=== PATIENT | male | born 1935 | race Caucasian/White ===

== ENCOUNTER → 2024-03-28 12:44 | Outpatient (CLI) | payer MEDICARE, OTHER, SELFPAY ==
--- NOTE | 2024-03-28 12:47 | DI.RAD.S_ITS ---
PROCEDURE: XR KNEE LT 3V INDICATIONS: Left knee injury TECHNIQUE: 3 views of the knee were acquired. COMPARISON: None. FINDINGS: Bones: No fractures or dislocations. No suspicious bony lesions. Lomf-fa-tismrrbi loss of joint space with tricompartmental osteophytosis. Soft tissues: There is a suprapatellar joint effusion. No suspicious soft tissue calcifications. IMPRESSION: Joint effusion in the setting of osteoarthritis without acute osseous abnormality. Dictated by: Tamar Fraser M.D. on 03/28/2024 at 13:13 Approved by: Tamar Fraser M.D. on 03/28/2024 at 13:14
== END ==
LOC: RAD 12:45
PROVIDERS: Family Provider Internal Medicine; PCP Internal Medicine; Referring Provider Registered Nurse; Visit Provider Registered Nurse
DX: M17.12 Unilateral primary osteoarthritis, left knee (principal); M25.562 Pain in left knee; M25.462 Effusion, left knee
CPT/HCPCS: 73562

== ENCOUNTER → 2024-04-11 08:52 | Outpatient (CLI) | payer MEDICARE, OTHER, SELFPAY ==
[2024-04-11 09:39] LABS: Add Manual Diff / Slide Review NO; Basophils Absolute Auto 0 /uL (0-100); Basophils Percent Auto 0.4 % (0-2); Eosinophils Absolute Auto 100 /uL (0-450); Eosinophils Percent Auto 2.1 % (2-4); Hematocrit 36.9 % (41-53); Hemoglobin 12.7 g/dL (13.5-17.5); Lymphocytes Absolute Auto 1400 /uL (1100-4500); Lymphocytes Percent Auto 20.4 % (25-40); Mean Corpuscular HGB Conc 34.4 % (30-36); Mean Corpuscular Hemoglobin 32.9 PG (26-34); Mean Corpuscular Volume 95.6 fL (80-100); Monocytes Absolute Auto 700 /uL (0-900); Monocytes Percent Auto 9.9 % (3-14); Neutrophils Absolute Auto 4500 /uL (1500-7000); Neutrophils Percent Auto 67.2 % (50-75); Platelet Count 228 X10^3/uL (150-400); Red Blood Cell Count 3.86 X10^6/uL (4.5-5.9); Red Cell Distribution Width 13.6 % (11.6-14.8); White Blood Cell Count 6.7 X10^3/uL (4.5-11.0)
[2024-04-11 10:13] LABS: Alanine Aminotransferase 26 IU/L (<50); Albumin 4.2 g/dL (3.5-5.0); Albumin Globulin Ratio 1.9 (1.0-2.8); Alkaline Phosphatase 59 U/L (38-126); Aspartate Aminotransferase 35 IU/L (17-59); BUN Creatinine Ratio 30.9 (6-22); Bilirubin Total 0.7 mg/dL (0.2-1.3); Blood Urea Nitrogen 25 mg/dL (9-20); C-Reactive Protein Quant 2.2 mg/dL (<1.0); Calcium 9.1 mg/dL (8.4-10.2); Carbon Dioxide 25 mmol/L (22-32); Chloride 99 mmol/L (98-107); Estimated Glomerular Filt Rate > 60 mL/min (>60); Globulin 2.2 g/dL (1.7-4.1); Glucose 117 mg/dL (80-110); HEMOLYSIS < 15 (0-50); Potassium 4.5 mmol/L (3.4-5.1); Sodium 133 mmol/L (137-145); Total Protein 6.4 g/dL (6.3-8.2)
[2024-04-11 10:48] LABS: Erythrocyte Sedimentation Rate 8 MM/HR (0-15)
== END ==
PROVIDERS: Family Provider Internal Medicine; PCP Internal Medicine; Referring Provider Internal Medicine; Visit Provider Internal Medicine
DX: M35.3 Polymyalgia rheumatica (principal)
CPT/HCPCS: 36415; 80053; 85025; 85651; 86140

== ENCOUNTER 2024-04-13 09:00 | Outpatient (RCR) | payer MEDICARE, OTHER, SELFPAY ==
--- NOTE | 2024-04-01 15:39 | PT.OIE ---
Current Diagnoses Other chronic pain (04/01/24) Low back pain, unspecified (04/01/24) Visit Care Team Role Provider Type Marky Sarmiento MD Family Provider Non-Staff Primary Care Provider Specialty: Internal Medicine Address: [address] [place] [address], [place], [address] Fax: Email: Radha Daly MD Attending Provider Non-Staff Referring Provider Specialty: Neurosurgery Address: [address] [place] [address],[employer], [place], [address] Email: Physical Therapy Initial Evaluation PT-OP-A Visit Information Start: 03/29/24 08:29 Freq: Status: Active Protocol: Document 04/01/24 07:31 MB (Rec: 04/01/24 07:41 MB [id number]) Out-Patient Physical Therapy Visit Information Visit Information Visit Type Initial Evaluation Visit Note Pt goes by [employer] Progress note by 05/02/24 Visit Start Time 07:31 Visit Stop Time 08:11 Visit Number 1 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 He does not recall the procedure . His biggest complaint is weakness in his legs. He states he does not need a cane to walk. He cannot get up when he goes to get down. He tripped on the curb coming into the PT clinic and he scraped his knee. He has some tiredness in LB with walking and no strength when getting up from the chair . He has to use his arms to pull up. Pt has no numbness or tingling in legs. He can walk but then feels tired in the LB. Treatment Goals Patient/Caregiver Goals To get lower body stronger. PT-OP-C Subjective Start: 03/29/24 08:29 Freq: Status: Active Protocol: Document 04/01/24 07:31 MB (Rec: 04/01/24 14:30 MB [id number]) OP-PT Subjective Patient Comments Patient Comments See history of current condition. Patient Questionnaires Oswestry Low Back Index Oswestry Score 10 Oswestry Impairment 20 to 39% Impaired (Score 20- 39) PT-OP-D Balance Start: 03/29/24 08:29 Freq: Status: Active Protocol: Document 04/01/24 07:31 MB (Rec: 04/01/24 14:30 MB [id number]) Balance Tests Other Other Balance Tests Performed See TUG and 30 sec STS testing today Further balance testing in future and pt presents with evidence of imbalance with all activities PT-OP-G Mobility & Gait Start: 03/29/24 08:29 Freq: Status: Active Protocol: Document 04/01/24 07:31 MB (Rec: 04/01/24 14:30 MB [id number]) OP Mobility Evaluation Bed Mobility Rolling PT attempts to educate pt in log rolling and he performs partial log rolling getting up to the left on plinth and does not roll fully to his side before sitting up OP Gait Assessment Comments Gait Comments Forward, flexed posture and pt tends to spend more time on right foot, presents with decreased step-length and foot clearance, partial step- through gait and pt has ataxic -type balance and standing on right leg during stance time, more antalgic gait after PT assessment today PT-OP-J Posture/Palpation/Skin Start: 03/29/24 08:29 Freq: Status: Active Protocol: Document 04/01/24 07:31 MB (Rec: 04/01/24 14:30 MB [id number]) Posture Evaluation Comments Posture Comments Standing in socks: forward head with tragus 3 in front of AC joint, rounded shoulders , reversal of lower thoracic spine dorsally and then spinal processes move ventrally, scar around L4-5 area, right iliac crest is higher than the left PT-OP-K Range of Motion Start: 03/29/24 08:29 Freq: Status: Active Protocol: Document 04/01/24 07:31 MB (Rec: 04/01/24 15:38 MB [id number]) Lumbar Spine Range of Motion Lumbar Spine Passive Comments Observation and palpation is that pt has severely stiff spine in general from cervical area to lumbar spine, left SI joint is much stiffer than the left and pt cannot relax for PT to check B passive SLR. In supine, left leg does not touch the mat posteriorly behind the thigh or knee and is functionally shorter than the right leg. Knee Goniometric Range of Motion Knee ROM Limitations Comments Arthritic appearing changes left knee when lying on mat: knee does not touch mat PT-OP-M Strength Start: 03/29/24 08:29 Freq: Status: Active Protocol: Document 04/01/24 07:31 MB (Rec: 04/01/24 15:38 MB [id number]) Hip Strength Hip Manual Muscle Testing Left Flexion (L2) 4- Good- Extension (S1) 3+ Fair+ Abduction 3+ Fair+ Right Flexion (L2) 4- Good- Extension (S1) 3+ Fair+ Abduction 3+ Fair+ Knee Strength Knee Manual Muscle Testing Left Flexion (S2) 3+ Fair+ Extension (L3) 4 Good Right Flexion (S2) 5 Normal Extension (L3) 4+ Good+ Ankle/Foot Strength Ankle and Foot Manual Muscle Testing Bilateral Dorsiflexion (L4) 5 Normal Toe Strength Toe Manual Muscle Testing Left Great Toe Extension 4+ Good+ Right Great Toe Extension 4+ Good+ PT-OP-Q Treatments Start: 03/29/24 08:29 Freq: Status: Active Protocol: Document 04/01/24 07:31 MB (Rec: 04/01/24 15:38 MB [id number]) Therapeutic Exercises Supine Exercises Pelvic realignment exercises Side bilateral Equipment Used Blue ball Reps/Minutes 5 rep, 3 sec hold all exercises in order Comments Feet together ball squeeze iso , knee opp ankle iso, thigh press iso Sitting Exercises 30 sec STS Comments 8 reps Neuro Re-Education Treatment Balance Activities TUG Comments 15 sec Self-Care/Home Management Treatment Education Patient Education Body Mechanics,Home Exercise Program,Joint Protection,Pain Management,Posture,Safety Other Education Ed pt in proper sleeping position with pillow support between legs in side lying, benefits of ice, benefits of PT plan to work on alignment first, then flexibility and then strengthening and balance , ed pt on log rolling technique PT-OP-T Assessment and Plan Start: 03/29/24 08:29 Freq: Status: Active Protocol: Document 04/01/24 07:31 MB (Rec: 04/01/24 15:38 MB [id number]) Physical Therapy Assessment Rehab Potential Rehabilitation Potential Fair Evaluation Complexity Number of Personal Factors/Comorbidities 1-2 Number of Body Systems Impaired 3 Clinical Presentation at Evaluation Evolving Impairments Impairments Activity Tolerance,Balance, Coordination,Functional Activities,Functional Mobility ,Gait,Pain,Posture,ROM,Soft Tissue Mobility,Strength Other Concerns Fall Risk Yes Goals 4 Impairment Lack of HEP Residential Goal (LTG) Pt will perform progressive HEP with I including pelvic realignment exercises, gentle flexibility, strengthening and balance exercises to improve pain and funcitonal strength. LTG Duration 8 weeks 3 Impairment Hip and knee weakness with MMT Residential Goal (LTG) Pt will present with B hip flexion, extension and abduction strength to at least 4+/5 to improve functional transfers and gait. LTG Duration 8 weeks 2 Impairment C/o weakness and tiredness with increased gait distance Stapler Hand Goal (LTG) Pt will gait train at least 1100 feet in 6 minutes to improve community ambulation. LTG Duration 8 weeks 1 Impairment Evidence of imbalance, TUG 15 sec Stapler Hand Goal (LTG) Pt will perform TUG in no more than 10 sec to decrease fall risk. LTG Duration 8 weeks Assessment Summary Assessment Pt is an 88 y/o male who returns to OPPT post lumbar surgery 01/17/24. No surgical note sent with referral and scar is around L4-5 area. Pt is unable to state what level or what type of surgery he had . Pt reports improved pain and increased back tiredness and leg weakness post-op. Pt con't with spinal and postural changes and pelvic obliquities on eval today. He presents with B LE weakness, increased left SI tension, functional leg length difference in supine with left leg shorter than the right leg, left knee not touching the mat, poor gait quality with antalgic gait and more stance time on right leg, increased TUG time and increased pain after 30 sec STS in which he performed 8 reps. He presents with B LE weakness with MMT. His pain is worse after PT today. He will benefit from PT to improve pelvic alignment, gentle flexibility, balance and strength. Advanced age is a barrier. Pt had a stumble up a curb lately and he has not been open about AD use in the past and reports he doesn't have to use one post-op and so this may also be a barrier. Pt denies paresthesias in legs today initially but then has left side posterior leg pain and knee stiffness after MMT in supine, SI testing and STS. Physical Therapy Plan Frequency and Duration Frequency of Treatment 1-2x/wk Duration of treatment (weeks) 8 Plan of Care Start Date 04/01/24 Plan of Care End Date 06/01/24 Therapeutic Interventions Therapeutic Interventions Balance Training,Canalithic Repositioning,Gait Training, Home Exercise Program,Joint Mobilizations,Manual Therapy, Neuromuscular Re-education, Patient/Caregiver Education, Self-Care/Home Management,Soft Tissue Mobilization,Taping, Therapeutic Activities, Therapeutic Exercises Modalities Cold Pack/Ice Massage,Electric Stimulation,Hot Packs, Ultrasound Next Visit Focus/Plan Next Note Type Treatment Note Next Visit Plan Review pelvic realignment exercises, consider 6MWT Next progress gentle flexibility and [place] type exercises Manual work
--- NOTE | 2024-04-01 15:39 | PT.OPPOC ---
Physical, Occupational & Speech Therapy At [facility] Current Diagnoses Other chronic pain (04/01/24) Low back pain, unspecified (04/01/24) Visit Care Team Role Provider Type aMrky Sarmiento MD Family Provider Non-Staff Primary Care Provider Specialty: Internal Medicine Address: [address] [place] [address], [address] Fax: Email: Radha Daly MD Attending Provider Non-Staff Referring Provider Specialty: Neurosurgery Address: [address] [place] [address],[employer] [place], [address] Email: Plan Of Care PT-OP-B Current Condition Start: 03/29/24 08:29 Freq: Status: Active Protocol: Document 04/01/24 07:31 MB (Rec: 04/01/24 07:41 MB [id number]) Current Condition History of Current Condition Onset Date Surgery on 01/17/24, many years of back pain Current Complaints Leg weakness History of Current Condition Pt underwent lumbar surgery at [facility] on 01/17/24. He does not recall the procedure . His biggest complaint is weakness in his legs. He states he does not need a cane to walk. He cannot get up when he goes to get down. He tripped on the curb coming into the PT clinic and he scraped his knee. He has some tiredness in LB with walking and no strength when getting up from the chair . He has to use his arms to pull up. Pt has no numbness or tingling in legs. He can walk but then feels tired in the LB. Treatment Goals Patient/Caregiver Goals To get lower body stronger. PT-OP-T Assessment and Plan Start: 03/29/24 08:29 Freq: Status: Active Protocol: Document 04/01/24 07:31 MB (Rec: 04/01/24 15:38 MB [id number]) Physical Therapy Assessment Rehab Potential Rehabilitation Potential Fair Evaluation Complexity Number of Personal Factors/Comorbidities 1-2 Number of Body Systems Impaired 3 Clinical Presentation at Evaluation Evolving Impairments Impairments Activity Tolerance,Balance, Coordination,Functional Activities,Functional Mobility ,Gait,Pain,Posture,ROM,Soft Tissue Mobility,Strength Other Concerns Fall Risk Yes Goals 4 Impairment Lack of HEP Senior Care Goal (LTG) Pt will perform progressive HEP with I including pelvic realignment exercises, gentle flexibility, strengthening and balance exercises to improve pain and funcitonal strength. LTG Duration 8 weeks 3 Impairment Hip and knee weakness with MMT [employer] Goal (LTG) Pt will present with B hip flexion, extension and abduction strength to at least 4+/5 to improve functional transfers and gait. LTG Duration 8 weeks 2 Impairment C/o weakness and tiredness with increased gait distance [employer] Goal (LTG) Pt will gait train at least 1100 feet in 6 minutes to improve community ambulation. LTG Duration 8 weeks 1 Impairment Evidence of imbalance, TUG 15 sec Senior Care Goal (LTG) Pt will perform TUG in no more than 10 sec to decrease fall risk. LTG Duration 8 weeks Assessment Summary Assessment Pt is an 88 y/o male who returns to OPPT post lumbar surgery 01/17/24. No surgical note sent with referral and scar is around L4-5 area. Pt is unable to state what level or what type of surgery he had . Pt reports improved pain and increased back tiredness and leg weakness post-op. Pt con't with spinal and postural changes and pelvic obliquities on eval today. He presents with B LE weakness, increased left SI tension, functional leg length difference in supine with left leg shorter than the right leg, left knee not touching the mat, poor gait quality with antalgic gait and more stance time on right leg, increased TUG time and increased pain after 30 sec STS in which he performed 8 reps. He presents with B LE weakness with MMT. His pain is worse after PT today. He will benefit from PT to improve pelvic alignment, gentle flexibility, balance and strength. Advanced age is a barrier. Pt had a stumble up a curb lately and he has not been open about AD use in the past and reports he doesn't have to use one post-op and so this may also be a barrier. Pt denies paresthesias in legs today initially but then has left side posterior leg pain and knee stiffness after MMT in supine, SI testing and STS. Physical Therapy Plan Frequency and Duration Frequency of Treatment 1-2x/wk Duration of treatment (weeks) 8 Plan of Care Start Date 04/01/24 Plan of Care End Date 06/01/24 Therapeutic Interventions Therapeutic Interventions Balance Training,Canalithic Repositioning,Gait Training, Home Exercise Program,Joint Mobilizations,Manual Therapy, Neuromuscular Re-education, Patient/Caregiver Education, Self-Care/Home Management,Soft Tissue Mobilization,Taping, Therapeutic Activities, Therapeutic Exercises Modalities Cold Pack/Ice Massage,Electric Stimulation,Hot Packs, Ultrasound Next Visit Focus/Plan Next Note Type Treatment Note Next Visit Plan Review pelvic realignment exercises, consider 6MWT Next progress gentle flexibility and [place] type exercises Manual work Plan of Care Dates Plan of Care Start Date 04/01/24 Plan of Care End Date 06/01/24 Electronically Signed by: Paola Portillo, PT 04/01/24 2849 If you are in agreement with this Plan of Care, please return a signed and dated copy. I have reviewed this Plan of Care and certify that the skilled therapy services above are required to meet the patient?s needs. Physician Signature Date Printed Name and Credentials Clinical Instructor Signature Printed Name and Credentials
--- NOTE | 2024-04-06 08:09 | PT.OTN ---
Current Diagnoses Other chronic pain (04/06/24) Low back pain, unspecified (04/06/24) Physical Therapy Treatment Note PT-OP-A Visit Information Start: 03/29/24 08:29 Freq: Status: Active Protocol: Document 04/06/24 07:27 MB (Rec: 04/06/24 08:07 MB [id number]) Out-Patient Physical Therapy Visit Information Visit Information Visit Type Treatment Note Visit Note Pt goes by [employer] Progress note by 05/02/24 Visit Start Time 07:27 Visit Stop Time 08:07 Visit Number 2 Number of ICER HAND Visits 0 Evaluation Information Evaluation Date 04/01/24 Precautions Precautions Recent spinal surgery, looks like L4-5 area and pt cannot report what surgery or what level, no notes from surgeon in chart PT-OP-B Current Condition Start: 03/29/24 08:29 Freq: Status: Active Protocol: Document 04/01/24 07:31 MB (Rec: 04/01/24 07:41 MB [id number]) Current Condition History of Current Condition Onset Date Surgery on 01/17/24, many years of back pain Current Complaints Leg weakness History of Current Condition Pt underwent lumbar surgery at [facility] on 01/17/24. He does not recall the procedure . His biggest complaint is weakness in his legs. He states he does not need a cane to walk. He cannot get up when he goes to get down. He tripped on the curb coming into the PT clinic and he scraped his knee. He has some tiredness in LB with walking and no strength when getting up from the chair . He has to use his arms to pull up. Pt has no numbness or tingling in legs. He can walk but then feels tired in the LB. Treatment Goals Patient/Caregiver Goals To get lower body stronger. PT-OP-C Subjective Start: 03/29/24 08:29 Freq: Status: Active Protocol: Document 04/06/24 07:27 MB (Rec: 04/06/24 08:07 MB [id number]) OP-PT Subjective Patient Comments Patient Comments Pt asks if it is normal to have so many aches and pain 10 weeks after back surgery. He states that his left leg gives out on him some. PT-OP-D Balance Start: 03/29/24 08:29 Freq: Status: Active Protocol: Document 04/01/24 07:31 MB (Rec: 04/01/24 14:30 MB [id number]) Balance Tests Other Other Balance Tests Performed See TUG and 30 sec STS testing today Further balance testing in future and pt presents with evidence of imbalance with all activities PT-OP-G Mobility & Gait Start: 03/29/24 08:29 Freq: Status: Active Protocol: Document 04/01/24 07:31 MB (Rec: 04/01/24 14:30 MB [id number]) OP Mobility Evaluation Bed Mobility Rolling PT attempts to educate pt in log rolling and he performs partial log rolling getting up to the left on plinth and does not roll fully to his side before sitting up OP Gait Assessment Comments Gait Comments Forward, flexed posture and pt tends to spend more time on right foot, presents with decreased step-length and foot clearance, partial step- through gait and pt has ataxic -type balance and standing on right leg during stance time, more antalgic gait after PT assessment today PT-OP-J Posture/Palpation/Skin Start: 03/29/24 08:29 Freq: Status: Active Protocol: Document 04/01/24 07:31 MB (Rec: 04/01/24 14:30 MB [id number]) Posture Evaluation Comments Posture Comments Standing in socks: forward head with tragus 3 in front of AC joint, rounded shoulders , reversal of lower thoracic spine dorsally and then spinal processes move ventrally, scar around L4-5 area, right iliac crest is higher than the left PT-OP-K Range of Motion Start: 03/29/24 08:29 Freq: Status: Active Protocol: Document 04/01/24 07:31 MB (Rec: 04/01/24 15:38 MB [id number]) Lumbar Spine Range of Motion Lumbar Spine Passive Comments Observation and palpation is that pt has severely stiff spine in general from cervical area to lumbar spine, left SI joint is much stiffer than the left and pt cannot relax for PT to check B passive SLR. In supine, left leg does not touch the mat posteriorly behind the thigh or knee and is functionally shorter than the right leg. Knee Goniometric Range of Motion Knee ROM Limitations Comments Arthritic appearing changes left knee when lying on mat: knee does not touch mat PT-OP-M Strength Start: 03/29/24 08:29 Freq: Status: Active Protocol: Document 04/01/24 07:31 MB (Rec: 04/01/24 15:38 MB [id number]) Hip Strength Hip Manual Muscle Testing Left Flexion (L2) 4- Good- Extension (S1) 3+ Fair+ Abduction 3+ Fair+ Right Flexion (L2) 4- Good- Extension (S1) 3+ Fair+ Abduction 3+ Fair+ Knee Strength Knee Manual Muscle Testing Left Flexion (S2) 3+ Fair+ Extension (L3) 4 Good Right Flexion (S2) 5 Normal Extension (L3) 4+ Good+ Ankle/Foot Strength Ankle and Foot Manual Muscle Testing Bilateral Dorsiflexion (L4) 5 Normal Toe Strength Toe Manual Muscle Testing Left Great Toe Extension 4+ Good+ Right Great Toe Extension 4+ Good+ PT-OP-Q Treatments Start: 03/29/24 08:29 Freq: Status: Active Protocol: Document 04/06/24 07:27 MB (Rec: 04/06/24 08:07 MB [id number]) Therapeutic Exercises Supine Exercises SLR Side bilateral Reps/Minutes Opposite leg bent Comments 10 reps Pelvic realignment exercises Side bilateral Equipment Used Blue ball and towel Reps/Minutes 5 rep, 3 sec hold all exercises in order Comments Feet together ball squeeze iso , knee opp ankle iso, thigh press iso Gait Training Gait Activity Gait in clinic Comments Decreased right arm swing and he tends to only bend elbow and his right scapula is still and elevated, he has increased time on right leg with stance time consistently and it appears that he has functional leg length difference 6MWT Comments Pt gait trains 1350 feet in 6 minutes and he walks CCW laps and start to veer to the right towards end of gait Manual Therapy Treatment Consent Patient gave verbal consent for manual Yes treatment Other Other Manual Treatments Pt hook lying with head and legs supported: B hamstrings, vastus lateralis, PFs PT-OP-T Assessment and Plan Start: 03/29/24 08:29 Freq: Status: Active Protocol: Document 04/06/24 07:27 MB (Rec: 04/06/24 08:07 MB [id number]) Physical Therapy Assessment Rehab Potential Rehabilitation Potential Fair Evaluation Complexity Number of Personal Factors/Comorbidities 1-2 Number of Body Systems Impaired 3 Clinical Presentation at Evaluation Evolving Impairments Impairments Activity Tolerance,Balance, Coordination,Functional Activities,Functional Mobility ,Gait,Pain,Posture,ROM,Soft Tissue Mobility,Strength Other Concerns Fall Risk Yes Goals 5 Impairment 1350 feet in 6MWT Master Printer Goal (LTG) Pt will gait train at least 1450 feet in 6 minutes to improve community mobility and balance. LTG Duration 8 weeks 4 Impairment Lack of HEP Master Printer Goal (LTG) Pt will perform progressive HEP with I including pelvic realignment exercises, gentle flexibility, strengthening and balance exercises to improve pain and funcitonal strength. LTG Duration 8 weeks 3 Impairment Hip and knee weakness with MMT Assisted Goal (LTG) Pt will present with B hip flexion, extension and abduction strength to at least 4+/5 to improve functional transfers and gait. LTG Duration 8 weeks 2 Impairment C/o weakness and tiredness with increased gait distance Assisted Goal (LTG) Pt will gait train at least 1100 feet in 6 minutes to improve community ambulation. 04/06/24 Pt gait trains 1350 feet and so will increase goal LTG Duration 8 weeks 1 Impairment Evidence of imbalance, TUG 15 sec Master Printer Goal (LTG) Pt will perform TUG in no more than 10 sec to decrease fall risk. LTG Duration 8 weeks Assessment Summary Assessment Pt con't with gait changes and functional leg length difference and imbalance with gait. He c/o feeling like left leg is going to give out. Reviewed pelvic realignment exercises and added SLR for strengthening. Pt states that he is bending over to pick weeds and feels discouraged he can't do it and PT re-ed pt on back precautions. Pt con't to have decreased insight to his spinal presentation and safety. Physical Therapy Plan Frequency and Duration Frequency of Treatment 1-2x/wk Duration of treatment (weeks) 8 Plan of Care Start Date 04/01/24 Plan of Care End Date 06/01/24 Therapeutic Interventions Therapeutic Interventions Balance Training,Canalithic Repositioning,Gait Training, Home Exercise Program,Joint Mobilizations,Manual Therapy, Neuromuscular Re-education, Patient/Caregiver Education, Self-Care/Home Management,Soft Tissue Mobilization,Taping, Therapeutic Activities, Therapeutic Exercises Modalities Cold Pack/Ice Massage,Electric Stimulation,Hot Packs, Ultrasound Next Visit Focus/Plan Next Note Type Treatment Note Next Visit Plan Next progress gentle flexibility, gentle core progression and [place] type exercises Manual work Check in with 6MWT and TUG every 3-4 visits to monitor for progress
--- NOTE | 2024-04-06 08:09 | PT.OPPOC ---
Physical, Occupational & Speech Therapy At [facility] Current Diagnoses Other chronic pain (04/06/24) Low back pain, unspecified (04/06/24) Visit Care Team Role Provider Type Marky Sarmiento MD Family Provider Non-Staff Primary Care Provider Specialty: Internal Medicine Address: [address] [place] [address], [id number] Fax: Email: Radha Daly MD Attending Provider Non-Staff Referring Provider Specialty: Neurosurgery Address: [address] [place] [address],[address] [place], [address] Email: Plan Of Care PT-OP-B Current Condition Start: 03/29/24 08:29 Freq: Status: Active Protocol: Document 04/01/24 07:31 MB (Rec: 04/01/24 07:41 MB [id number]) Current Condition History of Current Condition Onset Date Surgery on 01/17/24, many years of back pain Current Complaints Leg weakness History of Current Condition Pt underwent lumbar surgery at [facility] on 01/17/24. He does not recall the procedure . His biggest complaint is weakness in his legs. He states he does not need a cane to walk. He cannot get up when he goes to get down. He tripped on the curb coming into the PT clinic and he scraped his knee. He has some tiredness in LB with walking and no strength when getting up from the chair . He has to use his arms to pull up. Pt has no numbness or tingling in legs. He can walk but then feels tired in the LB. Treatment Goals Patient/Caregiver Goals To get lower body stronger. PT-OP-T Assessment and Plan Start: 03/29/24 08:29 Freq: Status: Active Protocol: Document 04/06/24 07:27 MB (Rec: 04/06/24 08:07 MB [id number]) Physical Therapy Assessment Rehab Potential Rehabilitation Potential Fair Evaluation Complexity Number of Personal Factors/Comorbidities 1-2 Number of Body Systems Impaired 3 Clinical Presentation at Evaluation Evolving Impairments Impairments Activity Tolerance,Balance, Coordination,Functional Activities,Functional Mobility ,Gait,Pain,Posture,ROM,Soft Tissue Mobility,Strength Other Concerns Fall Risk Yes Goals 5 Impairment 1350 feet in 6MWT Central Office Supervisor Goal (LTG) Pt will gait train at least 1450 feet in 6 minutes to improve community mobility and balance. LTG Duration 8 weeks 4 Impairment Lack of HEP Snf Goal (LTG) Pt will perform progressive HEP with I including pelvic realignment exercises, gentle flexibility, strengthening and balance exercises to improve pain and funcitonal strength. LTG Duration 8 weeks 3 Impairment Hip and knee weakness with MMT Central Office Supervisor Goal (LTG) Pt will present with B hip flexion, extension and abduction strength to at least 4+/5 to improve functional transfers and gait. LTG Duration 8 weeks 2 Impairment C/o weakness and tiredness with increased gait distance Snf Goal (LTG) Pt will gait train at least 1100 feet in 6 minutes to improve community ambulation. 04/06/24 Pt gait trains 1350 feet and so will increase goal LTG Duration 8 weeks 1 Impairment Evidence of imbalance, TUG 15 sec Central Office Supervisor Goal (LTG) Pt will perform TUG in no more than 10 sec to decrease fall risk. LTG Duration 8 weeks Assessment Summary Assessment Pt con't with gait changes and functional leg length difference and imbalance with gait. He c/o feeling like left leg is going to give out. Reviewed pelvic realignment exercises and added SLR for strengthening. Pt states that he is bending over to pick weeds and feels discouraged he can't do it and PT re-ed pt on back precautions. Pt con't to have decreased insight to his spinal presentation and safety. Physical Therapy Plan Frequency and Duration Frequency of Treatment 1-2x/wk Duration of treatment (weeks) 8 Plan of Care Start Date 04/01/24 Plan of Care End Date 06/01/24 Therapeutic Interventions Therapeutic Interventions Balance Training,Canalithic Repositioning,Gait Training, Home Exercise Program,Joint Mobilizations,Manual Therapy, Neuromuscular Re-education, Patient/Caregiver Education, Self-Care/Home Management,Soft Tissue Mobilization,Taping, Therapeutic Activities, Therapeutic Exercises Modalities Cold Pack/Ice Massage,Electric Stimulation,Hot Packs, Ultrasound Next Visit Focus/Plan Next Note Type Treatment Note Next Visit Plan Next progress gentle flexibility, gentle core progression and Otago type exercises Manual work Check in with 6MWT and TUG every 3-4 visits to monitor for progress Plan of Care Dates Plan of Care Start Date 04/01/24 Plan of Care End Date 06/01/24 Electronically Signed by: Paola Portillo, PT 04/06/24 0809 If you are in agreement with this Plan of Care, please return a signed and dated copy. I have reviewed this Plan of Care and certify that the skilled therapy services above are required to meet the patient?s needs. Physician Signature Date Printed Name and Credentials Clinical Instructor Signature Printed Name and Credentials
--- NOTE | 2024-04-08 08:10 | PT.OTN ---
Current Diagnoses Other chronic pain (04/08/24) Low back pain, unspecified (04/08/24) Physical Therapy Treatment Note PT-OP-A Visit Information Start: 03/29/24 08:29 Freq: Status: Active Protocol: Document 04/08/24 07:31 MB (Rec: 04/08/24 08:08 MB [id number]) Out-Patient Physical Therapy Visit Information Visit Information Visit Type Treatment Note Visit Note Pt goes by Bill [employer] Progress note by 05/02/24 Visit Start Time 07:31 Visit Stop Time 08:11 Visit Number 3 Number of WHOLESALE ACCOUNT EXECUTIVE Visits 0 Evaluation Information Evaluation Date 04/01/24 Precautions Precautions 01/17/24 L2-3, L3-4 laminectomy PT-OP-B Current Condition Start: 03/29/24 08:29 Freq: Status: Active Protocol: Document 04/01/24 07:31 MB (Rec: 04/01/24 07:41 MB [id number]) Current Condition History of Current Condition Onset Date Surgery on 01/17/24, many years of back pain Current Complaints Leg weakness History of Current Condition Pt underwent lumbar surgery at [facility] on 01/17/24. He does not recall the procedure . His biggest complaint is weakness in his legs. He states he does not need a cane to walk. He cannot get up when he goes to get down. He tripped on the curb coming into the PT clinic and he scraped his knee. He has some tiredness in LB with walking and no strength when getting up from the chair . He has to use his arms to pull up. Pt has no numbness or tingling in legs. He can walk but then feels tired in the LB. Treatment Goals Patient/Caregiver Goals To get lower body stronger. PT-OP-C Subjective Start: 03/29/24 08:29 Freq: Status: Active Protocol: Document 04/08/24 07:31 MB (Rec: 04/08/24 08:08 MB [id number]) OP-PT Subjective Patient Comments Patient Comments Pt states that he feels a little sore this morning and he is tired. PT-OP-D Balance Start: 03/29/24 08:29 Freq: Status: Active Protocol: Document 04/01/24 07:31 MB (Rec: 04/01/24 14:30 MB [id number]) Balance Tests Other Other Balance Tests Performed See TUG and 30 sec STS testing today Further balance testing in future and pt presents with evidence of imbalance with all activities PT-OP-G Mobility & Gait Start: 03/29/24 08:29 Freq: Status: Active Protocol: Document 04/01/24 07:31 MB (Rec: 04/01/24 14:30 MB [id number]) OP Mobility Evaluation Bed Mobility Rolling PT attempts to educate pt in log rolling and he performs partial log rolling getting up to the left on plinth and does not roll fully to his side before sitting up OP Gait Assessment Comments Gait Comments Forward, flexed posture and pt tends to spend more time on right foot, presents with decreased step-length and foot clearance, partial step- through gait and pt has ataxic -type balance and standing on right leg during stance time, more antalgic gait after PT assessment today PT-OP-J Posture/Palpation/Skin Start: 03/29/24 08:29 Freq: Status: Active Protocol: Document 04/01/24 07:31 MB (Rec: 04/01/24 14:30 MB [id number]) Posture Evaluation Comments Posture Comments Standing in socks: forward head with tragus 3 in front of AC joint, rounded shoulders , reversal of lower thoracic spine dorsally and then spinal processes move ventrally, scar around L4-5 area, right iliac crest is higher than the left PT-OP-K Range of Motion Start: 03/29/24 08:29 Freq: Status: Active Protocol: Document 04/01/24 07:31 MB (Rec: 04/01/24 15:38 MB [id number]) Lumbar Spine Range of Motion Lumbar Spine Passive Comments Observation and palpation is that pt has severely stiff spine in general from cervical area to lumbar spine, left SI joint is much stiffer than the left and pt cannot relax for PT to check B passive SLR. In supine, left leg does not touch the mat posteriorly behind the thigh or knee and is functionally shorter than the right leg. Knee Goniometric Range of Motion Knee ROM Limitations Comments Arthritic appearing changes left knee when lying on mat: knee does not touch mat PT-OP-M Strength Start: 03/29/24 08:29 Freq: Status: Active Protocol: Document 04/01/24 07:31 MB (Rec: 04/01/24 15:38 MB [id number]) Hip Strength Hip Manual Muscle Testing Left Flexion (L2) 4- Good- Extension (S1) 3+ Fair+ Abduction 3+ Fair+ Right Flexion (L2) 4- Good- Extension (S1) 3+ Fair+ Abduction 3+ Fair+ Knee Strength Knee Manual Muscle Testing Left Flexion (S2) 3+ Fair+ Extension (L3) 4 Good Right Flexion (S2) 5 Normal Extension (L3) 4+ Good+ Ankle/Foot Strength Ankle and Foot Manual Muscle Testing Bilateral Dorsiflexion (L4) 5 Normal Toe Strength Toe Manual Muscle Testing Left Great Toe Extension 4+ Good+ Right Great Toe Extension 4+ Good+ PT-OP-Q Treatments Start: 03/29/24 08:29 Freq: Status: Active Protocol: Document 04/08/24 07:31 MB (Rec: 04/08/24 08:08 MB [id number]) Therapeutic Exercises Supine Exercises SLR Side bilateral Reps/Minutes Opposite leg bent Comments 10 reps Pelvic realignment exercises Supine Exercise Name Increased time and cues to perform this ex Side bilateral Equipment Used Blue ball and towel Reps/Minutes 5 rep, 3 sec hold all exercises in order Comments Feet together ball squeeze iso , knee opp ankle iso, thigh press iso Standing Exercises Gastroc and soleus stretches Side bilateral Reps/Minutes 30 sec hold each ex, each leg Comments 1 rep each leg Manual Therapy Treatment Consent Patient gave verbal consent for manual Yes treatment Other Other Manual Treatments KT left knee with black tape and c strip under knee and medial and lateral I strips; pt supine and STM and positional release thoracic spine, ribs, intrascapular muscles B and increased tension, increased tension B quads/vastus lateralis PT-OP-T Assessment and Plan Start: 03/29/24 08:29 Freq: Status: Active Protocol: Document 04/08/24 07:31 MB (Rec: 04/08/24 08:08 MB [id number]) Physical Therapy Assessment Rehab Potential Rehabilitation Potential Fair Evaluation Complexity Number of Personal Factors/Comorbidities 1-2 Number of Body Systems Impaired 3 Clinical Presentation at Evaluation Evolving Impairments Impairments Activity Tolerance,Balance, Coordination,Functional Activities,Functional Mobility ,Gait,Pain,Posture,ROM,Soft Tissue Mobility,Strength Other Concerns Fall Risk Yes Goals 5 Impairment 1350 feet in 6MWT Quality Control Assistant Goal (LTG) Pt will gait train at least 1450 feet in 6 minutes to improve community mobility and balance. LTG Duration 8 weeks 4 Impairment Lack of HEP Halfway Goal (LTG) Pt will perform progressive HEP with I including pelvic realignment exercises, gentle flexibility, strengthening and balance exercises to improve pain and funcitonal strength. LTG Duration 8 weeks 3 Impairment Hip and knee weakness with MMT Halfway Goal (LTG) Pt will present with B hip flexion, extension and abduction strength to at least 4+/5 to improve functional transfers and gait. LTG Duration 8 weeks 1 Impairment Evidence of imbalance, TUG 15 sec Quality Control Assistant Goal (LTG) Pt will perform TUG in no more than 10 sec to decrease fall risk. LTG Duration 8 weeks Assessment Summary Assessment Pt con't to report some left knee buckling and he has caught himself before he fell. Pt has quite a bit of trouble following commands for third pelvic realignment exercise today. Physical Therapy Plan Frequency and Duration Frequency of Treatment 1-2x/wk Duration of treatment (weeks) 8 Plan of Care Start Date 04/01/24 Plan of Care End Date 06/01/24 Therapeutic Interventions Therapeutic Interventions Balance Training,Canalithic Repositioning,Gait Training, Home Exercise Program,Joint Mobilizations,Manual Therapy, Neuromuscular Re-education, Patient/Caregiver Education, Self-Care/Home Management,Soft Tissue Mobilization,Taping, Therapeutic Activities, Therapeutic Exercises Modalities Cold Pack/Ice Massage,Electric Stimulation,Hot Packs, Ultrasound Next Visit Focus/Plan Next Note Type Treatment Note Next Visit Plan Review exercises, consider Navin stretch Progress gentle flexibility, gentle core progression and [place] type exercises Manual work Check in with 6MWT and TUG every 3-4 visits to monitor for progress
--- NOTE | 2024-04-13 09:41 | PT.OTN ---
Current Diagnoses Other chronic pain (04/13/24) Low back pain, unspecified (04/13/24) Physical Therapy Treatment Note PT-OP-A Visit Information Start: 03/29/24 08:29 Freq: Status: Active Protocol: Document 04/13/24 09:04 MB (Rec: 04/13/24 09:38 MB [id number]) Out-Patient Physical Therapy Visit Information Visit Information Visit Type Treatment Note Visit Note Pt goes by Bill Medicare Progress note by 05/02/24 Visit Start Time 09:04 Visit Stop Time 09:44 Visit Number 4 Number of REHABILITATION SERVICES DIRECTOR Visits 0 Evaluation Information Evaluation Date 04/01/24 Precautions Precautions 01/17/24 L2-3, L3-4 laminectomy PT-OP-B Current Condition Start: 03/29/24 08:29 Freq: Status: Active Protocol: Document 04/01/24 07:31 MB (Rec: 04/01/24 07:41 MB [id number]) Current Condition History of Current Condition Onset Date Surgery on 01/17/24, many years of back pain Current Complaints Leg weakness History of Current Condition Pt underwent lumbar surgery at [facility] on 01/17/24. He does not recall the procedure . His biggest complaint is weakness in his legs. He states he does not need a cane to walk. He cannot get up when he goes to get down. He tripped on the curb coming into the PT clinic and he scraped his knee. He has some tiredness in LB with walking and no strength when getting up from the chair . He has to use his arms to pull up. Pt has no numbness or tingling in legs. He can walk but then feels tired in the LB. Treatment Goals Patient/Caregiver Goals To get lower body stronger. PT-OP-C Subjective Start: 03/29/24 08:29 Freq: Status: Active Protocol: Document 04/13/24 09:04 MB (Rec: 04/13/24 09:38 MB [id number]) OP-PT Subjective Patient Comments Patient Comments Pt states that he had three falls over the weekend. He was standing at the sink and his left leg gave way. Once, he was walking and his left leg gave out on him. Once, he was tying to put on socks and he slipped off the chair and fell down in the closet. He reports high after PT treatment. He reports low back pain and tired left leg. Pt reports right shoulder tightness and discomfort. He wrote the surgeon and was told it should go away with time. He is referred to rheumatology for LBP. He might have to go back on prednisone. PT-OP-D Balance Start: 03/29/24 08:29 Freq: Status: Active Protocol: Document 04/01/24 07:31 MB (Rec: 04/01/24 14:30 MB [id number]) Balance Tests Other Other Balance Tests Performed See TUG and 30 sec STS testing today Further balance testing in future and pt presents with evidence of imbalance with all activities PT-OP-G Mobility & Gait Start: 03/29/24 08:29 Freq: Status: Active Protocol: Document 04/01/24 07:31 MB (Rec: 04/01/24 14:30 MB [id number]) OP Mobility Evaluation Bed Mobility Rolling PT attempts to educate pt in log rolling and he performs partial log rolling getting up to the left on plinth and does not roll fully to his side before sitting up OP Gait Assessment Comments Gait Comments Forward, flexed posture and pt tends to spend more time on right foot, presents with decreased step-length and foot clearance, partial step- through gait and pt has ataxic -type balance and standing on right leg during stance time, more antalgic gait after PT assessment today PT-OP-J Posture/Palpation/Skin Start: 03/29/24 08:29 Freq: Status: Active Protocol: Document 04/01/24 07:31 MB (Rec: 04/01/24 14:30 MB [id number]) Posture Evaluation Comments Posture Comments Standing in socks: forward head with tragus 3 in front of AC joint, rounded shoulders , reversal of lower thoracic spine dorsally and then spinal processes move ventrally, scar around L4-5 area, right iliac crest is higher than the left PT-OP-K Range of Motion Start: 03/29/24 08:29 Freq: Status: Active Protocol: Document 04/01/24 07:31 MB (Rec: 04/01/24 15:38 MB [id number]) Lumbar Spine Range of Motion Lumbar Spine Passive Comments Observation and palpation is that pt has severely stiff spine in general from cervical area to lumbar spine, left SI joint is much stiffer than the left and pt cannot relax for PT to check B passive SLR. In supine, left leg does not touch the mat posteriorly behind the thigh or knee and is functionally shorter than the right leg. Knee Goniometric Range of Motion Knee ROM Limitations Comments Arthritic appearing changes left knee when lying on mat: knee does not touch mat PT-OP-M Strength Start: 03/29/24 08:29 Freq: Status: Active Protocol: Document 04/01/24 07:31 MB (Rec: 04/01/24 15:38 MB [id number]) Hip Strength Hip Manual Muscle Testing Left Flexion (L2) 4- Good- Extension (S1) 3+ Fair+ Abduction 3+ Fair+ Right Flexion (L2) 4- Good- Extension (S1) 3+ Fair+ Abduction 3+ Fair+ Knee Strength Knee Manual Muscle Testing Left Flexion (S2) 3+ Fair+ Extension (L3) 4 Good Right Flexion (S2) 5 Normal Extension (L3) 4+ Good+ Ankle/Foot Strength Ankle and Foot Manual Muscle Testing Bilateral Dorsiflexion (L4) 5 Normal Toe Strength Toe Manual Muscle Testing Left Great Toe Extension 4+ Good+ Right Great Toe Extension 4+ Good+ PT-OP-Q Treatments Start: 03/29/24 08:29 Freq: Status: Active Protocol: Document 04/13/24 09:04 MB (Rec: 04/13/24 09:38 MB [id number]) Therapeutic Exercises Supine Exercises SLR Comments Cannot tolerate Pelvic realignment exercises Supine Exercise Name Increased time and cues to perform this ex Side bilateral Equipment Used Blue ball and towel Reps/Minutes 5 rep, 3 sec hold all exercises in order Comments Feet together ball squeeze iso , knee opp ankle iso, thigh press iso Standing Exercises Gastroc and soleus stretches Side bilateral Reps/Minutes 30 sec hold each ex, each leg Comments 1 rep each leg Gait Training Gait Activity Gait in clinic Comments Gait training several laps in halls and in gym with cane in right hand and cues to advance with left leg and then also with rollator and pt does better with cane in right hand with moving with left foot with practice Self-Care/Home Management Treatment Education Other Education Ed pt that he can stop SLR if he thinks this is bothering him. Ongoing extensive education about needing to stop falling to improve and benefits of AD including cane and rollator. PT speaks ongoing about this with questionable acceptance of pt of this education. PT-OP-T Assessment and Plan Start: 03/29/24 08:29 Freq: Status: Active Protocol: Document 04/13/24 09:04 MB (Rec: 04/13/24 09:38 MB [id number]) Physical Therapy Assessment Rehab Potential Rehabilitation Potential Fair Evaluation Complexity Number of Personal Factors/Comorbidities 1-2 Number of Body Systems Impaired 3 Clinical Presentation at Evaluation Evolving Impairments Impairments Activity Tolerance,Balance, Coordination,Functional Activities,Functional Mobility ,Gait,Pain,Posture,ROM,Soft Tissue Mobility,Strength Other Concerns Fall Risk Yes Goals 5 Impairment 1350 feet in 6MWT Intermediate Goal (LTG) Pt will gait train at least 1450 feet in 6 minutes to improve community mobility and balance. LTG Duration 8 weeks 4 Impairment Lack of HEP Candy Spreader Goal (LTG) Pt will perform progressive HEP with I including pelvic realignment exercises, gentle flexibility, strengthening and balance exercises to improve pain and funcitonal strength. LTG Duration 8 weeks 3 Impairment Hip and knee weakness with MMT Candy Spreader Goal (LTG) Pt will present with B hip flexion, extension and abduction strength to at least 4+/5 to improve functional transfers and gait. LTG Duration 8 weeks 1 Impairment Evidence of imbalance, TUG 15 sec Candy Spreader Goal (LTG) Pt will perform TUG in no more than 10 sec to decrease fall risk. LTG Duration 8 weeks Assessment Summary Assessment Pt reports three falls and trouble getting up. Encouraged pt to make an appointment with surgeon. Ed pt that he can stop SLR if he thinks this is a problem as far as pain. He has ongoing c/o left leg giving way. Ongoing gait training and enouragement with use of cane and rollator today. Pt con't to complain about not wanting to use AD. PT is unsure that PT education about need for AD is accepting to pt. This lack of insight and acceptance is a barrier to safety and compliance. Pt has pain with sliding up left leg today on mat and then he has a dull ache. He cannot tolerate pelvic realignment exercises. Pt cannot tolerate any gentle PT progression it seems. At this point, will d/c PT and refer back to surgeon. Recommend con't to use the SPC . Pt appears to be getting worse as far as pain and function and falls. Physical Therapy Plan Frequency and Duration Frequency of Treatment 1-2x/wk Duration of treatment (weeks) 8 Plan of Care Start Date 04/01/24 Plan of Care End Date 06/01/24 Therapeutic Interventions Therapeutic Interventions Balance Training,Canalithic Repositioning,Gait Training, Home Exercise Program,Joint Mobilizations,Manual Therapy, Neuromuscular Re-education, Patient/Caregiver Education, Self-Care/Home Management,Soft Tissue Mobilization,Taping, Therapeutic Activities, Therapeutic Exercises Modalities Cold Pack/Ice Massage,Electric Stimulation,Hot Packs, Ultrasound Next Visit Focus/Plan Next Note Type Treatment Note Next Visit Plan Review exercises, consider Navin stretch Progress gentle flexibility, gentle core progression and [place] type exercises Manual work Check in with 6MWT and TUG every 3-4 visits to monitor for progress
== END 2024-04-24 09:53 | disposition home or self-care (01) ==
LOC: PHYS 09:00
PROVIDERS: Family Provider Internal Medicine; PCP Internal Medicine; Referring Provider Neurological Surgery; Visit Provider Neurological Surgery
DX: M54.50 Low back pain, unspecified (principal); G89.29 Other chronic pain
CPT/HCPCS: 97110; 97116; 97140; 97161; 97535

== ENCOUNTER 2024-08-21 07:26 | Emergency (ER) | payer MEDICARE, SELFPAY ==
[2024-08-21] VITALS (7 sets, daily range): BP systolic 120–143; BP diastolic 66–79; PULSE 67–81; RESP 14–21; TEMP 36.6; O2SAT 96–99
--- NOTE | 2024-08-21 07:51 | DI.CT.S_ITS ---
PROCEDURE: CT ABDOMEN PELVIS W CON INDICATIONS: lower abd pain TECHNIQUE: After the administration of intravenous contrast, axial sections acquired from the lung bases to the pubic symphysis. Coronal and sagittal reformats were performed. For radiation dose reduction, the following was used: automated exposure control, adjustment of mA and/or kV according to patient size. COMPARISON: None. FINDINGS: Image quality: Diagnostic. Lower Chest: Cardiomegaly. ABDOMEN: Liver: Suspected hemangioma in segment 7 (series 2, image 37). A couple of liver lesions with suspicious features, including intermediate signal and partial rim enhancement. Examples include: -2.2 cm in segment 2 (series 2, image 34). -1.3 cm in segment 5 (series 2, image 57). Gallbladder: No radiopaque gallstones or wall thickening. Biliary ducts: No biliary dilation. Pancreas: Hypoattenuating mass in the tail of the pancreas (series 2, image 54). The mass does not encase the pertinent vessels. Spleen: Size is within normal limits. Adrenal Glands: No adrenal nodules. Kidneys and Ureters: No hydronephrosis. No solid mass. No complex renal cystic lesion which requires follow up. Stomach and Bowel: Normal colonic caliber, without significant wall thickening. Peritoneal carcinomatosis, with soft tissue nodule in the upper abdomen measuring 5 mm. Peritoneum: Small volume ascites. Peritoneal thickening is noted. Ventral Wall: No significant ventral hernia. Abdominal Nodes: No retroperitoneal or mesenteric adenopathy by size criteria. Vessels: Aorta and inferior vena cava are normal in size. PELVIS: Pelvic Organs: Unremarkable. Bladder: No bladder wall thickening, accounting for underdistention. Pelvic Nodes: No enlarged lymph nodes. Miscellaneous: No inguinal hernias are seen. Bones: No aggressive osseous abnormality. Lower spine laminectomy. 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 Metastatic liver lesions and peritoneal carcinomatosis. Findings discussed with Dr. Johnson at 9:12 a.mStacy On 08/21/2024. Dictated by: Moises Hair M.D. on 08/21/2024 at 9:03 Approved by: Moises Hair M.D. on 08/21/2024 at 9:12
--- NOTE | 2024-08-21 07:54 | ED.GENADULT ---
HPI - General Adult General Chief complaint: Abdominal Pain Stated complaint: abd pain Time Seen by Provider: 08/21/24 07:26 Source: patient Mode of arrival: Ambulatory Limitations: no limitations History of Present Illness HPI narrative: Patient was an 88-year-old male who is here for evaluation of proximally 1 week of lower abdominal discomfort. No vomiting. No fevers. Has a multiple colonoscopies in the past. Has been diagnosed with diverticulosis. For the 1st 3 days of the symptoms he states he was constipated but took some laxatives and is now having normal bowel movements. No fevers. No urinary symptoms. Related Data Home Medications Medication Instructions Recorded Confirmed apixaban 5 mg tablet (Eliquis) 5 mg PO BID 03/28/24 07/06/24 hydroxychloroquine 200 mg tablet 200 mg PO BID 03/28/24 07/06/24 metoprolol succinate 25 mg 25 mg PO DAILY 03/28/24 07/06/24 tablet,extended release 24 hr pramipexole 0.25 mg tablet 0.25 mg PO DAILY 03/28/24 07/06/24 rosuvastatin 20 mg tablet 20 mg PO ONCE PM 03/28/24 07/06/24 azelastine 137 mcg (0.1 %) nasal intranasal 06/04/24 07/06/24 spray gabapentin 300 mg capsule 300 mg PO DAILY 06/04/24 07/06/24 ipratropium bromide 42 mcg (0.06 intranasal 06/04/24 07/06/24 %) nasal spray prednisone 5 mg tablet mg PO 06/04/24 07/06/24 tamsulosin 0.4 mg capsule 0.4 mg PO DAILY 06/04/24 07/06/24 baclofen 5 mg tablet 5 mg PO 3XD 07/06/24 07/06/24 tramadol 50 mg tablet mg PO 07/06/24 07/06/24 Allergies Allergy/AdvReac Type Severity Reaction Status Date / Time No Known Drug Allergies Allergy Verified 08/21/24 08:09 Review of Systems Review of Systems ROS Unobtainable: All systems reviewed & are unremarkable except as noted in HPI and below Patient History Social History Smoking Status: Former smoker Smoking Status: Never smoker Exam Initial Vital Signs Initial Vital Signs: Vital Signs Pulse Rate 80 08/21/24 07:45 Respiratory Rate 19 08/21/24 07:45 Blood Pressure 136/75 08/21/24 07:45 Pulse Oximetry 99 08/21/24 07:45 Oxygen Delivery Method Room Air 08/21/24 07:45 Const General: cooperative, comfortable and No ill appearing HENMT Head: normal to inspection and normocephalic Resp Effort & Inspection: normal respiratory effort Cardio Rate: regular rate GI Inspection: distended Palpation: soft, No firm, No guarding and tender Skin General: no rashes or lesions noted Neuro General: patient alert, patient awake and moves all extremities Extrem General: capillary refill normal Course Orders Ordered: ED Orders 08/21/24 07:51 CT abdomen pelvis w con Stat 08/21/24 07:54 Complete Blood Count AUTO DIFF Stat Comprehensive Metabolic Panel Stat Lipase Stat Vital Signs Vital signs: Vital Signs - 8 hr 08/21/24 07:45 08/21/24 07:45 08/21/24 08:00 Temperature 97.9 F Pulse Rate 80 81 Respiratory Rate 19 18 Blood Pressure 136/75 136/75 Pulse Oximetry 99 99 Oxygen Delivery Method Room Air Room Air 08/21/24 08:00 08/21/24 08:00 08/21/24 08:30 Temperature Pulse Rate 75 67 Respiratory Rate 18 15 Blood Pressure 132/79 Pulse Oximetry 97 97 Oxygen Delivery Method Room Air Room Air 08/21/24 08:30 08/21/24 08:45 08/21/24 08:45 Temperature Pulse Rate 76 Respiratory Rate 17 Blood Pressure 121/69 125/72 Pulse Oximetry 96 Oxygen Delivery Method Room Air 08/21/24 09:00 08/21/24 09:00 08/21/24 09:30 Temperature Pulse Rate 71 76 Respiratory Rate 14 16 Blood Pressure 120/66 Pulse Oximetry 97 97 Oxygen Delivery Method 08/21/24 09:30 08/21/24 10:00 Temperature Pulse Rate 77 Respiratory Rate 21 Blood Pressure 143/77 H Pulse Oximetry 97 Oxygen Delivery Method Medical Decision Making Lab Data Lab results reviewed: Yes I reviewed the patient's lab results. 08/21/24 07:54 08/21/24 07:54 Labs: Lab Results 08/21/24 Range/Units 07:54 WBC 7.5 (4.5-11.0) X10^3/uL RBC 4.04 L (4.5-5.9) X10^6/uL Hgb 13.1 L (13.5-17.5) g/dL Hct 39.9 L (41-53) % MCV 98.8 (80-100) fL MCH 32.5 (26-34) PG MCHC 32.9 (30-36) % RDW 13.6 (11.6-14.8) % Plt Count 258 (150-400) X10^3/uL Neut % (Auto) 74.3 (50-75) % Lymph % (Auto) 14.9 L (25-40) % [place] % (Auto) 9.2 (3-14) % Eos % (Auto) 0.9 L (2-4) % Baso % (Auto) 0.7 (0-2) % Neut # (Auto) 5600 (1075-5266) /uL Lymph # (Auto) 1100 (2062-5533) /uL [place] # (Auto) 700 (0-900) /uL Eos # (Auto) 100 (0-450) /uL Baso # (Auto) 100 (0-100) /uL Sodium 134 L (137-145) mmol/L Potassium 4.2 (3.4-5.1) mmol/L Chloride 100 (98-107) mmol/L Carbon Dioxide 26 (22-32) mmol/L BUN 19 (9-20) mg/dL Creatinine 0.77 (0.66-1.25) mg/dL Estimated GFR > 60 (>60) mL/min BUN/Creatinine Ratio 24.7 H (6-22) Glucose 114 H (80-110) mg/dL Calcium 9.0 (8.4-10.2) mg/dL Total Bilirubin 0.6 (0.2-1.3) mg/dL AST 41 (17-59) IU/L ALT 35 (<50) IU/L Alkaline Phosphatase 64 (38-126) U/L Total Protein 6.9 (6.3-8.2) g/dL Albumin 4.2 (3.5-5.0) g/dL Globulin 2.7 (1.7-4.1) g/dL Albumin/Globulin Ratio 1.6 (1.0-2.8) Lipase 100 (23-300) U/L Imaging Data CT scan - abdomen/pelvis: Radiologist's Impression: PROCEDURE: CT ABDOMEN PELVIS W CON INDICATIONS: lower abd pain TECHNIQUE: After the administration of intravenous contrast, axial sections acquired from the lung bases to the pubic symphysis. Coronal and sagittal reformats were performed. For radiation dose reduction, the following was used: automated exposure control, adjustment of mA and/or kV according to patient size. COMPARISON: None. FINDINGS: Image quality: Diagnostic. Lower Chest: Cardiomegaly. ABDOMEN: Liver: Suspected hemangioma in segment 7 (series 2, image 37). A couple of liver lesions with suspicious features, including intermediate signal and partial rim enhancement. Examples include: -2.2 cm in segment 2 (series 2, image 34). -1.3 cm in segment 5 (series 2, image 57). Gallbladder: No radiopaque gallstones or wall thickening. Biliary ducts: No biliary dilation. Pancreas: Hypoattenuating mass in the tail of the pancreas (series 2, image 54). The mass does not encase the pertinent vessels. Spleen: Size is within normal limits. Adrenal Glands: No adrenal nodules. Kidneys and Ureters: No hydronephrosis. No solid mass. No complex renal cystic lesion which requires follow up. Stomach and Bowel: Normal colonic caliber, without significant wall thickening. Peritoneal carcinomatosis, with soft tissue nodule in the upper abdomen measuring 5 mm. Peritoneum: Small volume ascites. Peritoneal thickening is noted. Ventral Wall: No significant ventral hernia. Abdominal Nodes: No retroperitoneal or mesenteric adenopathy by size criteria. Vessels: Aorta and inferior vena cava are normal in size. PELVIS: Pelvic Organs: Unremarkable. Bladder: No bladder wall thickening, accounting for underdistention. Pelvic Nodes: No enlarged lymph nodes. Miscellaneous: No inguinal hernias are seen. Bones: No aggressive osseous abnormality. Lower spine laminectomy. 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 Metastatic liver lesions and peritoneal carcinomatosis. MDM Narrative Medical decision making narrative: CT scan today concerning for pancreatic cancer. His labs are unremarkable. He does have a relatively benign exam. There was no indication for antibiotics. No indication for emergent surgical consultation. I did get in touch with his primary care doctor's office. He initially had an appointment scheduled for tomorrow at 1400 hours at [facility] but the patient did not know about this appointment. He states he can not make the appointment. They contacted him while he was still in the ER. They were able to schedule him an appointment on Saturday at [address] scan images were sent through Radiology to the [employer] system. I also faxed his labs and the CT scan report to the fax number provided by the primary doctor's office. The patient was also given a copy of the CT scan on a CD and was also given a copy of the report and his labs as well. He understands the importance of the follow-up. He understands the concern about the findings of the CT scan however understands that there does not need to be more workup for we can have a definitive diagnosis. He was given return precautions and follow-up instructions. He expressed understanding and agreement with the plan. Discharge Plan Departure Patient Disposition: Home Clinical Impression: Pancreatic mass, Abdominal pain Activity Restrictions/Additional Instructions: Continue to take all of your medications as directed. Keep your appointment that she was scheduled for 1000 hours on Saturday with your primary care doctor's office to discuss further evaluation and treatment. You have no restrictions on your diet. I do recommend Tylenol and or ibuprofen for discomfort. Return to the emergency department for new symptoms. Prescriptions: No Action pramipexole 0.25 mg tablet 0.25 mg PO DAILY rosuvastatin 20 mg tablet 20 mg PO ONCE PM hydroxychloroquine 200 mg tablet 200 mg PO BID metoprolol succinate 25 mg tablet extended release 24 hr 25 mg PO DAILY Eliquis 5 mg tablet 5 mg PO BID ipratropium bromide 42 mcg (0.06 %) spray,non-aerosol intranasal gabapentin 300 mg capsule 300 mg PO DAILY prednisone 5 mg tablet PO tamsulosin 0.4 mg capsule 0.4 mg PO DAILY azelastine 137 mcg (0.1 %) spray,non-aerosol intranasal baclofen 5 mg tablet 5 mg PO 3XD tramadol 50 mg tablet PO Referrals: Marky Sarmiento MD [Primary Care Provider] - Stand Alone Forms: Patient Portal/API/Survey
[2024-08-21 08:06] LABS: Add Manual Diff / Slide Review NO; Basophils Absolute Auto 100 /uL (0-100); Basophils Percent Auto 0.7 % (0-2); Eosinophils Absolute Auto 100 /uL (0-450); Eosinophils Percent Auto 0.9 % (2-4); Hematocrit 39.9 % (41-53); Hemoglobin 13.1 g/dL (13.5-17.5); Lymphocytes Absolute Auto 1100 /uL (1100-4500); Lymphocytes Percent Auto 14.9 % (25-40); Mean Corpuscular HGB Conc 32.9 % (30-36); Mean Corpuscular Hemoglobin 32.5 PG (26-34); Mean Corpuscular Volume 98.8 fL (80-100); Monocytes Absolute Auto 700 /uL (0-900); Monocytes Percent Auto 9.2 % (3-14); Neutrophils Absolute Auto 5600 /uL (1500-7000); Neutrophils Percent Auto 74.3 % (50-75); Platelet Count 258 X10^3/uL (150-400); Red Blood Cell Count 4.04 X10^6/uL (4.5-5.9); Red Cell Distribution Width 13.6 % (11.6-14.8); White Blood Cell Count 7.5 X10^3/uL (4.5-11.0)
[2024-08-21 08:15] LABS: Alanine Aminotransferase 35 IU/L (<50); Albumin 4.2 g/dL (3.5-5.0); Albumin Globulin Ratio 1.6 (1.0-2.8); Alkaline Phosphatase 64 U/L (38-126); Aspartate Aminotransferase 41 IU/L (17-59); BUN Creatinine Ratio 24.7 (6-22); Bilirubin Total 0.6 mg/dL (0.2-1.3); Blood Urea Nitrogen 19 mg/dL (9-20); Carbon Dioxide 26 mmol/L (22-32); Chloride 100 mmol/L (98-107); Estimated Glomerular Filt Rate > 60 mL/min (>60); Globulin 2.7 g/dL (1.7-4.1); Glucose 114 mg/dL (80-110); HEMOLYSIS < 15 (0-50); Lipase 100 U/L (23-300); Potassium 4.2 mmol/L (3.4-5.1); Sodium 134 mmol/L (137-145); Total Protein 6.9 g/dL (6.3-8.2)
== END 2024-08-21 10:19 | disposition home or self-care (01) ==
PROVIDERS: Emergency Provider Emergency Medicine; Family Provider Internal Medicine; PCP Internal Medicine
DX: K86.89 Other specified diseases of pancreas (principal); R10.30 Lower abdominal pain, unspecified
CPT/HCPCS: 36415; 74177; 80053; 83690; 85025; 99284; Q9967

== ENCOUNTER 2024-10-04 00:33 | Inpatient (IN) | payer MEDICARE, SELFPAY ==
[2024-10-04] VITALS (17 sets, daily range): BP systolic 84–130; BP diastolic 58–78; PULSE 68–81; RESP 14–21; TEMP 35.7–37.1; O2SAT 92–100; BMI 27.3
--- NOTE | 2024-10-04 00:44 | EKG_ITS ---
[facility] [address] [place] [address] Test Date: 2024-10-04 Pat Name: Salty Olmos Department: [facility] Room: Gender: Male [employer]: : [id number] Requested By: Order Number: [id number] Reading MD: Cdoy Chinchilla MD Measurements Intervals [place] Rate: 79 P: 62 VA: 284 QRS: 66 QRSD: 150 T: 35 QT: 420 QTc: 481 Interpretive Statements Sinus rhythm with 1st degree AV block Right bundle branch block NO PRIOR TRACING Electronically Signed On 10-04-2024 8:49:15 PST by Cody Chinchilla MD
--- NOTE | 2024-10-04 00:47 | DI.CT.S_ITS ---
PROCEDURE: CT ABDOMEN PELVIS W CON INDICATIONS: vomiting, hx pancreatic ca, started chemo, ascites TECHNIQUE: After the administration of intravenous contrast, axial sections acquired from the lung bases to the pubic symphysis. Coronal and sagittal reformats were performed. For radiation dose reduction, the following was used: automated exposure control, adjustment of mA and/or kV according to patient size. COMPARISON: [facility], CT, CT ABDOMEN PELVIS W CON, 08/21/2024, 8:35. FINDINGS: Image quality: Diagnostic. Lower Chest: New, small bilateral pleural effusions. Mild cardiomegaly with valvular calcification and or less pacemaker. Diffuse thickening of the distal esophageal wall, new. ABDOMEN: Liver: Nodular liver morphology. Indistinct liver lesion in the left hepatic lobe measuring 3.1 cm, increased size. Hypodensity in the medial segment seven, potentially a hemangioma. Increasing hypodensity and anterior segment five at the gallbladder fossa now measuring 1.2 cm. Stable tiny hypodensity at the inferior tip. Gallbladder: Distended. No wall thickening or stone. Biliary ducts: No biliary dilation. Pancreas: Hypodensity in the proximal tail of the pancreas with complete pancreatic atrophy. The measurable portion of the mass has decreased in size, measuring 1.8 cm, previously 2.1 cm. No proximal pancreatic ductal dilatation. Spleen: Size is within normal limits. Adrenal Glands: No adrenal nodules. Kidneys and Ureters: Symmetric enhancement. No nephrolithiasis or hydronephrosis. No hydroureter. Stomach and Bowel: Distended stomach with a thin wall. Several small bowel loops are dilated and contain air-fluid levels. Several distended bowel loops are tethered to a point in the left abdomen anteriorly. No other transition point is seen. Several pelvic small bowel loops demonstrate long segment circumferential wall thickening. Wall thickening involving proximal colon. There are fluid levels in transverse colon. Distal colon is decompressed. Sigmoid diverticulosis. Peritoneum: Interval increase in the quantity of ascites since the prior exam. There is extensive peritoneal neovascularity and nodularity, more so compared to prior. No free air. Ventral Wall: Edema and thickening in left anterior lateral abdominal wall, new compared to prior along with subcutaneous edema and a small low-density intramuscular nodule measuring 1.2 cm. No evidence of hernia. Abdominal Nodes: No retroperitoneal or mesenteric adenopathy by size criteria. Vessels: Portal vein and abdominal aorta are normal caliber. Heavy abdominal aortic atherosclerotic calcification. The IVC is decompressed indicating low volume state. PELVIS: Pelvic Organs: Unremarkable. Bladder: Partially obscured by beam hardening artifact. Nondistended. Pelvic Nodes: No enlarged lymph nodes. Miscellaneous: No inguinal hernias are seen. Bones: No aggressive osseous abnormality. Right hip arthroplasty components. Stable lucent lesion along the right superior acetabulum, possibly particle disease. No new bone lesions. IMPRESSION: Increased quantity of ascites and peritoneal carcinomatosis compared to the prior exam. There are findings most likely suggest enteritis, potentially infectious, inflammatory, treatment related. Early or partial bowel obstruction is not excluded. Progression of metastatic disease in the liver. Development of small bilateral pleural effusions. Possible subcutaneous implant in the mid abdomen to the left of midline versus focus of recent surgery. Correlate clinically. Dictated by: Mira Glover M.D. on 10/04/2024 at 1:53 Approved by: Mira Glover M.D. on 10/04/2024 at 2:10
--- NOTE | 2024-10-04 00:52 | ED.NAVMDI ---
HPI - Nausea/Vomiting/Diarrhea General Chief complaint: Nausea/Vomiting/Diarrhea Stated complaint: Vomiting Time Seen by Provider: 10/04/24 00:34 Source: patient, EMS, RN notes reviewed and old records reviewed Mode of arrival: EMS Limitations: no limitations History of Present Illness HPI Narrative: 88-year-old male recently diagnosed pancreatic cancer in July, reportedly stage IV being seen at [facility]. Patient has started chemotherapy recently in his had paracentesis 4 times most recently 2 days ago. Patient states tonight started having nausea and vomiting which is atypical. He denies any fevers or chills. He denies any chest pain or shortness of breath. He received Zofran ODT from EMS does not feel nauseated currently. Denies any abdominal pain. States that he did not have a large bowel movement at home when this occurred. EMS states that there was no black or blood they were present when this occurred. Denies any dysuria urgency or frequency. No new swelling in his extremities. Notes his abdomen is distended states he was scheduled for paracentesis this upcoming Saturday but was told he could also come here if he needs to. He notes his paracentesis has been only a couple days apart recently he states he has only had 4 total. He is unsure of his home medications does have apixaban listed as well as metoprolol, pramipexole, rosuvastatin, tamsulosin, prednisone, hydroxychloroquine, gabapentin in the EMR. States he had prior port placed, hip replacement, prior resection of pituitary tumor. Denies any drug allergies. Former smoker, no regular alcohol or recreational drugs. Patient states get his home health care through [facility]. Lives locally with his and has family close by. EMS states family was with him this evening when this occurred. Related Data Home Medications Medication Instructions Recorded Confirmed apixaban 5 mg tablet (Eliquis) 5 mg PO BID 03/28/24 10/04/24 hydroxychloroquine 200 mg tablet 200 mg PO DAILY 03/28/24 10/04/24 pramipexole 0.25 mg tablet 0.25 mg PO QPM 03/28/24 10/04/24 rosuvastatin 20 mg tablet 20 mg PO ONCE PM 03/28/24 10/04/24 azelastine 137 mcg (0.1 %) nasal 2 spray intranasal DAILY PRN mucus 06/04/24 10/04/24 spray gabapentin 300 mg capsule 300 mg PO DAILY 06/04/24 10/04/24 prednisone 5 mg tablet 5 mg PO DAILY 06/04/24 10/04/24 baclofen 5 mg tablet 5 mg PO 3XD PRN Pain, Moderate 07/06/24 10/04/24 acetaminophen 325 mg tablet 650 mg PO Q6H PRN Pain, Moderate 10/04/24 10/04/24 prednisone 1 mg DAILY 10/04/24 10/04/24 Allergies Allergy/AdvReac Type Severity Reaction Status Date / Time No Known Drug Allergies Allergy Verified 08/21/24 08:09 Review of Systems Review of Systems ROS Unobtainable: All systems reviewed & are unremarkable except as noted in HPI and below Patient History Social History Smoking Status: Former smoker Smoking Status: Former smoker tobacco type: cigarettes Exam Narrative Exam Narrative: GENERAL: Alert and oriented, male in mild distress, no pallor or cyanosis HEENT: Head normocephalic, atraumatic, EOMI, pupils reactive, face symmetric, moist mucous membranes NECK: Supple, full range of motion CARDIOVASCULAR: Regular rate and rhythm without murmurs, rubs or gallops. Patient has port site right upper chest, appears clean dry and intact is not tender over the region with no signs of infection. RESPIRATORY: Breath sounds equal bilaterally, no wheezes rales or rhonchi. ABDOMEN: Soft, nontender, distended. No fluid wave. Hypoactive bowel sounds all 4 quadrants. No guarding or rebound, rigidity, no mass appreciated. : No CVA tenderness EXTREMITIES: Normal range of motion, no clubbing or edema bilateral lower extremities. Neurovascularly intact NEUROLOGICAL: Cranial nerves II through XII grossly intact. Moving all extremities SKIN: Warm, dry, no petechiae, no rashes or lesions. Initial Vital Signs Initial Vital Signs: Vital Signs Temperature 98.7 F 10/04/24 00:44 Pulse Rate 81 10/04/24 00:44 Respiratory Rate 16 10/04/24 00:44 Blood Pressure 102/70 10/04/24 00:44 Pulse Oximetry 96 10/04/24 00:44 Oxygen Delivery Method Room Air 10/04/24 00:44 Course Orders Ordered: ED Orders 10/04/24 00:37 EKG-12 Lead Stat 10/04/24 00:40 Complete Blood Count AUTO DIFF Stat Comprehensive Metabolic Panel Stat Lactate (Lactic Acid) Stat Lipase Stat 10/04/24 00:47 CT abdomen pelvis w con Stat 10/04/24 03:17 Urine Microscopic Stat Discontinued Medications Al Hydrox/Mg Hydrox/Simethicone 20 ml/ Lidocaine HCl 15 ml 0 ml PO NOW ONE Stop: 10/04/24 04:26 Last Admin: 10/04/24 04:29 Dose: 35 ml Documented By: SUMIT Sodium Chloride (Normal Saline 0.9%) 1,000 mls @ 1,000 mls/hr IV BOLUS ONE Stop: 10/04/24 01:46 Last Infusion: 10/04/24 02:13 Dose: Infused Documented By: Admin: 10/04/24 00:55 Dose: 1,000 mls/hr Documented By: SUMIT Vital Signs Vital signs: Vital Signs - 8 hr 10/04/24 00:44 10/04/24 00:46 10/04/24 00:46 Temperature 98.7 F Pulse Rate 81 80 Respiratory Rate 16 Blood Pressure 102/70 91/65 Pulse Oximetry 96 92 Oxygen Delivery Method Room Air 10/04/24 01:00 10/04/24 01:00 10/04/24 01:01 Temperature Pulse Rate 76 Respiratory Rate Blood Pressure 84/59 L 92/61 Pulse Oximetry 94 Oxygen Delivery Method 10/04/24 01:01 10/04/24 01:27 10/04/24 01:27 Temperature Pulse Rate 75 80 Respiratory Rate 21 Blood Pressure 130/71 Pulse Oximetry 99 95 Oxygen Delivery Method 10/04/24 01:30 10/04/24 01:30 10/04/24 02:00 Temperature Pulse Rate 79 Respiratory Rate 18 Blood Pressure 116/65 97/58 L Pulse Oximetry 99 Oxygen Delivery Method 10/04/24 02:00 10/04/24 02:29 10/04/24 02:30 Temperature Pulse Rate 79 78 Respiratory Rate 16 14 Blood Pressure 89/61 L Pulse Oximetry 99 99 Oxygen Delivery Method 10/04/24 02:30 10/04/24 03:00 10/04/24 03:00 Temperature Pulse Rate 78 79 Respiratory Rate 15 19 Blood Pressure 122/78 Pulse Oximetry 98 96 Oxygen Delivery Method 10/04/24 03:30 10/04/24 03:30 10/04/24 04:00 Temperature Pulse Rate 74 Respiratory Rate 17 Blood Pressure 93/60 92/59 L Pulse Oximetry 97 Oxygen Delivery Method Room Air 10/04/24 04:00 Temperature Pulse Rate 74 Respiratory Rate 15 Blood Pressure Pulse Oximetry 95 Oxygen Delivery Method Room Air MDM - Nausea/Vomiting/Diarrhea Lab Data 10/04/24 00:40 10/04/24 00:40 Labs: Lab Results 10/04/24 10/04/24 Range/Units 00:40 03:17 WBC 7.5 (4.5-11.0) X10^3/uL RBC 4.26 L (4.5-5.9) X10^6/uL Hgb 13.1 L (13.5-17.5) g/dL Hct 39.4 L (41-53) % MCV 92.5 (80-100) fL MCH 30.8 (26-34) PG MCHC 33.3 (30-36) % RDW 14.8 (11.6-14.8) % Plt Count 409 H (150-400) X10^3/uL Neut % (Auto) 62.6 (50-75) % Lymph % (Auto) 27.7 (25-40) % Amelia % (Auto) 8.0 (3-14) % Eos % (Auto) 1.4 L (2-4) % Baso % (Auto) 0.3 (0-2) % Neut # (Auto) 4700 (1418-9337) /uL Lymph # (Auto) 2100 (5197-2009) /uL Amelia # (Auto) 600 (0-900) /uL Eos # (Auto) 100 (0-450) /uL Baso # (Auto) 0 (0-100) /uL Sodium 136 L (137-145) mmol/L Potassium 4.3 (3.4-5.1) mmol/L Chloride 102 (98-107) mmol/L Carbon Dioxide 26 (22-32) mmol/L BUN 22 H (9-20) mg/dL Creatinine 0.87 (0.66-1.25) mg/dL Estimated GFR > 60 (>60) mL/min BUN/Creatinine Ratio 25.3 H (6-22) Glucose 130 H (80-110) mg/dL Lactate 1.6 (0.7-2.1) mmol/L Calcium 8.9 (8.4-10.2) mg/dL Total Bilirubin 0.5 (0.2-1.3) mg/dL AST 48 (17-59) IU/L ALT 60 H (<50) IU/L Alkaline Phosphatase 103 (38-126) U/L Total Protein 6.1 L (6.3-8.2) g/dL Albumin 3.6 (3.5-5.0) g/dL Globulin 2.5 (1.7-4.1) g/dL Albumin/Globulin Ratio 1.4 (1.0-2.8) Lipase 148 (23-300) U/L Urine RBC 0-1/hpf (0-5/HPF) Urine WBC 0-1/hpf (0-5/HPF) Ur Squamous Epith Cells 0-1 /hpf (0-5/HPF) Ur Transition Epith Cell 0-1/hpf (0-5/HPF) Uric Acid Crystals Moderate H (None) Urine Bacteria Occasional (0-1) (None) Hyaline Casts 0-1/lpf (None) Granular Casts 0-1/lpf (None) Urine Mucus 1+ H (Negative) Ur Culture Indicated? Cult not indicated Vol Urine Centrifuged 10ml (spun) Urine Dip Bedside Urine Glucose Negative Bedside Urine Bilirubin - Negative Bedside Urine Ketone - Negative Urine Specific [place] 1.015 Bedside Urine Occult Blood - Negative Bedside Urine pH 6 Bedside Urine Protein +/- 15 Bedside Urine Urobilinogen - Negative Bedside Urine Nitrite - Negative Bedside Urine Leukocytes - Negative Esterase ECG Data Attestation: I personally reviewed and interpreted this ECG as follows: Prior ECG tracings: not available for review Interpretation: EKG shows sinus rhythm with first-degree AV block right bundle-branch block, rate of 79, CT 284 QRS of 150 QTC of 481. No priors for comparison MDM Narrative Medical decision making narrative: 88-year-old male presents with a complaint of vomiting abdominal distention, no pain. Notes he has had a paracentesis x4 in the last couple weeks most recently 2 days ago. Vitals show that he was initially hypotensive patient states he has had low blood pressure all his life but has been told that his medical situation and fluid in his belly are probably exacerbating that, respiratory distress, he was distended but does not appear to require emergent He was improved currently did receive Zofran 4 mg ODT EN route with EMS. Labs show white count of 7.5 hemoglobin of 13 platelets of 409, sodium is 136 BUN 22 creatinine 0.87 glucose is 130, lactate 12.6, ALT 60 with normal LFTs otherwise. EKG shows sinus rhythm with first-degree AV block right bundle-branch block CT abdomen pelvis increased quantity of ascites and peritoneal carcinomatosis compared to prior exam. CT shows nodular liver morphology indistinct liver lesion in the left hepatic lobe increased in size at 3.1 cm hypodensity in medial segment 7 potentially hemangioma increased hypodensity and anterior segment 5 at gallbladder fossa measuring 1.2 cm stable tiny hypodensity inferior tip. Gallbladder is distended no wall thickening or stone. No biliary dilation. Hypodensity proximal tear of the pancreas with complete pancreatic atrophy. Masses decreased in size measuring 1.8 cm was 2.1 cm. Shows distended stomach with a thin wall several small bowel loops are dilated and containing air-fluid levels several distended loop bowels or tethered 12 point in the left abdomen anteriorly. New other transition point is seen. Several pelvic small bowel loops demonstrate long segment circumferential wall thickening. Wall thickening involving proximal colon. There are fluid levels in the transverse colon distal colon is decompressed. Interval increase in quantity ascites since prior exam extensive peritoneal in the vascularity and nodularity more so than prior no free air. Edema and thickening and left anterior lateral abdominal wall new compared to prior along with subcutaneous emphysema and small low-density intramuscular nodule measuring 1.2 cm no evidence of hernia. Findings suggest potential enteritis infectious inflammatory treatment related but early or partial bowel obstruction is not excluded. Left of midline possible subcutaneous implant versus focus of recent surgery may have also been but patient has had recent paracentesis. Urine negative for nitrates or LE, 0-1 RBC, WBCs squamous and transitional. Moderate care to acid crystals. One bacteria. Patient received fluidshere, had Zofran ODT from EMS. Patient BP has been improved with fluids. Spoke with patient and family his abdomen is quite distended I suspect he may have a developing partial bowel obstruction he has not has a lot of pain but he started having vomiting this evening which has been atypical he did have what sounds like diarrhea so would not be a complete bowel obstruction but his abdomen is not soft and there is no fluid wave, he does have ascites but I suspect that his distention is also developing ileus or SBO. After discussion with the patient's family they know a did recently have spontaneous bacterial peritonitis has had recurrent paracentesis they note his abdomen has been distended he has not had regular vomiting since before his hospitalization has had diarrhea no formed stools intermittently. Spoke with Dr. Rodriguez for observation for vomiting, possible developing SBO with known pancreatic cancer, known ascites. He accepts for observation. Discharge Plan Departure Patient Disposition: Admitted as Observation Clinical Impression: Vomiting Admit Date/Time: 10/04/24 04:37 Admit Provider: Lj Leon
[2024-10-04] MEDS: SODIUM CHLORIDE 0.9% 1,000 ML 1000 ML IV (00:55)
[2024-10-04 01:00] LABS: Add Manual Diff / Slide Review NO; Basophils Absolute Auto 0 /uL (0-100); Basophils Percent Auto 0.3 % (0-2); Eosinophils Absolute Auto 100 /uL (0-450); Eosinophils Percent Auto 1.4 % (2-4); Hematocrit 39.4 % (41-53); Hemoglobin 13.1 g/dL (13.5-17.5); Lymphocytes Absolute Auto 2100 /uL (1100-4500); Lymphocytes Percent Auto 27.7 % (25-40); Mean Corpuscular HGB Conc 33.3 % (30-36); Mean Corpuscular Hemoglobin 30.8 PG (26-34); Mean Corpuscular Volume 92.5 fL (80-100); Monocytes Absolute Auto 600 /uL (0-900); Neutrophils Absolute Auto 4700 /uL (1500-7000); Neutrophils Percent Auto 62.6 % (50-75); Platelet Count 409 X10^3/uL (150-400); Red Blood Cell Count 4.26 X10^6/uL (4.5-5.9); Red Cell Distribution Width 14.8 % (11.6-14.8); White Blood Cell Count 7.5 X10^3/uL (4.5-11.0)
[2024-10-04 01:06] LABS: Alanine Aminotransferase 60 IU/L (<50); Albumin 3.6 g/dL (3.5-5.0); Albumin Globulin Ratio 1.4 (1.0-2.8); Alkaline Phosphatase 103 U/L (38-126); Aspartate Aminotransferase 48 IU/L (17-59); BUN Creatinine Ratio 25.3 (6-22); Bilirubin Total 0.5 mg/dL (0.2-1.3); Blood Urea Nitrogen 22 mg/dL (9-20); Calcium 8.9 mg/dL (8.4-10.2); Carbon Dioxide 26 mmol/L (22-32); Chloride 102 mmol/L (98-107); Estimated Glomerular Filt Rate > 60 mL/min (>60); Globulin 2.5 g/dL (1.7-4.1); Glucose 130 mg/dL (80-110); HEMOLYSIS < 15 (0-50); Lipase 148 U/L (23-300); Potassium 4.3 mmol/L (3.4-5.1); Sodium 136 mmol/L (137-145); Total Protein 6.1 g/dL (6.3-8.2)
[2024-10-04 01:07] LABS: Lactate (Lactic Acid) 1.6 mmol/L (0.7-2.1)
--- NOTE | 2024-10-04 01:22 | PC.NURSE ---
Pt to imaging via ED stretcher with radiology special procedure tech
[2024-10-04 03:26] LABS: RBC Urine 0-1/HPF (0-5/HPF); Urine Volume 10mL (spun); WBC Urine 0-1/HPF (0-5/HPF)
[2024-10-04 03:27] LABS: Granular Casts Urine 0-1/LPF; Hyaline Casts Urine 0-1/LPF; Mucus Urine 1+ (Negative); Squamous Epithelial Cell Urine 0-1 /HPF (0-5/HPF); Transitional Epi Cells Urine 0-1/HPF (0-5/HPF); Uric Acid Crystals Urine Moderate
[2024-10-04 03:28] LABS: Bacteria Urine Occasional (0-1); Culture Indicated Urine Cult Not Indicated
[2024-10-04] MEDS: MAG HYDROX/ALUMINUM/SIMETH SUS 20 ML, LIDOCAINE VISCOUS 2% 15 ML PO (04:29)
--- NOTE | 2024-10-04 08:25 | PM.HP.1 ---
History of Present Illness History of Present Illness Date Patient Seen: 10/04/24 Time Patient Seen: 05:45 Chief complaint: Vomiting Narrative: 88 y/o with recently started chemotherapy for pancreatic carcinoma, peritoneal carcinomatosis and malignant ascites with several paracentheses and recent episode of PBP, anticoagulated with Eliquis, presumably for VTE with NSR EKG, who presented after he became nauseated earlier today followed by several episodes of vomiting. His last meal was on 09/02 at 5 PM, in between 5 and 7 pm he vomited 3 times and had loose BM - all of that 12 hours prior to admission. CT showing air-fluid levels, likely ileus vs partial SBO w/o transition point in addition to progressing peritoneal carcinomatosis, tumor burden and relatively small amount of ascites. [facility] Social History household members: spouse Smoking Status: Former smoker Meds Home Medications and Allergies Home Medications Medication Instructions Recorded Confirmed Type apixaban 5 mg tablet (Eliquis) 5 mg PO BID 03/28/24 10/04/24 History hydroxychloroquine 200 mg tablet 200 mg PO DAILY 03/28/24 10/04/24 History pramipexole 0.25 mg tablet 0.25 mg PO QPM 03/28/24 10/04/24 History rosuvastatin 20 mg tablet 20 mg PO ONCE PM 03/28/24 10/04/24 History azelastine 137 mcg (0.1 %) nasal 2 spray intranasal DAILY PRN mucus 06/04/24 10/04/24 History spray gabapentin 300 mg capsule 300 mg PO DAILY 06/04/24 10/04/24 History prednisone 5 mg tablet 5 mg PO DAILY 06/04/24 10/04/24 History baclofen 5 mg tablet 5 mg PO 3XD PRN Pain, Moderate 07/06/24 10/04/24 History acetaminophen 325 mg tablet 650 mg PO Q6H PRN Pain, Moderate 10/04/24 10/04/24 History prednisone 1 mg DAILY 10/04/24 10/04/24 History Allergies Allergy/AdvReac Type Severity Reaction Status Date / Time No Known Drug Allergies Allergy Verified 08/21/24 08:09 Review of Systems Constitutional Comments: w/o chills or fever Generalized weakness Gastrointestinal Comments: chronic abdominal distension, since few months ago with diffuse tenderness, without acute abdominal pain acute nausea and vomiting poor oral intake Exam Vital Signs (past 8 hours): - 10/04/24 00:44 10/04/24 00:46 10/04/24 00:46 Temperature 98.7 F Pulse Rate 81 80 Respiratory Rate 16 Blood Pressure 102/70 91/65 Pulse Oximetry 96 92 Oxygen Delivery Method Room Air Oxygen Flow Rate 10/04/24 01:00 10/04/24 01:00 10/04/24 01:01 Temperature Pulse Rate 76 Respiratory Rate Blood Pressure 84/59 L 92/61 Pulse Oximetry 94 Oxygen Delivery Method Oxygen Flow Rate 10/04/24 01:01 10/04/24 01:27 10/04/24 01:27 Temperature Pulse Rate 75 80 Respiratory Rate 21 Blood Pressure 130/71 Pulse Oximetry 99 95 Oxygen Delivery Method Oxygen Flow Rate 10/04/24 01:30 10/04/24 01:30 10/04/24 02:00 Temperature Pulse Rate 79 Respiratory Rate 18 Blood Pressure 116/65 97/58 L Pulse Oximetry 99 Oxygen Delivery Method Oxygen Flow Rate 10/04/24 02:00 10/04/24 02:29 10/04/24 02:30 Temperature Pulse Rate 79 78 Respiratory Rate 16 14 Blood Pressure 89/61 L Pulse Oximetry 99 99 Oxygen Delivery Method Oxygen Flow Rate 10/04/24 02:30 10/04/24 03:00 10/04/24 03:00 Temperature Pulse Rate 78 79 Respiratory Rate 15 19 Blood Pressure 122/78 Pulse Oximetry 98 96 Oxygen Delivery Method Oxygen Flow Rate 10/04/24 03:30 10/04/24 03:30 10/04/24 04:00 Temperature Pulse Rate 74 Respiratory Rate 17 Blood Pressure 93/60 92/59 L Pulse Oximetry 97 Oxygen Delivery Method Room Air Oxygen Flow Rate 10/04/24 04:00 10/04/24 05:00 Temperature 97.1 F L Pulse Rate 74 69 Respiratory Rate 15 16 Blood Pressure 102/67 Pulse Oximetry 95 95 Oxygen Delivery Method Room Air Oxygen Flow Rate 0 Oxygen Delivery Method Room Air Oxygen Flow Rate 0 Narrative Exam Narrative: General - in no distress Skin - not jaundiced GI - distended abdomen, minimal diffuse tenderness, w/o palpable air-fluid level according to ED attending CVS - RRR RS - normal respiratory effort Objective ECG Impression: NSR, 1st degree AV block, RBBB Labs 10/04/24 00:40 10/04/24 00:40 Labs: Laboratory Results - last 24 hr 10/04/24 10/04/24 00:40 03:17 WBC 7.5 RBC 4.26 L Hgb 13.1 L Hct 39.4 L MCV 92.5 MCH 30.8 MCHC 33.3 RDW 14.8 Plt Count 409 H Neut % (Auto) 62.6 Lymph % (Auto) 27.7 [place] % (Auto) 8.0 Eos % (Auto) 1.4 L Baso % (Auto) 0.3 Neut # (Auto) 4700 Lymph # (Auto) 2100 [place] # (Auto) 600 Eos # (Auto) 100 Baso # (Auto) 0 Sodium 136 L Potassium 4.3 Chloride 102 Carbon Dioxide 26 BUN 22 H Creatinine 0.87 Estimated GFR > 60 BUN/Creatinine Ratio 25.3 H Glucose 130 H Lactate 1.6 Calcium 8.9 Total Bilirubin 0.5 AST 48 ALT 60 H Alkaline Phosphatase 103 Total Protein 6.1 L Albumin 3.6 Globulin 2.5 Albumin/Globulin Ratio 1.4 Lipase 148 Urine RBC 0-1/hpf Urine WBC 0-1/hpf Ur Squamous Epith Cells 0-1 /hpf Ur Transition Epith Cell 0-1/hpf Uric Acid Crystals Moderate H Urine Bacteria Occasional (0-1) Hyaline Casts 0-1/lpf Granular Casts 0-1/lpf Urine Mucus 1+ H Ur Culture Indicated? 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 On 3rd he had 4 L out, on 4th, 2 days ago - 2 L out. Physical without air-fluid and CT w/o large amount, no need for tap - just started chemotherapy 2 weeks ago [address] [facility] and had an episode of primary bacterial peritonitis - he was told to consider future taps locally. He should probably get a catheter - CT showing ileus vs SBO w/o transition point - NPO, IVFs, antiemetics, no need for NGT at the time of admission - patient gets care at [facility] and I have no record available at the time of admission. He is anticoagulated with Eliquis, presumably for VTE. Lovenox 1mg/kg for now - GI prophylaxis - Protonix Time-Based Coding :: [TOTAL MINUTES] spent with patient and on the chart (including review of chart, obtaining history, exam, reviewing outside data, placing orders, documenting exam and treatment plan, and counseling patient) on [DATE].
[2024-10-04] MEDS: SODIUM CHLORIDE 0.9% 1,000 ML 100 ML IV ×2 (08:58→21:40)
--- NOTE | 2024-10-04 09:10 | P.HP_ITS ---
History of Present Illness History of Present Illness Date Patient Seen: 10/04/24 Time Patient Seen: 08:10 Chief complaint: Vomiting Narrative: From night hospitalist: 88 y/o with recently started chemotherapy for pancreatic carcinoma, peritoneal carcinomatosis and malignant ascites with several paracentheses and recent episode of PBP, anticoagulated with Eliquis, presumably for VTE with NSR EKG, who presented after he became nauseated earlier today followed by several episodes of vomiting. His last meal was on 09/02 at 5 PM, in between 5 and 7 pm he vomited 3 times and had loose BM - all of that 12 hours prior to admission. CT showing air-fluid levels, likely ileus vs partial SBO w/o transition point in addition to progressing peritoneal carcinomatosis, tumor burden and relatively small amount of ascites. Interval history: The patient initially presented on 08/21/2024 to this hospital's emergency department week lower abdominal discomfort when he was found to have a pancreatic mass and subsequently diagnosed pancreatic cancer at [facility], starting chemotherapy under the care of Dr. Basilio Jaquez last week. He states that he tolerated chemotherapy poorly and was hospitalized for 1 week at the hospital, and subsequently been undergoing serial paracentesis. He developed significant nausea and vomiting yesterday and presented to the emergency department last night where imaging noted the above-mentioned findings. He was hydrated intravenously and reports feeling better, though persistently weak. He has no focal pain complaints presently. He had a small bowel formed movement few minutes ago and notes having had a formed bowel movement yesterday as well. 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 Social History household members: spouse Smoking Status: Former smoker Meds Home Medications and Allergies Home Medications Medication Instructions Recorded Confirmed Type apixaban 5 mg tablet (Eliquis) 5 mg PO BID 03/28/24 10/04/24 History hydroxychloroquine 200 mg tablet 200 mg PO DAILY 03/28/24 10/04/24 History pramipexole 0.25 mg tablet 0.25 mg PO QPM 03/28/24 10/04/24 History rosuvastatin 20 mg tablet 20 mg PO ONCE PM 03/28/24 10/04/24 History azelastine 137 mcg (0.1 %) nasal 2 spray intranasal DAILY PRN mucus 06/04/24 10/04/24 History spray gabapentin 300 mg capsule 300 mg PO DAILY 06/04/24 10/04/24 History prednisone 5 mg tablet 5 mg PO DAILY 06/04/24 10/04/24 History baclofen 5 mg tablet 5 mg PO 3XD PRN Pain, Moderate 07/06/24 10/04/24 History acetaminophen 325 mg tablet 650 mg PO Q6H PRN Pain, Moderate 10/04/24 10/04/24 History prednisone 1 mg DAILY 10/04/24 10/04/24 History Allergies Allergy/AdvReac Type Severity Reaction Status Date / Time No Known Drug Allergies Allergy Verified 08/21/24 08:09 Review of Systems Review of Systems ROS: Yes All systems reviewed with the patient and are negative except as otherwise documented Exam Vital Signs (past 8 hours): - 10/04/24 01:27 10/04/24 01:27 10/04/24 01:30 Temperature Pulse Rate 80 Respiratory Rate 21 Blood Pressure 130/71 116/65 Pulse Oximetry 95 Oxygen Delivery Method Oxygen Flow Rate 10/04/24 01:30 10/04/24 02:00 10/04/24 02:00 Temperature Pulse Rate 79 79 Respiratory Rate 18 16 Blood Pressure 97/58 L Pulse Oximetry 99 99 Oxygen Delivery Method Oxygen Flow Rate 10/04/24 02:29 10/04/24 02:30 10/04/24 02:30 Temperature Pulse Rate 78 78 Respiratory Rate 14 15 Blood Pressure 89/61 L Pulse Oximetry 99 98 Oxygen Delivery Method Oxygen Flow Rate 10/04/24 03:00 10/04/24 03:00 10/04/24 03:30 Temperature Pulse Rate 79 Respiratory Rate 19 Blood Pressure 122/78 93/60 Pulse Oximetry 96 Oxygen Delivery Method Oxygen Flow Rate 10/04/24 03:30 10/04/24 04:00 10/04/24 04:00 Temperature Pulse Rate 74 74 Respiratory Rate 17 15 Blood Pressure 92/59 L Pulse Oximetry 97 95 Oxygen Delivery Method Room Air Room Air Oxygen Flow Rate 10/04/24 05:00 10/04/24 08:00 Temperature 97.1 F L 97.4 F L Pulse Rate 69 68 Respiratory Rate 16 16 Blood Pressure 102/67 95/66 Pulse Oximetry 95 100 Oxygen Delivery Method Oxygen Flow Rate 0 0 Oxygen Delivery Method Room Air Oxygen Flow Rate 0 Narrative Exam Narrative: GENERAL: This is a frail, weak appearing male patient, in no apparent distress. HEAD: Atraumatic. Normocephalic. No temporal or scalp tenderness. EYES: Pupils equal round and reactive. Extraocular motions intact. No scleral icterus. No injection or drainage. ENT: Mucous membranes pink and moist. NECK: Trachea midline. No JVD, bruits or lymphadenopathy. Supple, nontender, no meningeal signs. CARDIOVASCULAR: Regular rate and rhythm without murmurs, gallops, or rubs. RESPIRATORY: Clear to auscultation. GASTROINTESTINAL: Abdomen soft, active bowel tones, non-tender, moderately distended. EXTREMITIES: Trace edema. BACK: Nontender without deformity or crepitance. No flank tenderness. NEUROLOGIC: Alert, oriented, speech fluent, full upper and lower motor strength, no focal deficits evident. DERMATOLOGIC: No rashes or skin lesions. Objective Imaging CT scan - abdomen: Radiologist's impression: Increased quantity of ascites and peritoneal carcinomatosis compared to the prior exam. There are findings most likely suggest enteritis, potentially infectious, inflammatory, treatment related. Early or partial bowel obstruction is not excluded. Progression of metastatic disease in the liver. Development of small bilateral pleural effusions. Possible subcutaneous implant in the mid abdomen to the left of midline versus focus of recent surgery. Correlate clinically. Labs 10/04/24 00:40 10/04/24 00:40 Labs: Laboratory Results - last 24 hr 10/04/24 10/04/24 00:40 03:17 WBC 7.5 RBC 4.26 L Hgb 13.1 L Hct 39.4 L MCV 92.5 MCH 30.8 MCHC 33.3 RDW 14.8 Plt Count 409 H Neut % (Auto) 62.6 Lymph % (Auto) 27.7 [place] % (Auto) 8.0 Eos % (Auto) 1.4 L Baso % (Auto) 0.3 Neut # (Auto) 4700 Lymph # (Auto) 2100 [place] # (Auto) 600 Eos # (Auto) 100 Baso # (Auto) 0 Sodium 136 L Potassium 4.3 Chloride 102 Carbon Dioxide 26 BUN 22 H Creatinine 0.87 Estimated GFR > 60 BUN/Creatinine Ratio 25.3 H Glucose 130 H Lactate 1.6 Calcium 8.9 Total Bilirubin 0.5 AST 48 ALT 60 H Alkaline Phosphatase 103 Total Protein 6.1 L Albumin 3.6 Globulin 2.5 Albumin/Globulin Ratio 1.4 Lipase 148 Urine RBC 0-1/hpf Urine WBC 0-1/hpf Ur Squamous Epith Cells 0-1 /hpf Ur Transition Epith Cell 0-1/hpf Uric Acid Crystals Moderate H Urine Bacteria Occasional (0-1) Hyaline Casts 0-1/lpf Granular Casts 0-1/lpf Urine Mucus 1+ H Ur Culture Indicated? Cult not indicated Vol Urine Centrifuged 10ml (spun) Assessment & Plan Assessment & Plan narrative: Pancreatic carcinoma stage IV with extensive peritoneal carcinomatosis - malignant ascites, had 4 paracentheses. On 3rd he had 4 L out, on 4th, 2 days ago - 2 L out. Physical without air-fluid and CT w/o large amount, no need for tap at this time. - just started chemotherapy 2 weeks ago at [facility] and had an episode of primary bacterial peritonitis - he was told to consider future taps locally. He should probably get a catheter - CT showing ileus vs SBO w/o transition point - NPO, IVFs, antiemetics, no need for NGT at the time of admission - consider starting clear liquids later today or tomorrow continuing to have bowel movements - discussed if he is tolerating chemotherapy poorly to consider hospice, to discuss further with his oncologist following discharge - patient gets care at [facility] and I have no record available at the time of admission. He is anticoagulated with Eliquis, presumably for VTE. Lovenox 1mg/kg for now - GI prophylaxis - Protonix IH PROFEE Checker Document charge(s): No Charge Codes Initial inpatient/observation care: [id number]
[2024-10-04] MEDS: ENOXAPARIN 100 MG/ML SYRINGE 85 MG SUBCUT ×2 (09:17→20:33)
[2024-10-04] MEDS: PANTOPRAZOLE 40 MG VIAL IV (09:17)
[2024-10-04 09:35] LABS: Add Manual Diff / Slide Review NO; Basophils Absolute Auto 0 /uL (0-100); Basophils Percent Auto 0.7 % (0-2); Eosinophils Absolute Auto 100 /uL (0-450); Eosinophils Percent Auto 1.8 % (2-4); Hematocrit 35.1 % (41-53); Hemoglobin 11.5 g/dL (13.5-17.5); Lymphocytes Absolute Auto 1500 /uL (1100-4500); Lymphocytes Percent Auto 21.8 % (25-40); Mean Corpuscular HGB Conc 32.9 % (30-36); Mean Corpuscular Hemoglobin 30.7 PG (26-34); Mean Corpuscular Volume 93.4 fL (80-100); Monocytes Absolute Auto 600 /uL (0-900); Neutrophils Absolute Auto 4700 /uL (1500-7000); Neutrophils Percent Auto 66.7 % (50-75); Platelet Count 337 X10^3/uL (150-400); Red Blood Cell Count 3.76 X10^6/uL (4.5-5.9); Red Cell Distribution Width 14.8 % (11.6-14.8); White Blood Cell Count 7.1 X10^3/uL (4.5-11.0)
[2024-10-04 09:47] LABS: BUN Creatinine Ratio 26.3 (6-22); Blood Urea Nitrogen 21 mg/dL (9-20); Calcium 8.2 mg/dL (8.4-10.2); Carbon Dioxide 24 mmol/L (22-32); Chloride 104 mmol/L (98-107); Estimated Glomerular Filt Rate > 60 mL/min (>60); Glucose 112 mg/dL (80-110); HEMOLYSIS < 15 (0-50); Sodium 134 mmol/L (137-145)
--- NOTE | 2024-10-04 12:24 | CM.DANOTE ---
Initial DCP Assessment Note Pt is an 88 yo male, recently moved w/spouse to [place] from [facility], w/recent dx of pancreatic cancer , on chemo, followed at by Dr. Basilio Jaquez, Oncologist. Patient arrives with N/V/D. PCP: Marky Sarmiento Payer: [employer] Reviewed chart, pt discussed in multidisciplinary rounds this morning. Patient with malignant ascites, ileus vs SBO. Dr Lay has encouraged patient/sp to consider hospice if patient cannot tolerate chemo- follow up needed w/oncologist. Patient reportedly EGEGIK and sleeping soundly today. No family at bedside. CM team will plan to follow clinical course closely. Plan: Discharge home w/supportive family anticipated, r/o need for HH, family to transport. Patient/family likely will need to follow up w/oncologist before deciding on next treatment steps- chemo vs hospice care. VINITA Ponce Discharge Planning/Care Management CM Discharge Assessment Start: 10/04/24 10:52 Freq: Status: Active Protocol: Document 10/04/24 12:22 RONDA (Rec: 10/04/24 12:24 [id number]) Discharge Planning Assessment Assigned Informatics Spec VINITA Thomson DPOA/Assigned Designee Name Chyna Olmos, spouse Contact Information [phone] Advance Directives? No History Provided By Medical Record Prior Living Arrangements House Household Members spouse Type of transporation used prior to Relies on Others admit Independent with ADL's Current abilities unknown, follow Is patient alert and oriented? Yes Comment Poor activity tolerance recently Patient/Family Preference Home with Home Health Barriers to Discharge No Comment Return home w/HH anticipated. Discharge Plan Home with Home Health Transportation Arrangement Family Referrals Initiated Home Health Additional Comment Discuss with patient and spouse
[2024-10-05] VITALS: BP 130/76; PULSE 76; RESP 17; TEMP 36.6; O2SAT 95
[2024-10-05 04:00] VITALS: BP 130/66; PULSE 86; RESP 18; TEMP 36.6; O2SAT 94
--- NOTE | 2024-10-05 07:29 | P.PN_ITS ---
Subjective Subjective Interval history: Summary: The patient initially presented on 08/21/2024 to this hospital's emergency department week lower abdominal discomfort when he was found to have a pancreatic mass and subsequently diagnosed pancreatic cancer at [facility], starting chemotherapy under the care of Dr. Basilio Jaquez last week. He states that he tolerated chemotherapy poorly and was hospitalized for 1 week at the hospital, and subsequently been undergoing serial paracentesis. He developed significant nausea and vomiting yesterday and presented to the emergency department last night where imaging noted the above-mentioned findings. He was hydrated intravenously and reports feeling better, though persistently weak. He has no focal pain complaints presently. He had a small bowel formed movement few minutes ago and notes having had a formed bowel movement yesterday as well. Overnight events: No issues overnight. S: He he was not been vomiting, was able to keep some clears down in his had some gas from below. His abdomen is distended with ascites, but no pain. He was agreeable to paracentesis for comfort. Exam Vital Signs (past 8 hours): - 10/05/24 00:00 10/05/24 04:00 Temperature 97.8 F 97.8 F Pulse Rate 76 86 Respiratory Rate 17 18 Blood Pressure 130/76 130/66 Pulse Oximetry 95 94 Oxygen Flow Rate 0 0 Oxygen Delivery Method Room Air Oxygen Flow Rate 0 Narrative Exam Narrative: NAD, alert and oriented. Fluent speech. Lungs are clear, normal rate and effort. Heart is regular, no murmur gallop or rub. Abdomen nontender but distended with tense ascites. Extremities are free of edema. Objective Imaging CT scan - abdomen: Radiologist's impression: Increased quantity of ascites and peritoneal carcinomatosis compared to the prior exam. There are findings most likely suggest enteritis, potentially infectious, inflammatory, treatment related. Early or partial bowel obstruction is not excluded. Progression of metastatic disease in the liver. Development of small bilateral pleural effusions. Possible subcutaneous implant in the mid abdomen to the left of midline versus focus of recent surgery. Correlate clinically. Labs 10/04/24 09:28 10/04/24 09:28 Labs: Laboratory Results - last 24 hr 10/04/24 09:28 WBC 7.1 RBC 3.76 L Hgb 11.5 L Hct 35.1 L MCV 93.4 MCH 30.7 MCHC 32.9 RDW 14.8 Plt Count 337 Neut % (Auto) 66.7 Lymph % (Auto) 21.[address] [place] % (Auto) 9.0 Eos % (Auto) 1.8 L Baso % (Auto) 0.7 Neut # (Auto) 4700 Lymph # (Auto) 1500 [place] # (Auto) 600 Eos # (Auto) 100 Baso # (Auto) 0 Sodium 134 L Potassium 4.0 Chloride 104 Carbon Dioxide 24 BUN 21 H Creatinine 0.80 Estimated GFR > 60 BUN/Creatinine Ratio 26.3 H Glucose 112 H Calcium 8.2 L PFS Medical History Venous thromboembolism Pancreatic carcinoma metastatic to intra-abdominal lymph node Social History household members: spouse Smoking Status: Former smoker Assessment & Plan Assessment & Plan narrative: Pancreatic carcinoma stage IV with extensive peritoneal carcinomatosis - malignant ascites, had 4 paracentheses. On 3rd he had 4 L out, on 4th, 2 days ago - 2 L out. - just started chemotherapy 2 weeks ago at [facility] and had an episode of primary bacterial peritonitis - he was told to consider future taps locally. He should probably get a catheter - CT showing ileus vs SBO w/o transition point Plan: -clear liquids today and see how he does. -therapeutic paracentesis is afternoon if time allows. -his diagnosis is all new as August of the year. GLEN: 10/06. Time-Based Coding :: [TOTAL MINUTES] spent with patient and on the chart (including review of chart, obtaining history, exam, reviewing outside data, placing orders, documenting exam and treatment plan, and counseling patient) on [DATE].
[2024-10-05] MEDS: SODIUM CHLORIDE 0.9% 1,000 ML 100 ML IV ×2 (07:59→17:23)
[2024-10-05 08:00] VITALS: BP 109/67; PULSE 71; RESP 16; TEMP 37; O2SAT 98
[2024-10-05] MEDS: PANTOPRAZOLE 40 MG VIAL IV (09:17)
[2024-10-05] MEDS: ENOXAPARIN 100 MG/ML SYRINGE 85 MG SUBCUT ×2 (09:17→20:31)
[2024-10-05 12:00] VITALS: BP 93/64; PULSE 64; RESP 17; TEMP 36.7; O2SAT 99
[2024-10-05] MEDS: levoFLOXacin 250 MG TABLET 500 MG PO (16:20)
--- NOTE | 2024-10-05 16:26 | PM.PROC.1 ---
Procedures Date/Time Date of procedure: 10/05/24 Time of procedure: 15:30 General Procedure description: US guidesd therapuetic paracentesis, 4.5 liters. Paracentesis Time out performed: Yes Indication: Ascites Procedure: therapeutic paracentesis Location: LLQ Local anesthetic used: lidocaine 1% Amount of anesthesia used (ml): 1.0 Bedside ultrasound used: yes, Ascites confirmed and location marked Preparation: 11 blade used to make faustino in skin Amount of fluid obtained (ml): 5,500 Fluid: cloudy Size of needle used: 18 Post procedure exam: awake, alert, normal BP, normal HR and normal SpO2 Patient tolerated procedure: well and no complications Complications: none
--- NOTE | 2024-10-05 16:28 | PC.NURSE ---
Pt resting in bed, paricentesis performed by Dr. Bass. 4.5L of cloudy yellowish fluid removed. Pt tolerated procedure well. Pt has small incision to left side of abdomen. Bandaid placed over incision. Pt denies needs at this time.
[2024-10-05 16:35] VITALS: BP 110/72; PULSE 72; RESP 16; TEMP 36.7; O2SAT 98
[2024-10-05] MEDS: [UNRECOGNIZED DRUG - OTHER] 2 EACH PO (17:10)
[2024-10-05 18:07] LABS: Hematocrit 33.9 % (41-53); Hemoglobin 11.3 g/dL (13.5-17.5)
[2024-10-05 19:00] VITALS: BP 115/75; PULSE 65; RESP 18; TEMP 36.6; O2SAT 97
[2024-10-05] MEDS: ACETAMINOPHEN 325 MG TABLET 650 MG PO (20:31)
[2024-10-05] MEDS: PRAMIPEXOLE 0.25 MG TABLET PO (20:31)
[2024-10-05] MEDS: ATORVASTATIN 20 MG TABLET 40 MG PO (20:31)
[2024-10-06 06:41] LABS: Hemoglobin 11.1 g/dL (13.5-17.5); Mean Corpuscular HGB Conc 33.7 % (30-36); Platelet Count 304 X10^3/uL (150-400); Red Blood Cell Count 3.59 X10^6/uL (4.5-5.9); Red Cell Distribution Width 14.6 % (11.6-14.8); White Blood Cell Count 3.9 X10^3/uL (4.5-11.0)
[2024-10-06 06:52] LABS: BUN Creatinine Ratio 19.4 (6-22); Blood Urea Nitrogen 14 mg/dL (9-20); Calcium 7.8 mg/dL (8.4-10.2); Carbon Dioxide 20 mmol/L (22-32); Chloride 109 mmol/L (98-107); Estimated Glomerular Filt Rate > 60 mL/min (>60); Glucose 98 mg/dL (80-110); HEMOLYSIS < 15 (0-50); Potassium 3.2 mmol/L (3.4-5.1); Sodium 135 mmol/L (137-145)
[2024-10-06 07:00] VITALS: BP 116/88; PULSE 81; RESP 17; TEMP 36.1; O2SAT 99
--- NOTE | 2024-10-06 08:10 | DI.RAD.S_ITS ---
PROCEDURE: XR KUB INDICATIONS: abdomen pain TECHNIQUE: One view of the abdomen acquired. COMPARISON: None. FINDINGS: Surgical changes and devices: None. Bowel: Bowel gas pattern is prominent but nonspecific. Soft tissues: No suspicious abdominal calcifications. Visualized solid organ contours appear normal in size. Bones: No suspicious bony lesions. Decompressive laminectomies in the mid lumbar spine associated with degenerative disc disease and arthropathy. Right hip arthroplasty with paratracheal air cyst. No fractures IMPRESSION: Nonspecific bowel gas pattern. Degenerative osseous changes Approved by: Bo Dean M.D. on 10/06/2024 at 10:42
[2024-10-06] MEDS: levoFLOXacin 250 MG TABLET 500 MG PO (10:17)
[2024-10-06] MEDS: GABAPENTIN 300 MG CAPSULE PO (10:17)
[2024-10-06] MEDS: predniSONE 5 MG TABLET PO (10:17)
[2024-10-06] MEDS: PANTOPRAZOLE 40 MG VIAL IV (10:17)
[2024-10-06] MEDS: [UNRECOGNIZED DRUG - OTHER] 2 EACH PO (10:20)
[2024-10-06] MEDS: ENOXAPARIN 100 MG/ML SYRINGE 85 MG SUBCUT (10:21)
[2024-10-06] MEDS: POTASSIUM CHLORIDE 20 MEQ TAB 40 MEQ PO (10:23)
--- NOTE | 2024-10-06 10:42 | P.DS_ITS ---
History of Present Illness History of Present Illness Chief complaint: Vomiting Narrative: From H&P: 88 y/o with recently started chemotherapy for pancreatic carcinoma, peritoneal carcinomatosis and malignant ascites with several paracentheses and recent episode of PBP, anticoagulated with Eliquis, presumably for VTE with NSR EKG, who presented after he became nauseated earlier today followed by several episodes of vomiting. His last meal was on 09/02 at 5 PM, in between 5 and 7 pm he vomited 3 times and had loose BM - all of that 12 hours prior to admission. CT showing air-fluid levels, likely ileus vs partial SBO w/o transition point in addition to progressing peritoneal carcinomatosis, tumor burden and relatively small amount of ascites. Interval history: The patient initially presented on 08/21/2024 to this hospital's emergency department week lower abdominal discomfort when he was found to have a pancreatic mass and subsequently diagnosed pancreatic cancer at [facility], starting chemotherapy under the care of Dr. Basilio Jaquez last week. He states that he tolerated chemotherapy poorly and was hospitalized for 1 week at the hospital, and subsequently been undergoing serial paracentesis. He developed significant nausea and vomiting yesterday and presented to the emergency department last night where imaging noted the above-mentioned findings. He was hydrated intravenously and reports feeling better, though persistently weak. He has no focal pain complaints presently. He had a small bowel formed movement few minutes ago and notes having had a formed bowel movement yesterday as well. Discharge Providers Provider Date of admission: 10/05/24 11:49 Discharge Date: 10/06/24 Primary care physician: Marky Sarmiento MD Consults: None. Discharge provider: Chip Bass MD Summary Hospital Course Discharge Diagnosis: 1. Pancreatic carcinoma stage IV with extensive peritoneal carcinomatosis, present on admission and active. - malignant ascites, had 4 paracentheses. On 3rd he had 4 L out, on 4th, 2 days ago - 2 L out. - just started chemotherapy 2 weeks ago at [facility] and had an episode of primary bacterial peritonitis 2. Ileus, present on admission and resolved. 3. Malignant ascites, present on admission and active. He did undergo a 4.5 L paracentesis on October 05 for comfort. 4. SBP, present on admission and improved. Hospital Course: He was admitted with nausea vomiting and diarrhea. He was treated as an ileus with bowel rest and then underwent a paracentesis with 5 L of fluid removed. The patient has improved with his bowel rest and slow diet advanced and was at his baseline on October 06. No fevers, or chills. His Levaquin was continued while he was in the hospital, this was started by his oncologist. The patient will continue Levaquin until follow up with Dr. Jaquez, Lillian murguia. They will be contacting his office in the next several days. In addition, the patient was hoping for assistance finding a local PCP. He was intention is to continue treating his cancer as tolerated but he does understand that his prognosis is guarded in time maybe short. He lives in [place] with his . Status at Discharge Cognitive/behavioral status at discharge: oriented Functional status at discharge: uses cane/walker Overall status at discharge: patient is not back to baseline Time Spent with Patient Time spent: Greater than 30 minutes Exam Vital Signs (past 8 hours): - 10/06/24 07:00 Temperature 96.9 F L Pulse Rate 81 Respiratory Rate 17 Blood Pressure 116/88 Pulse Oximetry 99 Oxygen Flow Rate 0 Oxygen Delivery Method Room Air Oxygen Flow Rate 0 Narrative Exam Narrative: NAD, alert and oriented. Fluent speech. Chronically ill in appearance, lethargic. Lungs are clear, normal rate and effort. Heart is regular, no murmur gallop or rub. Abdomen is soft, and slightly distended but non-tender. Extremities are free of edema. Objective Imaging CT scan - abdomen: Radiologist's impression: Increased quantity of ascites and peritoneal carcinomatosis compared to the prior exam. There are findings most likely suggest enteritis, potentially infectious, inflammatory, treatment related. Early or partial bowel obstruction is not excluded. Progression of metastatic disease in the liver. Development of small bilateral pleural effusions. Possible subcutaneous implant in the mid abdomen to the left of midline versus focus of recent surgery. Correlate clinically. Labs 10/06/24 06:23 10/06/24 06:23 Labs: Laboratory Results - last 24 hr 10/05/24 10/06/24 17:55 06:23 WBC 3.9 L RBC 3.59 L Hgb 11.3 L 11.1 L Hct 33.9 L 33.0 L MCV 92.0 MCH 31.0 MCHC 33.7 RDW 14.6 Plt Count 304 Sodium 135 L Potassium 3.2 L Chloride 109 H Carbon Dioxide 20 L BUN 14 Creatinine 0.72 Estimated GFR > 60 BUN/Creatinine Ratio 19.4 Glucose 98 Calcium 7.8 L PFSH Medical History Venous thromboembolism Pancreatic carcinoma metastatic to intra-abdominal lymph node Social History household members: spouse Smoking Status: Former smoker Discharge Assessment & Plan Assessment and Plan Assessment: 1. Pancreatic carcinoma stage IV with extensive peritoneal carcinomatosis, present on admission and active. - malignant ascites, had 4 paracentheses. On he had 4 L out, on 4th, 2 days ago - 2 L out. - just started chemotherapy 2 weeks ago at [facility] and had an episode of primary bacterial peritonitis 2. Ileus, present on admission and resolved. 3. Malignant ascites, present on admission and active. He did undergo a 4.5 L paracentesis on October 05 for comfort. 4. SBP, present on admission and improved. Plan of Treatment: Discharge home, continue Levaquin. He will follow up with Dr. Jaquez of [facility] he was going to try to help coordinate periodic paracentesis at [facility]. He will continue his Levaquin as directed by Dr. Nick in his previous discharge. Discharge Plan Discharge Plan Patient Disposition: Home Health Service Transfer to: [facility] Provider Discharge Comment: Stable for discharge home. Discharge orders & Medications Prescriptions: Continued pramipexole 0.25 mg tablet 0.25 mg PO QPM Rx Instructions: patient takes med after dinner rosuvastatin 20 mg tablet 20 mg PO ONCE PM hydroxychloroquine 200 mg tablet 400 mg PO DAILY Eliquis 5 mg tablet 5 mg PO BID gabapentin 300 mg capsule 300 mg PO DAILY prednisone 5 mg tablet 5 mg PO DAILY Patient Comments: patient takes with 2 mg for total of 7mg azelastine 137 mcg (0.1 %) spray,non-aerosol 2 spray intranasal DAILY PRN (Reason: mucus) baclofen 5 mg tablet 5 mg PO 3XD PRN (Reason: Pain, Moderate) prednisone 1 mg DAILY Rx Instructions: takes 2 tabs (2mg) with 5 mg tab for a total of 7 mg daily acetaminophen 325 mg Tablet 650 mg PO Q6H PRN (Reason: Pain, Moderate) No Action levofloxacin 250 mg tablet 250 mg PO DAILY Follow up/Referrals: Marky Sarmiento MD [Primary Care Provider] - Diet/Activity/Treatments Diet: Diet as Tolerated Visit Report/Discharge Packet Stand Alone Forms: Patient Portal/API Discharge Data Primary Care Provider: Marky Sarmiento
--- NOTE | 2024-10-06 12:01 | CM.DPC ---
Addendum entered by VINITA Moran 10/06/24 12:08: ADD: Gynae kindly offered to meet with family to discuss how to best share medical information between [place] and . Plan: Patient to d/c home today via family POV and new [facility] starting this week set up from and family working on in-home CG assist through pt's LTC insurance. VINITA Moran Original Note: DCP Discharge Home Per MD, pt had ascites drained bedside yesterday with thoracentesis and pt wanting to discharge home today and medically stable to d/c home with family support and outpt f/u. SW met bedside with pt and family and explained role and they confirm that they plan to transport patient home today and already have [facility] set up to start this week on 10/08 from pt's recent [facility] care that was set up. Family plans to stay with pt for a few days to provide assist but are also working with pt's LTC insurance to get Private CG set up likely through [facility] or [facility] and they have appointment with [facility] tomorrow in the home. Family with questions and feedback regarding the dissemination of medical information between [facility] and [facility] as pt still established at for Oncology/chemo as well as PCP. SW requested assist with discussion from health analyst Jewel
--- NOTE | 2024-10-06 14:12 | PC.NURSE ---
Discharge: Pt discharged to home with family in Private Vehicle with all belongings. Pt was A & O x4m, left via W/C to truck.
== END 2024-10-06 01:40 | disposition home health service (06) | DRG 435 ==
LOC: ED 04:15 → AC 04:38
PROVIDERS: Hospitalist; Admitting Provider Internal Medicine; Emergency Provider Emergency Medicine; Family Provider Internal Medicine; PCP Internal Medicine; Visit Provider Internal Medicine
DX: C25.9 Malignant neoplasm of pancreas, unspecified (principal); K65.2 Spontaneous bacterial peritonitis; C77.2 Secondary and unspecified malignant neoplasm of intra-abdominal lymph nodes; K56.7 Ileus, unspecified; R18.0 Malignant ascites; I45.10 Unspecified right bundle-branch block; I44.0 Atrioventricular block, first degree; Z87.891 Personal history of nicotine dependence; Z79.01 Long term (current) use of anticoagulants; Z86.718 Personal history of other venous thrombosis and embolism; Z79.69 Long term (current) use of other immunomodulators and immunosuppressants; Z79.52 Long term (current) use of systemic steroids
CPT/HCPCS: 36415; 74018; 74177; 80048; 80053; 81003; 81015; 83605; 83690; 85014; 85018; 85025; 85027; 93005; 93010; 96360; 99284; G0378; J1650; J2470; Q9967

== ENCOUNTER 2024-10-17 07:34 | Inpatient (IN) | payer MEDICARE, SELFPAY ==
[2024-10-04 06:00] VITALS: BMI 27.3
[2024-10-17] VITALS (173 sets, daily range): BP systolic 63–147; BP diastolic 47–81; PULSE 82–147; RESP 11–27; TEMP 37; O2SAT 90–99; BMI 32.0
--- NOTE | 2024-10-17 08:06 | DI.RAD.S_ITS ---
PROCEDURE: XR CHEST 1V INDICATIONS: suspected sepsis TECHNIQUE: One view of the chest was acquired. COMPARISON: [facility], CR, XR CHEST 1V, 10/11/2024, 12:08. FINDINGS: Surgical changes and devices: Right chest wall port. Cardiac loop recorder . Lungs and pleura: Lungs are clear. No pleural effusions or pneumothorax. Mediastinum: Mediastinal contours appear normal. Heart size is normal. Bones and chest wall: No suspicious bony lesions. Overlying soft tissues appear unremarkable. IMPRESSION: No acute cardiopulmonary abnormality is seen. Dictated by: Moises Hair M.D. on 10/17/2024 at 8:28 Approved by: Moises Hair M.D. on 10/17/2024 at 8:29
--- NOTE | 2024-10-17 08:08 | PC.NURSE ---
This RN presented patient case to Dr. Matthews. This RN also informed of patient low blood pressure. Provider gave verbal order to place sepsis order set. This RN placed orders.
--- NOTE | 2024-10-17 08:10 | EKG_ITS ---
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
[2024-10-17] MEDS: SODIUM CHLORIDE 0.9% 1,000 ML 1000 ML IV ×2 (08:12→12:56)
[2024-10-17 08:14] LABS: Add Manual Diff / Slide Review NO; Basophils Absolute Auto 0 /uL (0-100); Basophils Percent Auto 0.3 % (0-2); Eosinophils Absolute Auto 200 /uL (0-450); Eosinophils Percent Auto 1.5 % (2-4); INR 1.3 (0.9-1.3); Lymphocytes Absolute Auto 1700 /uL (1100-4500); Lymphocytes Percent Auto 13.5 % (25-40); Mean Corpuscular HGB Conc 33.1 % (30-36); Mean Corpuscular Hemoglobin 30.6 PG (26-34); Mean Corpuscular Volume 92.3 fL (80-100); Monocytes Absolute Auto 100 /uL (0-900); Monocytes Percent Auto 0.5 % (3-14); Neutrophils Absolute Auto 10800 /uL (1500-7000); Neutrophils Percent Auto 84.2 % (50-75); Platelet Count 198 X10^3/uL (150-400); Prothrombin Time 14.5 SECONDS (9.4-12.5); Red Blood Cell Count 3.58 X10^6/uL (4.5-5.9); Red Cell Distribution Width 16.1 % (11.6-14.8); White Blood Cell Count 12.8 X10^3/uL (4.5-11.0)
[2024-10-17 08:17] LABS: Lactate (Lactic Acid) 1.5 mmol/L (0.7-2.1); PTT Partial Thromboplastin Tim 36 SECONDS (25.1-36.5)
[2024-10-17 08:18] LABS: Alanine Aminotransferase 29 IU/L (<50); Albumin Globulin Ratio 1.2 (1.0-2.8); Alkaline Phosphatase 144 U/L (38-126); Aspartate Aminotransferase 36 IU/L (17-59); BUN Creatinine Ratio 22.7 (6-22); Bilirubin Total 1.2 mg/dL (0.2-1.3); Blood Urea Nitrogen 17 mg/dL (9-20); Calcium 8.1 mg/dL (8.4-10.2); Carbon Dioxide 26 mmol/L (22-32); Chloride 104 mmol/L (98-107); Estimated Glomerular Filt Rate > 60 mL/min (>60); Globulin 2.5 g/dL (1.7-4.1); Glucose 111 mg/dL (80-110); HEMOLYSIS < 15 (0-50); Lipase 31 U/L (23-300); Potassium 4.4 mmol/L (3.4-5.1); Sodium 136 mmol/L (137-145); Total Protein 5.5 g/dL (6.3-8.2)
--- NOTE | 2024-10-17 08:41 | PC.NURSE ---
This RN informed provider orginal bolus completed. Provider informed of patient remaining low blood pressure. Provider gave verbal order to start Norepinephrine drip titrate per protocol. Verbal order placed by this RN.
[2024-10-17] MEDS: NOREPINEPHRINE BITARTRATE/D5W 4 MG/250 ML PLAST..BAG 36.86 MG IV ×2 (08:48→17:06)
[2024-10-17] MEDS: cefTRIAXone 2,000 MG in SODIUM CHLORIDE 0.9% 100 ML 200 MG IV (08:56)
--- NOTE | 2024-10-17 09:14 | PC.NURSE ---
urine sample was collected prior to the antibiotic being started.
--- NOTE | 2024-10-17 09:19 | PC.NURSE ---
Patient blood pressure rapidly rises when 0.1 rate is started and rapidly falls when patient infusion is stopped. This RN is triturating to 0.08mg/kg/min upon next restart.
--- NOTE | 2024-10-17 09:30 | PC.NURSE ---
This RN titrated patient norepi down to 0.06mg/kg/hr due to rapid acceleration of blood pressure.
--- NOTE | 2024-10-17 09:43 | PC.NURSE ---
Patient blood pressure appears to be stabilizing on current norepi dose. Vitals collection moved to every 5 minutes.
--- NOTE | 2024-10-17 09:53 | ED.NAVMDI ---
HPI - Nausea/Vomiting/Diarrhea <Angelito Matthews MD - Last Filed: 10/17/24 21:09> General Chief complaint: Nausea/Vomiting/Diarrhea Stated complaint: n/v/slipped out of bed Time Seen by Provider: 10/17/24 08:28 Source: EMS Mode of arrival: EMS History of Present Illness HPI Narrative: 88-year-old male with history of pancreatic cancer, ascites, recent paracentesis, next paracentesis scheduled Lillian murguia on Saturday upcoming, fell at home last night, complains of left buttock area pain, worse with movement. He takes Eliquis blood thinner medication. Denies pain to his left thigh, knee, foreleg, ankle and foot. Denies headache pain, nausea, vomiting, loss of consciousness. No focal weakness or numbness to face arm or legs. Related Data Home Medications Medication Instructions Recorded Confirmed apixaban 5 mg tablet (Eliquis) 5 mg PO BID 10/17/24 10/17/24 azelastine 205.5 mcg (0.15 %) 2 spray intranasal BID 10/17/24 10/17/24 nasal spray folic acid 1 mg tablet 1 mg PO DAILY 10/17/24 10/17/24 ipratropium bromide 42 mcg (0.06 2 spray intranasal 3XD 10/17/24 10/17/24 %) nasal spray levofloxacin 250 mg tablet 250 mg PO DAILY 10/17/24 10/17/24 lidocaine-prilocaine 2.5 %-2.5 % 1 applic topical SEEINSTR 10/17/24 10/17/24 topical cream xmamvb-[id number]-leedfsg 2 cap PO SEEINSTR 10/17/24 10/17/24 36,000-114,000-180,000 unit capsule,delay rel (Creon) metoprolol succinate 25 mg 25 mg PO DAILY 10/17/24 10/17/24 tablet,extended release 24 hr ondansetron HCl 8 mg tablet 8 mg PO Q8H PRN nausea/vomiting 10/17/24 10/17/24 oxycodone 5 mg tablet 5 mg PO Q6H 10/17/24 10/17/24 pramipexole 0.25 mg tablet 0.25 mg PO QPM 10/17/24 10/17/24 prednisone 1 mg tablet 2.5 mg PO DAILY 10/17/24 10/17/24 prednisone 5 mg tablet 5 mg PO DAILY 10/17/24 10/17/24 Allergies Allergy/AdvReac Type Severity Reaction Status Date / Time No Known Drug Allergies Allergy Verified 10/11/24 11:50 Patient History <Angelito Matthews MD - Last Filed: 10/17/24 21:09> 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 HEAD: Atraumatic. Normocephalic. EYES: Pupils equal round and reactive. Extraocular motions intact. No scleral icterus. No injection or drainage. ENT: Nose without bleeding, purulent drainage. Throat without erythema, tonsillar hypertrophy or exudate. Airway patent. NECK: Trachea midline. Non tender CARDIOVASCULAR: Regular rate and rhythm without murmurs, gallops, or rubs. RESPIRATORY: Clear to auscultation. Breath sounds equal bilaterally. No wheezes, rales, or rhonchi. Right anterior portacath site without redness or swelling. GASTROINTESTINAL: Abdomen soft, non-tender, nondistended. Central tympany consistent with reported ascites. EXTREMITIES: No edema or joint tenderness. No gross lower limb length discrepancy. No tenderness left anterior or trochanteric hip. Some left buttock area tenderness without bruising on examination. BACK: Nontender without deformity or crepitance. No flank tenderness. NEURO: AOx3. Motor functions grossly nonfocal. SKIN: No rash or erythema of visible areas Initial Vital Signs Initial Vital Signs: Vital Signs Pulse Rate 92 H 10/17/24 07:42 Respiratory Rate 21 10/17/24 07:42 Pulse Oximetry 95 10/17/24 07:42 <Carlos Mensah DO - Last Filed: 10/17/24 19:45> Initial Vital Signs Initial Vital Signs: Vital Signs Pulse Rate 92 H 10/17/24 07:42 Respiratory Rate 21 10/17/24 07:42 Pulse Oximetry 95 10/17/24 07:42 Course <Angelito Matthews MD - Last Filed: 10/17/24 21:09> Orders Ordered: ED Orders 10/17/24 14:45 Troponin I Stat 10/17/24 16:55 Troponin I Stat 10/17/24 18:00 EC echo doppler complete Urgent Acetaminophen (Acetaminophen 325 Mg Tablet) 650 mg PO Q6H PRN PRN Reason: Fever/Mild Pain (1-3) Apixaban (Apixaban 5 Mg Tablet) 5 mg PO BID [facility] Last Admin: 10/17/24 20:31 Dose: 5 mg Documented By: GW Folic Acid (Folic Acid 1 Mg Tablet) 1 mg PO DAILY [facility] NOREPINEPHRINE BITARTRATE/D5W (Levophed) 4 mg in 250 mls @ 36.86 mls/hr IV TITRATE CAM; Protocol Last Titration: 10/17/24 19:34 Dose: 0.06 mcg/kg/min, 22.116 mls/hr Documented By: Titration: 10/17/24 18:26 Dose: 0.08 mcg/kg/min, 29.488 mls/hr Documented By: Admin: 10/17/24 17:06 Dose: 0.1 mcg/kg/min, 36.86 mls/hr Documented By: Titration: 10/17/24 17:06 Dose: Infused Documented By: Titration: 10/17/24 15:32 Dose: 0.1 mcg/kg/min, 36.86 mls/hr Documented By: Titration: 10/17/24 13:07 Dose: 0.08 mcg/kg/min, 29.488 mls/hr Documented By: Titration: 10/17/24 09:27 Dose: 0.06 mcg/kg/min, 22.116 mls/hr Documented By: Titration: 10/17/24 09:22 Dose: 0.08 mcg/kg/min, 29.488 mls/hr Documented By: Titration: 10/17/24 09:19 Dose: 0 mcg/kg/min, 0 mls/hr Documented By: Titration: 10/17/24 09:16 Dose: 0.1 mcg/kg/min, 36.86 mls/hr Documented By: Titration: 10/17/24 08:57 Dose: 0 mcg/kg/min, 0 mls/hr Documented By: Admin: 10/17/24 08:48 Dose: 0.1 mcg/kg/min, 36.86 mls/hr Documented By: WOLF Lactated Ringer's (Lactated Ringers) 1,000 mls @ 150 mls/hr IV CONT [facility] Last Admin: 10/17/24 15:52 Dose: 150 mls/hr Documented By: ALEXANDRU Non-Formulary Medication (Zcttvq-Oqblxmtf-Zazpvnx [Creon]) 2 cap PO SEEINSTR [facility] Ondansetron HCl (Ondansetron 4 Mg/2 Ml Inj) 4 mg IV NOW PRN PRN Reason: Nausea And Vomiting Ondansetron HCl (Ondansetron 4 Mg Odt) 4 mg SL NOW PRN PRN Reason: Nausea And Vomiting Oxycodone HCl (Oxycodone Ir 5 Mg Tablet) 5 mg PO Q6H PRN PRN Reason: Pain, Moderate (4-6) Pantoprazole Sodium (Pantoprazole 40 Mg Vial) 40 mg IV DAILY [facility] Pramipexole Dihydrochloride (Pramipexole 0.25 Mg Tablet) 0.25 mg PO QPM [facility] Last Admin: 10/17/24 20:31 Dose: 0.25 mg Documented By: ALEXANDRU Prednisone (Prednisone 5 Mg Tablet) 5 mg PO DAILY [facility] Discontinued Medications Acetaminophen (Acetaminophen 325 Mg Tablet) 650 mg PO NOW ONE Stop: 10/17/24 19:30 Last Admin: 10/17/24 19:39 Dose: 650 mg Documented By: ALEXANDRU Digoxin (Digoxin 500 Mcg/2 Ml Ampul) 500 mcg IV NOW ONE Stop: 10/17/24 15:13 Last Admin: 10/17/24 15:35 Dose: Not Given Documented By: WOLF Digoxin (Digoxin 500 Mcg/2 Ml Ampul) 250 mcg IV NOW ONE Stop: 10/17/24 17:47 Last Admin: 10/17/24 18:01 Dose: 250 mcg Documented By: ALEXANDRU Hydromorphone HCl (Hydromorphone 0.5 Mg Inj) 0.5 mg IV NOW ONE Stop: 10/17/24 10:24 Last Admin: 10/17/24 10:54 Dose: 0.5 mg Documented By: WOLF Sodium Chloride (Normal Saline 0.9%) 1,000 mls @ 1,000 mls/hr IV BOLUS ONE Stop: 10/17/24 09:05 Last Infusion: 10/17/24 08:41 Dose: Infused Documented By: Infusion: 10/17/24 08:12 Dose: 1,000 mls/hr Documented By: Admin: 10/17/24 08:12 Dose: 1,000 mls/hr Documented By: WOLF Ceftriaxone Sodium 2,000 mg/ (Sodium Chloride) 100 mls @ 200 mls/hr IV NOW ONE Stop: 10/17/24 09:29 Last Infusion: 10/17/24 09:38 Dose: Infused Documented By: Admin: 10/17/24 08:56 Dose: 200 mls/hr Documented By: WOLF Sodium Chloride (Normal Saline 0.9%) 1,000 mls @ 1,000 mls/hr IV BOLUS ONE Stop: 10/17/24 13:23 Last Infusion: 10/17/24 14:06 Dose: Infused Documented By: Admin: 10/17/24 12:56 Dose: 1,000 mls/hr Documented By: ALEXANDRU Lactated Ringer's (Lactated Ringers) 1,000 mls @ 1,000 mls/hr IV BOLUS ONE Stop: 10/17/24 16:32 Last Admin: 10/17/24 15:41 Dose: Not Given Documented By: WOLF Metoprolol Succinate (Metoprolol Er 25 Mg Tablet) 25 mg PO NOW ONE Stop: 10/17/24 15:18 Last Admin: 10/17/24 15:44 Dose: 25 mg Documented By: ALEXANDRU Metoprolol Tartrate (Metoprolol Tartrate 5 Mg/5 Ml Inj) 5 mg IV NOW ONE Stop: 10/17/24 12:25 Last Admin: 10/17/24 12:56 Dose: 5 mg Documented By: ALEXANDRU Pramipexole Dihydrochloride (Pramipexole 0.25 Mg Tablet) 0.25 mg PO QPM [facility] Vital Signs Vital signs: Vital Signs - 8 hr 10/17/24 13:10 10/17/24 13:11 10/17/24 13:11 Pulse Rate 108 H 112 H Respiratory Rate 23 19 Blood Pressure 98/62 Pulse Oximetry 95 94 Oxygen Delivery Method 10/17/24 13:15 10/17/24 13:15 10/17/24 13:20 Pulse Rate 109 H 103 H Respiratory Rate 20 16 Blood Pressure 88/56 L Pulse Oximetry 93 93 Oxygen Delivery Method 10/17/24 13:20 10/17/24 13:25 10/17/24 13:25 Pulse Rate 117 H Respiratory Rate 17 Blood Pressure 94/50 L 104/58 L Pulse Oximetry 94 Oxygen Delivery Method 10/17/24 13:30 10/17/24 13:30 10/17/24 13:35 Pulse Rate 103 H 112 H Respiratory Rate 16 15 Blood Pressure 99/61 Pulse Oximetry 94 96 Oxygen Delivery Method 10/17/24 13:35 10/17/24 13:40 10/17/24 13:40 Pulse Rate 102 H Respiratory Rate 17 Blood Pressure 99/55 L 109/63 Pulse Oximetry 96 Oxygen Delivery Method 10/17/24 13:45 10/17/24 13:45 10/17/24 13:50 Pulse Rate 121 H 123 H Respiratory Rate 17 16 Blood Pressure 107/61 Pulse Oximetry 97 97 Oxygen Delivery Method 10/17/24 13:50 10/17/24 13:54 10/17/24 13:55 Pulse Rate 118 H Respiratory Rate 17 Blood Pressure 102/64 93/70 Pulse Oximetry 97 Oxygen Delivery Method Room Air 10/17/24 13:55 10/17/24 14:00 10/17/24 14:00 Pulse Rate 118 H 119 H Respiratory Rate 17 19 Blood Pressure 96/73 Pulse Oximetry 95 98 Oxygen Delivery Method 10/17/24 14:05 10/17/24 14:05 10/17/24 14:10 Pulse Rate 126 H 116 H Respiratory Rate 18 16 Blood Pressure 100/65 Pulse Oximetry 97 96 Oxygen Delivery Method 10/17/24 14:10 10/17/24 14:15 10/17/24 14:15 Pulse Rate 120 H Respiratory Rate 25 H Blood Pressure 102/65 99/61 Pulse Oximetry 97 Oxygen Delivery Method 10/17/24 14:20 10/17/24 14:20 10/17/24 14:25 Pulse Rate 126 H Respiratory Rate 17 Blood Pressure 101/72 91/71 Pulse Oximetry 98 Oxygen Delivery Method 10/17/24 14:25 10/17/24 14:30 10/17/24 14:30 Pulse Rate 125 H 119 H Respiratory Rate 17 20 Blood Pressure 99/72 Pulse Oximetry 98 98 Oxygen Delivery Method 10/17/24 14:35 10/17/24 14:35 10/17/24 14:40 Pulse Rate 116 H Respiratory Rate 21 Blood Pressure 91/59 L 94/65 Pulse Oximetry 97 Oxygen Delivery Method 10/17/24 14:40 10/17/24 14:45 10/17/24 14:45 Pulse Rate 126 H 139 H Respiratory Rate 18 17 Blood Pressure 106/58 L Pulse Oximetry 98 98 Oxygen Delivery Method 10/17/24 14:50 10/17/24 14:50 10/17/24 14:55 Pulse Rate 125 H Respiratory Rate 17 Blood Pressure 95/56 L 92/65 Pulse Oximetry 95 Oxygen Delivery Method 10/17/24 14:55 10/17/24 15:00 10/17/24 15:00 Pulse Rate 134 H 124 H Respiratory Rate 19 17 Blood Pressure 95/64 Pulse Oximetry 95 94 Oxygen Delivery Method 10/17/24 15:05 10/17/24 15:05 10/17/24 15:10 Pulse Rate 131 H Respiratory Rate 20 Blood Pressure 94/77 93/64 Pulse Oximetry 94 Oxygen Delivery Method 10/17/24 15:10 10/17/24 15:15 10/17/24 15:15 Pulse Rate 138 H 124 H Respiratory Rate 17 18 Blood Pressure 101/69 Pulse Oximetry 98 96 Oxygen Delivery Method 10/17/24 15:20 10/17/24 15:20 10/17/24 15:25 Pulse Rate 120 H 130 H Respiratory Rate 18 17 Blood Pressure 99/71 Pulse Oximetry 95 96 Oxygen Delivery Method 10/17/24 15:26 10/17/24 15:26 10/17/24 15:30 Pulse Rate 132 H Respiratory Rate 15 Blood Pressure 78/57 L 98/60 Pulse Oximetry 96 Oxygen Delivery Method 10/17/24 15:30 10/17/24 15:35 10/17/24 15:35 Pulse Rate 119 H 123 H Respiratory Rate 16 18 Blood Pressure 108/75 Pulse Oximetry 96 95 Oxygen Delivery Method 10/17/24 15:39 10/17/24 15:40 10/17/24 15:40 Pulse Rate 133 H 135 H Respiratory Rate 27 H 21 Blood Pressure 113/71 Pulse Oximetry 94 95 Oxygen Delivery Method 10/17/24 15:44 10/17/24 15:45 10/17/24 15:45 Pulse Rate 140 H 129 H Respiratory Rate 16 Blood Pressure 113/71 117/65 Pulse Oximetry 95 Oxygen Delivery Method 10/17/24 15:50 10/17/24 15:50 10/17/24 15:55 Pulse Rate 135 H 130 H Respiratory Rate 19 21 Blood Pressure 112/58 L Pulse Oximetry 94 94 Oxygen Delivery Method 10/17/24 16:00 10/17/24 16:00 10/17/24 16:05 Pulse Rate 127 H 119 H Respiratory Rate 17 21 Blood Pressure 108/62 Pulse Oximetry 92 96 Oxygen Delivery Method 10/17/24 16:10 10/17/24 16:10 10/17/24 16:15 Pulse Rate 133 H 127 H Respiratory Rate 25 H 18 Blood Pressure 101/70 Pulse Oximetry 97 94 Oxygen Delivery Method 10/17/24 16:20 10/17/24 16:20 10/17/24 16:25 Pulse Rate 133 H 126 H Respiratory Rate 23 Blood Pressure 111/81 Pulse Oximetry 93 94 Oxygen Delivery Method 10/17/24 16:30 10/17/24 16:30 10/17/24 16:35 Pulse Rate 135 H 128 H Respiratory Rate 19 19 Blood Pressure 100/75 Pulse Oximetry 94 93 Oxygen Delivery Method Room Air 10/17/24 16:40 10/17/24 16:40 10/17/24 16:45 Pulse Rate 113 H 129 H Respiratory Rate 18 18 Blood Pressure 111/65 Pulse Oximetry 92 94 Oxygen Delivery Method 10/17/24 16:50 10/17/24 16:50 10/17/24 16:52 Pulse Rate 139 H 126 H Respiratory Rate 22 Blood Pressure 90/65 90/63 Pulse Oximetry 95 Oxygen Delivery Method 10/17/24 16:55 10/17/24 17:00 10/17/24 17:00 Pulse Rate 119 H 125 H Respiratory Rate 18 21 Blood Pressure 103/71 Pulse Oximetry 94 93 Oxygen Delivery Method 10/17/24 17:05 10/17/24 17:10 10/17/24 17:10 Pulse Rate 131 H 113 H Respiratory Rate 22 18 Blood Pressure 99/67 Pulse Oximetry 94 95 Oxygen Delivery Method 10/17/24 17:15 10/17/24 17:20 10/17/24 17:20 Pulse Rate 116 H 124 H Respiratory Rate 19 21 Blood Pressure 90/62 Pulse Oximetry 95 95 Oxygen Delivery Method Room Air 10/17/24 17:25 10/17/24 17:30 10/17/24 17:30 Pulse Rate 122 H 113 H Respiratory Rate 20 21 Blood Pressure 97/67 Pulse Oximetry 93 94 Oxygen Delivery Method 10/17/24 17:35 10/17/24 17:40 10/17/24 17:40 Pulse Rate 125 H 112 H Respiratory Rate 19 23 Blood Pressure 109/60 Pulse Oximetry 95 95 Oxygen Delivery Method 10/17/24 17:45 10/17/24 17:50 10/17/24 17:50 Pulse Rate 125 H 128 H Respiratory Rate 19 23 Blood Pressure 98/58 L Pulse Oximetry 94 96 Oxygen Delivery Method 10/17/24 17:55 10/17/24 18:00 10/17/24 18:00 Pulse Rate 121 H 119 H Respiratory Rate 24 16 Blood Pressure 106/61 Pulse Oximetry 95 95 Oxygen Delivery Method 10/17/24 18:01 10/17/24 18:05 10/17/24 18:10 Pulse Rate 130 H 121 H Respiratory Rate Blood Pressure 106/61 120/67 Pulse Oximetry Oxygen Delivery Method 10/17/24 18:10 10/17/24 18:15 10/17/24 18:16 Pulse Rate 133 H 114 H 120 H Respiratory Rate 18 17 18 Blood Pressure Pulse Oximetry 94 93 94 Oxygen Delivery Method Room Air 10/17/24 18:17 10/17/24 18:30 10/17/24 19:00 Pulse Rate 112 H 106 H Respiratory Rate 18 Blood Pressure 105/62 93/64 98/74 Pulse Oximetry 99 93 Oxygen Delivery Method 10/17/24 19:30 Pulse Rate 106 H Respiratory Rate 19 Blood Pressure 110/59 L Pulse Oximetry 95 Oxygen Delivery Method <Carlos Mensah, - Last Filed: 10/17/24 19:45> Orders Ordered: ED Orders 10/17/24 14:45 Troponin I Stat 10/17/24 16:55 Troponin I Stat 10/17/24 18:00 EC echo doppler complete Urgent Acetaminophen (Acetaminophen 325 Mg Tablet) 650 mg PO Q6H PRN PRN Reason: Fever/Mild Pain (1-3) Apixaban (Apixaban 5 Mg Tablet) 5 mg PO BID [facility] Last Admin: 10/17/24 20:31 Dose: 5 mg Documented By: ALEXANDRU Folic Acid (Folic Acid 1 Mg Tablet) 1 mg PO DAILY [facility] NOREPINEPHRINE BITARTRATE/D5W (Levophed) 4 mg in 250 mls @ 36.86 mls/hr IV TITRATE CAM; Protocol Last Titration: 10/17/24 19:34 Dose: 0.06 mcg/kg/min, 22.116 mls/hr Documented By: Titration: 10/17/24 18:26 Dose: 0.08 mcg/kg/min, 29.488 mls/hr Documented By: Admin: 10/17/24 17:06 Dose: 0.1 mcg/kg/min, 36.86 mls/hr Documented By: Titration: 10/17/24 17:06 Dose: Infused Documented By: Titration: 10/17/24 15:32 Dose: 0.1 mcg/kg/min, 36.86 mls/hr Documented By: Titration: 10/17/24 13:07 Dose: 0.08 mcg/kg/min, 29.488 mls/hr Documented By: Titration: 10/17/24 09:27 Dose: 0.06 mcg/kg/min, 22.116 mls/hr Documented By: Titration: 10/17/24 09:22 Dose: 0.08 mcg/kg/min, 29.488 mls/hr Documented By: Titration: 10/17/24 09:19 Dose: 0 mcg/kg/min, 0 mls/hr Documented By: Titration: 10/17/24 09:16 Dose: 0.1 mcg/kg/min, 36.86 mls/hr Documented By: Titration: 10/17/24 08:57 Dose: 0 mcg/kg/min, 0 mls/hr Documented By: Admin: 10/17/24 08:48 Dose: 0.1 mcg/kg/min, 36.86 mls/hr Documented By: RB Lactated Ringer's (Lactated Ringers) 1,000 mls @ 150 mls/hr IV CONT [facility] Last Admin: 10/17/24 15:52 Dose: 150 mls/hr Documented By: ALEXANDRU Non-Formulary Medication (Cilgor-Itprbunr-Bthebxl [Creon]) 2 cap PO SEEINSTR [facility] Ondansetron HCl (Ondansetron 4 Mg/2 Ml Inj) 4 mg IV NOW PRN PRN Reason: Nausea And Vomiting Ondansetron HCl (Ondansetron 4 Mg Odt) 4 mg SL NOW PRN PRN Reason: Nausea And Vomiting Oxycodone HCl (Oxycodone Ir 5 Mg Tablet) 5 mg PO Q6H PRN PRN Reason: Pain, Moderate (4-6) Pantoprazole Sodium (Pantoprazole 40 Mg Vial) 40 mg IV DAILY [facility] Pramipexole Dihydrochloride (Pramipexole 0.25 Mg Tablet) 0.25 mg PO QPM [facility] Last Admin: 10/17/24 20:31 Dose: 0.25 mg Documented By: ALEXANDRU Prednisone (Prednisone 5 Mg Tablet) 5 mg PO DAILY [facility] Discontinued Medications Acetaminophen (Acetaminophen 325 Mg Tablet) 650 mg PO NOW ONE Stop: 10/17/24 19:30 Last Admin: 10/17/24 19:39 Dose: 650 mg Documented By: ALEXANDRU Digoxin (Digoxin 500 Mcg/2 Ml Ampul) 500 mcg IV NOW ONE Stop: 10/17/24 15:13 Last Admin: 10/17/24 15:35 Dose: Not Given Documented By: WOLF Digoxin (Digoxin 500 Mcg/2 Ml Ampul) 250 mcg IV NOW ONE Stop: 10/17/24 17:47 Last Admin: 10/17/24 18:01 Dose: 250 mcg Documented By: ALEXANDRU Hydromorphone HCl (Hydromorphone 0.5 Mg Inj) 0.5 mg IV NOW ONE Stop: 10/17/24 10:24 Last Admin: 10/17/24 10:54 Dose: 0.5 mg Documented By: WOLF Sodium Chloride (Normal Saline 0.9%) 1,000 mls @ 1,000 mls/hr IV BOLUS ONE Stop: 10/17/24 09:05 Last Infusion: 10/17/24 08:41 Dose: Infused Documented By: Infusion: 10/17/24 08:12 Dose: 1,000 mls/hr Documented By: Admin: 10/17/24 08:12 Dose: 1,000 mls/hr Documented By: RB Ceftriaxone Sodium 2,000 mg/ (Sodium Chloride) 100 mls @ 200 mls/hr IV NOW ONE Stop: 10/17/24 09:29 Last Infusion: 10/17/24 09:38 Dose: Infused Documented By: Admin: 10/17/24 08:56 Dose: 200 mls/hr Documented By: RB Sodium Chloride (Normal Saline 0.9%) 1,000 mls @ 1,000 mls/hr IV BOLUS ONE Stop: 10/17/24 13:23 Last Infusion: 10/17/24 14:06 Dose: Infused Documented By: Admin: 10/17/24 12:56 Dose: 1,000 mls/hr Documented By: ALEXANDRU Lactated Ringer's (Lactated Ringers) 1,000 mls @ 1,000 mls/hr IV BOLUS ONE Stop: 10/17/24 16:32 Last Admin: 10/17/24 15:41 Dose: Not Given Documented By: WOLF Metoprolol Succinate (Metoprolol Er 25 Mg Tablet) 25 mg PO NOW ONE Stop: 10/17/24 15:18 Last Admin: 10/17/24 15:44 Dose: 25 mg Documented By: ALEXANDRU Metoprolol Tartrate (Metoprolol Tartrate 5 Mg/5 Ml Inj) 5 mg IV NOW ONE Stop: 10/17/24 12:25 Last Admin: 10/17/24 12:56 Dose: 5 mg Documented By: ALEXANDRU Pramipexole Dihydrochloride (Pramipexole 0.25 Mg Tablet) 0.25 mg PO QPM [facility] Vital Signs Vital signs: Vital Signs - 8 hr 10/17/24 13:10 10/17/24 13:11 10/17/24 13:11 Pulse Rate 108 H 112 H Respiratory Rate 23 19 Blood Pressure 98/62 Pulse Oximetry 95 94 Oxygen Delivery Method 10/17/24 13:15 10/17/24 13:15 10/17/24 13:20 Pulse Rate 109 H 103 H Respiratory Rate 20 16 Blood Pressure 88/56 L Pulse Oximetry 93 93 Oxygen Delivery Method 10/17/24 13:20 10/17/24 13:25 10/17/24 13:25 Pulse Rate 117 H Respiratory Rate 17 Blood Pressure 94/50 L 104/58 L Pulse Oximetry 94 Oxygen Delivery Method 10/17/24 13:30 10/17/24 13:30 10/17/24 13:35 Pulse Rate 103 H 112 H Respiratory Rate 16 15 Blood Pressure 99/61 Pulse Oximetry 94 96 Oxygen Delivery Method 10/17/24 13:35 10/17/24 13:40 10/17/24 13:40 Pulse Rate 102 H Respiratory Rate 17 Blood Pressure 99/55 L 109/63 Pulse Oximetry 96 Oxygen Delivery Method 10/17/24 13:45 10/17/24 13:45 10/17/24 13:50 Pulse Rate 121 H 123 H Respiratory Rate 17 16 Blood Pressure 107/61 Pulse Oximetry 97 97 Oxygen Delivery Method 10/17/24 13:50 10/17/24 13:54 10/17/24 13:55 Pulse Rate 118 H Respiratory Rate 17 Blood Pressure 102/64 93/70 Pulse Oximetry 97 Oxygen Delivery Method Room Air 10/17/24 13:55 10/17/24 14:00 10/17/24 14:00 Pulse Rate 118 H 119 H Respiratory Rate 17 19 Blood Pressure 96/73 Pulse Oximetry 95 98 Oxygen Delivery Method 10/17/24 14:05 10/17/24 14:05 10/17/24 14:10 Pulse Rate 126 H 116 H Respiratory Rate 18 16 Blood Pressure 100/65 Pulse Oximetry 97 96 Oxygen Delivery Method 10/17/24 14:10 10/17/24 14:15 10/17/24 14:15 Pulse Rate 120 H Respiratory Rate 25 H Blood Pressure 102/65 99/61 Pulse Oximetry 97 Oxygen Delivery Method 10/17/24 14:20 10/17/24 14:20 10/17/24 14:25 Pulse Rate 126 H Respiratory Rate 17 Blood Pressure 101/72 91/71 Pulse Oximetry 98 Oxygen Delivery Method 10/17/24 14:25 10/17/24 14:30 10/17/24 14:30 Pulse Rate 125 H 119 H Respiratory Rate 17 20 Blood Pressure 99/72 Pulse Oximetry 98 98 Oxygen Delivery Method 10/17/24 14:35 10/17/24 14:35 10/17/24 14:40 Pulse Rate 116 H Respiratory Rate 21 Blood Pressure 91/59 L 94/65 Pulse Oximetry 97 Oxygen Delivery Method 10/17/24 14:40 10/17/24 14:45 10/17/24 14:45 Pulse Rate 126 H 139 H Respiratory Rate 18 17 Blood Pressure 106/58 L Pulse Oximetry 98 98 Oxygen Delivery Method 10/17/24 14:50 10/17/24 14:50 10/17/24 14:55 Pulse Rate 125 H Respiratory Rate 17 Blood Pressure 95/56 L 92/65 Pulse Oximetry 95 Oxygen Delivery Method 10/17/24 14:55 10/17/24 15:00 10/17/24 15:00 Pulse Rate 134 H 124 H Respiratory Rate 19 17 Blood Pressure 95/64 Pulse Oximetry 95 94 Oxygen Delivery Method 10/17/24 15:05 10/17/24 15:05 10/17/24 15:10 Pulse Rate 131 H Respiratory Rate 20 Blood Pressure 94/77 93/64 Pulse Oximetry 94 Oxygen Delivery Method 10/17/24 15:10 10/17/24 15:15 10/17/24 15:15 Pulse Rate 138 H 124 H Respiratory Rate 17 18 Blood Pressure 101/69 Pulse Oximetry 98 96 Oxygen Delivery Method 10/17/24 15:20 10/17/24 15:20 10/17/24 15:25 Pulse Rate 120 H 130 H Respiratory Rate 18 17 Blood Pressure 99/71 Pulse Oximetry 95 96 Oxygen Delivery Method 10/17/24 15:26 10/17/24 15:26 10/17/24 15:30 Pulse Rate 132 H Respiratory Rate 15 Blood Pressure 78/57 L 98/60 Pulse Oximetry 96 Oxygen Delivery Method 10/17/24 15:30 10/17/24 15:35 10/17/24 15:35 Pulse Rate 119 H 123 H Respiratory Rate 16 18 Blood Pressure 108/75 Pulse Oximetry 96 95 Oxygen Delivery Method 10/17/24 15:39 10/17/24 15:40 10/17/24 15:40 Pulse Rate 133 H 135 H Respiratory Rate 27 H 21 Blood Pressure 113/71 Pulse Oximetry 94 95 Oxygen Delivery Method 10/17/24 15:44 10/17/24 15:45 10/17/24 15:45 Pulse Rate 140 H 129 H Respiratory Rate 16 Blood Pressure 113/71 117/65 Pulse Oximetry 95 Oxygen Delivery Method 10/17/24 15:50 10/17/24 15:50 10/17/24 15:55 Pulse Rate 135 H 130 H Respiratory Rate 19 21 Blood Pressure 112/58 L Pulse Oximetry 94 94 Oxygen Delivery Method 10/17/24 16:00 10/17/24 16:00 10/17/24 16:05 Pulse Rate 127 H 119 H Respiratory Rate 17 21 Blood Pressure 108/62 Pulse Oximetry 92 96 Oxygen Delivery Method 10/17/24 16:10 10/17/24 16:10 10/17/24 16:15 Pulse Rate 133 H 127 H Respiratory Rate 25 H 18 Blood Pressure 101/70 Pulse Oximetry 97 94 Oxygen Delivery Method 10/17/24 16:20 10/17/24 16:20 10/17/24 16:25 Pulse Rate 133 H 126 H Respiratory Rate 23 Blood Pressure 111/81 Pulse Oximetry 93 94 Oxygen Delivery Method 10/17/24 16:30 10/17/24 16:30 10/17/24 16:35 Pulse Rate 135 H 128 H Respiratory Rate 19 19 Blood Pressure 100/75 Pulse Oximetry 94 93 Oxygen Delivery Method Room Air 10/17/24 16:40 10/17/24 16:40 10/17/24 16:45 Pulse Rate 113 H 129 H Respiratory Rate 18 18 Blood Pressure 111/65 Pulse Oximetry 92 94 Oxygen Delivery Method 10/17/24 16:50 10/17/24 16:50 10/17/24 16:52 Pulse Rate 139 H 126 H Respiratory Rate 22 Blood Pressure 90/65 90/63 Pulse Oximetry 95 Oxygen Delivery Method 10/17/24 16:55 10/17/24 17:00 10/17/24 17:00 Pulse Rate 119 H 125 H Respiratory Rate 18 21 Blood Pressure 103/71 Pulse Oximetry 94 93 Oxygen Delivery Method 10/17/24 17:05 10/17/24 17:10 10/17/24 17:10 Pulse Rate 131 H 113 H Respiratory Rate 22 18 Blood Pressure 99/67 Pulse Oximetry 94 95 Oxygen Delivery Method 10/17/24 17:15 10/17/24 17:20 10/17/24 17:20 Pulse Rate 116 H 124 H Respiratory Rate 19 21 Blood Pressure 90/62 Pulse Oximetry 95 95 Oxygen Delivery Method Room Air 10/17/24 17:25 10/17/24 17:30 10/17/24 17:30 Pulse Rate 122 H 113 H Respiratory Rate 20 21 Blood Pressure 97/67 Pulse Oximetry 93 94 Oxygen Delivery Method 10/17/24 17:35 10/17/24 17:40 10/17/24 17:40 Pulse Rate 125 H 112 H Respiratory Rate 19 23 Blood Pressure 109/60 Pulse Oximetry 95 95 Oxygen Delivery Method 10/17/24 17:45 10/17/24 17:50 10/17/24 17:50 Pulse Rate 125 H 128 H Respiratory Rate 19 23 Blood Pressure 98/58 L Pulse Oximetry 94 96 Oxygen Delivery Method 10/17/24 17:55 10/17/24 18:00 10/17/24 18:00 Pulse Rate 121 H 119 H Respiratory Rate 24 16 Blood Pressure 106/61 Pulse Oximetry 95 95 Oxygen Delivery Method 10/17/24 18:01 10/17/24 18:05 10/17/24 18:10 Pulse Rate 130 H 121 H Respiratory Rate Blood Pressure 106/61 120/67 Pulse Oximetry Oxygen Delivery Method 10/17/24 18:10 10/17/24 18:15 10/17/24 18:16 Pulse Rate 133 H 114 H 120 H Respiratory Rate 18 17 18 Blood Pressure Pulse Oximetry 94 93 94 Oxygen Delivery Method Room Air 10/17/24 18:17 10/17/24 18:30 10/17/24 19:00 Pulse Rate 112 H 106 H Respiratory Rate 18 Blood Pressure 105/62 93/64 98/74 Pulse Oximetry 99 93 Oxygen Delivery Method 10/17/24 19:30 Pulse Rate 106 H Respiratory Rate 19 Blood Pressure 110/59 L Pulse Oximetry 95 Oxygen Delivery Method MDM - Nausea/Vomiting/Diarrhea <Angelito Matthews MD - Last Filed: 10/17/24 21:09> Lab Data Attestation: I reviewed the patient's lab results. Lab results narrative: White blood cell count 10137, hemoglobin 11, platelets adequate. Glucose 111. BUN 17 with creatinine 0.75 adequate. Electrolytes show sodium 136, potassium 4.4, serum CO2 noted 26. Alkaline phosphatase 144, other LFTs normal. Lipase 31 normal. Lactate 1.5 normal. 10/17/24 07:40 10/17/24 07:40 Labs: Lab Results 10/17/24 10/17/24 10/17/24 Range/Units 07:40 14:45 16:55 WBC 12.8 H (4.5-11.0) X10^3/uL RBC 3.58 L (4.5-5.9) X10^6/uL Hgb 11.0 L (13.5-17.5) g/dL Hct 33.0 L (41-53) % MCV 92.3 (80-100) fL MCH 30.6 (26-34) PG MCHC 33.1 (30-36) % RDW 16.1 H (11.6-14.8) % Plt Count 198 (150-400) X10^3/uL Neut % (Auto) 84.2 H (50-75) % Lymph % (Auto) 13.5 L (25-40) % Greene % (Auto) 0.5 L (3-14) % Eos % (Auto) 1.5 L (2-4) % Baso % (Auto) 0.3 (0-2) % Neut # (Auto) 63164 H (1933-3344) /uL Lymph # (Auto) 1700 (7438-3462) /uL Greene # (Auto) 100 (0-900) /uL Eos # (Auto) 200 (0-450) /uL Baso # (Auto) 0 (0-100) /uL PT 14.5 H (9.4-12.5) SECONDS INR 1.3 (0.9-1.3) APTT 36 (25.1-36.5) SECONDS Sodium 136 L (137-145) mmol/L Potassium 4.4 (3.4-5.1) mmol/L Chloride 104 (98-107) mmol/L Carbon Dioxide 26 (22-32) mmol/L BUN 17 (9-20) mg/dL Creatinine 0.75 (0.66-1.25) mg/dL Estimated GFR > 60 (>60) mL/min BUN/Creatinine Ratio 22.7 H (6-22) Glucose 111 H (80-110) mg/dL Lactate 1.5 (0.7-2.1) mmol/L Calcium 8.1 L (8.4-10.2) mg/dL Total Bilirubin 1.2 (0.2-1.3) mg/dL AST 36 (17-59) IU/L ALT 29 (<50) IU/L Alkaline Phosphatase 144 H (38-126) U/L Troponin I 0.079 H 0.101 H (0.01-0.034) ng/mL Total Protein 5.5 L (6.3-8.2) g/dL Albumin 3.0 L (3.5-5.0) g/dL Globulin 2.5 (1.7-4.1) g/dL Albumin/Globulin Ratio 1.2 (1.0-2.8) Lipase 31 (23-300) U/L Procalcitonin 0.230 (<0.5) ng/mL Point of Care Testing Glucose POC 185 Urine Dip Bedside Urine Glucose Negative Bedside Urine Bilirubin - Negative Bedside Urine Ketone - Negative Urine Specific [place] 1.025 Bedside Urine Occult Blood - Negative Bedside Urine pH 5.5 Bedside Urine Protein - Negative Bedside Urine Urobilinogen - Negative Bedside Urine Nitrite - Negative Bedside Urine Leukocytes - Negative Esterase Imaging Data Chest x-ray: Radiologist's Impression: [address] [address] XRay Report Signed Patient: Salty Olmos MR#: [id number] : 1935 Acct:[id number] Age/Sex: 88 / M Date of Service: 10/17/24 Loc: ED Accession Number: [id number] Procedure: XR chest 1V Ordering Provider: Angelito Matthews MD PROCEDURE: XR CHEST 1V INDICATIONS: suspected sepsis TECHNIQUE: One view of the chest was acquired. COMPARISON: [facility], , XR CHEST 1V, 10/11/2024, 12:08. FINDINGS: Surgical changes and devices: Right chest wall port. Cardiac loop recorder . Lungs and pleura: Lungs are clear. No pleural effusions or pneumothorax. Mediastinum: Mediastinal contours appear normal. Heart size is normal. Bones and chest wall: No suspicious bony lesions. Overlying soft tissues appear unremarkable. IMPRESSION: No acute cardiopulmonary abnormality is seen. Dictated by: Moises Hair M.D. on 10/17/2024 at 8:28 Approved by: Moises Hair M.D. on 10/17/2024 at 8:29 Left hip x-ray series with pelvis: Radiologist's Impression: [address] [address] XRay Report Signed Patient: Salty Olmos MR#: [id number] : 1935 Acct:[id number] Age/Sex: 88 / M Date of Service: 10/17/24 Loc: ED Accession Number: [id number] Procedure: XR hip w pel if done LT 2V Ordering Provider: Angelito Matthews MD PROCEDURE: XR HIP W PEL IF DONE LT 2V INDICATIONS: L hip/buttock pain after GLF TECHNIQUE: 3 views of the hip were acquired. COMPARISON: None. FINDINGS: Bones: No fractures or dislocations. No suspicious bony lesions. The visualized pelvic ring appears intact. Right hip arthroplasty and hip moderate joint space narrowing. No fracture. Soft tissues: No suspicious soft tissue calcifications or masses. IMPRESSION: Arthritic changes and total right hip arthroplasty. No fracture. Approved by: Bo Dean M.D. on 10/17/2024 at 10:14 ECG Data Attestation: I personally reviewed and interpreted this ECG as follows: Interpretation: 0810, Normal sinus rhythm with first-degree AV block, OR 280, QRS 138, QTC 467. No change from comparison study 10/04/2024. 1125, atrial fibrillation with rapid ventricular response, rate 125. Right bundle branch block pattern again seen. QRS 140, QTC 487. MDM Narrative Medical decision making narrative: 88-year-old male with history of pancreatpancreatic cancer, ascites, chronic anticoagulation had fall last night, complains of left buttock area discomfort. Screening labs sent. Initial low blood pressure improved after fluid bolus. EKG shows right bundle branch block, similar to study last month. Labs pending. Chest x-ray unremarkable. EKG initially read as sinus with PACs, right bundle noted. Rhythm change, faster wide complex tachycardia, repeat EKG shows AFib with RVR with right bundle pattern, ventricular rate 120s. Blood pressure 100 systolic noted. IV fluids. He takes oral metoprolol. IV metoprolol 5 mg dose. X-ray left hip negative, see radiology report, hip replacement noted, well seated. CT abdomen and pelvis study ordered. CT abdomen and pelvis shows carcinomatosis, ascites, no acute fracture pelvis or hip. See radiology report. Troponin 0.07 indeterminate range, repeat troponin to be drawn. Consider digoxin for rate control, soft blood pressure noted. We will consult hospitalist 1515, case discussed with hospitalist Dr. Haynes, who requests Cardiology consultation, will await 2nd troponin, will give oral metoprolol for now, hold digoxin. Consult cardiology Dr. Ying on-call when 2nd troponin available. Repeat troponin 0.1 further increased, no chest pain or shortness of breath. Patient with some mild hypotension after IV metoprolol and oral metoprolol, on low-dose norepinephrine at present. We will consult with Cardiology. 1744, case discussed with Dr. Ying cardiology, based on the patient's metastatic cancer disease he would not likely be aggressive in cardiac care at this time, consider IV digoxin 250 mcg now and can repeat in 4 hours for atrial fibrillation rate control, consider admission here with echocardiogram. He will be on-call over the weekend to further consult. 1749, case discussed with hospitalist Dr. Haynes, accepts patient for admission, but then called back as there are no beds available for person on pressors. IV norepinephrine infusing through right anterior Port-A-Cath. 1800, signed out to Dr Mensah 194: The patient's management plan was discussed Dr. Rodriguez, who agrees to admit the patient to their service and assumes care of this patient at this time. Full admission orders will be placed by the primary team. <Carlos Mensah, DO - Last Filed: 10/17/24 19:45> Lab Data Labs: Lab Results 10/17/24 10/17/24 10/17/24 Range/Units 07:40 14:45 16:55 WBC 12.8 H (4.5-11.0) X10^3/uL RBC 3.58 L (4.5-5.9) X10^6/uL Hgb 11.0 L (13.5-17.5) g/dL Hct 33.0 L (41-53) % MCV 92.3 (80-100) fL MCH 30.6 (26-34) PG MCHC 33.1 (30-36) % RDW 16.1 H (11.6-14.8) % Plt Count 198 (150-400) X10^3/uL Neut % (Auto) 84.2 H (50-75) % Lymph % (Auto) 13.5 L (25-40) % Greene % (Auto) 0.5 L (3-14) % Eos % (Auto) 1.5 L (2-4) % Baso % (Auto) 0.3 (0-2) % Neut # (Auto) 91063 H (5551-7476) /uL Lymph # (Auto) 1700 (7983-1668) /uL Greene # (Auto) 100 (0-900) /uL Eos # (Auto) 200 (0-450) /uL Baso # (Auto) 0 (0-100) /uL PT 14.5 H (9.4-12.5) SECONDS INR 1.3 (0.9-1.3) APTT 36 (25.1-36.5) SECONDS Sodium 136 L (137-145) mmol/L Potassium 4.4 (3.4-5.1) mmol/L Chloride 104 (98-107) mmol/L Carbon Dioxide 26 (22-32) mmol/L BUN 17 (9-20) mg/dL Creatinine 0.75 (0.66-1.25) mg/dL Estimated GFR > 60 (>60) mL/min BUN/Creatinine Ratio 22.7 H (6-22) Glucose 111 H (80-110) mg/dL Lactate 1.5 (0.7-2.1) mmol/L Calcium 8.1 L (8.4-10.2) mg/dL Total Bilirubin 1.2 (0.2-1.3) mg/dL AST 36 (17-59) IU/L ALT 29 (<50) IU/L Alkaline Phosphatase 144 H (38-126) U/L Troponin I 0.079 H 0.101 H (0.01-0.034) ng/mL Total Protein 5.5 L (6.3-8.2) g/dL Albumin 3.0 L (3.5-5.0) g/dL Globulin 2.5 (1.7-4.1) g/dL Albumin/Globulin Ratio 1.2 (1.0-2.8) Lipase 31 (23-300) U/L Procalcitonin 0.230 (<0.5) ng/mL Point of Care Testing Glucose POC 185 Urine Dip Bedside Urine Glucose Negative Bedside Urine Bilirubin - Negative Bedside Urine Ketone - Negative Urine Specific [place] 1.025 Bedside Urine Occult Blood - Negative Bedside Urine pH 5.5 Bedside Urine Protein - Negative Bedside Urine Urobilinogen - Negative Bedside Urine Nitrite - Negative Bedside Urine Leukocytes - Negative Esterase MDM Narrative Medical decision making narrative: 88-year-old male with history of chronic anticoagulation had fall last night, complains of left buttock area discomfort. Screening labs sent. Initial low blood pressure improved after fluid bolus. EKG shows right bundle branch block, similar to study last month. Labs pending. Chest x-ray unremarkable. EKG initially read as sinus with PACs, right bundle noted. Rhythm change, faster wide complex tachycardia, repeat EKG shows AFib with RVR with right bundle pattern, ventricular rate 120s. Blood pressure 100 systolic noted. IV fluids. He takes oral metoprolol. IV metoprolol 5 mg dose. X-ray left hip negative, see radiology report, hip replacement noted, well seated. CT abdomen and pelvis study ordered. CT abdomen and pelvis shows carcinomatosis, ascites, no acute fracture pelvis or hip. See radiology report. Troponin 0.07 indeterminate range, repeat troponin to be drawn. Consider digoxin for rate control, soft blood pressure noted. We will consult hospitalist 151, case discussed with hospitalist Dr. Haynes, who requests Cardiology consultation, will await 2nd troponin, will give oral metoprolol for now, hold digoxin. Consult cardiology Dr. Ying on-call when 2nd troponin available. Repeat troponin 0.1 further increased, no chest pain or shortness of breath. Patient with some mild hypotension after IV metoprolol and oral metoprolol, on low-dose norepinephrine at present. We will consult with Cardiology. 1744, case discussed with Dr. Ying cardiology, based on the patient's metastatic cancer disease he would not likely be aggressive in cardiac care at this time, consider digoxin 250 mcg now and can repeat in 4 hours for atrial fibrillation rate control, consider admission here with echocardiogram. He will be on-call over the weekend in can further consult. 1749, case discussed with hospitalist Dr. Haynes, accepts patient for admission, but then called back as there are no beds available for person on pressors. IV norepinephrine infusing through right anterior Port-A-Cath. 1800, signed out to Dr Mensah 194: The patient's management plan was discussed Dr. Rodriguez, who agrees to admit the patient to their service and assumes care of this patient at this time. Full admission orders will be placed by the primary team. Critical Care Time <Angelito Matthews MD - Last Filed: 10/17/24 21:09> Critical Care Time Critical Care Time: Yes Total Critical Care Time: 35 Attestation: The high probability of a clinically significant, sudden or life threatening deterioration of the [cardiovascular, abdominopelvic, genitourinary] system(s) required my full and direct attention, intervention and personal management. The aggregate critical care time was [35] minutes. This time is in addition to time spent performing reported procedures but includes the following: [x] Data Review and interpretation [x] Patient assessment and monitoring of vital signs [x] Documentation [x] Medication orders and management Discharge Plan Departure Patient Disposition: Admitted As Inpatient Clinical Impression: Atrial fibrillation with rapid ventricular response, Hypotension, History of pancreatic cancer, Urinary tract infection, Contusion of left buttock, Fall from ground level, History of ascites Admit Date/Time: 10/17/24 19:44 Admit Provider: Lj Leon
--- NOTE | 2024-10-17 10:24 | DI.RAD.S_ITS ---
PROCEDURE: XR HIP W PEL IF DONE LT 2V INDICATIONS: L hip/buttock pain after GLF TECHNIQUE: 3 views of the hip were acquired. COMPARISON: None. FINDINGS: Bones: No fractures or dislocations. No suspicious bony lesions. The visualized pelvic ring appears intact. Right hip arthroplasty and hip moderate joint space narrowing. No fracture. Soft tissues: No suspicious soft tissue calcifications or masses. IMPRESSION: Arthritic changes and total right hip arthroplasty. No fracture. Approved by: Bo Dean M.D. on 10/17/2024 at 10:14
[2024-10-17] MEDS: HYDROMORPHONE 0.5 MG INJ IV (10:54)
--- NOTE | 2024-10-17 11:23 | DI.CT.S_ITS ---
PROCEDURE: CT ABDOMEN PELVIS W CON INDICATIONS: buttock pain after fall, low BP, check pelvis for fx/bleed TECHNIQUE: After the administration of intravenous contrast, axial sections acquired from the lung bases to the pubic symphysis. Coronal and sagittal reformats were performed. For radiation dose reduction, the following was used: automated exposure control, adjustment of mA and/or kV according to patient size. COMPARISON: [facility], CT, CT ABDOMEN PELVIS W CON, 10/04/2024, 1:14. FINDINGS: Lower Chest: Bibasilar pleural effusions ABDOMEN: Liver: Cirrhotic. Stable hypodense hepatic mass lesions noted Gallbladder: Distended Biliary ducts: No biliary dilation. Pancreas: No ductal dilation. Spleen: Size is within normal limits. Adrenal Glands: No adrenal nodules. Kidneys and Ureters: No hydronephrosis. No solid mass. No complex renal cystic lesion which requires follow up. Stomach and Bowel: Normal colonic caliber, without significant wall thickening. Peritoneum: Large volume ascites has increased from the prior exam. Extensive peritoneal nodularity consistent with carcinomatosis Ventral Wall: No significant ventral hernia. Abdominal Nodes: No retroperitoneal or mesenteric adenopathy by size criteria. Vessels: Aortic atherosclerotic vascular calcification noted without evidence of aneurysm. PELVIS: Pelvic Organs: Unremarkable. Bladder: No bladder wall thickening, accounting for underdistention. Pelvic Nodes: No enlarged lymph nodes. Miscellaneous: No inguinal hernias are seen. Bones: Degenerative disc disease and arthropathy noted in lower lumbar spine. Right hip arthroplasty with periarticular degenerative cyst associated with the acetabular component. No fracture. IMPRESSION: No evidence of pelvic or hip fracture. Right hip arthroplasty in good position. Peritoneal carcinomatosis, hepatic metastasis, and worsening abdominal ascites. Advanced degenerative disc disease and arthropathy in the lumbar spine with surgical decompression. No instrumentation. Approved by: Bo Dean M.D. on 10/17/2024 at 11:26
--- NOTE | 2024-10-17 11:25 | EKG_ITS ---
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
[2024-10-17] MEDS: METOPROLOL TARTRATE 5 MG/5 ML INJ IV (12:56)
[2024-10-17 15:12] LABS: Troponin I 0.079 ng/mL (0.01-0.034)
--- NOTE | 2024-10-17 15:32 | PC.NURSE ---
Patient blood pressure dropped to 78/57. This RN increased norepi to 0.1mg/kg. This RN informed provider.
--- NOTE | 2024-10-17 15:33 | PM.CALLCOV.1 ---
Call Coverage Note Note Narrative of Care Provided: Medicine called for assistance with afib with RVR. ER provider reports fairly asymptomatic from RVR at this time. His BP is soft but suspect that is normal for him given his ascites. Recommend resumption of home metoprolol 25 mg, repeat troponin. In review of his chart he has mod-severe likely not amenable to surgical management given pancreatic cancer. His afib may be valvular in nature, difficult to control if able to control fully at all. Recommend discussion with cardiology.
--- NOTE | 2024-10-17 15:42 | PC.NURSE ---
This RN covered primary care nurse lunch break. This RN informed primary nurse of increase in norepi and new medication orders from provider.
[2024-10-17] MEDS: METOPROLOL ER 25 MG TABLET PO (15:44)
[2024-10-17] MEDS: LACTATED RINGERS 1,000 ML 150 ML IV (15:52)
--- NOTE | 2024-10-17 16:33 | PC.NURSE ---
Accessed cady cath per Dr Matthews order, line is patent and has good blood return, levophed has been moved to this site, see MAR. Patient endorses no pain, no SOB, no nausea at this time
[2024-10-17 17:24] LABS: Troponin I 0.101 ng/mL (0.01-0.034)
--- NOTE | 2024-10-17 18:00 | DI.ECHO.S_ITS ---
[facility]+ [facility] : : [address] : : [place] : : [id number] : : Phone: [phone] Echocardiogram Report + + :Name: BOBBY MOTA Study Date: 10/18/2024 Height: 69 in : :Hospital ReadingLocation: Weight: 203 lb: : Gender: Male BSA: 2.1 m2 : :: 1935 Age: 88 yrs BP: 88/57 mmHg: :Reason For Study: ATRIAL FIBRILLATION : :Ordering Physician: HENRY, : :LORNA ANDRES Performed By: Ruth Ann Polanco : :Referring: LORNA FIGUEROA : + + Interpretation Summary The left ventricle is normal in size. Left ventricular systolic function appears normal without focal wall motion abnormalities. The ejection fraction is estimated to be 60-65%. The right ventricle is mildly dilated. The right ventricular systolic function is normal. Right ventricular systolic pressure is estimated to be 32 mmHg plus the clinically estimated CVP which cannot be estimated on this exam. The left atrium is mildly dilated. There is mild mitral regurgitation. There is moderate aortic stenosis. The aortic valve is moderately calcified. The peak aortic velocity is 3.0 m/sec. The calculated aortic valve area is 1.4 cm2. The aortic root is mildly dilated. The ascending aorta is mildly enlarged. There is a moderately large left-sided pleural effusion. There is a trivial pericardial effusion noted. Procedure: A two-dimensional transthoracic echocardiogram with color flow and Doppler was performed. The study quality was technically adequate. There is no prior echocardiogram noted for this patient. The heart rate ranged between 88-90 bpm during the study. Left Ventricle: The left ventricle is normal in size. There is mild concentric left ventricular hypertrophy. Left ventricular systolic function appears normal without focal wall motion abnormalities. The ejection fraction is estimated to be 60-65%. Right Ventricle: The right ventricle is mildly dilated. The right ventricular systolic function is normal. Atria: The left atrium is mildly dilated. The right atrium is normal in size. There is no Doppler evidence for an interatrial shunt. Mitral Valve: The mitral valve leaflets appear moderately thickened, but open well. The mitral valve leaflets are slightly calcified. There is mild mitral regurgitation. Aortic Valve: The aortic valve is moderately calcified. There is moderate to severely reduced leaflet mobility. There is moderate aortic stenosis. The peak aortic velocity is 3.0 m/sec. The aortic valve mean gradient is 18 mmHg. The calculated aortic valve area is 1.4 cm2. There is trace aortic regurgitation. Tricuspid Valve: The tricuspid valve leaflets are thin and pliable. There is mild tricuspid regurgitation. Right ventricular systolic pressure is estimated to be 32 mmHg plus the clinically estimated CVP which cannot be estimated on this exam. Pulmonic Valve: The pulmonic valve leaflets are thin and pliable; valve motion is normal. There is mild pulmonic regurgitation. Great Vessels: The aortic root is mildly dilated. The ascending aorta is mildly enlarged. The inferior vena cava was not visualized. Pericardium/ Pleura There is a trivial pericardial effusion noted. There is a moderately large left-sided pleural effusion. MMode/2D Measurements & Calculations LVIDd: 4.4 cm LVOT diam: 2.1 cm LVIDs: 3.1 cm Ao root diam: 4.2 cm FS: 28.9 % asc Aorta Diam: 3.7 cm IVSd: 1.1 cm Ao Arch Diam (Prox Trans): 3.6 cm LVPWd: 1.1 cm LV rodriguez. diameter/BSA (cm/m^2): 2.1 LV sys. diameter/BSA (cm/m^2): 1.5 LA A2 area: 23.4 cm2 RA long axis: 5.3 cm LA A4 area: 19.3 cm2 RA area: 17.6 cm2 LA length (vol): 5.4 cm RA vol: 49.8 ml LA vol: 71.3 ml RA : 24.0 ml/m2 LA vol index: 34.3 ml/m2 RVD1 (basal): 4.4 cm RVD2 (mid): 4.1 cm TAPSE: 1.9 cm Doppler Measurements & Calculations Ao V2 max: 299.2 cm/sec LVOT Max Fly: 120.2 cm/sec Ao V2 mean: 200.4 cm/sec LV V1 max P.8 mmHg Ao max P.9 mmHg LV V1 VTI: 20.0 cm Ao mean P.3 mmHg KEYANNA(I,D): 1.4 cm2 Ao V2 VTI: 48.6 cm KEYANNA(V,D): 1.4 cm2 sev ratio: 0.41 KEYANNA indexed to BSA (cm^2/m^2): 0.70 MV E max fly: 111.7 cm/sec TR max fly: 281.9 cm/sec MV A max fly: 0.90 cm/sec TR max P.8 mmHg MV E/A: 124.0 PA V2 max: 113.2 cm/sec Med Peak E' Fly: 13.7 cm/sec PA V2 mean: 73.3 cm/sec E/E' med: 8.1 PA mean P.5 mmHg MV dec time: 0.14 sec PA pr(Accel): 39.2 mmHg SV(LVOT): 70.3 ml Reading Physician:12:36 PM
[2024-10-17] MEDS: DIGOXIN 500 MCG/2 ML AMPUL 250 MCG IV (18:01)
--- NOTE | 2024-10-17 18:02 | PM.CALLCOV.1 ---
Call Coverage Note Note Narrative of Care Provided: Patient more hypotensive per ER provider after metorpolol this also did not seemingly change his rate significantly. Started on Levophed. ICU does not have staff to accommodate an ICU level patient currently. [facility] not [facility] given staffing issues and his current medical complexiety with afib RVR, rising tropoin, ascites, hypotension requiring pressors. This patient I recommend should be have the benefit of an in person cardiology consultation. Consider also discussion with tele-vp of customer experience strategy overnight. I understand the recommendations from the paint crew supervisor over the phone, but feel that management for the patient here would be better served with in person cardiology consutlation at this time given his complexity. I also have a low suspicion that any medications will really be sufficient in controlling his rate given his already known valvular disease. If patient is stable for the acute care floor, please discuss with hospitalist at that time for consideration of admission again or consider discharge home if troponin is downtrending and rate is controlled. I have ordered the patient's home medications that were reconciled in the computer. Continue to follow troponin q6 hr until downtrending. I would recommend titrating to a lower MAP of 60 given his ascites and portal hypertension. Echocardiogram was ordered by me. If patient is still boarding will try to consult and manage as medicine service is able to over the weekend.
--- NOTE | 2024-10-17 18:15 | PC.NURSE ---
Pt no longer admitted to Dr Haynes for the ICU. There are no longer any ICU beds available and DR Haynes is declining taking the patient at this time.
--- NOTE | 2024-10-17 18:26 | PC.NURSE ---
This RN and REFUGIO Walls placed the patient in brief, provided warm blankets, call light is in reach. Patients breathing is even and unlabored. Son in law Pedro is at the bedside
[2024-10-17] MEDS: ACETAMINOPHEN 325 MG TABLET 650 MG PO (19:39)
[2024-10-17] MEDS: PRAMIPEXOLE 0.25 MG TABLET PO (20:31)
[2024-10-17] MEDS: APIXABAN 5 MG TABLET PO (20:31)
--- NOTE | 2024-10-17 21:14 | PM.HP.1 ---
History of Present Illness History of Present Illness Date Patient Seen: 10/17/24 Chief complaint: n/v/slipped out of bed Narrative: 88 y/o with PMH of metastatic pancreatic carcinoma, liver metastases, peritoneal carcinomatosis, DVT, A-fib on BB and Eliquis, presented complaining on hip pain after a GLF at home. Workup did not show significant injuries. On presentation with sinus rhythm and then in rapid A-fib, hypotensive, getting fluids, digoxin and BB IV and PO. Raising troponin, non-ischemic rate-related vs ischemic. He has no angina on presentation. Discussed with cafeteria worker consulting sales manager who did not find him a candidate for a transfer or cytology laboratory manager. 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 Social History household members: spouse Smoking Status: Former smoker Meds Home Medications and Allergies Home Medications Medication Instructions Recorded Confirmed Type apixaban 5 mg tablet (Eliquis) 5 mg PO BID 10/17/24 10/17/24 History azelastine 205.5 mcg (0.15 %) 2 spray intranasal BID 10/17/24 10/17/24 History nasal spray ipratropium bromide 42 mcg (0.06 2 spray intranasal 3XD 10/17/24 10/17/24 History %) nasal spray lidocaine-prilocaine 2.5 %-2.5 % 1 applic topical SEEINSTR 10/17/24 10/17/24 History topical cream [id number]-[id number]-[id number] 2 cap PO TIDWMEAL Cancer/lipase 10/17/24 10/17/24 History 36,000-114,000-180,000 unit capsule,delay rel (Creon) metoprolol succinate 25 mg 25 mg PO DAILY 10/17/24 10/17/24 History tablet,extended release 24 hr ondansetron HCl 8 mg tablet 8 mg PO Q8H PRN nausea/vomiting 10/17/24 10/17/24 History oxycodone 5 mg tablet 5 mg PO Q6H 10/17/24 10/17/24 History pramipexole 0.25 mg tablet 0.25 mg PO QPM 10/17/24 10/17/24 History prednisone 1 mg tablet 2.5 mg PO DAILY 10/17/24 10/17/24 History prednisone 5 mg tablet 5 mg PO DAILY 10/17/24 10/17/24 History rosuvastatin 20 mg tablet 20 mg PO DAILY 10/17/24 10/17/24 History Allergies Allergy/AdvReac Type Severity Reaction Status Date / Time No Known Drug Allergies Allergy Verified 10/11/24 11:50 Review of Systems Constitutional Comments: generalized weakness Cardiovascular Comments: w/o chest pain or palpitations Respiratory Comments: short of breath with activity Gastrointestinal Comments: distended and diffusely tender abdomen Musculoskeletal Comments: hip pain from fall Exam Vital Signs (past 8 hours): - 10/17/24 13:15 10/17/24 13:15 10/17/24 13:20 Pulse Rate 109 H 103 H Respiratory Rate 20 16 Blood Pressure 88/56 L Pulse Oximetry 93 93 Oxygen Delivery Method 10/17/24 13:20 10/17/24 13:25 10/17/24 13:25 Pulse Rate 117 H Respiratory Rate 17 Blood Pressure 94/50 L 104/58 L Pulse Oximetry 94 Oxygen Delivery Method 10/17/24 13:30 10/17/24 13:30 10/17/24 13:35 Pulse Rate 103 H 112 H Respiratory Rate 16 15 Blood Pressure 99/61 Pulse Oximetry 94 96 Oxygen Delivery Method 10/17/24 13:35 10/17/24 13:40 10/17/24 13:40 Pulse Rate 102 H Respiratory Rate 17 Blood Pressure 99/55 L 109/63 Pulse Oximetry 96 Oxygen Delivery Method 10/17/24 13:45 10/17/24 13:45 10/17/24 13:50 Pulse Rate 121 H 123 H Respiratory Rate 17 16 Blood Pressure 107/61 Pulse Oximetry 97 97 Oxygen Delivery Method 10/17/24 13:50 10/17/24 13:54 10/17/24 13:55 Pulse Rate 118 H Respiratory Rate 17 Blood Pressure 102/64 93/70 Pulse Oximetry 97 Oxygen Delivery Method Room Air 10/17/24 13:55 10/17/24 14:00 10/17/24 14:00 Pulse Rate 118 H 119 H Respiratory Rate 17 19 Blood Pressure 96/73 Pulse Oximetry 95 98 Oxygen Delivery Method 10/17/24 14:05 10/17/24 14:05 10/17/24 14:10 Pulse Rate 126 H 116 H Respiratory Rate 18 16 Blood Pressure 100/65 Pulse Oximetry 97 96 Oxygen Delivery Method 10/17/24 14:10 10/17/24 14:15 10/17/24 14:15 Pulse Rate 120 H Respiratory Rate 25 H Blood Pressure 102/65 99/61 Pulse Oximetry 97 Oxygen Delivery Method 10/17/24 14:20 10/17/24 14:20 10/17/24 14:25 Pulse Rate 126 H Respiratory Rate 17 Blood Pressure 101/72 91/71 Pulse Oximetry 98 Oxygen Delivery Method 10/17/24 14:25 10/17/24 14:30 10/17/24 14:30 Pulse Rate 125 H 119 H Respiratory Rate 17 20 Blood Pressure 99/72 Pulse Oximetry 98 98 Oxygen Delivery Method 10/17/24 14:35 10/17/24 14:35 10/17/24 14:40 Pulse Rate 116 H Respiratory Rate 21 Blood Pressure 91/59 L 94/65 Pulse Oximetry 97 Oxygen Delivery Method 10/17/24 14:40 10/17/24 14:45 10/17/24 14:45 Pulse Rate 126 H 139 H Respiratory Rate 18 17 Blood Pressure 106/58 L Pulse Oximetry 98 98 Oxygen Delivery Method 10/17/24 14:50 10/17/24 14:50 10/17/24 14:55 Pulse Rate 125 H Respiratory Rate 17 Blood Pressure 95/56 L 92/65 Pulse Oximetry 95 Oxygen Delivery Method 10/17/24 14:55 10/17/24 15:00 10/17/24 15:00 Pulse Rate 134 H 124 H Respiratory Rate 19 17 Blood Pressure 95/64 Pulse Oximetry 95 94 Oxygen Delivery Method 10/17/24 15:05 10/17/24 15:05 10/17/24 15:10 Pulse Rate 131 H Respiratory Rate 20 Blood Pressure 94/77 93/64 Pulse Oximetry 94 Oxygen Delivery Method 10/17/24 15:10 10/17/24 15:15 10/17/24 15:15 Pulse Rate 138 H 124 H Respiratory Rate 17 18 Blood Pressure 101/69 Pulse Oximetry 98 96 Oxygen Delivery Method 10/17/24 15:20 10/17/24 15:20 10/17/24 15:25 Pulse Rate 120 H 130 H Respiratory Rate 18 17 Blood Pressure 99/71 Pulse Oximetry 95 96 Oxygen Delivery Method 10/17/24 15:26 10/17/24 15:26 10/17/24 15:30 Pulse Rate 132 H Respiratory Rate 15 Blood Pressure 78/57 L 98/60 Pulse Oximetry 96 Oxygen Delivery Method 10/17/24 15:30 10/17/24 15:35 10/17/24 15:35 Pulse Rate 119 H 123 H Respiratory Rate 16 18 Blood Pressure 108/75 Pulse Oximetry 96 95 Oxygen Delivery Method 10/17/24 15:39 10/17/24 15:40 10/17/24 15:40 Pulse Rate 133 H 135 H Respiratory Rate 27 H 21 Blood Pressure 113/71 Pulse Oximetry 94 95 Oxygen Delivery Method 10/17/24 15:44 10/17/24 15:45 10/17/24 15:45 Pulse Rate 140 H 129 H Respiratory Rate 16 Blood Pressure 113/71 117/65 Pulse Oximetry 95 Oxygen Delivery Method 10/17/24 15:50 10/17/24 15:50 10/17/24 15:55 Pulse Rate 135 H 130 H Respiratory Rate 19 21 Blood Pressure 112/58 L Pulse Oximetry 94 94 Oxygen Delivery Method 10/17/24 16:00 10/17/24 16:00 10/17/24 16:05 Pulse Rate 127 H 119 H Respiratory Rate 17 21 Blood Pressure 108/62 Pulse Oximetry 92 96 Oxygen Delivery Method 10/17/24 16:10 10/17/24 16:10 10/17/24 16:15 Pulse Rate 133 H 127 H Respiratory Rate 25 H 18 Blood Pressure 101/70 Pulse Oximetry 97 94 Oxygen Delivery Method 10/17/24 16:20 10/17/24 16:20 10/17/24 16:25 Pulse Rate 133 H 126 H Respiratory Rate 23 Blood Pressure 111/81 Pulse Oximetry 93 94 Oxygen Delivery Method 10/17/24 16:30 10/17/24 16:30 10/17/24 16:35 Pulse Rate 135 H 128 H Respiratory Rate 19 19 Blood Pressure 100/75 Pulse Oximetry 94 93 Oxygen Delivery Method Room Air 10/17/24 16:40 10/17/24 16:40 10/17/24 16:45 Pulse Rate 113 H 129 H Respiratory Rate 18 18 Blood Pressure 111/65 Pulse Oximetry 92 94 Oxygen Delivery Method 10/17/24 16:50 10/17/24 16:50 10/17/24 16:52 Pulse Rate 139 H 126 H Respiratory Rate 22 Blood Pressure 90/65 90/63 Pulse Oximetry 95 Oxygen Delivery Method 10/17/24 16:55 10/17/24 17:00 10/17/24 17:00 Pulse Rate 119 H 125 H Respiratory Rate 18 21 Blood Pressure 103/71 Pulse Oximetry 94 93 Oxygen Delivery Method 10/17/24 17:05 10/17/24 17:10 10/17/24 17:10 Pulse Rate 131 H 113 H Respiratory Rate 22 18 Blood Pressure 99/67 Pulse Oximetry 94 95 Oxygen Delivery Method 10/17/24 17:15 10/17/24 17:20 10/17/24 17:20 Pulse Rate 116 H 124 H Respiratory Rate 19 21 Blood Pressure 90/62 Pulse Oximetry 95 95 Oxygen Delivery Method Room Air 10/17/24 17:25 10/17/24 17:30 10/17/24 17:30 Pulse Rate 122 H 113 H Respiratory Rate 20 21 Blood Pressure 97/67 Pulse Oximetry 93 94 Oxygen Delivery Method 10/17/24 17:35 10/17/24 17:40 10/17/24 17:40 Pulse Rate 125 H 112 H Respiratory Rate 19 23 Blood Pressure 109/60 Pulse Oximetry 95 95 Oxygen Delivery Method 10/17/24 17:45 10/17/24 17:50 10/17/24 17:50 Pulse Rate 125 H 128 H Respiratory Rate 19 23 Blood Pressure 98/58 L Pulse Oximetry 94 96 Oxygen Delivery Method 10/17/24 17:55 10/17/24 18:00 10/17/24 18:00 Pulse Rate 121 H 119 H Respiratory Rate 24 16 Blood Pressure 106/61 Pulse Oximetry 95 95 Oxygen Delivery Method 10/17/24 18:01 10/17/24 18:05 10/17/24 18:10 Pulse Rate 130 H 121 H Respiratory Rate Blood Pressure 106/61 120/67 Pulse Oximetry Oxygen Delivery Method 10/17/24 18:10 10/17/24 18:15 10/17/24 18:16 Pulse Rate 133 H 114 H 120 H Respiratory Rate 18 17 18 Blood Pressure Pulse Oximetry 94 93 94 Oxygen Delivery Method Room Air 10/17/24 18:17 10/17/24 18:30 10/17/24 19:00 Pulse Rate 112 H 106 H Respiratory Rate 18 Blood Pressure 105/62 93/64 98/74 Pulse Oximetry 99 93 Oxygen Delivery Method 10/17/24 19:30 10/17/24 20:00 10/17/24 20:30 Pulse Rate 106 H 105 H 109 H Respiratory Rate 19 21 21 Blood Pressure 110/59 L 109/63 104/61 Pulse Oximetry 95 94 94 Oxygen Delivery Method 10/17/24 20:48 Pulse Rate 119 H Respiratory Rate Blood Pressure 98/58 L Pulse Oximetry Oxygen Delivery Method Oxygen Delivery Method Room Air Narrative Exam Narrative: Ill-appearing but in no distress HENMT Other: normocephalic Resp Other: w/o rales Cardio Other: irregular, tachyaarhythmic, MEÑO GI Other: Ascites, w/o peritoneal signs Skin Other: not jaundiced Neuro Other: w/o deficits Extrem Other: swollen legs Psych Other: Lucid Objective ECG Impression: Atrial fibrillation 125, RBBB, inverted T in inferior wall Imaging Chest x-ray: My impression: w/o infiltrates Radiologist's impression: Right chest wall port. Cardiac loop recorder .No acute cardiopulmonary findings. CT scan - abdomen: Radiologist's impression: No evidence of pelvic or hip fracture. Right hip arthroplasty in good position. Peritoneal carcinomatosis, hepatic metastasis, and worsening abdominal ascites. Advanced degenerative disc disease and arthropathy in the lumbar spine with surgical decompression. No instrumentation. Labs 10/17/24 07:40 10/17/24 07:40 Labs: Laboratory Results - last 24 hr 10/17/24 10/17/24 10/17/24 07:40 14:45 16:55 WBC 12.8 H RBC 3.58 L Hgb 11.0 L Hct 33.0 L MCV 92.3 MCH 30.6 MCHC 33.1 RDW 16.1 H Plt Count 198 Neut % (Auto) 84.2 H Lymph % (Auto) 13.5 L [place] % (Auto) 0.5 L Eos % (Auto) 1.5 L Baso % (Auto) 0.3 Neut # (Auto) 81418 H Lymph # (Auto) 1700 [place] # (Auto) 100 Eos # (Auto) 200 Baso # (Auto) 0 PT 14.5 H INR 1.3 APTT 36 Sodium 136 L Potassium 4.4 Chloride 104 Carbon Dioxide 26 BUN 17 Creatinine 0.75 Estimated GFR > 60 BUN/Creatinine Ratio 22.7 H Glucose 111 H Lactate 1.5 Calcium 8.1 L Total Bilirubin 1.2 AST 36 ALT 29 Alkaline Phosphatase 144 H Troponin I 0.079 H 0.101 H Total Protein 5.5 L Albumin 3.0 L Globulin 2.5 Albumin/Globulin Ratio 1.2 Lipase 31 Procalcitonin 0.230 Assessment & Plan Assessment and plan (1) Atrial fibrillation with rapid ventricular response: Status: Acute (2) Elevated troponin I level: Status: Acute (3) Pancreatic carcinoma metastatic to intra-abdominal lymph node: Status: Acute (4) Fall from ground level: Status: Acute (5) Contusion of left buttock: Status: Acute Assessment & Plan narrative: Rapid A-fib / Hypotension - Eliquis - BB, digoxin for now - hypotensive, could be rate-related - admitted on Levophed, held with ongoing tachyarrhythmia and possible NSTEMI and restarted at 2 am - IVFs cautiously, on admission w/o pulmonary edema or rales but with ascites and swollen legs - on chronic steroid for PMR/Arthritis, possible adrenal insufficiency - hydrocortizone 100 mg x 1 and serial prn - does not appear septic, w/o worsening abdominal distension or pain but always at risk for primary bacterial peritonitis with repeated taps for malignant ascites. Recent hospitalization in [facility] with peritonitis. Consider diagnostic paracenthesis. Given dose of Rocephin in ED Elevated troponin - upward trend at the time of admission - w/o angina - troponins , EKGs - repeated with T inversion in II, III, aVF - echocardiogarm pending, ideally to be done with controlled rate - if ischemic, inferior ? it will be medically managed, w/o further invasive testing. He wouldn't be a candidate for catheterization lab with metastatic pancreatic carcinoma. Pancreatic Carcinoma - extensive peritoneal metastases, including liver - enzymes for exocrine insufficiency - pain management, antiemetic Hip pain - musculoskeletal, from fall, w/o significant injury - pain management - PT if indicated Time-Based Coding :: [TOTAL MINUTES] spent with patient and on the chart (including review of chart, obtaining history, exam, reviewing outside data, placing orders, documenting exam and treatment plan, and counseling patient) on [DATE].
[2024-10-17 22:51] LABS: Troponin I 0.172 ng/mL (0.01-0.034)
--- NOTE | 2024-10-17 23:55 | EKG_ITS ---
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
[2024-10-18] VITALS (197 sets, daily range): BP systolic 60–146; BP diastolic 45–71; PULSE 66–99; RESP 13–35; TEMP 36.2–36.6; O2SAT 73–100
[2024-10-18] MEDS: HYDROCORTISONE 100 MG/2 ML VIAL IV ×2 (00:46→02:39)
[2024-10-18] MEDS: PANTOPRAZOLE 40 MG VIAL IV ×2 (00:47→09:34)
[2024-10-18] MEDS: NOREPINEPHRINE BITARTRATE/D5W 4 MG/250 ML PLAST..BAG 29.488 MG IV (01:07)
--- NOTE | 2024-10-18 02:35 | PC.NURSE ---
Per MD note, titrating norepi to a MAP of 60 or greater.
[2024-10-18] MEDS: SODIUM CHLORIDE 0.9% 1,000 ML 1000 ML IV (02:39)
[2024-10-18 03:27] LABS: Add Manual Diff / Slide Review NO; Basophils Absolute Auto 0 /uL (0-100); Basophils Percent Auto 0.3 % (0-2); Eosinophils Absolute Auto 200 /uL (0-450); Eosinophils Percent Auto 1.6 % (2-4); Hematocrit 28.2 % (41-53); Hemoglobin 9.3 g/dL (13.5-17.5); Lymphocytes Absolute Auto 800 /uL (1100-4500); Lymphocytes Percent Auto 7.4 % (25-40); Mean Corpuscular HGB Conc 32.9 % (30-36); Mean Corpuscular Hemoglobin 30.2 PG (26-34); Mean Corpuscular Volume 91.8 fL (80-100); Monocytes Absolute Auto 100 /uL (0-900); Monocytes Percent Auto 0.7 % (3-14); Neutrophils Absolute Auto 10000 /uL (1500-7000); Platelet Count 168 X10^3/uL (150-400); Red Blood Cell Count 3.07 X10^6/uL (4.5-5.9); Red Cell Distribution Width 16.2 % (11.6-14.8); White Blood Cell Count 11.1 X10^3/uL (4.5-11.0)
[2024-10-18 03:37] LABS: Alanine Aminotransferase 23 IU/L (<50); Albumin 2.3 g/dL (3.5-5.0); Alkaline Phosphatase 149 U/L (38-126); Aspartate Aminotransferase 32 IU/L (17-59); BUN Creatinine Ratio 17.8 (6-22); Bilirubin Total 0.9 mg/dL (0.2-1.3); Blood Urea Nitrogen 13 mg/dL (9-20); Calcium 7.4 mg/dL (8.4-10.2); Carbon Dioxide 25 mmol/L (22-32); Chloride 105 mmol/L (98-107); Estimated Glomerular Filt Rate > 60 mL/min (>60); Globulin 2.3 g/dL (1.7-4.1); Glucose 109 mg/dL (80-110); HEMOLYSIS < 15 (0-50); Potassium 3.8 mmol/L (3.4-5.1); Sodium 135 mmol/L (137-145); Total Protein 4.6 g/dL (6.3-8.2)
[2024-10-18 03:51] LABS: Troponin I 0.138 ng/mL (0.01-0.034)
[2024-10-18 08:51] LABS: Troponin I 0.097 ng/mL (0.01-0.034)
[2024-10-18] MEDS: predniSONE 5 MG TABLET PO (09:33)
[2024-10-18] MEDS: FOLIC ACID 1 MG TABLET PO (09:33)
[2024-10-18] MEDS: APIXABAN 5 MG TABLET PO ×2 (09:33→20:26)
[2024-10-18] MEDS: ALBUMIN HUMAN 25 GM/100 ML VIAL IV (09:40)
--- NOTE | 2024-10-18 11:53 | PM.PN.1 ---
Subjective Subjective Interval history: 88 M admitted with afib with RVR and persistent hypotension requiring pressors. Cause is undifferentiated at this time. Now in sinus rhythm after digoxin. He has no complaints today though abdomen is a bit more swollen with fluids. Stopped fluids, ordered albumin with improvement in BP but still on small amount of levophed. Exam Vital Signs (past 8 hours): - 10/18/24 04:00 10/18/24 04:00 10/18/24 04:10 Temperature Pulse Rate 91 H 94 H Respiratory Rate 16 21 Blood Pressure 112/64 Pulse Oximetry 95 94 Oxygen Delivery Method 10/18/24 04:15 10/18/24 04:15 10/18/24 04:20 Temperature Pulse Rate 91 H 91 H Respiratory Rate 16 16 Blood Pressure 97/59 L Pulse Oximetry 96 95 Oxygen Delivery Method 10/18/24 04:30 10/18/24 04:30 10/18/24 04:40 Temperature Pulse Rate 92 H 89 Respiratory Rate 18 16 Blood Pressure 97/56 L Pulse Oximetry 90 L 94 Oxygen Delivery Method 10/18/24 04:45 10/18/24 04:45 10/18/24 04:50 Temperature Pulse Rate 89 88 Respiratory Rate 17 17 Blood Pressure 100/59 L Pulse Oximetry 93 94 Oxygen Delivery Method 10/18/24 05:00 10/18/24 05:00 10/18/24 05:10 Temperature Pulse Rate 88 89 Respiratory Rate 17 16 Blood Pressure 104/65 Pulse Oximetry 93 93 Oxygen Delivery Method 10/18/24 05:15 10/18/24 05:15 10/18/24 05:20 Temperature Pulse Rate 88 89 Respiratory Rate 16 16 Blood Pressure 101/62 Pulse Oximetry 91 92 Oxygen Delivery Method 10/18/24 05:30 10/18/24 05:30 10/18/24 05:40 Temperature Pulse Rate 89 89 Respiratory Rate 17 17 Blood Pressure 104/65 Pulse Oximetry 93 Oxygen Delivery Method 10/18/24 05:45 10/18/24 05:45 10/18/24 05:50 Temperature Pulse Rate 87 87 Respiratory Rate 16 16 Blood Pressure 114/70 Pulse Oximetry 94 94 Oxygen Delivery Method 10/18/24 06:00 10/18/24 06:00 10/18/24 06:10 Temperature Pulse Rate 87 86 Respiratory Rate 16 15 Blood Pressure 106/64 Pulse Oximetry 93 93 Oxygen Delivery Method 10/18/24 06:15 10/18/24 06:15 10/18/24 06:20 Temperature Pulse Rate 85 86 Respiratory Rate 15 17 Blood Pressure 105/66 Pulse Oximetry 91 94 Oxygen Delivery Method 10/18/24 06:30 10/18/24 06:40 10/18/24 06:45 Temperature Pulse Rate 85 87 Respiratory Rate 16 19 Blood Pressure 96/61 Pulse Oximetry 93 95 Oxygen Delivery Method 10/18/24 06:45 10/18/24 06:50 10/18/24 07:00 Temperature Pulse Rate 87 86 Respiratory Rate 22 18 Blood Pressure Pulse Oximetry 95 95 Oxygen Delivery Method Room Air 10/18/24 07:00 10/18/24 07:00 10/18/24 07:10 Temperature Pulse Rate 87 86 Respiratory Rate 21 17 Blood Pressure 106/62 Pulse Oximetry 96 94 Oxygen Delivery Method 10/18/24 07:15 10/18/24 07:15 10/18/24 07:20 Temperature Pulse Rate 86 86 Respiratory Rate 17 13 Blood Pressure 108/66 Pulse Oximetry 94 95 Oxygen Delivery Method 10/18/24 07:27 10/18/24 07:27 10/18/24 07:30 Temperature Pulse Rate 86 86 Respiratory Rate 20 20 Blood Pressure 109/62 Pulse Oximetry 94 97 Oxygen Delivery Method 10/18/24 07:30 10/18/24 07:40 10/18/24 07:45 Temperature Pulse Rate 87 Respiratory Rate 27 H Blood Pressure 105/62 106/65 Pulse Oximetry 95 Oxygen Delivery Method 10/18/24 07:45 10/18/24 07:50 10/18/24 08:00 Temperature 97.6 F Pulse Rate 87 87 Respiratory Rate 17 16 Blood Pressure Pulse Oximetry 96 95 Oxygen Delivery Method 10/18/24 08:00 10/18/24 08:00 10/18/24 08:10 Temperature Pulse Rate 87 Respiratory Rate 23 Blood Pressure 112/69 83/52 L Pulse Oximetry 96 Oxygen Delivery Method 10/18/24 08:10 10/18/24 08:15 10/18/24 08:15 Temperature Pulse Rate 88 86 Respiratory Rate 22 18 Blood Pressure 76/53 L Pulse Oximetry 94 97 Oxygen Delivery Method 10/18/24 08:20 10/18/24 08:21 10/18/24 08:21 Temperature Pulse Rate 84 84 Respiratory Rate 17 15 Blood Pressure 82/54 L Pulse Oximetry 97 95 Oxygen Delivery Method 10/18/24 08:30 10/18/24 08:30 10/18/24 08:40 Temperature Pulse Rate 86 83 Respiratory Rate 18 24 Blood Pressure 110/70 Pulse Oximetry 96 95 Oxygen Delivery Method 10/18/24 08:45 10/18/24 08:45 10/18/24 08:50 Temperature Pulse Rate 90 90 Respiratory Rate 26 H 21 Blood Pressure 89/57 L Pulse Oximetry 94 94 Oxygen Delivery Method 10/18/24 09:00 10/18/24 09:00 10/18/24 09:10 Temperature Pulse Rate 90 90 Respiratory Rate 21 24 Blood Pressure 86/57 L Pulse Oximetry 94 95 Oxygen Delivery Method 10/18/24 09:15 10/18/24 09:15 10/18/24 09:20 Temperature Pulse Rate 90 85 Respiratory Rate 21 17 Blood Pressure 91/57 L Pulse Oximetry 96 96 Oxygen Delivery Method 10/18/24 09:30 10/18/24 09:30 10/18/24 09:40 Temperature Pulse Rate 89 87 Respiratory Rate 21 19 Blood Pressure 94/62 Pulse Oximetry 96 97 Oxygen Delivery Method 10/18/24 09:45 10/18/24 09:45 10/18/24 09:50 Temperature Pulse Rate 88 89 Respiratory Rate 24 23 Blood Pressure 98/65 Pulse Oximetry 95 96 Oxygen Delivery Method 10/18/24 10:00 10/18/24 10:00 10/18/24 10:10 Temperature Pulse Rate 88 88 Respiratory Rate 26 H 19 Blood Pressure 88/57 L Pulse Oximetry 95 96 Oxygen Delivery Method 10/18/24 10:15 10/18/24 10:15 10/18/24 10:20 Temperature Pulse Rate 88 88 Respiratory Rate 18 22 Blood Pressure 97/61 Pulse Oximetry 95 95 Oxygen Delivery Method 10/18/24 10:30 10/18/24 10:30 10/18/24 10:40 Temperature Pulse Rate 88 87 Respiratory Rate 18 20 Blood Pressure 91/54 L Pulse Oximetry 95 88 L Oxygen Delivery Method 10/18/24 10:45 10/18/24 10:45 10/18/24 10:50 Temperature Pulse Rate 88 89 Respiratory Rate 16 25 H Blood Pressure 93/54 L Pulse Oximetry 94 87 L Oxygen Delivery Method 10/18/24 11:00 10/18/24 11:00 10/18/24 11:10 Temperature Pulse Rate 90 90 Respiratory Rate 22 21 Blood Pressure 105/64 Pulse Oximetry 86 L 95 Oxygen Delivery Method Oxygen Delivery Method Room Air Narrative Exam Narrative: Ill-appearing but in no distress HENMT Other: normocephalic Resp Other: w/o rales Cardio Other: RRR, 2-3 /6 systolic murmur GI Other: distended with ascites, not taut, non-tender Skin Other: not jaundiced Neuro Other: w/o deficits Extrem Other: 1+ edema b/l LE Objective Labs 10/18/24 03:20 10/18/24 03:20 Labs: Laboratory Results - last 24 hr 10/17/24 10/17/24 10/17/24 14:45 16:55 22:10 WBC RBC Hgb Hct MCV MCH MCHC RDW Plt Count Neut % (Auto) Lymph % (Auto) [place] % (Auto) Eos % (Auto) Baso % (Auto) Neut # (Auto) Lymph # (Auto) [place] # (Auto) Eos # (Auto) Baso # (Auto) Sodium Potassium Chloride Carbon Dioxide BUN Creatinine Estimated GFR BUN/Creatinine Ratio Glucose Calcium Total Bilirubin AST ALT Alkaline Phosphatase Troponin I 0.079 H 0.101 H 0.172 H* Total Protein Albumin Globulin Albumin/Globulin Ratio 10/18/24 10/18/24 03:20 08:00 WBC 11.1 H RBC 3.07 L Hgb 9.3 L Hct 28.2 L MCV 91.8 MCH 30.2 MCHC 32.9 RDW 16.2 H Plt Count 168 Neut % (Auto) 90.0 H Lymph % (Auto) 7.4 L [place] % (Auto) 0.7 L Eos % (Auto) 1.6 L Baso % (Auto) 0.3 Neut # (Auto) 15896 H Lymph # (Auto) 800 L [place] # (Auto) 100 Eos # (Auto) 200 Baso # (Auto) 0 Sodium 135 L Potassium 3.8 Chloride 105 Carbon Dioxide 25 BUN 13 Creatinine 0.73 Estimated GFR > 60 BUN/Creatinine Ratio 17.8 Glucose 109 Calcium 7.4 L Total Bilirubin 0.9 AST 32 ALT 23 Alkaline Phosphatase 149 H Troponin I 0.138 H* 0.097 H Total Protein 4.6 L Albumin 2.3 L Globulin 2.3 Albumin/Globulin Ratio 1.0 [facility] Medical History Venous thromboembolism Pancreatic carcinoma metastatic to intra-abdominal lymph node Social History household members: spouse Smoking Status: Former smoker Assessment & Plan Assessment & Plan narrative: Rapid A-fib / Hypotension and undifferentiated shock, POA, improving - Continue Eliquis - s/p IV digoxin x2. Continue digoxin PO. Now in normal sinus but still mildly hypotensive on pressor. - hypotensive, could be rate-related - admitted on Levophed, held with ongoing tachyarrhythmia but restarted at 2am. Remains on small amount. Goal MAP >60. - IVFs cautiously, on admission w/o pulmonary edema or rales but with ascites and swollen legs. Will stop IV fluids. Gave 25g albumin bolus today. - on chronic steroid for PMR/Arthritis, possible adrenal insufficiency but with improvement will stop stress dose steroids and resume home prednisone. - does not appear septic, w/o worsening abdominal distension or pain but always at risk for primary bacterial peritonitis with repeated taps for malignant ascites. Recent hospitalization in [facility] with peritonitis. Consider diagnostic paracenthesis but no abdominal pain at this time. Given dose of Rocephin in ED. Will hold. restart recommended 250 mg levofloxacin daily. - at recent discharge from he was on midodrine 10 TID, consider restarting. Myocardial injury, POA, improved - upward trend at the time of admission, now improved - w/o angina - troponins , EKGs - repeated with T inversion in II, III, aVF - echocardiogram pending. - if ischemic, inferior ? it will be medically managed, w/o further invasive testing. He wouldn't be a candidate for catheterization lab with metastatic pancreatic carcinoma. Continue eliquis. Pancreatic Carcinoma - extensive peritoneal metastases, including liver - enzymes for exocrine insufficiency - pain management, antiemetic Hip pain - musculoskeletal, from fall, w/o significant injury - pain management - PT if indicated after management of above. Code: Full SCDs: on eliquis I spent 40 minutes providing critical care management this patient. This excludes time spent in performing separately billed procedures. Time-Based Coding :: [TOTAL MINUTES] spent with patient and on the chart (including review of chart, obtaining history, exam, reviewing outside data, placing orders, documenting exam and treatment plan, and counseling patient) on [DATE].
[2024-10-18] MEDS: Lipase-Protease-Amylase [Creon] 36,000-114,000- 180,000 unit cap 2 EACH PO (12:03)
[2024-10-18 12:33] LABS: Troponin I 0.077 ng/mL (0.01-0.034)
[2024-10-18] MEDS: levoFLOXacin 250 MG TABLET PO (13:18)
[2024-10-18] MEDS: LIDOCAINE 1% 20 ML 3 ML SUBCUT (14:35)
--- NOTE | 2024-10-18 14:35 | PM.PROC.1 ---
Procedures Date/Time Date of procedure: 10/18/24 Time of procedure: 14:15 Paracentesis Time out performed: Yes Indication: possible spontaneous bacterial peritonitis Procedure: diagnostic paracentesis Location: RLQ Local anesthetic used: lidocaine 1% Amount of anesthesia used (ml): 2 Bedside ultrasound used: yes, Ascites confirmed and location marked Preparation: sterile prep and drape Amount of fluid obtained (ml): 25 Fluid: cloudy (yellow) and sent to lab for analysis Size of needle used: 22 Post procedure exam: awake, alert, normal BP, normal HR and normal SpO2 Patient tolerated procedure: well and no complications Complications: none Additional comments: Prior to the procedure formal consent was obtained from the patient after discussion of risks and benefits of the procedure, and allowing the patient to ask any questions. Ultrasound was used to find a suitable pocket, and the site was marked. A time-out was performed. The site was then prepped and draped in usual sterile fashion, 2 mL of 1% lidocaine was injected into the subcutaneous tissue for local anesthesia. Due to a small pocket size (2-3 cm depth) on ultrasound, ultrasound guidance was used throughout the procedure. A 22 gauge needle was inserted with ultrasound visualization in the middle of the pocket with return of cloudy yellow fluid. A total of approximately 25 mL was obtained for diagnostic purposes. There was no bleeding and the patient tolerated the procedure well. There were no further complications.
--- NOTE | 2024-10-18 14:54 | CM.DANOTE ---
B DCP Assessment Note pt is an 88yo M PMH of metastatic pancreatic carcinoma, liver metastases, peritoneal carcinomatosis, DVT, A-fib on BB and Eliquis presenting to the ED after a GLF, admitted due to afib. PCP Marky Sarmiento Payer medicare and [employer]. FRANKFURTER INSPECTOR reviewed EMR. pt is a readmit, admitted on 10/05, dc 10/06 with partial SBO. Per previous CM notes, pt discharged home with spouse and [facility]. were working on hiring new PP/LTC ins CGs in home. pt lives in [place] with [place]. recently moved here from [place]. Cancer treatments with oncologist in [place] area. per [place] LOPEZ, diagnostic paracentesis today for fluid in abdomen. FRANKFURTER INSPECTOR met with spouse briefly outside of room as she was walking off floor. nursing staff in room with pt cleaning him up. spouse confirms preference is to dc home with [facility] resumption and PP CGs with [facility]. [facility]=RN/NEWS WRITER/PT, unsure about OT. denies other CM needs at this time,. Official referral/f2f/HH order needed for [facility]. per RN, pt has ONC appt t[place] in [place] and is eager to dc to make it to that appt. P: anticipate return home with spouse and [facility]. CM team will continue to follow closely VINITA Wooten Discharge Planning/Care Management CM Discharge Assessment Start: 10/18/24 14:51 Freq: Status: Active Protocol: Document 10/18/24 14:51 (Rec: 10/18/24 14:54 [id number]) Discharge Planning Assessment Assigned Physician Representative VINITA Kwon DPOA/Assigned Designee Name Chyna spouse Contact Information [phone] Advance Directives? No History Provided By Patient,Medical Record Has Patient been admitted in last 30 Yes days? Comment 10/05/24-10/06/24 Prior Living Arrangements House Household Members spouse Needs Assistance With Bathing,Home Chores / Shopping Patient/Family Preference Home with Home Health Comment Return home w/HH anticipated. Discharge Plan Home with Home Health Transportation Arrangement Family Referrals Initiated Home Health Additional Comment resume [facility]HH Preference [facility] Review Status In Process Please Provide Date Initial DC 10/18/24 Assessment Was Performed Next Review Type Continued Stay Review
[2024-10-18 15:16] LABS: Body Fluid Tot Nucleated Cells 532 /uL
[2024-10-18 15:20] LABS: Body Fluid Red Blood Cells 539 /uL
[2024-10-18 16:21] LABS: Body Fluid Appearance CLOUDY; Body Fluid Clotted? NO CLOTS PRESENT; Body Fluid Color YELLOW
[2024-10-18 16:22] LABS: Lymphocytes Body Fluid 9 %; MESO/MACRO/MONO Body Fluid 4 %; Neutrophils Body Fluid 88 %
[2024-10-18] MEDS: DIGOXIN 0.125 MG TABLET 0.25 MG PO (16:50)
[2024-10-18] MEDS: PRAMIPEXOLE 0.25 MG TABLET PO (16:51)
[2024-10-18] MEDS: Lipase-Protease-Amylase [Creon] 36,000-114,000- 180,000 unit cap 1 EACH PO ×2 (17:13)
[2024-10-18] MEDS: ACETAMINOPHEN 325 MG TABLET 650 MG PO (17:15)
--- NOTE | 2024-10-18 17:41 | PM.CALLCOV.1 ---
Call Coverage Note Note Narrative of Care Provided: Cell count positive for SBP with 532 WBC, 88% neutrophils for a total of 468. Have restarted ceftriaxone.
[2024-10-18] MEDS: cefTRIAXone 2,000 MG in SODIUM CHLORIDE 0.9% 100 ML 200 MG IV (17:58)
[2024-10-18] MEDS: ONDANSETRON 4 MG ODT SL (18:53)
[2024-10-19] VITALS (88 sets, daily range): BP systolic 80–116; BP diastolic 51–72; PULSE 64–86; RESP 12–33; TEMP 36.2–37.1; O2SAT 91–100
[2024-10-19 04:25] LABS: Add Manual Diff / Slide Review NO; Basophils Absolute Auto 0 /uL (0-100); Basophils Percent Auto 0.1 % (0-2); Eosinophils Absolute Auto 100 /uL (0-450); Eosinophils Percent Auto 0.7 % (2-4); Hemoglobin 9.1 g/dL (13.5-17.5); Lymphocytes Absolute Auto 1100 /uL (1100-4500); Lymphocytes Percent Auto 12.4 % (25-40); Mean Corpuscular HGB Conc 33.7 % (30-36); Mean Corpuscular Hemoglobin 30.9 PG (26-34); Mean Corpuscular Volume 91.8 fL (80-100); Monocytes Absolute Auto 200 /uL (0-900); Monocytes Percent Auto 1.7 % (3-14); Neutrophils Absolute Auto 7500 /uL (1500-7000); Neutrophils Percent Auto 85.1 % (50-75); Platelet Count 163 X10^3/uL (150-400); Red Blood Cell Count 2.94 X10^6/uL (4.5-5.9); Red Cell Distribution Width 16.2 % (11.6-14.8); White Blood Cell Count 8.9 X10^3/uL (4.5-11.0)
[2024-10-19 04:35] LABS: Alanine Aminotransferase 24 IU/L (<50); Albumin 2.6 g/dL (3.5-5.0); Albumin Globulin Ratio 1.1 (1.0-2.8); Alkaline Phosphatase 131 U/L (38-126); Aspartate Aminotransferase 33 IU/L (17-59); Bilirubin Total 0.3 mg/dL (0.2-1.3); Blood Urea Nitrogen 18 mg/dL (9-20); Calcium 7.8 mg/dL (8.4-10.2); Carbon Dioxide 28 mmol/L (22-32); Chloride 105 mmol/L (98-107); Estimated Glomerular Filt Rate > 60 mL/min (>60); Globulin 2.4 g/dL (1.7-4.1); Glucose 128 mg/dL (80-110); HEMOLYSIS < 15 (0-50); Sodium 135 mmol/L (137-145)
[2024-10-19] MEDS: Lipase-Protease-Amylase [Creon] 36,000-114,000- 180,000 unit cap 1 EACH PO ×3 (08:34→17:09)
[2024-10-19] MEDS: APIXABAN 5 MG TABLET PO ×2 (08:35→21:28)
[2024-10-19] MEDS: predniSONE 5 MG TABLET 7.5 MG PO (08:35)
[2024-10-19] MEDS: levoFLOXacin 250 MG TABLET PO (08:35)
[2024-10-19] MEDS: PANTOPRAZOLE 40 MG VIAL IV (08:37)
[2024-10-19] MEDS: ACETAMINOPHEN 325 MG TABLET 650 MG PO ×2 (09:45→19:00)
--- NOTE | 2024-10-19 12:10 | CM.DPC ---
Addendum entered by VINITA Moran 10/19/24 13:12: ADD: Return call from [facility] and they confirm they will just need Resumption Orders and d/c summary at discharge and will let their team know of likely d/c home Wed if stable. No F2F needed. Per , ordered PT and then OT for SLUMS and updated OT and she will attempt to get to SLUMS today. BF Original Note: DCP Cont: Per MD, pt now with bacterial peritonitis and will need 5 total days of IV-Abx here and currently on day 3 and can d/c likely Wed 3/5 after final dose if pt remains stable. Also with some bp issues and starting new medication for that today. Per RN, pt A&O and could benefit from PT eval prior to d/c as pt below baseline and ongoing hospital admissions but unsure if PT appropriate for today vs tomorrow. SW met bedside with pt and spouse and explained role and they confirm their preference is to d/c home with Res[facility] of [facility]. They clarified that they are working closely with [facility] agency towards getting in-home CG assist through their LTC insurance that they have had for over 20 years and just got [facility] approved through their LTC insurance plan and now waiting to get CG set up for in the home. They also have local supportive Dtr and NAYELI who are very involved and helping them to coordinate their medical care team since their recent move from [facility] to establish with PCP and Oncology as pt has 3 hospitalizations in the past two months after starting his initial chemo tx. SW secure emailed [facility] pt's clinicals to determine Resumption Orders vs new F2F and orders at d/c. Plan: SW to follow for PT eval to confirm safe plan of home with spouse and [facility] and soon to have [facility] CG in place for additional support at home. SW to confirm Resumption vs new orders for [facility] at d/c. VINITA Moran
[2024-10-19] MEDS: MIDODRINE HCL 5 MG TABLET PO ×2 (12:13→17:48)
--- NOTE | 2024-10-19 12:39 | PM.PN.1 ---
Subjective Subjective Interval history: 88 M admitted with afib with RVR and persistent hypotension requiring pressors. Cause is undifferentiated at this time. Now in sinus rhythm after digoxin. He has no complaints today though abdomen is a bit more swollen with fluids. Stopped fluids, ordered albumin with improvement in BP but still on small amount of levophed. Exam Vital Signs (past 8 hours): - 10/19/24 04:40 10/19/24 04:50 10/19/24 05:00 Pulse Rate 73 73 73 Respiratory Rate 18 13 15 Blood Pressure Pulse Oximetry 92 94 94 Oxygen Delivery Method 10/19/24 05:00 10/19/24 05:10 10/19/24 05:20 Pulse Rate 74 73 Respiratory Rate 24 14 Blood Pressure 92/56 L Pulse Oximetry 96 93 Oxygen Delivery Method 10/19/24 05:30 10/19/24 05:30 10/19/24 05:40 Pulse Rate 71 73 Respiratory Rate 15 20 Blood Pressure 90/58 L Pulse Oximetry 95 96 Oxygen Delivery Method 10/19/24 05:50 10/19/24 06:00 10/19/24 06:00 Pulse Rate 72 71 Respiratory Rate 14 16 Blood Pressure 105/58 L Pulse Oximetry 95 96 Oxygen Delivery Method 10/19/24 06:10 10/19/24 06:20 10/19/24 06:30 Pulse Rate 74 73 Respiratory Rate 18 21 Blood Pressure 103/59 L Pulse Oximetry 97 97 Oxygen Delivery Method 10/19/24 06:30 10/19/24 06:40 10/19/24 06:50 Pulse Rate 74 73 71 Respiratory Rate 22 16 17 Blood Pressure Pulse Oximetry 96 97 97 Oxygen Delivery Method 10/19/24 07:00 10/19/24 07:00 10/19/24 07:30 Pulse Rate 71 Respiratory Rate 14 Blood Pressure 108/62 116/64 Pulse Oximetry 95 Oxygen Delivery Method 10/19/24 07:30 10/19/24 07:42 10/19/24 07:42 Pulse Rate 70 70 Respiratory Rate 13 15 Blood Pressure 110/61 Pulse Oximetry 98 98 Oxygen Delivery Method 10/19/24 08:00 10/19/24 08:00 10/19/24 08:00 Pulse Rate 70 Respiratory Rate 14 Blood Pressure 107/62 Pulse Oximetry 98 Oxygen Delivery Method Room Air 10/19/24 09:00 10/19/24 09:00 10/19/24 09:40 Pulse Rate 73 74 Respiratory Rate 15 20 Blood Pressure 107/62 Pulse Oximetry 100 98 Oxygen Delivery Method 10/19/24 10:00 10/19/24 10:00 10/19/24 10:10 Pulse Rate 74 71 Respiratory Rate 14 25 H Blood Pressure 90/53 L Pulse Oximetry 97 99 Oxygen Delivery Method Oxygen Delivery Method Room Air Oxygen Flow Rate 0 Narrative Exam Narrative: Ill-appearing but in no distress HENMT Other: normocephalic Resp Other: w/o rales Cardio Other: RRR, 2-3 /6 systolic murmur GI Other: distended with ascites, not taut, non-tender Skin Other: not jaundiced Neuro Other: w/o deficits Extrem Other: 1+ edema b/l LE Objective Labs 10/19/24 03:55 10/19/24 03:55 Labs: Laboratory Results - last 24 hr 10/18/24 10/18/24 10/19/24 12:05 14:30 03:55 WBC 8.9 RBC 2.94 L Hgb 9.1 L Hct 27.0 L MCV 91.8 MCH 30.9 MCHC 33.7 RDW 16.2 H Plt Count 163 Neut % (Auto) 85.1 H Lymph % (Auto) 12.4 L [place] % (Auto) 1.7 L Eos % (Auto) 0.7 L Baso % (Auto) 0.1 Neut # (Auto) 7500 H Lymph # (Auto) 1100 [place] # (Auto) 200 Eos # (Auto) 100 Baso # (Auto) 0 Sodium 135 L Potassium 4.0 Chloride 105 Carbon Dioxide 28 BUN 18 Creatinine 0.72 Estimated GFR > 60 BUN/Creatinine Ratio 25.0 H Glucose 128 H Calcium 7.8 L Total Bilirubin 0.3 AST 33 ALT 24 Alkaline Phosphatase 131 H Troponin I 0.077 H Total Protein 5.0 L Albumin 2.6 L Globulin 2.4 Albumin/Globulin Ratio 1.1 Fluid Color Yellow Fluid Appearance Cloudy Fluid RBC 539 Fld Tot Nucleated Cell 532 Fluid Neutrophils % 88 Fluid Lymphocytes % 9 Fluid Meso/Macro/Grafton % 4 Body Fluid Clot No clots present PFSH Medical History 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 Continue digoxin PO. Now in normal sinus but still mildly hypotensive on pressor. - holding home metoprolol for soft BPs currently, consider return back to metoprolol over digoxin given likely sepsis contributing. - he also had mod-severe on TTE at . Septic Shock due to secondary (vs spontaneous) bacterial peritonitis - admitted on Levophed, held with ongoing tachyarrhythmia but restarted at later that night. After albumin bolus 10/17 has remained off levophed. - Gave IVFs cautiously on admission w/o pulmonary edema or rales but did developascites and swollen legs. Will stop IV fluids. Gave 25g albumin bolus on 10/18 with improvement in BP - previously on midodrine at [facility] admission, will restart here with 5 mg TID. -on chronic steroid for PMR/Arthritis, treated for possible adrenal insufficiency but with improvement stopped stress dose steroids and resume home prednisone. -diagnostic tap on 10/18 positive for SBP with >250 PMN on cell count. Cultures pending. Today is day 35 of ceftriaxone 2g daily. No need for repeat cell count. Hold on LVP at this time due to peritonitis unless severe. After discharge continue levofloxacin 250 mg daily for prophylaxis Myocardial injury, POA, improved - upward trend at the time of admission, now improved - troponins have downtrended, no further evaluation. - echocardiogram with normal EF and no wall motion abnormalities. - if ischemic, inferior ? it will be medically managed, w/o further invasive testing. He wouldn't be a candidate for catheterization lab with metastatic pancreatic carcinoma. Continue eliquis. Pancreatic Carcinoma with malignant ascites - extensive peritoneal metastases, including liver - continue enzymes for exocrine insufficiency - pain management, antiemetic - developing LE edema, ideally start diuretic therapy to reduce ascites but hypotensive. Hip pain - musculoskeletal, from fall, w/o significant injury - pain management - PT if indicated after management of above. Code: Full SCDs: on eliquis Dispo: Stable for regular floor. Likely discharge home in 2-3 days, will assess with PT/OT. Additional history obtained via discussions with the MASTER CONTROL SUPERVISOR, spring encaser today. These discussions contributed to the creation of the above assessment and plan. I have reviewed patient's presenting documentation, labs, and imaging personally. Time-Based Coding :: [TOTAL MINUTES] spent with patient and on the chart (including review of chart, obtaining history, exam, reviewing outside data, placing orders, documenting exam and treatment plan, and counseling patient) on [DATE].
--- NOTE | 2024-10-19 15:40 | PT-IP ANOTE ---
PT consult received. This PT knows pt from recent outpatient course after back surgery. Pt has had three inpatient visits this year and has recent history of stage IV pancreatic CA, treated by chemo and poor response per pt report when speaking with PT last adm. Pt with myocardial injury among other dxs this adm. Pt has very supportive , daughter and son-in-law. Given pt's advanced age and diagnoses including terminal diagnosis, unsure how much he will progress with skilled PT. Of note, he appears gaunt this date compared to previous months. Pt is sleeping soundly. Will initiate acute PT efforts next date.
[2024-10-19] MEDS: PRAMIPEXOLE 0.25 MG TABLET PO (17:09)
[2024-10-19] MEDS: DIGOXIN 0.125 MG TABLET 0.25 MG PO (17:09)
[2024-10-19] MEDS: cefTRIAXone 2,000 MG in SODIUM CHLORIDE 0.9% 100 ML 200 MG IV (17:51)
[2024-10-19] MEDS: SODIUM CHLORIDE 0.9% FLUSH 10 ML IV (21:28)
[2024-10-20] VITALS (24 sets, daily range): BP systolic 97–142; BP diastolic 53–75; PULSE 62–85; RESP 11–22; TEMP 35.7–36.1; O2SAT 92–98
[2024-10-20 01:36] LABS: Labcorp Glucose, Body Fluid 197 mg/dL (.)
[2024-10-20 05:16] LABS: Add Manual Diff / Slide Review NO; Basophils Absolute Auto 0 /uL (0-100); Basophils Percent Auto 0.4 % (0-2); Eosinophils Absolute Auto 200 /uL (0-450); Eosinophils Percent Auto 3.4 % (2-4); Hematocrit 27.1 % (41-53); Hemoglobin 9.1 g/dL (13.5-17.5); Lymphocytes Absolute Auto 1500 /uL (1100-4500); Lymphocytes Percent Auto 32.7 % (25-40); Mean Corpuscular HGB Conc 33.8 % (30-36); Mean Corpuscular Volume 91.7 fL (80-100); Monocytes Absolute Auto 300 /uL (0-900); Monocytes Percent Auto 7.4 % (3-14); Neutrophils Absolute Auto 2500 /uL (1500-7000); Neutrophils Percent Auto 56.1 % (50-75); Platelet Count 159 X10^3/uL (150-400); Red Blood Cell Count 2.95 X10^6/uL (4.5-5.9); Red Cell Distribution Width 15.9 % (11.6-14.8); White Blood Cell Count 4.5 X10^3/uL (4.5-11.0)
[2024-10-20 05:27] LABS: Alanine Aminotransferase 27 IU/L (<50); Albumin 2.6 g/dL (3.5-5.0); Albumin Globulin Ratio 1.1 (1.0-2.8); Alkaline Phosphatase 127 U/L (38-126); Aspartate Aminotransferase 41 IU/L (17-59); BUN Creatinine Ratio 23.6 (6-22); Bilirubin Total 0.2 mg/dL (0.2-1.3); Blood Urea Nitrogen 17 mg/dL (9-20); Calcium 7.9 mg/dL (8.4-10.2); Carbon Dioxide 27 mmol/L (22-32); Chloride 104 mmol/L (98-107); Estimated Glomerular Filt Rate > 60 mL/min (>60); Globulin 2.4 g/dL (1.7-4.1); Glucose 104 mg/dL (80-110); HEMOLYSIS < 15 (0-50); Magnesium 1.7 mg/dL (1.6-2.3); Potassium 3.8 mmol/L (3.4-5.1); Sodium 135 mmol/L (137-145)
[2024-10-20] MEDS: MIDODRINE HCL 5 MG TABLET PO ×3 (06:04→17:31)
[2024-10-20] MEDS: APIXABAN 5 MG TABLET PO ×2 (08:12→20:06)
[2024-10-20] MEDS: FUROSEMIDE 40 MG/4 ML VIAL IV ×2 (08:12→17:29)
[2024-10-20] MEDS: SODIUM CHLORIDE 0.9% FLUSH 10 ML IV ×3 (08:12→20:07)
[2024-10-20] MEDS: predniSONE 5 MG TABLET 7.5 MG PO (08:12)
[2024-10-20] MEDS: PANTOPRAZOLE 40 MG VIAL IV (08:12)
[2024-10-20] MEDS: Lipase-Protease-Amylase [Creon] 36,000-114,000- 180,000 unit cap 1 EACH PO ×3 (08:32→16:57)
--- NOTE | 2024-10-20 09:20 | OT.IP.EVAL ---
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 (Rec: 10/20/24 09:39 [facility] [id number]) Medical Review Prior Functional Status Communication I Mobility and Gait Use of FWW for the past 2 weeks after being discharged from [facility] per pt. Activities of Daily Living and IADL's Pt states having more difficulty with LB dressing needs. Prior Functional Level (Other details) Pt's uses a walker herself and not be able to assist him much physically. Social History Household Members spouse Living Arrangements House Number of Floors (Floors) One Floor Number of Stairs To Enter/Railing? no steps to get in Home Environment Standard Height Toilet,Walk in Shower Home Equipment Front Wheel Walker,Bedside Commode,Shower Seat with Backrest,Hand Held Shower,Grab Bars In Shower Additional Social History Comment Pt's has ordered LB dressing equipment for pt to use at home. Pt wanting to also get a RTS. M2 OT-IP Current Condition Start: 10/20/24 09:21 Freq: Status: Active Protocol: Document 10/20/24 09:22 [facility] (Rec: 10/20/24 09:39 [facility] [id number]) Occupational Therapy Current Condition Current Condition Evaluation Date 10/20/24 Treatment Diagnosis A-fib, RVR Diagnosis Onset Date 10/17/24 M3 OT- IP Subjective and Pain Start: 10/20/24 09:21 Freq: Status: Active Protocol: Document 10/20/24 09:22 [facility] (Rec: 10/20/24 09:39 [facility] [id number]) OT- Subjective Occupational Therapy Visit Type Type Initial Evaluation Visit Start Time 08:40 Visit Stop Time 09:20 Occupational Therapy Visit Comments Patient Comments Pt in the bathroom when OT came to see pt. Patient/Caregiver Goals To go home. OT Pain Assessment Pain When Pain Assessed At Rest Pain Present Pain Present Denied Pain M4 OT- IP ADL's Start: 10/20/24 09:21 Freq: Status: Active Protocol: Document 10/20/24 09:22 [facility] (Rec: 10/20/24 09:39 [facility] [id number]) OT [id number] Comments OT Self-Feeding Comments Not at meal time. OT ADL-Grooming Comments OT Grooming Comments Pt states did prior. OT ADL-Oral Care Comments Oral Care Comments Pt states did prior. OT ADL-Dressing General Eval Lower Body Dressing Ability Maximum Assistance Areas Needing Assistance Socks Comments OT Dressing Comments Due to swelling in his legs needing asisst for LB dressing needs now. Able to show pt LB dressing equipment, not able to practice due to low BP. OT ADL-Toileting General Evaluation Toileting Ability Standby Assistance Comments OT Toileting Comments CGA while standing so pt able to bull up his brief. Suggested for pt to take a urinal home to use. OT ADL-Bathing Comments OT Bathing Comments NOt performed. M5 OT- IP IADL's Start: 10/20/24 09:21 Freq: Status: Active Protocol: Document 10/20/24 09:22 [facility] (Rec: 10/20/24 09:39 [facility] [id number]) OT-Instrumental Activities of Daily Living Deficits IADL Deficits Identified Deficits Home Safety Awareness Awareness of Need for Assistance at Home Good Awareness Ability to Problem Solve Emergency Able to Problem Solve Situations Medication Management Medication Management Comments Pt states does his own, but aware not thinking well now and that his can assist him. Money Management Money Management Caregiver Provides Assistance Money Management Comments Pt's daughter has been doing the bills. Meal Preparation Meal Preparation Caregiver Provides Assist Salesperson Men'S Furnishings Salesperson Men'S Furnishings Caregiver Provides Assist Driving Driving Comments Pt has not driven in awhile and aware not to drive at this time. M6 OT- IP Functional Cognition Start: 10/20/24 09:21 Freq: Status: Active Protocol: Document 10/20/24 09:22 [facility] (Rec: 10/20/24 09:39 [facility] [id number]) Cognitive Factors Limiting Selfcare Function Cognitive Ability Level of Alertness Alert Patient Orientation Name,Age,Birthday,Month,Date, Year,Day of Week,Place, Situation Attention Span Ability Capable of Focused Attention, Capable of Sustained Attention Ability to Follow Commands Able to Follow One Step Commands Memory Description Short Term Impaired Executive Function Ability Unable to Remember Details Cognitive Tests SLUMS Pt scored 23/30 which implies mild neurocognitive deficits. Pt able to recall 2/5 objects after time passed, and able to answer 2/4 questions right after paragraph read. Pt states prior has difficulty with his short term memory. Cognitive Comments Cognitive Assessment Comments Pt feels that he is not quite at his baseline for cognitive means and still feels off. OT- Vision and Hearing OT- Hearing Assessment OT- Hearing Assessment WFL,Use of Hearing Aids OT- Vision Assessment Visual Acuity Glasses All The Time Visual Attentiveness WFL Occular Pursuits WFL M7 OT- IP Mobility and Balance Start: 10/20/24 09:21 Freq: Status: Active Protocol: Document 10/20/24 09:22 [facility] (Rec: 10/20/24 09:39 [facility] [id number]) OT-Transfer Assessment Sit to and From Stand Sit to and from Stand Contact Guard Assistance Transfers Transfer Ability Contact Guard Assistance Technique Transfer Destination Chair,Toilet Transfer Technique Stand Step Pivot Devices Transfer Assistive Devices Gait Belt,Front Wheeled Walker Comments Mobility Comments CGA to stand and heavy use of the grab bar to assist to stand. CGA with FWW to get back to the recliner. BP sitting 85/59 seated after getting back from the toilet, standing 67/50, sitting with legs down 75/50, and sitting with legs up 99/61- nursing and doc informed of drop in BP . Pt states feels that his legs are weak. OT- Balance Assessment Sitting Balance and Reactions Static Sitting Balance Ability Good Dynamic Sitting Balance Ability Good Standing Balance and Reactions Static Standing Balance Ability Good Dynamic Standing Balance Ability Fair M8 OT- IP Objective Assessments Start: 10/20/24 09:21 Freq: Status: Active Protocol: Document 10/20/24 09:22 [facility] (Rec: 10/20/24 09:39 [facility] [id number]) OT Strength Comments Strength Comments Pt at least 3-/5 , as not formally tested. M9 OT- IP Assessment and Plan Start: 10/20/24 09:21 Freq: Status: Active Protocol: Document 10/20/24 09:22 [facility] (Rec: 10/20/24 09:39 [facility] [id number]) OT Summary Assessment and Plan Potential Rehabilitation Potential Good Analytic Complexity at Evaluation Moderate Summary OT Impairments Balance,Functional Mobility, Grooming,Dressing,Toileting, Bathing,Toilet Transfers, Shower Transfers,Activity Tolerance Progress Towards Goals Progressing Toward Goals,Slow Progress due to Medical Issues Assessment Summary Pt MOD complexity and main barriers are hypotensive and needing assist for LB dressing needs due to swelling in his legs. Pt scored 23/30 on the SLUMS which implies mild neurocognitive deficits. Pt to go home with 24/7 available asisst when medically stable. Pt has a supportive but limited to assist him physically as she uses a walker herself. Pt will benefit from home health. Goals Self-Feeding Goal Independent Grooming Goal Independent Dressing Goal Minimal Assistance,[place], Sock Aid Toileting Goal Independent Bathing Goal Minimal Assistance Toilet Transfer Goal Independent Shower Transfer Goal Standby Assistance Days to Meet Goals 5 Frequency of Treatment Other frequency 5x/week Treatment Plan OT Treatment Plan ADL Training,Functional Cognition Training,Functional Mobility,Patient/Family Education,Discharge Planning Other Treatment Recommendations and Next Standing ADL's at sink. Treatment Focus Discharge Recommendations OT Discharge Recommendations Home with 24/7 Assist Available,Home Health Transportation Needs at Discharge Private Vehicle
--- NOTE | 2024-10-20 10:25 | PM.PN.1 ---
Subjective Subjective Interval history: 88 M admitted with afib with RVR and persistent hypotension requiring pressors, found to have SBP. Now in sinus rhythm after digoxin and off pressors. Orthostatic with PT today. On midodrine. He has no complaints today generally, his legs appear a bit more swollen. Exam Vital Signs (past 8 hours): - 10/20/24 02:30 10/20/24 02:40 10/20/24 02:50 Temperature Pulse Rate 72 72 68 Respiratory Rate 12 11 L 13 Blood Pressure Pulse Oximetry 93 95 94 Oxygen Delivery Method Oxygen Flow Rate 10/20/24 04:00 10/20/24 08:00 Temperature 96.3 F L Pulse Rate 72 Respiratory Rate 18 Blood Pressure 142/70 H Pulse Oximetry 96 Oxygen Delivery Method Room Air Oxygen Flow Rate 0 Oxygen Delivery Method Room Air Oxygen Flow Rate 0 Narrative Exam Narrative: Gen: NAD, WDWN CV: RRR 2-3/6 systolic murmur Pulm: CTA B/l Abd: soft, distended with ascites, non-tender Ext: 2+ pitting edema b/l LE Objective Labs 10/20/24 05:06 10/20/24 05:06 Labs: Laboratory Results - last 24 hr 10/18/24 10/20/24 14:30 05:06 WBC 4.5 RBC 2.95 L Hgb 9.1 L Hct 27.1 L MCV 91.7 MCH 31.0 MCHC 33.8 RDW 15.9 H Plt Count 159 Neut % (Auto) 56.1 D Lymph % (Auto) 32.7 D [place] % (Auto) 7.4 Eos % (Auto) 3.4 Baso % (Auto) 0.4 Neut # (Auto) 2500 Lymph # (Auto) 1500 [place] # (Auto) 300 Eos # (Auto) 200 Baso # (Auto) 0 Sodium 135 L Potassium 3.8 Chloride 104 Carbon Dioxide 27 BUN 17 Creatinine 0.72 Estimated GFR > 60 BUN/Creatinine Ratio 23.6 H Glucose 104 Calcium 7.9 L Magnesium 1.7 Total Bilirubin 0.2 AST 41 ALT 27 Alkaline Phosphatase 127 H Total Protein 5.0 L Albumin 2.6 L Globulin 2.4 Albumin/Globulin Ratio 1.1 Fluid Glucose 197 PFSH Medical History 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 Now in normal sinus but still mildly hypotensive on pressor. If still admitted in a couple of days consider digoxin level. Continues on 250 mcg daily. - holding home metoprolol for soft BPs currently, consider return back to metoprolol over digoxin given likely sepsis contributing. - he also had mod-severe on TTE at . Septic Shock due to secondary (vs spontaneous) bacterial peritonitis, POA, active - admitted on Levophed, held with ongoing tachyarrhythmia initially but needed to be restarted later that night. After albumin bolus 3/ has remained off levophed. - Gave IVFs cautiously on admission w/o pulmonary edema or rales but did developascites and swollen legs. Stopped IV fluids and gave 25g albumin bolus on 10/18 with improvement in BP as noted above. - previously on midodrine at [facility] admission, restarted here with 5 mg TID. Consider increase tomorrow. -on chronic steroid for PMR/Arthritis, treated for possible adrenal insufficiency but with improvement stopped stress dose steroids and resume home prednisone. -diagnostic tap on 10/18 positive for SBP with >250 PMN on cell count. Cultures are without growth. Today is day 4/5 of ceftriaxone 2g daily. No need for repeat cell count. Hold on LVP at this time due to peritonitis unless severe shortness of breath or pain. After completion of ceftriaxone continue levofloxacin 250 mg daily for prophylaxis - unclear if infection related to recurrent LVP as outpatient or if spontaneous. Myocardial injury, POA, improved - upward trend at the time of admission, now improved - troponins have downtrended, no further evaluation. - echocardiogram with normal EF and no wall motion abnormalities. - if ischemic, inferior ? it will be medically managed, w/o further invasive testing. He wouldn't be a candidate for catheterization lab with metastatic pancreatic carcinoma. Continue eliquis. 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 He only had a few cm of fluid on US during diagnostic tap, he is focused on having LVP. Will need to wait on this until at least he is finished with antibiotics for SBP. Hip pain - musculoskeletal, from fall, w/o significant injury - pain management - PT if indicated after management of above. Code: Full SCDs: on eliquis Dispo: Inpatient. Likely discharge home in 1-2 days, continue PT/OT. Additional history obtained via discussions with the RN, case making machine operator today. These discussions contributed to the creation of the above assessment and plan. I have reviewed patient's presenting documentation, labs, and imaging personally. Time-Based Coding :: [TOTAL MINUTES] spent with patient and on the chart (including review of chart, obtaining history, exam, reviewing outside data, placing orders, documenting exam and treatment plan, and counseling patient) on [DATE].
--- NOTE | 2024-10-20 11:10 | PT.IIE ---
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 Prior Functional Level (Other details) Pt's uses a walker herself and not be able to assist him much physically. Social History Household Members spouse Living Arrangements House Number of Floors (Floors) One Floor Number of Stairs To Enter/Railing? 1 step to enter Home Environment Standard Height Toilet,Walk in Shower Home Equipment Front Wheel Walker,Bedside Commode,Shower Seat with Backrest,Grab Bars Near Toilet ,Grab Bars In Shower Additional Social History Comment pt's daughter and NAYELI has been staying with pt during the night to assist him pt has an adjustable bed M2 PT-IP Current Condition Start: 10/20/24 13:59 Freq: NEEDED Status: Active Protocol: Document 10/20/24 11:10 AB (Rec: 10/20/24 14:17 AB [id number]) Physical Therapy Current Condition Current Condition Evaluation Date 10/20/24 Treatment Diagnosis UTI; sepsis; h/o pacreatic CA with liver mets; difficulty in walking Onset Date 10/17/24 M3 PT-IP Subjective Start: 10/20/24 13:59 Freq: NEEDED Status: Active Protocol: Document 10/20/24 11:10 AB (Rec: 10/20/24 14:17 AB [id number]) Subjective Physical Therapy Visit Type Type Initial Evaluation Visit Start Time 11:10 Visit Stop Time 11:50 Number of MACHINE SNELLER Visits 0 Physical Therapy Visit Comments Patient Comments agreeable to do PT M4 PT-IP Mobility and Gait Start: 10/20/24 13:59 Freq: NEEDED Status: Active Protocol: Document 10/20/24 11:10 AB (Rec: 10/20/24 14:17 [id number]) PT-Bed Mobility Assessment Supine to Sit Supine to Sit Maximum Assistance,1 Person Assistance Sit to Supine Sit to Supine Minimal Assistance PT-Transfer Assessment Sit to and From Stand Sit to and from Stand Contact Guard Assistance,1 Person Assistance,Use of Upper Extremities Equipment Transfer Assistive Device Gait Belt,Front Wheeled Walker Orthotic/Prosthetic Devices or Brace: No Transfers Transfer Destination Bed,Chair Transfer Technique ambulated Transfer Ability Level of Assist Contact Guard Assistance,1 Person Assistance,Use of Upper Extremities Comments Mobility Comments pt sitting on the chair. spouse and daughter in room. obtained PLOF and home set up. pt stated that LLE is numb and tends to give out on him and it started after he had his cancer tx at [facility]. pt with h/o back surgery. pt also informed PT that he went to a automotive painter of his LLE and was prescribed with L knee brace but he does not wear it. informed pt to f/u with his PCP. pt also has incidence of orthostatic hypotension with OT. nurse stated that pt can do PT. BP monitored. BP sittin/60. family wondering how safety belt works. educated pt's daughter on how to put safety belt on pt and counter demonstrated. pt completed sit to stand CGA and ambulated to EOB ~ 12 ft using FWW CGA. cued for L quads activation. BP checked: sitting on EOB: 90/61. no c/o dizziness/lightheadness. pt completed sit to supine max A to elevated LE up in bed. supine to sit SBA. pt completed sit to stand from EOB cGA and ambulated back to chair using FWW CGA. BP chekced: 93/57. positioned pt on the chair. call light and table placed within reach. Gait Assessment Gait Gait Assistance Required: Contact Guard Assist Distance (Feet) 12 Able to Maintain Weight Bearing Status Yes During Gait Assistive Devices Assistive Device Gait Belt,Front Wheeled Walker Orthotic/Prosthetic Devices or Brace: No Gait Deviations General Gait Pattern Decreased Stride Length, Decreased Feet Clearance Factors Limiting Gait Function Factors Limiting Gait Function Decreased Activity Tolerance, Decreased Sensation,Decreased Strength,Limited Range of Motion,Poor Balance,Poor Safety Awareness PT-Balance Assessment Sitting Balance and Reactions Static Sitting Balance Ability Normal Dynamic Sitting Balance Ability Good Standing Balance and Reactions Static Standing Balance Ability Fair Dynamic Standing Balance Ability Fair Device Used FWW M5 PT-IP Objective Assessments Start: 10/20/24 13:59 Freq: NEEDED Status: Active Protocol: Document 10/20/24 11:10 AB (Rec: 10/20/24 14:17 AB [id number]) Orientation Orientation/Cognition Level of Alertness Alert Orientation Name,Place,Situation Language Function Ability Hard of Hearing Safety Awareness Decreased Safety Awareness Memory Description No Deficits Noted Gross Range of Motion Lower Extremity ROM Assessment Within Functional Limits Strength Lower Extremity Strength Assessment Left Impaired Hip 3-/5 Knee 3+/5 Sensation Assessment Sensation Gross Sensation Left LE Impaired Sensation Description Numbness Comments Sensation Comments LLE numbness Muscle Tone Muscle Tone WNL Yes M6 PT-IP Treatment Start: 10/20/24 13:59 Freq: NEEDED Status: Active Protocol: Document 10/20/24 11:10 AB (Rec: 10/20/24 14:17 AB [id number]) Physical Therapy Treatment Education Education Provided Safety M7 PT-IP Assessment and Plan Start: 10/20/24 13:59 Freq: NEEDED Status: Active Protocol: Document 10/20/24 11:10 AB (Rec: 10/20/24 14:17 AB [id number]) PT Summary Assessment and Plan Potential Rehabilitation Potential Fair Status of Condition at Evaluation Evolving Summary Impairments Pain,ROM,Strength,Balance, Coordination,Sensation,Tone, Cognition,Bed Mobility, Transfers,Gait,Activity Tolerance Assessment Summary pt is an 88 y/o M who is admitted s/p fall, UIT, sepsis . pt with dx pancreatic CA with liver mets. pt undergoing cancer tx and also goes for paracentesis for his ascites. pt requiring CGA with transfers and ambulation using FWW and max A for bed mobility. pt has his family to assist him at home. pt will require HHPT. will conducted caregiver training and stair climbing training when appropriate. Goals Bed Mobility Goal Minimal Assistance Transfer Goal Standby Assistance,Front Wheeled Walker Gait Goal Standby Assistance,Front Wheel Walker Gait Distance 100 Other Goals up/down 1 steps using fWW SBA Days to Meet Goals 10 Frequency of Treatment Frequency Of Treatment Once a Day Treatment Plan Physical Therapy Treatment Plan Bed Mobility Training,Transfer Training,Gait Training, Therapeutic Exercise,Balance Retraining,Discharge Planning, Hot or Cold Pack,Neuromuscular Re-ed,Coordination Retraining ,Manual Therapy Other Recommendations and Next Treatment cargiver training and stair Focus climbing training when appropriate Precautions Other Precautions BP Recommendations To Nursing Amount of Assist Needed 1 Person Assist Discharge Recommendations PT Discharge Recommendations Home with 11/03 Assist Available,Home Health Transportation Needs at Discharge Private Vehicle,Wheelchair/ Cabulance
[2024-10-20] MEDS: ACETAMINOPHEN 325 MG TABLET 650 MG PO (14:32)
[2024-10-20] MEDS: DIGOXIN 0.125 MG TABLET 0.25 MG PO (16:56)
[2024-10-20] MEDS: PRAMIPEXOLE 0.25 MG TABLET PO (16:56)
[2024-10-20] MEDS: cefTRIAXone 2,000 MG in SODIUM CHLORIDE 0.9% 100 ML 200 MG IV (17:29)
[2024-10-21] VITALS: BP 99/62; RESP 17; TEMP 36.9; O2SAT 96
[2024-10-21 04:00] VITALS: BP 122/74; PULSE 82; RESP 19; TEMP 36.2; O2SAT 95
[2024-10-21] MEDS: MIDODRINE HCL 5 MG TABLET PO ×2 (04:46→12:02)
[2024-10-21] MEDS: ACETAMINOPHEN 325 MG TABLET 650 MG PO ×3 (04:46→20:11)
[2024-10-21 04:56] LABS: Alanine Aminotransferase 27 IU/L (<50); Albumin 2.7 g/dL (3.5-5.0); Albumin Globulin Ratio 1.2 (1.0-2.8); Alkaline Phosphatase 129 U/L (38-126); Aspartate Aminotransferase 36 IU/L (17-59); BUN Creatinine Ratio 22.5 (6-22); Bilirubin Total 0.2 mg/dL (0.2-1.3); Blood Urea Nitrogen 18 mg/dL (9-20); Carbon Dioxide 30 mmol/L (22-32); Chloride 102 mmol/L (98-107); Estimated Glomerular Filt Rate > 60 mL/min (>60); Globulin 2.3 g/dL (1.7-4.1); Glucose 100 mg/dL (80-110); HEMOLYSIS < 15 (0-50); Magnesium 1.7 mg/dL (1.6-2.3); Potassium 3.5 mmol/L (3.4-5.1); Sodium 135 mmol/L (137-145)
[2024-10-21 08:00] VITALS: BP 102/63; PULSE 72; RESP 17; TEMP 36.1; O2SAT 96
--- NOTE | 2024-10-21 08:02 | P.PN_ITS ---
Subjective Subjective Interval history: Summary: 88 M admitted with afib with RVR and persistent hypotension requiring pressors, found to have SBP. Now in sinus rhythm after digoxin and off pressors. Orthostatic with PT today. On midodrine. He has no complaints today generally, his legs appear a bit more swollen. S: He is doing well, no dyspnea. He was abdomen is full with the ascites. He was less fatigued today. He does still have very low blood pressure with standing down to 75 systolic. He was leg edema and is on midodrine 5 mg t.i.d.. Exam Vital Signs (past 8 hours): - 10/21/24 04:00 Temperature 97.1 F L Pulse Rate 82 Respiratory Rate 19 Blood Pressure 122/74 Pulse Oximetry 95 Oxygen Flow Rate 0 Oxygen Delivery Method Room Air Oxygen Flow Rate 0 Narrative Exam Narrative: NAD, alert and oriented. Fluent speech. Lungs are clear, normal rate and effort. Heart is regular, no murmur gallop or rub. Abdomen is soft, non distended. Extremities are free of edema. 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 Now in normal sinus but still mildly hypotensive on pressor. If still admitted in a couple of days consider digoxin level. Continues on 250 mcg daily. - holding home metoprolol for soft BPs currently, consider return back to metoprolol over digoxin given likely sepsis contributing. - he also had mod-severe on TTE at . Septic Shock due to secondary (vs spontaneous) bacterial peritonitis, POA, improved. - admitted on Levophed, held with ongoing tachyarrhythmia initially but needed to be restarted later that night. After albumin bolus 3 has remained off levophed. - Gave IVFs cautiously on admission w/o pulmonary edema or rales but did developascites and swollen legs. Stopped IV fluids and gave 25g albumin bolus on 10/18 with improvement in BP as noted above. - previously on midodrine at [facility] admission, restarted here with 5 mg TID. Consider increase tomorrow. -on chronic steroid for PMR/Arthritis, treated for possible adrenal insufficiency but with improvement stopped stress dose steroids and resume home prednisone. -diagnostic tap on 10/18 positive for SBP with >250 PMN on cell count. Cultures are without growth. Today is day 4/5 of ceftriaxone 2g daily. No need for repeat cell count. Hold on LVP at this time due to peritonitis unless severe shortness of breath or pain. After completion of ceftriaxone continue levofloxacin 250 mg daily for prophylaxis - unclear if infection related to recurrent LVP as outpatient or if spontaneous. Myocardial injury, POA, improved - upward trend at the time of admission, now improved - troponins have downtrended, no further evaluation. - echocardiogram with normal EF and no wall motion abnormalities. - if ischemic, inferior ? it will be medically managed, w/o further invasive testing. He wouldn't be a candidate for catheterization lab with metastatic pancreatic carcinoma. Continue eliquis. 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 He only had a few cm of fluid on US during diagnostic tap, he is focused on having LVP. Will need to wait on this until at least he is finished with antibiotics for SBP. Hip pain - musculoskeletal, from fall, w/o significant injury - pain management - PT if indicated after management of above. Orthostatic hypotension, POA. PLAN: -continue antibiotics -attenuate diuresis given hypotension. -increase midodrine 10 mg t.i.d. and monitor orthostasis -continue to work with PT He requires another midnight of hospital care, anticipated date of discharge is October 22 if his hypotension improves. Code: Learning Development Specialist-Based Coding :: [TOTAL MINUTES] spent with patient and on the chart (including review of chart, obtaining history, exam, reviewing outside data, placing orders, documenting exam and treatment plan, and counseling patient) on [DATE].
[2024-10-21] MEDS: APIXABAN 5 MG TABLET PO ×2 (08:27→20:11)
[2024-10-21] MEDS: FOLIC ACID 1 MG TABLET PO (08:27)
[2024-10-21] MEDS: predniSONE 5 MG TABLET 7.5 MG PO (08:27)
[2024-10-21] MEDS: Lipase-Protease-Amylase [Creon] 36,000-114,000- 180,000 unit cap 1 EACH PO ×3 (08:27→17:20)
[2024-10-21] MEDS: PANTOPRAZOLE 40 MG VIAL IV (08:29)
[2024-10-21] MEDS: FUROSEMIDE 40 MG/4 ML VIAL IV ×2 (08:29→17:21)
[2024-10-21] MEDS: SODIUM CHLORIDE 0.9% FLUSH 10 ML IV ×2 (08:29→20:32)
--- NOTE | 2024-10-21 11:15 | OT.IP.TRT ---
Current Diagnoses Malignant neoplasm of pancreas, unspecified (10/17/24) Secondary and unspecified malignant neoplasm of intra-abdominal lymph nodes (10/17/24) Unspecified atrial fibrillation (10/17/24) Other specified abnormal findings of blood chemistry (10/17/24) Contusion of lower back and pelvis, initial encounter (10/17/24) Fall on same level, unspecified, initial encounter (10/17/24) Occupational Therapy Treatment Note M2 OT-IP Current Condition Start: 10/20/24 09:21 Freq: Status: Active Protocol: Document 10/20/24 09:22 [facility] (Rec: 10/20/24 09:39 [facility] [id number]) Occupational Therapy Current Condition Current Condition Evaluation Date 10/20/24 Treatment Diagnosis A-fib, RVR Diagnosis Onset Date 10/17/24 M3 OT- IP Subjective and Pain Start: 10/20/24 09:21 Freq: Status: Active Protocol: Document 10/21/24 12:10 [facility] (Rec: 10/21/24 12:21 [facility] [id number]) OT- Subjective Occupational Therapy Visit Type Type Treatment Note Visit Start Time 10:20 Visit Stop Time 11:15 Occupational Therapy Visit Comments Patient Comments Pt in the bathroom when OT took over for nursing. Patient/Caregiver Goals TO go home. OT Pain Assessment Pain When Pain Assessed At Rest Pain Present Pain Present Pain Reported Location left hip and thigh Intensity 8 Scale Used Numeric (0 - 10) M4 OT- IP ADL's Start: 10/20/24 09:21 Freq: Status: Active Protocol: Document 10/21/24 12:10 [facility] (Rec: 10/21/24 12:21 [facility] [id number]) OT PUP-Espu-Ogvaupz Comments OT Self-Feeding Comments Not at meal time. OT ADL-Grooming Comments OT Grooming Comments Pt able to wash his hands while at the sink. OT ADL-Oral Care Comments Oral Care Comments Not performed. OT ADL-Dressing General Eval Lower Body Dressing Ability Maximum Assistance Areas Needing Assistance Underpants/Brief,Socks Comments OT Dressing Comments Assist to help get his legs into the brief and up over his hips. OT ADL-Toileting General Evaluation Toileting Ability Moderate Assistance Comments OT Toileting Comments Assist for brief and cues to wipe or completeness. Suggested pt use the BSC over the toilet to increase ease to come to stand. OT ADL-Bathing Comments OT Bathing Comments NOt performed. M5 OT- IP IADL's Start: 10/20/24 09:21 Freq: Status: Active Protocol: Document 10/20/24 09:22 [facility] (Rec: 10/20/24 09:39 [facility] [id number]) OT-Instrumental Activities of Daily Living Deficits IADL Deficits Identified Deficits Home Safety Awareness Awareness of Need for Assistance at Home Good Awareness Ability to Problem Solve Emergency Able to Problem Solve Situations Medication Management Medication Management Comments Pt states does his own, but aware not thinking well now and that his can assist him. Money Management Money Management Caregiver Provides Assistance Money Management Comments Pt's daughter has been doing the bills. Meal Preparation Meal Preparation Caregiver Provides Assist Termite Control Technician Termite Control Technician Caregiver Provides Assist Driving Driving Comments Pt has not driven in awhile and aware not to drive at this time. M6 OT- IP Functional Cognition Start: 10/20/24 09:21 Freq: Status: Active Protocol: Document 10/21/24 12:10 [facility] (Rec: 10/21/24 12:21 [facility] [id number]) Cognitive Factors Limiting Selfcare Function Cognitive Comments Cognitive Assessment Comments Pt able to follow commands and states insistent that he is feeling fine and wants to go home. M7 OT- IP Mobility and Balance Start: 10/20/24 09:21 Freq: Status: Active Protocol: Document 10/21/24 12:10 [facility] (Rec: 10/21/24 12:21 [facility] [id number]) OT- Bed Mobility Assessment Supine to Sit Supine to Sit Assist Standby Assistance Sit to Supine Sit to Supine Assist Standby Assistance OT-Transfer Assessment Sit to and From Stand Sit to and from Stand Standby Assistance,Contact Guard Assistance Transfers Transfer Ability Standby Assistance Technique Transfer Destination Bed,Chair,Toilet Transfer Technique Stand Step Pivot Devices Transfer Assistive Devices Gait Belt,Front Wheeled Walker Comments Mobility Comments Pt doing better coming to stand and CGA to close SBA. Able to practice bed mobility as pt 's bed is high and would benefit to be lowered and to also get a bed rail for safety . Also able to practice with use of cane to assist to get his LLE back into bed. BP sitting 98/65, after standing 84/51, and after getting back to the recliner dropped to 78/51- nursing notified and came in to monitor pt. Pt states feels tired and noted a little SOB. Suggested pt may benefit from a wc at home and various places to sit down especially when he is getting chemo. OT- Balance Assessment Sitting Balance and Reactions Static Sitting Balance Ability Normal Dynamic Sitting Balance Ability Good Standing Balance and Reactions Static Standing Balance Ability Good Dynamic Standing Balance Ability Fair M8 OT- IP Objective Assessments Start: 10/20/24 09:21 Freq: Status: Active Protocol: Document 10/20/24 09:22 [facility] (Rec: 10/20/24 09:39 [facility] [id number]) OT Strength Comments Strength Comments Pt at least 3-/5 , as not formally tested. M9 OT- IP Assessment and Plan Start: 10/20/24 09:21 Freq: Status: Active Protocol: Document 10/21/24 12:10 [facility] (Rec: 10/21/24 12:21 [facility] [id number]) OT Summary Assessment and Plan Potential Rehabilitation Potential Fair Analytic Complexity at Evaluation Moderate Summary OT Impairments Balance,Functional Mobility, Grooming,Dressing,Toileting, Bathing,Toilet Transfers, Shower Transfers,Activity Tolerance Progress Towards Goals Progressing Toward Goals,Slow Progress due to Medical Issues Assessment Summary Pt moving better today but still hypotensive and mainly complaining of being tired. Pt 's family present at the end of the session and able to go over equipment and need for assistance suggestions. Pt to go home with 24/7 available assist and home health. Goals Self-Feeding Goal Independent Grooming Goal Independent Dressing Goal Minimal Assistance,Restaurant Server, Sock Aid Toileting Goal Standby Assistance Bathing Goal Minimal Assistance Toilet Transfer Goal Independent Shower Transfer Goal Standby Assistance Days to Meet Goals 4 Treatment Plan OT Treatment Plan ADL Training,Functional Cognition Training,Functional Mobility,Patient/Family Education,Discharge Planning Other Treatment Recommendations and Next shower Treatment Focus Discharge Recommendations OT Discharge Recommendations Home with 24/7 Assist Available,Home Health Transportation Needs at Discharge Private Vehicle
--- NOTE | 2024-10-21 11:20 | PT.IPTN ---
Current Diagnoses Malignant neoplasm of pancreas, unspecified (10/17/24) Secondary and unspecified malignant neoplasm of intra-abdominal lymph nodes (10/17/24) Unspecified atrial fibrillation (10/17/24) Other specified abnormal findings of blood chemistry (10/17/24) Contusion of lower back and pelvis, initial encounter (10/17/24) Fall on same level, unspecified, initial encounter (10/17/24) Physical Therapy Treatment Note M2 PT-IP Current Condition Start: 10/20/24 13:59 Freq: NEEDED Status: Active Protocol: Document 10/20/24 11:10 [facility] (Rec: 10/20/24 14:17 AB [id number]) Physical Therapy Current Condition Current Condition Evaluation Date 10/20/24 Treatment Diagnosis UTI; sepsis; h/o pacreatic CA with liver mets; difficulty in walking Onset Date 10/17/24 M3 PT-IP Subjective Start: 10/20/24 13:59 Freq: NEEDED Status: Active Protocol: Document 10/21/24 11:20 [facility] (Rec: 10/21/24 13:37 AB [id number]) Subjective Physical Therapy Visit Type Type Treatment Note Visit Start Time 11:20 Visit Stop Time 11:45 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 family in room. BP sitting on RUE: 82/58. rechecked: 51/54. LUE: 84/55. nurse aware. monitored BP. sit to stand from chair mod A and max cues. BP standin/50. instructed pt to sit back down . no c/o dizziness/ lightheadedness but feels weak . BP chekced in sittin/ 53. family in for caregiver training. initiated caregiver training but minimal activity due to low BP. educated on use of safety belt and how to assist pt with sit to stand. pt's NAYELI was able to put safety belt and assisted pt with sit to stand. pt sat back on chair. BP checked: 89/59. positioned pt on the chair. call light and table placed within reach. left pt with family in room. M5 PT-IP Objective Assessments Start: 10/20/24 13:59 Freq: NEEDED Status: Active Protocol: Document 10/20/24 11:10 AB (Rec: 10/20/24 14:17 AB [id number]) Orientation Orientation/Cognition Level of Alertness Alert Orientation Name,Place,Situation Language Function Ability Hard of Hearing Safety Awareness Decreased Safety Awareness Memory Description No Deficits Noted Gross Range of Motion Lower Extremity ROM Assessment Within Functional Limits Strength Lower Extremity Strength Assessment Left Impaired Hip 3-/5 Knee 3+/5 Sensation Assessment Sensation Gross Sensation Left LE Impaired Sensation Description Numbness Comments Sensation Comments LLE numbness Muscle Tone Muscle Tone WNL Yes M6 PT-IP Treatment Start: 10/20/24 13:59 Freq: NEEDED Status: Active Protocol: Document 10/21/24 11:20 [facility] (Rec: 10/21/24 13:37 AB [id number]) Physical Therapy Treatment Education Education Provided Safety M7 PT-IP Assessment and Plan Start: 10/20/24 13:59 Freq: NEEDED Status: Active Protocol: Document 10/21/24 11:20 [facility] (Rec: 10/21/24 13:37 AB [id number]) PT Summary Assessment and Plan Potential Rehabilitation Potential Fair Summary Impairments Pain,ROM,Strength,Balance, Coordination,Sensation,Tone, Cognition,Bed Mobility, Transfers,Gait,Activity Tolerance Progress Towards Goals Slow Progress due to Activity Tolerance,Slow Progress - Other Assessment Summary pt with low BP today and unable to do much activity. initiated caregiver training but limited due to low BP. BP in sittin/58-84/55 and in standin/50. will continue to assess progress. Goals Bed Mobility Goal Minimal Assistance Transfer Goal Standby Assistance,Front Wheeled Walker Gait Goal Standby Assistance,Front Wheel Walker Gait Distance 100 Other Goals up/down 1 steps using fWW SBA Days to Meet Goals 10 Frequency of Treatment Frequency Of Treatment Once a Day Treatment Plan Physical Therapy Treatment Plan Bed Mobility Training,Transfer Training,Gait Training, Therapeutic Exercise,Balance Retraining,Discharge Planning, Hot or Cold Pack,Neuromuscular Re-ed,Coordination Retraining ,Manual Therapy Other Recommendations and Next Treatment cargiver training and stair Focus climbing training when appropriate Precautions Other Precautions BP Recommendations To Nursing Amount of Assist Needed 1 Person Assist Discharge Recommendations PT Discharge Recommendations Home with 11/03 Assist Available,Home Health Transportation Needs at Discharge Private Vehicle,Wheelchair/ Cabulance - PT assist 1 PA
[2024-10-21 15:45] VITALS: BP 109/52; PULSE 77; RESP 17; TEMP 35.9; O2SAT 96
[2024-10-21 17:17] VITALS: BP 109/56; PULSE 83
[2024-10-21] MEDS: DIGOXIN 0.125 MG TABLET 0.25 MG PO (17:17)
[2024-10-21] MEDS: MIDODRINE HCL 5 MG TABLET 10 MG PO (17:18)
[2024-10-21] MEDS: cefTRIAXone 2,000 MG in SODIUM CHLORIDE 0.9% 100 ML 200 MG IV (17:18)
[2024-10-21] MEDS: PRAMIPEXOLE 0.25 MG TABLET PO (17:18)
--- NOTE | 2024-10-21 17:37 | PC.NURSE ---
Pt BP stable while in bed and in the recliner, still experiencing episodes of hypotension when walking. Dr Bass notified of hypotension, see new orders. Hip pain treated with PRN medications and repositioning. Family at bedside, updated. Pt up to bathroom, recliner x1 assist.
[2024-10-21 20:00] VITALS: BP 101/60; PULSE 75; RESP 18; TEMP 36.2; O2SAT 98
[2024-10-22] VITALS: BP 108/66; PULSE 57; RESP 17; TEMP 36.2; O2SAT 97
[2024-10-22 04:00] VITALS: BP 112/63; PULSE 71; RESP 18; TEMP 36.4; O2SAT 96
[2024-10-22 04:54] LABS: Alanine Aminotransferase 31 IU/L (<50); Albumin 2.7 g/dL (3.5-5.0); Albumin Globulin Ratio 1.1 (1.0-2.8); Alkaline Phosphatase 122 U/L (38-126); Aspartate Aminotransferase 47 IU/L (17-59); BUN Creatinine Ratio 24.1 (6-22); Bilirubin Total 0.2 mg/dL (0.2-1.3); Blood Urea Nitrogen 19 mg/dL (9-20); Carbon Dioxide 28 mmol/L (22-32); Chloride 102 mmol/L (98-107); Estimated Glomerular Filt Rate > 60 mL/min (>60); Globulin 2.4 g/dL (1.7-4.1); Glucose 110 mg/dL (80-110); HEMOLYSIS < 15 (0-50); Magnesium 1.5 mg/dL (1.6-2.3); Potassium 3.4 mmol/L (3.4-5.1); Sodium 135 mmol/L (137-145); Total Protein 5.1 g/dL (6.3-8.2)
[2024-10-22] MEDS: MIDODRINE HCL 5 MG TABLET 10 MG PO ×2 (07:21→12:21)
[2024-10-22] MEDS: Lipase-Protease-Amylase [Creon] 36,000-114,000- 180,000 unit cap 1 EACH PO ×3 (07:33→12:19)
[2024-10-22] MEDS: FUROSEMIDE 40 MG/4 ML VIAL IV (07:34)
[2024-10-22 08:00] VITALS: BP 123/71; PULSE 77; RESP 17; TEMP 36.1; O2SAT 95
[2024-10-22] MEDS: PANTOPRAZOLE 40 MG VIAL IV (08:21)
[2024-10-22] MEDS: FOLIC ACID 1 MG TABLET PO (08:21)
[2024-10-22] MEDS: predniSONE 5 MG TABLET 7.5 MG PO (08:21)
[2024-10-22] MEDS: APIXABAN 5 MG TABLET PO (08:21)
[2024-10-22] MEDS: SODIUM CHLORIDE 0.9% FLUSH 10 ML IV (08:22)
--- NOTE | 2024-10-22 09:30 | PM.DS.1 ---
History of Present Illness History of Present Illness Chief complaint: n/v/slipped out of bed Narrative: From H&P: 88 y/o with PMH of metastatic pancreatic carcinoma, liver metastases, peritoneal carcinomatosis, DVT, A-fib on BB and Eliquis, presented complaining on hip pain after a GLF at home. Workup did not show significant injuries. On presentation with sinus rhythm and then in rapid A-fib, hypotensive, getting fluids, digoxin and BB IV and PO. Raising troponin, non-ischemic rate-related vs ischemic. He has no angina on presentation. 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 At the time of admission his rate is ~ 120 and BP ~ 100/60 after 3 L of IVFs continued with 150 cc/h, 750 mcg of digoxin total, 25 mg of metoprolol PO, 5 mg of metoprolol IV, on 4 of Levophed Discharge Providers Provider Date of admission: 10/17/24 19:44 Discharge Date: 10/22/24 Primary care physician: Marky Sarmiento MD Consults: 10/19/24 12:14 Consult to Occupational Therapy Evaluate & Treat Comment: Physician Instructions: Evaluate and treat Consult to Physical Therapy Evaluate & Treat Comment: Physician Instructions: Evaluate and Treat Discharge provider: Chip Bass MD Summary Hospital Course Discharge Diagnosis: 1. Chronic atrial fibrillation with RVR, present on admission and improved. 2. Demand ischemia, present on admission and improved. 3. Spontaneous bacterial peritonitis, present on admission and improved. 4. Septic shock, present on admission and resolved. 5. Metastatic pancreas cancer, present on admission and active. 6. Malignant ascites, present on admission and active. 7. Hip pain with negative imaging, present on admission and improved. 8. Orthostatic hypotension, present on admission and improved. 9. Moderate to severe aortic stenosis by echo, present on admission and active. Hospital Course: He was initially admitted with hypotension and atrial fibrillation with rapid response. He required pressors and IV digoxin as well as empiric antibiotics. He improved with resuscitation and his metoprolol was held. The patient did have a persistent orthostatic hypotension and was started on midodrine with up titration to 10 mg t.i.d.. This did improve his orthostatic hypotension. The patient did have a diagnostic paracentesis and had over 250 white cells and was treated for spontaneous bacterial peritonitis. Cultures remained negative. He was currently undergoing therapy with Dr. Jaquez at [facility] with his next appointment next week. The day of discharge he would stable vital signs, no tachycardia, and had been continued on his anticoagulation. He will continue with 3 additional days of oral antibiotics to complete about 7 days of therapy for his possible SBP. Given his orthostasis, diuretics will be held. This can be readdressed at follow up with his oncologist next week. Ultimately he will want to start diuretics if he can tolerate these for his persistent anasarca and to prevent SBP. In addition he should avoid PPIs. He will go out on digoxin 125 mcg daily and metoprolol will be stopped at this point due to his soft blood pressures. Status at Discharge Cognitive/behavioral status at discharge: oriented Functional status at discharge: uses cane/walker Overall status at discharge: patient is back to baseline Time Spent with Patient Time spent: Greater than 30 minutes Exam Vital Signs (past 8 hours): - 10/22/24 04:00 10/22/24 08:00 Temperature 97.6 F 97.0 F L Pulse Rate 71 77 Respiratory Rate 18 17 Blood Pressure 112/63 123/71 Pulse Oximetry 96 95 Oxygen Flow Rate 0 0 Oxygen Delivery Method Room Air Oxygen Flow Rate 0 Narrative Exam Narrative: NAD, alert and oriented. Fluent speech. Lungs are clear, normal rate and effort. Heart is irregular, no murmur gallop or rub. Abdomen is soft, and distended. Extremities have gross edema. Objective ECG Impression: Atrial fibrillation Right bundle branch block Imaging Multiple studies:: Radiologist's impression: ECHO: The left ventricle is normal in size. Left ventricular systolic function appears normal without focal wall motion abnormalities. The ejection fraction is estimated to be 60-65%. The right ventricle is mildly dilated. The right ventricular systolic function is normal. Right ventricular systolic pressure is estimated to be 32 mmHg plus the clinically estimated CVP which cannot be estimated on this exam. The left atrium is mildly dilated. There is mild mitral regurgitation. There is moderate aortic stenosis. The aortic valve is moderately calcified. The peak aortic velocity is 3.0 m/sec. The calculated aortic valve area is 1.4 cm2. The aortic root is mildly dilated. The ascending aorta is mildly enlarged. There is a moderately large left-sided pleural effusion. There is a trivial pericardial effusion noted. Abdomen CT: No evidence of pelvic or hip fracture. Right hip arthroplasty in good position. Peritoneal carcinomatosis, hepatic metastasis, and worsening abdominal ascites. Advanced degenerative disc disease and arthropathy in the lumbar spine with surgical decompression. No instrumentation. Hip X-ray: Arthritic changes and total right hip arthroplasty. No fracture. CXR: No acute cardiopulmonary abnormality is seen. 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 Chronic atrial fibrillation with RVR, present on admission and improved. 2. Demand ischemia, present on admission and improved. 3. Spontaneous bacterial peritonitis, present on admission and improved. 4. Septic shock, present on admission and resolved. 5. Metastatic pancreas cancer, present on admission and active. 6. Malignant ascites, present on admission and active. 7. Hip pain with negative imaging, present on admission and improved. 8. Orthostatic hypotension, present on admission and improved. 9. Moderate to severe aortic stenosis by echo, present on admission and active. Plan of Treatment: Discharge home, advised against paracentesis at this time to maintain blood pressures and is he was not really having severe symptoms from it. He will follow up with Oncology as scheduled next week, it was primary care tomorrow. He will benefit from slow introduction of diuretics for his anasarca and we will likely require a limited volume paracentesis about every week to 2 weeks for general comfort. Bacterial peritonitis prophylaxis is something to consider as well given the likely persistent clinical course he faces. Discharge Plan Discharge Plan Patient Disposition: Home Provider Discharge Comment: Stable for discharge home with close follow up with PCP tomorrow and Oncology next week as scheduled. Discharge orders & Medications Prescriptions: New midodrine 5 mg Tablet 10 mg PO 0600,1200,1800 Qty: 90 0RF digoxin 125 mcg (0.125 mg) tablet 125 mcg PO DAILY Qty: 30 1RF ciprofloxacin HCl [Cipro] 500 mg tablet 500 mg PO BID Qty: 6 0RF Continued Eliquis 5 mg tablet 5 mg PO BID ondansetron HCl 8 mg tablet 8 mg PO Q8H PRN (Reason: nausea/vomiting) prednisone 5 mg tablet 5 mg PO DAILY Patient Comments: TAKE ONE TABLET (5MG) IN ADDITION TO FOUR 1MG TABLETS FOR A TOTAL OF 9MG DAILY TO START YOU WILL TAPER DOWN BY 1MG PER MONTH lidocaine-prilocaine 2.5-2.5 % cream 1 applic topical SEEINSTR Rx Instructions: Apply large dollop on port site 1 hour before port access and cover with cling wrap. prednisone 1 mg tablet 2.5 mg PO DAILY Patient Comments: TAKE 4 TABLETS (4MG) BY MOUTH DAILY IN ADDITION TO ONE 5MG TABLET FOR TOTAL 9MG DAILY FOR ONE MONTH YOU WILL TAPER DOWN BY 1MG EVERY MONTH Rx Instructions: Patient is currently on 7.5mg due to tapering dose. pramipexole 0.25 mg tablet 0.25 mg PO QPM ipratropium bromide 42 mcg (0.06 %) spray,non-aerosol 2 spray intranasal 3XD oxycodone 5 mg tablet 5 mg PO Q6H azelastine 205.5 mcg (0.15 %) Elrama,Non-Aerosol 2 spray INTRANASAL BID Creon 36,000-114,000- 180,000 unit capsule,delayed release(DR/EC) 2 cap PO TIDWMEAL Patient Comments: [NO ORIGINAL SIG] rosuvastatin 20 mg tablet 20 mg PO DAILY Discontinued metoprolol succinate 25 mg tablet extended release 24 hr 25 mg PO DAILY Medication counseling provided by Pharmacist: No Follow up/Referrals: Marky Sarmiento MD [Primary Care Provider] - Discharge Health Status Multidrug resistant organism: No MDRO Diet/Activity/Treatments Diet: Diet as Tolerated Activity: As tolerated. Skin/Wound/Dressing Care Report to your healthcare provider any signs of infection, such as:: chills, fever Visit Report/Discharge Packet Instructions: DI for Atrial Fibrillation Stand Alone Forms: Patient Portal/API Discharge Data Primary Care Provider: Marky Sarmiento
[2024-10-22] MEDS: MAGNESIUM CHLORIDE 64 MG TABLET 128 MG PO (10:03)
--- NOTE | 2024-10-22 10:11 | CM.DPC ---
DCP Cont. Reviewed EMR and team rounds for status updates. Pt has been medically cleared for home d/c. Kezia OCASIO has resumption orders for d/c, and pt has hired caregivers to assist once he's home. No further CM d/c assistance or resource needs indicated at this time.
[2024-10-22 12:00] VITALS: BP 99/68; PULSE 86; RESP 18; TEMP 35.9; O2SAT 96
[2024-10-22] MEDS: ACETAMINOPHEN 325 MG TABLET 650 MG PO (13:00)
--- NOTE | 2024-10-22 14:22 | PC.NURSE ---
Assumed care of pt at 1200. Pt awaiting son in law for ride to discharge. Agreeable to discharge plan to follow up as scheduled with oncology and primary care provider. Port deaccessed, PIVs discontinued. Pt assisted in dressing. Creon obtained from pharmacy storage and given to pt. Pt wheeled via w/c to private vehicle at approximately 1415.
== END 2024-10-22 14:15 | disposition home health service (06) | DRG 871 ==
LOC: ED 08:28 → AC 17:51 → ICU 20:38
PROVIDERS: Internal Medicine; Admitting Provider Internal Medicine; Emergency Provider Student in an Organized Health Care Education/Training Program; Family Provider Internal Medicine; PCP Internal Medicine; Referring Provider Emergency Medicine; Visit Provider Internal Medicine
DX: A41.9 Sepsis, unspecified organism (principal); K65.2 Spontaneous bacterial peritonitis; R65.21 Severe sepsis with septic shock; C25.9 Malignant neoplasm of pancreas, unspecified; C78.7 Secondary malignant neoplasm of liver and intrahepatic bile duct; C78.6 Secondary malignant neoplasm of retroperitoneum and peritoneum; R18.0 Malignant ascites; I48.20 Chronic atrial fibrillation, unspecified; E27.40 Unspecified adrenocortical insufficiency; I24.89 Other forms of acute ischemic heart disease; I35.0 Nonrheumatic aortic (valve) stenosis; M25.552 Pain in left hip; M35.3 Polymyalgia rheumatica; I95.1 Orthostatic hypotension; W18.30XA Fall on same level, unspecified, initial encounter; Z86.718 Personal history of other venous thrombosis and embolism; Z79.01 Long term (current) use of anticoagulants; Z87.891 Personal history of nicotine dependence; Z79.52 Long term (current) use of systemic steroids; Z95.828 Presence of other vascular implants and grafts
CPT/HCPCS: 36415; 36591; 71045; 73502; 74177; 80053; 81003; 82945; 82962; 83605; 83690; 83735; 84145; 84484; 85025; 85610; 85730; 87040; 87070; 87075; 87205; 89051; 93005; 93306; 96361; 96365; 96375; 97129; 97163; 97166; 97530; 97535; 99284; 99291; J0696; J1160; J1171; J1642; J1720; J1940; J2470; P9041; Q9967

== ENCOUNTER 2024-10-30 09:21 | Inpatient (IN) | payer MEDICARE, SELFPAY ==
[2024-10-30] VITALS (39 sets, daily range): BP systolic 78–113; BP diastolic 51–69; PULSE 73–99; RESP 17–30; TEMP 36.2–36.7; O2SAT 82–98; BMI 29.5; BMI 30.2
[2024-10-30 10:28] LABS: Add Manual Diff / Slide Review NO; Basophils Absolute Auto 0 /uL (0-100); Basophils Percent Auto 0.3 % (0-2); Eosinophils Absolute Auto 100 /uL (0-450); Eosinophils Percent Auto 1.3 % (2-4); Hematocrit 33.4 % (41-53); Hemoglobin 11.1 g/dL (13.5-17.5); Lymphocytes Absolute Auto 1700 /uL (1100-4500); Lymphocytes Percent Auto 18.6 % (25-40); Mean Corpuscular HGB Conc 33.3 % (30-36); Mean Corpuscular Hemoglobin 30.9 PG (26-34); Mean Corpuscular Volume 92.8 fL (80-100); Monocytes Absolute Auto 600 /uL (0-900); Monocytes Percent Auto 6.1 % (3-14); Neutrophils Absolute Auto 6900 /uL (1500-7000); Neutrophils Percent Auto 73.7 % (50-75); Platelet Count 424 X10^3/uL (150-400); Red Blood Cell Count 3.59 X10^6/uL (4.5-5.9); Red Cell Distribution Width 17.4 % (11.6-14.8); White Blood Cell Count 9.4 X10^3/uL (4.5-11.0)
[2024-10-30 10:32] LABS: Alanine Aminotransferase 34 IU/L (<50); Albumin 3.2 g/dL (3.5-5.0); Albumin Globulin Ratio 1.1 (1.0-2.8); Alkaline Phosphatase 154 U/L (38-126); Aspartate Aminotransferase 49 IU/L (17-59); Bilirubin Total 0.4 mg/dL (0.2-1.3); Blood Urea Nitrogen 18 mg/dL (9-20); Calcium 9.3 mg/dL (8.4-10.2); Carbon Dioxide 31 mmol/L (22-32); Chloride 103 mmol/L (98-107); Estimated Glomerular Filt Rate > 60 mL/min (>60); Globulin 2.8 g/dL (1.7-4.1); Glucose 124 mg/dL (80-110); HEMOLYSIS < 15 (0-50); Lipase 101 U/L (23-300); Potassium 3.8 mmol/L (3.4-5.1); Sodium 139 mmol/L (137-145)
[2024-10-30] MEDS: ONDANSETRON 4 MG/2 ML INJ IV (10:57)
--- NOTE | 2024-10-30 11:48 | PC.NURSE ---
Patient appeared to be desatting on RA; placed on 2 - 5L O2 via NC, waveform not ideal; switched to finger from ear probe and sats increased to 99%; inconsistent readings likely d/t poor circulation--poss sleep apnea.
--- NOTE | 2024-10-30 12:29 | ED.NAVMDI ---
HPI - Nausea/Vomiting/Diarrhea <Perla Lexi, DO - Last Filed: 10/31/24 20:22> General Chief complaint: Nausea/Vomiting/Diarrhea Stated complaint: N/V Time Seen by Provider: 10/30/24 10:19 History of Present Illness HPI Narrative: Patient is 88-year-old male with past medical history of metastatic pancreatic carcinoma, liver metastasis, peritoneal carcinomatosis, DVT, atrial fibrillation on beta-judie and Eliquis presenting today with nausea vomiting. He reports that he was threw up many times last night but some out kept his dinner down. He feels some acid burning in his chest. He is chronic ascites scheduled every Saturday for paracentesis talk of placing a PleurX catheter. He was swallow by Oncology at [facility]. He has had 2 rounds of chemotherapy he was supposed to have his 3rd this week but due to recent admission oncologist told him he was too weak needs further evaluation by Cardiology for his AFib with RVR episode. Family at bedside wanted him transferred to [facility] if needed patient, patient reports feeling very weak no significant abdominal pain no fever. Patient has life goals of making his 89th birthday anniversary. Talking about quality of life goals of care with patient and son-in-law at bedside Had recent admission October 17 through October 22 for AFib with RVR, septic shock Related Data Home Medications Medication Instructions Recorded Confirmed apixaban 5 mg tablet (Eliquis) 5 mg PO BID 10/17/24 10/30/24 lidocaine-prilocaine 2.5 %-2.5 % 1 applic topical SEEINSTR 10/17/24 10/30/24 topical cream cpzwvl-yobkgbdj-[id number] 2 cap PO TIDWMEAL Cancer/lipase 10/17/24 10/30/24 36,000-114,000-180,000 unit capsule,delay rel (Creon) ondansetron HCl 8 mg tablet 8 mg PO Q8H PRN nausea/vomiting 10/17/24 10/30/24 pramipexole 0.25 mg tablet 0.25 mg PO QPM 10/17/24 10/30/24 prednisone 5 mg tablet 7.5 mg PO DAILY 10/17/24 10/30/24 oxycodone 5 mg tablet 5 mg PO Q6H PRN Pain (Scale Score 10/23/24 10/30/24 7-10) escitalopram oxalate 10 mg tablet 10 mg PO DAILY 10/30/24 10/30/24 midodrine 5 mg tablet 10 mg PO TID 10/30/24 10/30/24 Allergies Allergy/AdvReac Type Severity Reaction Status Date / Time No Known Drug Allergies Allergy Verified 10/23/24 06:51 Patient History <Perla Elliott DO - Last Filed: 10/31/24 20:22> Medical History History of ascites History of pancreatic cancer Vomiting Venous thromboembolism Pancreatic carcinoma metastatic to intra-abdominal lymph node Social History household members: spouse Smoking Status: Former smoker Smoking Status: Former smoker tobacco type: cigarettes Exam <Perla Elliott, DO - Last Filed: 10/31/24 20:22> Initial Vital Signs Initial Vital Signs: Vital Signs Temperature 97.1 F L 10/30/24 09:36 Pulse Rate 81 10/30/24 09:36 Respiratory Rate 20 10/30/24 09:36 Blood Pressure 113/69 10/30/24 09:36 Pulse Oximetry 88 L 10/30/24 09:36 Oxygen Delivery Method Room Air 10/30/24 09:36 GENERAL: Alert pleasant 88-year-old male and in [no acute] distress. HEENT: Head atraumatic,EOMI, pupils reactive, face symmetric, [moist] mucous membranes CARDIOVASCULAR: Regular rate and rhythm without murmurs, rubs or gallops. RESPIRATORY: Breath sounds equal bilaterally, no wheezes rales or rhonchi. ABDOMEN: Soft, nontender positive fluid wave EXTREMITIES: Normal range of motion, no clubbing = lower extremity bilateral edema Neurovascularly intact NEUROLOGICAL: Alert and oriented x4.Normal gait and speech. Cranial nerves II through XII grossly intact. SKIN: Warm, dry, no laceration, no petechiae, no rashes or lesions. <Carlos Mensah, DO - Last Filed: 10/30/24 21:09> Initial Vital Signs Initial Vital Signs: Vital Signs Temperature 97.1 F L 10/30/24 09:36 Pulse Rate 81 10/30/24 09:36 Respiratory Rate 20 10/30/24 09:36 Blood Pressure 113/69 10/30/24 09:36 Pulse Oximetry 88 L 10/30/24 09:36 Oxygen Delivery Method Room Air 10/30/24 09:36 Course <Perla Elliott DO - Last Filed: 10/31/24 20:22> Orders Ordered: Acetaminophen (Acetaminophen 325 Mg Tablet) 650 mg PO Q6H PRN PRN Reason: Fever/Mild Pain (1-3) Al Hydrox/Mg Hydrox/Simethicone (Mag Hydrox/Alum/Simeth 30 Ml Udc) 30 ml PO Q6HR PRN PRN Reason: Dyspepsia Apixaban (Apixaban 5 Mg Tablet) 5 mg PO BID [facility] Last Admin: 10/31/24 08:59 Dose: 5 mg Documented By: JEANNA Digoxin (Digoxin 0.125 Mg Tablet) 0.125 mg PO DAILY@1700 [facility] Last Admin: 10/31/24 16:58 Dose: 0.125 mg Documented By: Escitalopram Oxalate (Escitalopram 10 Mg Tablet) 10 mg PO DAILY [facility] Last Admin: 10/31/24 08:59 Dose: 10 mg Documented By: JEANNA Fludrocortisone Acetate (Fludrocortisone 0.1 Mg Tablet) 0.1 mg PO DAILY [facility] Last Admin: 10/31/24 08:59 Dose: 0.1 mg Documented By: Admin: 10/31/24 00:05 Dose: Not Given Documented By: CT Metoclopramide HCl (Metoclopramide 10 Mg/2 Ml Inj) 5 mg IV Q6HR PRN PRN Reason: Nausea And Vomiting Last Admin: 10/31/24 00:05 Dose: 5 mg Documented By: CT Midodrine (Midodrine Hcl 5 Mg Tablet) 10 mg PO 0600,1200,1800 [facility] Last Admin: 10/31/24 18:00 Dose: 10 mg Documented By: Admin: 10/31/24 11:37 Dose: 10 mg Documented By: Admin: 10/31/24 06:48 Dose: 10 mg Documented By: Admin: 10/30/24 18:25 Dose: Not Given Documented By: Admin: 10/30/24 16:13 Dose: 10 mg Documented By: ES Naloxone HCl (Naloxone 0.4 Mg/Ml Vial) 0.2 mg IV Q2MIN PRN PRN Reason: Opiate Reversal Creon 36/114/180 2 each PO TIDWM [facility] Last Admin: 10/31/24 16:59 Dose: 1 each Documented By: Admin: 10/31/24 12:00 Dose: 1 each Documented By: Admin: 10/31/24 08:00 Dose: 1 each Documented By: Admin: 10/30/24 18:31 Dose: 1 each Documented By: MIS Ondansetron HCl (Ondansetron 4 Mg Odt) 8 mg PO Q8H PRN PRN Reason: nausea/vomiting Oxycodone HCl (Oxycodone Ir 5 Mg Tablet) 5 mg PO Q3H PRN PRN Reason: Pain, Moderate (4-6) Pramipexole Dihydrochloride (Pramipexole 0.25 Mg Tablet) 0.25 mg PO BEDTIME [facility] Last Admin: 10/30/24 21:31 Dose: Not Given Documented By: Admin: 10/30/24 17:07 Dose: 0.25 mg Documented By: PARISH Prednisone (Prednisone 5 Mg Tablet) 7.5 mg PO DAILY [facility] Last Admin: 10/31/24 08:59 Dose: 7.5 mg Documented By: CLP Vancomycin HCl (Vancomycin 125 Mg Capsule) 125 mg PO Q6H [facility] Last Admin: 10/31/24 14:54 Dose: 125 mg Documented By: JEANNA Discontinued Medications Lipase/Protease/Amylase (Lipase/Protease/Amylase 01/03/24 Cap) 2 cap PO TIDWM [facility] Digoxin (Digoxin 0.125 Mg Tablet) 0.125 mg PO DAILY@1700 [facility] Diltiazem HCl (Diltiazem Sr 60 Mg) 60 mg PO BID [facility] Last Admin: 10/31/24 13:27 Dose: Not Given Documented By: CLP Hydromorphone HCl (Hydromorphone 0.5 Mg Inj) 0.5 mg IV NOW ONE Stop: 10/30/24 13:55 Last Admin: 10/30/24 14:06 Dose: 0.5 mg Documented By: KB Sodium Chloride (Normal Saline 0.9%) 1,000 mls @ 1,000 mls/hr IV BOLUS ONE Stop: 10/30/24 11:18 Last Admin: 10/30/24 10:54 Dose: Not Given Documented By: CTS Sodium Chloride (Normal Saline 0.9%) 500 mls @ 1,000 mls/hr IV BOLUS ONE Stop: 10/30/24 15:58 Last Infusion: 10/30/24 16:45 Dose: Infused Documented By: Admin: 10/30/24 15:45 Dose: 1,000 mls/hr Documented By: MIS Albumin Human (Albuminar) 25 gm in 100 mls @ 60 mls/hr IV NOW ONE Stop: 10/31/24 11:00 Last Infusion: 10/31/24 11:41 Dose: Infused Documented By: Admin: 10/31/24 10:00 Dose: 60 mls/hr Documented By: JEANNA Lidocaine (Lidocaine 5% Patch) 1 each TOP NOW ONE Stop: 10/30/24 17:20 Last Admin: 10/30/24 17:30 Dose: 1 each Documented By: PARISH Magnesium Chloride (Magnesium Chloride 64 Mg Tablet) 128 mg PO NOW ONE Stop: 10/31/24 11:10 Last Admin: 10/31/24 11:37 Dose: 128 mg Documented By: JEANNA Metoclopramide HCl (Metoclopramide 10 Mg/2 Ml Inj) 10 mg IV NOW ONE Stop: 10/30/24 13:14 Last Admin: 10/30/24 13:27 Dose: 10 mg Documented By: MIS Midodrine (Midodrine Hcl 5 Mg Tablet) 10 mg PO 0600,1200,1800 [facility] Non-Formulary Medication (Lbeoth-Oyymxnuw-Xarzqgx [Creon]) 2 cap PO TIDWM [facility] Ondansetron HCl (Ondansetron 4 Mg/2 Ml Inj) 4 mg IV NOW ONE Stop: 10/30/24 10:20 Last Admin: 10/30/24 10:57 Dose: 4 mg Documented By: SABINO Pantoprazole Sodium (Pantoprazole 40 Mg Vial) 40 mg IV NOW ONE Stop: 10/30/24 13:12 Last Admin: 10/30/24 13:27 Dose: 40 mg Documented By: MIS Potassium Chloride (Potassium Chloride 20 Meq Tab) 40 meq PO NOW ONE Stop: 10/31/24 11:10 Last Admin: 10/31/24 11:36 Dose: 40 meq Documented By: JEANNA Vital Signs Vital signs: Vital Signs - 8 hr 10/30/24 13:28 10/30/24 13:30 10/30/24 13:32 Pulse Rate 76 84 Pulse Rate [Orthostatic Lying] Pulse Rate [Orthostatic Sitting] Respiratory Rate 20 Blood Pressure 110/63 Blood Pressure [Orthostatic Lying] Blood Pressure [Orthostatic Sitting] Pulse Oximetry 85 L 82 L Oxygen Delivery Method Oxygen Flow Rate 10/30/24 13:32 10/30/24 14:00 10/30/24 14:00 Pulse Rate 83 93 H Pulse Rate [Orthostatic Lying] Pulse Rate [Orthostatic Sitting] Respiratory Rate 21 24 Blood Pressure 104/60 Blood Pressure [Orthostatic Lying] Blood Pressure [Orthostatic Sitting] Pulse Oximetry 98 Oxygen Delivery Method Room Air Oxygen Flow Rate 10/30/24 14:30 10/30/24 14:30 10/30/24 15:00 Pulse Rate 92 H Pulse Rate [Orthostatic Lying] Pulse Rate [Orthostatic Sitting] Respiratory Rate 24 Blood Pressure 94/54 L 107/56 L Blood Pressure [Orthostatic Lying] Blood Pressure [Orthostatic Sitting] Pulse Oximetry Oxygen Delivery Method Oxygen Flow Rate 10/30/24 15:00 10/30/24 15:24 10/30/24 15:25 Pulse Rate 93 H 98 H Pulse Rate [Orthostatic Lying] Pulse Rate [Orthostatic Sitting] Respiratory Rate 21 17 Blood Pressure 78/52 L Blood Pressure [Orthostatic Lying] Blood Pressure [Orthostatic Sitting] Pulse Oximetry Oxygen Delivery Method Oxygen Flow Rate 10/30/24 15:25 10/30/24 15:30 10/30/24 15:33 Pulse Rate 97 H 97 H 96 H Pulse Rate [Orthostatic Lying] Pulse Rate [Orthostatic Sitting] Respiratory Rate 22 22 25 H Blood Pressure Blood Pressure [Orthostatic Lying] Blood Pressure [Orthostatic Sitting] Pulse Oximetry Oxygen Delivery Method Oxygen Flow Rate 10/30/24 15:33 10/30/24 15:36 10/30/24 16:00 Pulse Rate Pulse Rate [Orthostatic Lying] 91 H Pulse Rate [Orthostatic Sitting] 99 H Respiratory Rate Blood Pressure 97/60 95/51 L Blood Pressure [Orthostatic Lying] 107/56 L Blood Pressure [Orthostatic Sitting] 78/52 L Pulse Oximetry Oxygen Delivery Method Oxygen Flow Rate 10/30/24 16:00 10/30/24 16:30 10/30/24 16:30 Pulse Rate 90 92 H Pulse Rate [Orthostatic Lying] Pulse Rate [Orthostatic Sitting] Respiratory Rate 20 21 Blood Pressure 102/57 L Blood Pressure [Orthostatic Lying] Blood Pressure [Orthostatic Sitting] Pulse Oximetry Oxygen Delivery Method Oxygen Flow Rate 10/30/24 17:00 10/30/24 17:00 10/30/24 17:30 Pulse Rate 97 H 92 H Pulse Rate [Orthostatic Lying] Pulse Rate [Orthostatic Sitting] Respiratory Rate 20 22 Blood Pressure 106/61 Blood Pressure [Orthostatic Lying] Blood Pressure [Orthostatic Sitting] Pulse Oximetry Oxygen Delivery Method Oxygen Flow Rate 10/30/24 17:30 10/30/24 17:33 10/30/24 17:33 Pulse Rate 92 H Pulse Rate [Orthostatic Lying] Pulse Rate [Orthostatic Sitting] Respiratory Rate 21 Blood Pressure 85/56 L 92/57 L Blood Pressure [Orthostatic Lying] Blood Pressure [Orthostatic Sitting] Pulse Oximetry Oxygen Delivery Method Oxygen Flow Rate 10/30/24 17:59 10/30/24 17:59 10/30/24 18:00 Pulse Rate 90 Pulse Rate [Orthostatic Lying] Pulse Rate [Orthostatic Sitting] Respiratory Rate 24 Blood Pressure 80/52 L 79/56 L Blood Pressure [Orthostatic Lying] Blood Pressure [Orthostatic Sitting] Pulse Oximetry Oxygen Delivery Method Oxygen Flow Rate 10/30/24 18:00 10/30/24 18:30 10/30/24 18:30 Pulse Rate 92 H 85 Pulse Rate [Orthostatic Lying] Pulse Rate [Orthostatic Sitting] Respiratory Rate 30 H 20 Blood Pressure 87/55 L Blood Pressure [Orthostatic Lying] Blood Pressure [Orthostatic Sitting] Pulse Oximetry Oxygen Delivery Method Oxygen Flow Rate 10/30/24 19:00 10/30/24 19:00 10/30/24 19:30 Pulse Rate 84 83 Pulse Rate [Orthostatic Lying] Pulse Rate [Orthostatic Sitting] Respiratory Rate 22 20 Blood Pressure 95/59 L Blood Pressure [Orthostatic Lying] Blood Pressure [Orthostatic Sitting] Pulse Oximetry Oxygen Delivery Method Oxygen Flow Rate 10/30/24 19:30 10/30/24 20:00 10/30/24 20:00 Pulse Rate 83 Pulse Rate [Orthostatic Lying] Pulse Rate [Orthostatic Sitting] Respiratory Rate 20 Blood Pressure 90/54 L 95/56 L Blood Pressure [Orthostatic Lying] Blood Pressure [Orthostatic Sitting] Pulse Oximetry 96 Oxygen Delivery Method Nasal Cannula Oxygen Flow Rate 2 10/30/24 20:30 10/30/24 20:30 Pulse Rate 80 Pulse Rate [Orthostatic Lying] Pulse Rate [Orthostatic Sitting] Respiratory Rate 21 Blood Pressure 86/55 L Blood Pressure [Orthostatic Lying] Blood Pressure [Orthostatic Sitting] Pulse Oximetry 96 Oxygen Delivery Method Nasal Cannula Oxygen Flow Rate 2 <Calros Mensah, DO - Last Filed: 10/30/24 21:09> Orders Ordered: Acetaminophen (Acetaminophen 325 Mg Tablet) 650 mg PO Q6H PRN PRN Reason: Fever/Mild Pain (1-3) Al Hydrox/Mg Hydrox/Simethicone (Mag Hydrox/Alum/Simeth 30 Ml Udc) 30 ml PO Q6HR PRN PRN Reason: Dyspepsia Apixaban (Apixaban 5 Mg Tablet) 5 mg PO BID [facility] Last Admin: 10/31/24 08:59 Dose: 5 mg Documented By: JEANNA Digoxin (Digoxin 0.125 Mg Tablet) 0.125 mg PO DAILY@1700 [facility] Last Admin: 10/31/24 16:58 Dose: 0.125 mg Documented By: Escitalopram Oxalate (Escitalopram 10 Mg Tablet) 10 mg PO DAILY [facility] Last Admin: 10/31/24 08:59 Dose: 10 mg Documented By: JEANNA Fludrocortisone Acetate (Fludrocortisone 0.1 Mg Tablet) 0.1 mg PO DAILY [facility] Last Admin: 10/31/24 08:59 Dose: 0.1 mg Documented By: Admin: 10/31/24 00:05 Dose: Not Given Documented By: MINA Metoclopramide HCl (Metoclopramide 10 Mg/2 Ml Inj) 5 mg IV Q6HR PRN PRN Reason: Nausea And Vomiting Last Admin: 10/31/24 00:05 Dose: 5 mg Documented By: MINA Midodrine (Midodrine Hcl 5 Mg Tablet) 10 mg PO 0600,1200,1800 [facility] Last Admin: 10/31/24 18:00 Dose: 10 mg Documented By: Admin: 10/31/24 11:37 Dose: 10 mg Documented By: Admin: 10/31/24 06:48 Dose: 10 mg Documented By: Admin: 10/30/24 18:25 Dose: Not Given Documented By: Admin: 10/30/24 16:13 Dose: 10 mg Documented By: ES Naloxone HCl (Naloxone 0.4 Mg/Ml Vial) 0.2 mg IV Q2MIN PRN PRN Reason: Opiate Reversal Creon 36/114/180 2 each PO TIDWM [facility] Last Admin: 10/31/24 16:59 Dose: 1 each Documented By: Admin: 10/31/24 12:00 Dose: 1 each Documented By: Admin: 10/31/24 08:00 Dose: 1 each Documented By: Admin: 10/30/24 18:31 Dose: 1 each Documented By: MIS Ondansetron HCl (Ondansetron 4 Mg Odt) 8 mg PO Q8H PRN PRN Reason: nausea/vomiting Oxycodone HCl (Oxycodone Ir 5 Mg Tablet) 5 mg PO Q3H PRN PRN Reason: Pain, Moderate (4-6) Pramipexole Dihydrochloride (Pramipexole 0.25 Mg Tablet) 0.25 mg PO BEDTIME [facility] Last Admin: 10/30/24 21:31 Dose: Not Given Documented By: Admin: 10/30/24 17:07 Dose: 0.25 mg Documented By: PARISH Prednisone (Prednisone 5 Mg Tablet) 7.5 mg PO DAILY [facility] Last Admin: 10/31/24 08:59 Dose: 7.5 mg Documented By: CLP Vancomycin HCl (Vancomycin 125 Mg Capsule) 125 mg PO Q6H [facility] Last Admin: 10/31/24 14:54 Dose: 125 mg Documented By: CLP Discontinued Medications Lipase/Protease/Amylase (Lipase/Protease/Amylase 01/03/24 Cap) 2 cap PO TIDWM [facility] Digoxin (Digoxin 0.125 Mg Tablet) 0.125 mg PO DAILY@1700 [facility] Diltiazem HCl (Diltiazem Sr 60 Mg) 60 mg PO BID [facility] Last Admin: 10/31/24 13:27 Dose: Not Given Documented By: CLP Hydromorphone HCl (Hydromorphone 0.5 Mg Inj) 0.5 mg IV NOW ONE Stop: 10/30/24 13:55 Last Admin: 10/30/24 14:06 Dose: 0.5 mg Documented By: KB Sodium Chloride (Normal Saline 0.9%) 1,000 mls @ 1,000 mls/hr IV BOLUS ONE Stop: 10/30/24 11:18 Last Admin: 10/30/24 10:54 Dose: Not Given Documented By: CTS Sodium Chloride (Normal Saline 0.9%) 500 mls @ 1,000 mls/hr IV BOLUS ONE Stop: 10/30/24 15:58 Last Infusion: 10/30/24 16:45 Dose: Infused Documented By: Admin: 10/30/24 15:45 Dose: 1,000 mls/hr Documented By: MIS Albumin Human (Albuminar) 25 gm in 100 mls @ 60 mls/hr IV NOW ONE Stop: 10/31/24 11:00 Last Infusion: 10/31/24 11:41 Dose: Infused Documented By: Admin: 10/31/24 10:00 Dose: 60 mls/hr Documented By: JEANNA Lidocaine (Lidocaine 5% Patch) 1 each TOP NOW ONE Stop: 10/30/24 17:20 Last Admin: 10/30/24 17:30 Dose: 1 each Documented By: PARISH Magnesium Chloride (Magnesium Chloride 64 Mg Tablet) 128 mg PO NOW ONE Stop: 10/31/24 11:10 Last Admin: 10/31/24 11:37 Dose: 128 mg Documented By: JEANNA Metoclopramide HCl (Metoclopramide 10 Mg/2 Ml Inj) 10 mg IV NOW ONE Stop: 10/30/24 13:14 Last Admin: 10/30/24 13:27 Dose: 10 mg Documented By: MIS Midodrine (Midodrine Hcl 5 Mg Tablet) 10 mg PO 0600,1200,1800 [facility] Non-Formulary Medication (Rahxsb-Fzofmiev-Ftvbwsk [Creon]) 2 cap PO TIDWM [facility] Ondansetron HCl (Ondansetron 4 Mg/2 Ml Inj) 4 mg IV NOW ONE Stop: 10/30/24 10:20 Last Admin: 10/30/24 10:57 Dose: 4 mg Documented By: SABINO Pantoprazole Sodium (Pantoprazole 40 Mg Vial) 40 mg IV NOW ONE Stop: 10/30/24 13:12 Last Admin: 10/30/24 13:27 Dose: 40 mg Documented By: MIS Potassium Chloride (Potassium Chloride 20 Meq Tab) 40 meq PO NOW ONE Stop: 10/31/24 11:10 Last Admin: 10/31/24 11:36 Dose: 40 meq Documented By: JEANNA Vital Signs Vital signs: Vital Signs - 8 hr 10/30/24 13:28 10/30/24 13:30 10/30/24 13:32 Pulse Rate 76 84 Pulse Rate [Orthostatic Lying] Pulse Rate [Orthostatic Sitting] Respiratory Rate 20 Blood Pressure 110/63 Blood Pressure [Orthostatic Lying] Blood Pressure [Orthostatic Sitting] Pulse Oximetry 85 L 82 L Oxygen Delivery Method Oxygen Flow Rate 10/30/24 13:32 10/30/24 14:00 10/30/24 14:00 Pulse Rate 83 93 H Pulse Rate [Orthostatic Lying] Pulse Rate [Orthostatic Sitting] Respiratory Rate 21 24 Blood Pressure 104/60 Blood Pressure [Orthostatic Lying] Blood Pressure [Orthostatic Sitting] Pulse Oximetry 98 Oxygen Delivery Method Room Air Oxygen Flow Rate 10/30/24 14:30 10/30/24 14:30 10/30/24 15:00 Pulse Rate 92 H Pulse Rate [Orthostatic Lying] Pulse Rate [Orthostatic Sitting] Respiratory Rate 24 Blood Pressure 94/54 L 107/56 L Blood Pressure [Orthostatic Lying] Blood Pressure [Orthostatic Sitting] Pulse Oximetry Oxygen Delivery Method Oxygen Flow Rate 10/30/24 15:00 10/30/24 15:24 10/30/24 15:25 Pulse Rate 93 H 98 H Pulse Rate [Orthostatic Lying] Pulse Rate [Orthostatic Sitting] Respiratory Rate 21 17 Blood Pressure 78/52 L Blood Pressure [Orthostatic Lying] Blood Pressure [Orthostatic Sitting] Pulse Oximetry Oxygen Delivery Method Oxygen Flow Rate 10/30/24 15:25 10/30/24 15:30 10/30/24 15:33 Pulse Rate 97 H 97 H 96 H Pulse Rate [Orthostatic Lying] Pulse Rate [Orthostatic Sitting] Respiratory Rate 22 22 25 H Blood Pressure Blood Pressure [Orthostatic Lying] Blood Pressure [Orthostatic Sitting] Pulse Oximetry Oxygen Delivery Method Oxygen Flow Rate 10/30/24 15:33 10/30/24 15:36 10/30/24 16:00 Pulse Rate Pulse Rate [Orthostatic Lying] 91 H Pulse Rate [Orthostatic Sitting] 99 H Respiratory Rate Blood Pressure 97/60 95/51 L Blood Pressure [Orthostatic Lying] 107/56 L Blood Pressure [Orthostatic Sitting] 78/52 L Pulse Oximetry Oxygen Delivery Method Oxygen Flow Rate 10/30/24 16:00 10/30/24 16:30 10/30/24 16:30 Pulse Rate 90 92 H Pulse Rate [Orthostatic Lying] Pulse Rate [Orthostatic Sitting] Respiratory Rate 20 21 Blood Pressure 102/57 L Blood Pressure [Orthostatic Lying] Blood Pressure [Orthostatic Sitting] Pulse Oximetry Oxygen Delivery Method Oxygen Flow Rate 10/30/24 17:00 10/30/24 17:00 10/30/24 17:30 Pulse Rate 97 H 92 H Pulse Rate [Orthostatic Lying] Pulse Rate [Orthostatic Sitting] Respiratory Rate 20 22 Blood Pressure 106/61 Blood Pressure [Orthostatic Lying] Blood Pressure [Orthostatic Sitting] Pulse Oximetry Oxygen Delivery Method Oxygen Flow Rate 10/30/24 17:30 10/30/24 17:33 10/30/24 17:33 Pulse Rate 92 H Pulse Rate [Orthostatic Lying] Pulse Rate [Orthostatic Sitting] Respiratory Rate 21 Blood Pressure 85/56 L 92/57 L Blood Pressure [Orthostatic Lying] Blood Pressure [Orthostatic Sitting] Pulse Oximetry Oxygen Delivery Method Oxygen Flow Rate 10/30/24 17:59 10/30/24 17:59 10/30/24 18:00 Pulse Rate 90 Pulse Rate [Orthostatic Lying] Pulse Rate [Orthostatic Sitting] Respiratory Rate 24 Blood Pressure 80/52 L 79/56 L Blood Pressure [Orthostatic Lying] Blood Pressure [Orthostatic Sitting] Pulse Oximetry Oxygen Delivery Method Oxygen Flow Rate 10/30/24 18:00 10/30/24 18:30 10/30/24 18:30 Pulse Rate 92 H 85 Pulse Rate [Orthostatic Lying] Pulse Rate [Orthostatic Sitting] Respiratory Rate 30 H 20 Blood Pressure 87/55 L Blood Pressure [Orthostatic Lying] Blood Pressure [Orthostatic Sitting] Pulse Oximetry Oxygen Delivery Method Oxygen Flow Rate 10/30/24 19:00 10/30/24 19:00 10/30/24 19:30 Pulse Rate 84 83 Pulse Rate [Orthostatic Lying] Pulse Rate [Orthostatic Sitting] Respiratory Rate 22 20 Blood Pressure 95/59 L Blood Pressure [Orthostatic Lying] Blood Pressure [Orthostatic Sitting] Pulse Oximetry Oxygen Delivery Method Oxygen Flow Rate 10/30/24 19:30 10/30/24 20:00 10/30/24 20:00 Pulse Rate 83 Pulse Rate [Orthostatic Lying] Pulse Rate [Orthostatic Sitting] Respiratory Rate 20 Blood Pressure 90/54 L 95/56 L Blood Pressure [Orthostatic Lying] Blood Pressure [Orthostatic Sitting] Pulse Oximetry 96 Oxygen Delivery Method Nasal Cannula Oxygen Flow Rate 2 10/30/24 20:30 10/30/24 20:30 Pulse Rate 80 Pulse Rate [Orthostatic Lying] Pulse Rate [Orthostatic Sitting] Respiratory Rate 21 Blood Pressure 86/55 L Blood Pressure [Orthostatic Lying] Blood Pressure [Orthostatic Sitting] Pulse Oximetry 96 Oxygen Delivery Method Nasal Cannula Oxygen Flow Rate 2 MDM - Nausea/Vomiting/Diarrhea <Perla Elliott, - Last Filed: 10/31/24 20:22> Lab Data 10/31/24 04:50 10/31/24 04:50 Labs: Lab Results 10/30/24 Range/Units 09:30 WBC 9.4 (4.5-11.0) X10^3/uL RBC 3.59 L (4.5-5.9) X10^6/uL Hgb 11.1 L (13.5-17.5) g/dL Hct 33.4 L (41-53) % MCV 92.8 (80-100) fL MCH 30.9 (26-34) PG MCHC 33.3 (30-36) % RDW 17.4 H (11.6-14.8) % Plt Count 424 H (150-400) X10^3/uL Neut % (Auto) 73.7 (50-75) % Lymph % (Auto) 18.6 L (25-40) % Page % (Auto) 6.1 (3-14) % Eos % (Auto) 1.3 L (2-4) % Baso % (Auto) 0.3 (0-2) % Neut # (Auto) 6900 (7434-5728) /uL Lymph # (Auto) 1700 (7828-8608) /uL Page # (Auto) 600 (0-900) /uL Eos # (Auto) 100 (0-450) /uL Baso # (Auto) 0 (0-100) /uL Sodium 139 (137-145) mmol/L Potassium 3.8 (3.4-5.1) mmol/L Chloride 103 (98-107) mmol/L Carbon Dioxide 31 (22-32) mmol/L BUN 18 (9-20) mg/dL Creatinine 0.82 (0.66-1.25) mg/dL Estimated GFR > 60 (>60) mL/min BUN/Creatinine Ratio 22.0 (6-22) Glucose 124 H (80-110) mg/dL Calcium 9.3 (8.4-10.2) mg/dL Total Bilirubin 0.4 (0.2-1.3) mg/dL AST 49 (17-59) IU/L ALT 34 (<50) IU/L Alkaline Phosphatase 154 H (38-126) U/L Total Protein 6.0 L (6.3-8.2) g/dL Albumin 3.2 L (3.5-5.0) g/dL Globulin 2.8 (1.7-4.1) g/dL Albumin/Globulin Ratio 1.1 (1.0-2.8) Lipase 101 (23-300) U/L Urine Dip Bedside Urine Glucose Negative Bedside Urine Bilirubin - Negative Bedside Urine Ketone - Negative Urine Specific [place] 1.020 Bedside Urine Occult Blood - Negative Bedside Urine pH 5.5 Bedside Urine Protein +/- 15 Bedside Urine Urobilinogen - Negative Bedside Urine Nitrite - Negative Bedside Urine Leukocytes - Negative Esterase Imaging Data CT scan - abdomen/pelvis: Radiologist's Impression: PROCEDURE: CT ABDOMEN PELVIS W CON INDICATIONS: vomiting with pancreatic cancer TECHNIQUE: After the administration of intravenous contrast, axial sections acquired from the lung bases to the pubic symphysis. Coronal and sagittal reformats were performed. For radiation dose reduction, the following was used: automated exposure control, adjustment of mA and/or kV according to patient size. COMPARISON: [facility], CT, CT ABDOMEN PELVIS W CON, 10/04/2024, 1:14. [facility], CT, CT ABDOMEN PELVIS W CON, 08/21/2024, 8:35. [facility], CT, CT ABDOMEN PELVIS W CON, 10/17/2024, 11:41. FINDINGS: Image quality: Diagnostic. Lower Chest: Stable small right pleural effusion and increasing mild to moderate left pleural effusion with compressive bibasilar atelectasis. Cardiomegaly, lead less pacer. ABDOMEN: Liver: Again noted is the presence of hepatic metastatic disease, with a relatively prominent lateral segment left lobe liver metastatic lesion most notable. No significant change in short interval follow-up. Gallbladder: Distended without stones Biliary ducts: No biliary dilation. Pancreas: No ductal dilation. Apparent distal pancreatectomy. Spleen: Size is within normal limits. Adrenal Glands: No adrenal nodules. Kidneys and Ureters: No hydronephrosis. No solid mass. No complex renal cystic lesion which requires follow up. Stomach and Bowel: There is a focal area of the rectum that is diffusely narrowed with wall thickening, which occurs in the same place on both studies. Reference previous image 71 of series 4 and current image 68 of series 4. This may potentially represent serosal implant disease on the rectum or a primary rectal lesion. Question ileus pattern. Peritoneum: Moderately large ascites. Peritoneal carcinomatosis. Ventral Wall: No significant ventral hernia. Abdominal Nodes: No retroperitoneal or mesenteric adenopathy by size criteria. Vessels: Aorta and inferior vena cava are normal in size. PELVIS: Pelvic Organs: Unremarkable. Bladder: No bladder wall thickening, accounting for underdistention. Pelvic Nodes: No enlarged lymph nodes. Miscellaneous: No inguinal hernias are seen. Bones: No aggressive osseous abnormality. IMPRESSION: 1. Small right pleural effusion, [id number] increasing left pleural effusion, bibasilar atelectasis. 2. Hepatic metastatic disease. 3. Peritoneal carcinomatosis, moderately large ascites. 4. There appears to be a fixed narrowed segment of the rectum on the current study in all prior studies. Consider serosal implant disease versus primary rectal lesion. Comment: Consider nonemergent colonoscopy to evaluate the rectum. Dictated by: Qasim Vazquez M.D. on 10/30/2024 at 13:53 [facility] Narrative Medical decision making narrative: [facility] CC: Nausea vomiting Complicating co-morbidities: Metastatic pancreatic cancer AFib with RVR Data collected from: Son and patient Medical records reviewed: Recent admission Exam documented above, pertinent findings include: Alert well-appearing 88-year-old male Lab Test results independently reviewed as above. Pertinent findings: WBC 9.4 hemoglobin 11.1 hematocrit 33.4 CMP no electrolyte abnormality creatinine stable No significant abnormalities Imaging studies independently reviewed: CT abdomen pelvis: No significant increase in cancer he does have a large amount of side Consultations: [ ] Treatments: Zofran Reglan Protonix, Home midrodine Re-evaluations: Attempted ambulation trial handful of times every time he stands up blood pressure drops into the 70s. He was little dizzy and weak. He was given med dressing and blood pressure still dropped Discussion: Patient 88-year-old male history of metastatic pancreatic cancer presenting today with generalized weakness. Workup in the emergency department's overall stable. However blood pressure does drop every time he stands despite his home medications. He is supposed to see tack welder to have this further evaluated. Patient signed out to Dr.Baluyot Dr. Mensah 1800: Patient was signed out to me by Dr. Caruso. Patient with a history of known metastatic pancreatic cancer with new onset AFib RVR currently rate controlled history of orthostatic hypotension presenting with increased generalized weakness, nausea, vomiting, lab work has been unremarkable, patient was given his dose of midodrine as well as 500 cc bolus attempted to have patient ambulate however was informed that patient too weak to even stand bear weight pivot as well as upon standing patient is still symptomatically hypotensive. Patient will require admission to the hospital we will require PT OT. <Carlos Mensah, DO - Last Filed: 10/30/24 21:09> Lab Data Labs: Lab Results 10/30/24 Range/Units 09:30 WBC 9.4 (4.5-11.0) X10^3/uL RBC 3.59 L (4.5-5.9) X10^6/uL Hgb 11.1 L (13.5-17.5) g/dL Hct 33.4 L (41-53) % MCV 92.8 (80-100) fL MCH 30.9 (26-34) PG MCHC 33.3 (30-36) % RDW 17.4 H (11.6-14.8) % Plt Count 424 H (150-400) X10^3/uL Neut % (Auto) 73.7 (50-75) % Lymph % (Auto) 18.6 L (25-40) % Page % (Auto) 6.1 (3-14) % Eos % (Auto) 1.3 L (2-4) % Baso % (Auto) 0.3 (0-2) % Neut # (Auto) 6900 (6785-3174) /uL Lymph # (Auto) 1700 (4920-0113) /uL Page # (Auto) 600 (0-900) /uL Eos # (Auto) 100 (0-450) /uL Baso # (Auto) 0 (0-100) /uL Sodium 139 (137-145) mmol/L Potassium 3.8 (3.4-5.1) mmol/L Chloride 103 (98-107) mmol/L Carbon Dioxide 31 (22-32) mmol/L BUN 18 (9-20) mg/dL Creatinine 0.82 (0.66-1.25) mg/dL Estimated GFR > 60 (>60) mL/min BUN/Creatinine Ratio 22.0 (6-22) Glucose 124 H (80-110) mg/dL Calcium 9.3 (8.4-10.2) mg/dL Total Bilirubin 0.4 (0.2-1.3) mg/dL AST 49 (17-59) IU/L ALT 34 (<50) IU/L Alkaline Phosphatase 154 H (38-126) U/L Total Protein 6.0 L (6.3-8.2) g/dL Albumin 3.2 L (3.5-5.0) g/dL Globulin 2.8 (1.7-4.1) g/dL Albumin/Globulin Ratio 1.1 (1.0-2.8) Lipase 101 (23-300) U/L Urine Dip Bedside Urine Glucose Negative Bedside Urine Bilirubin - Negative Bedside Urine Ketone - Negative Urine Specific [place] 1.020 Bedside Urine Occult Blood - Negative Bedside Urine pH 5.5 Bedside Urine Protein +/- 15 Bedside Urine Urobilinogen - Negative Bedside Urine Nitrite - Negative Bedside Urine Leukocytes - Negative Esterase MDM Narrative Medical decision making narrative: [facility] CC: Nausea vomiting Complicating co-morbidities: Metastatic pancreatic cancer AFib with RVR Data collected from: Son and patient Medical records reviewed: Recent admission Exam documented above, pertinent findings include: Alert well-appearing 88-year-old male Lab Test results independently reviewed as above. Pertinent findings: WBC 9.4 hemoglobin 11.1 hematocrit 33.4 CMP no electrolyte abnormality creatinine stable No significant abnormalities Imaging studies independently reviewed: CT abdomen pelvis: No significant increase in cancer he does have a large amount of side Consultations: [ ] Treatments: Zofran Reglan Protonix, Home midrodine Re-evaluations: Attempted ambulation trial handful of times every time he stands up blood pressure drops into the 70s. He was little dizzy and weak. He was given med dressing and blood pressure still dropped Discussion: Patient 88-year-old male history of metastatic pancreatic cancer presenting today with generalized weakness. Workup in the emergency department's overall stable. However blood pressure does drop every time he stands despite his home medications. He is supposed to see tack welder to have this further evaluated. Patient signed out to Dr.Baluyot Dr. Mensah 1800: Patient was signed out to me by Dr. Caruso. Patient with a history of known metastatic pancreatic cancer with new onset AFib RVR currently rate controlled history of orthostatic hypotension presenting with increased generalized weakness, nausea, vomiting, lab work has been unremarkable, patient was given his dose of midodrine as well as 500 cc bolus attempted to have patient ambulate however was informed that patient too weak to even stand bear weight pivot as well as upon standing patient is still symptomatically hypotensive. Patient will require admission to the hospital we will require PT OT. 2108: The patient's management plan was discussed Dr. Rodriguez, who agrees to admit the patient to their service and assumes care of this patient at this time. Full admission orders will be placed by the primary team. Discharge Plan Departure Patient Disposition: Admitted as Observation Clinical Impression: Hypotension Admit Date/Time: 10/30/24 21:08 Admit Provider: Lj Leon
--- NOTE | 2024-10-30 13:11 | DI.CT.S_ITS ---
PROCEDURE: CT ABDOMEN PELVIS W CON INDICATIONS: vomiting with pancreatic cancer TECHNIQUE: After the administration of intravenous contrast, axial sections acquired from the lung bases to the pubic symphysis. Coronal and sagittal reformats were performed. For radiation dose reduction, the following was used: automated exposure control, adjustment of mA and/or kV according to patient size. COMPARISON: [facility], CT, CT ABDOMEN PELVIS W CON, 10/04/2024, 1:14. [facility], CT, CT ABDOMEN PELVIS W CON, 08/21/2024, 8:35. [facility], CT, CT ABDOMEN PELVIS W CON, 10/17/2024, 11:41. FINDINGS: Image quality: Diagnostic. Lower Chest: Stable small right pleural effusion and increasing mild to moderate left pleural effusion with compressive bibasilar atelectasis. Cardiomegaly, lead less pacer. ABDOMEN: Liver: Again noted is the presence of hepatic metastatic disease, with a relatively prominent lateral segment left lobe liver metastatic lesion most notable. No significant change in short interval follow-up. Gallbladder: Distended without stones Biliary ducts: No biliary dilation. Pancreas: No ductal dilation. Apparent distal pancreatectomy. Spleen: Size is within normal limits. Adrenal Glands: No adrenal nodules. Kidneys and Ureters: No hydronephrosis. No solid mass. No complex renal cystic lesion which requires follow up. Stomach and Bowel: There is a focal area of the rectum that is diffusely narrowed with wall thickening, which occurs in the same place on both studies. Reference previous image 71 of series 4 and current image 68 of series 4. This may potentially represent serosal implant disease on the rectum or a primary rectal lesion. Question ileus pattern. Peritoneum: Moderately large ascites. Peritoneal carcinomatosis. Ventral Wall: No significant ventral hernia. Abdominal Nodes: No retroperitoneal or mesenteric adenopathy by size criteria. Vessels: Aorta and inferior vena cava are normal in size. PELVIS: Pelvic Organs: Unremarkable. Bladder: No bladder wall thickening, accounting for underdistention. Pelvic Nodes: No enlarged lymph nodes. Miscellaneous: No inguinal hernias are seen. Bones: No aggressive osseous abnormality. IMPRESSION: 1. Small right pleural effusion, [id number] increasing left pleural effusion, bibasilar atelectasis. 2. Hepatic metastatic disease. 3. Peritoneal carcinomatosis, moderately large ascites. 4. There appears to be a fixed narrowed segment of the rectum on the current study in all prior studies. Consider serosal implant disease versus primary rectal lesion. Comment: Consider nonemergent colonoscopy to evaluate the rectum. Dictated by: Qasim Vazquez M.D. on 10/30/2024 at 13:53 Approved by: Qasim Vazquez M.D. on 10/30/2024 at 14:04
[2024-10-30] MEDS: PANTOPRAZOLE 40 MG VIAL IV (13:27)
[2024-10-30] MEDS: METOCLOPRAMIDE 10 MG/2 ML INJ IV (13:27)
[2024-10-30] MEDS: HYDROMORPHONE 0.5 MG INJ IV (14:06)
[2024-10-30] MEDS: SODIUM CHLORIDE 0.9% 500 ML 1000 ML IV (15:45)
[2024-10-30] MEDS: MIDODRINE HCL 5 MG TABLET 10 MG PO (16:13)
[2024-10-30] MEDS: PRAMIPEXOLE 0.25 MG TABLET PO (17:07)
[2024-10-30] MEDS: LIDOCAINE 5% PATCH 1 EACH TOP (17:30)
[2024-10-30] MEDS: CREON 2 EACH PO (18:31)
--- NOTE | 2024-10-30 21:36 | PM.HP.1 ---
History of Present Illness History of Present Illness Date Patient Seen: 10/30/24 Chief complaint: Orthostatic Hypotension Narrative: 88 y/o with PMH of metastatic pancreatic carcinoma, on palliative chemotherapy, recent hospitalizations at [facility] with PBP and sepsis followed by hospitalization at [place] with another PBP and rapid A-fib. He was discharged a week ago off diuretic, on midodrine, for orthostatic hypotension and off BB, on digoxin, for rapid A-fib. He was supposed to follow up with cardiology and oncology. He missed this week's oncology follow up - it was postponed. Today he comes with ongoing nausea, orthostatic hypotension, unable to safely discharge home from the ED. Placed in observation to try to improve orthostatic hypotension. [facility] Medical History History of ascites History of pancreatic cancer Vomiting Venous thromboembolism Pancreatic carcinoma metastatic to intra-abdominal lymph node Social History household members: spouse Smoking Status: Former smoker Meds Home Medications and Allergies Home Medications Medication Instructions Recorded Confirmed Type apixaban 5 mg tablet (Eliquis) 5 mg PO BID 10/17/24 10/30/24 History lidocaine-prilocaine 2.5 %-2.5 % 1 applic topical SEEINSTR 10/17/24 10/30/24 History topical cream [id number]-[id number] 2 cap PO TIDWMEAL Cancer/lipase 10/17/24 10/30/24 History 36,000-114,000-180,000 unit capsule,delay rel (Creon) ondansetron HCl 8 mg tablet 8 mg PO Q8H PRN nausea/vomiting 10/17/24 10/30/24 History pramipexole 0.25 mg tablet 0.25 mg PO QPM 10/17/24 10/30/24 History prednisone 5 mg tablet 7.5 mg PO DAILY 10/17/24 10/30/24 History oxycodone 5 mg tablet 5 mg PO Q6H PRN Pain (Scale Score 10/23/24 10/30/24 History 7-10) escitalopram oxalate 10 mg tablet 10 mg PO DAILY 10/30/24 10/30/24 History midodrine 5 mg tablet 10 mg PO TID 10/30/24 10/30/24 History Allergies Allergy/AdvReac Type Severity Reaction Status Date / Time No Known Drug Allergies Allergy Verified 10/23/24 06:51 Review of Systems Review of Systems Narrative: General - w/o fever, chills, sweats or worsening of chronic generalized weakness. Using a walker. Neuro - w/o headache or seizures GI - distended abdomen, had 4th paracenthesis 5 days ago, has it q Saturday now. Nausea and loose stools are chronic. CVS - w/o chest pain or palpitations RS - w/o cough, mild shortness of breath - chronic - b/o large ascites UG - w/o dysuria Exam Vital Signs (past 8 hours): - 10/30/24 14:00 10/30/24 14:00 10/30/24 14:30 Pulse Rate 93 H Pulse Rate [Orthostatic Lying] Pulse Rate [Orthostatic Sitting] Respiratory Rate 24 Blood Pressure 104/60 94/54 L Blood Pressure [Orthostatic Lying] Blood Pressure [Orthostatic Sitting] Pulse Oximetry Oxygen Delivery Method Oxygen Flow Rate 10/30/24 14:30 10/30/24 15:00 10/30/24 15:00 Pulse Rate 92 H 93 H Pulse Rate [Orthostatic Lying] Pulse Rate [Orthostatic Sitting] Respiratory Rate 24 21 Blood Pressure 107/56 L Blood Pressure [Orthostatic Lying] Blood Pressure [Orthostatic Sitting] Pulse Oximetry Oxygen Delivery Method Oxygen Flow Rate 10/30/24 15:24 10/30/24 15:25 10/30/24 15:25 Pulse Rate 98 H 97 H Pulse Rate [Orthostatic Lying] Pulse Rate [Orthostatic Sitting] Respiratory Rate 17 22 Blood Pressure 78/52 L Blood Pressure [Orthostatic Lying] Blood Pressure [Orthostatic Sitting] Pulse Oximetry Oxygen Delivery Method Oxygen Flow Rate 10/30/24 15:30 10/30/24 15:33 10/30/24 15:33 Pulse Rate 97 H 96 H Pulse Rate [Orthostatic Lying] Pulse Rate [Orthostatic Sitting] Respiratory Rate 22 25 H Blood Pressure 97/60 Blood Pressure [Orthostatic Lying] Blood Pressure [Orthostatic Sitting] Pulse Oximetry Oxygen Delivery Method Oxygen Flow Rate 10/30/24 15:36 10/30/24 16:00 10/30/24 16:00 Pulse Rate 90 Pulse Rate [Orthostatic Lying] 91 H Pulse Rate [Orthostatic Sitting] 99 H Respiratory Rate 20 Blood Pressure 95/51 L Blood Pressure [Orthostatic Lying] 107/56 L Blood Pressure [Orthostatic Sitting] 78/52 L Pulse Oximetry Oxygen Delivery Method Oxygen Flow Rate 10/30/24 16:30 10/30/24 16:30 10/30/24 17:00 Pulse Rate 92 H Pulse Rate [Orthostatic Lying] Pulse Rate [Orthostatic Sitting] Respiratory Rate 21 Blood Pressure 102/57 L 106/61 Blood Pressure [Orthostatic Lying] Blood Pressure [Orthostatic Sitting] Pulse Oximetry Oxygen Delivery Method Oxygen Flow Rate 10/30/24 17:00 10/30/24 17:30 10/30/24 17:30 Pulse Rate 97 H 92 H Pulse Rate [Orthostatic Lying] Pulse Rate [Orthostatic Sitting] Respiratory Rate 20 22 Blood Pressure 85/56 L Blood Pressure [Orthostatic Lying] Blood Pressure [Orthostatic Sitting] Pulse Oximetry Oxygen Delivery Method Oxygen Flow Rate 10/30/24 17:33 10/30/24 17:33 10/30/24 17:59 Pulse Rate 92 H 90 Pulse Rate [Orthostatic Lying] Pulse Rate [Orthostatic Sitting] Respiratory Rate 21 24 Blood Pressure 92/57 L Blood Pressure [Orthostatic Lying] Blood Pressure [Orthostatic Sitting] Pulse Oximetry Oxygen Delivery Method Oxygen Flow Rate 10/30/24 17:59 10/30/24 18:00 10/30/24 18:00 Pulse Rate 92 H Pulse Rate [Orthostatic Lying] Pulse Rate [Orthostatic Sitting] Respiratory Rate 30 H Blood Pressure 80/52 L 79/56 L Blood Pressure [Orthostatic Lying] Blood Pressure [Orthostatic Sitting] Pulse Oximetry Oxygen Delivery Method Oxygen Flow Rate 10/30/24 18:30 10/30/24 18:30 10/30/24 19:00 Pulse Rate 85 Pulse Rate [Orthostatic Lying] Pulse Rate [Orthostatic Sitting] Respiratory Rate 20 Blood Pressure 87/55 L 95/59 L Blood Pressure [Orthostatic Lying] Blood Pressure [Orthostatic Sitting] Pulse Oximetry Oxygen Delivery Method Oxygen Flow Rate 10/30/24 19:00 10/30/24 19:30 10/30/24 19:30 Pulse Rate 84 83 Pulse Rate [Orthostatic Lying] Pulse Rate [Orthostatic Sitting] Respiratory Rate 22 20 Blood Pressure 90/54 L Blood Pressure [Orthostatic Lying] Blood Pressure [Orthostatic Sitting] Pulse Oximetry Oxygen Delivery Method Oxygen Flow Rate 10/30/24 20:00 10/30/24 20:00 10/30/24 20:30 Pulse Rate 83 Pulse Rate [Orthostatic Lying] Pulse Rate [Orthostatic Sitting] Respiratory Rate 20 Blood Pressure 95/56 L 86/55 L Blood Pressure [Orthostatic Lying] Blood Pressure [Orthostatic Sitting] Pulse Oximetry 96 Oxygen Delivery Method Nasal Cannula Oxygen Flow Rate 2 10/30/24 20:30 10/30/24 21:00 10/30/24 21:01 Pulse Rate 80 81 Pulse Rate [Orthostatic Lying] Pulse Rate [Orthostatic Sitting] Respiratory Rate 21 18 Blood Pressure 102/61 Blood Pressure [Orthostatic Lying] Blood Pressure [Orthostatic Sitting] Pulse Oximetry 96 86 L Oxygen Delivery Method Nasal Cannula Oxygen Flow Rate 2 10/30/24 21:01 Pulse Rate 81 Pulse Rate [Orthostatic Lying] Pulse Rate [Orthostatic Sitting] Respiratory Rate 20 Blood Pressure Blood Pressure [Orthostatic Lying] Blood Pressure [Orthostatic Sitting] Pulse Oximetry 97 Oxygen Delivery Method Room Air Oxygen Flow Rate Oxygen Delivery Method Room Air Oxygen Flow Rate 2 Narrative Exam Narrative: General - in no distress HEENT - normocephalic, hearing loss b/l with aids, oxygen via NC at 1 L, supple neck GI - large ascites, minimal diffuse tenderness CVS - RRR RS - normal respiratory effort Skin - not jaundiced Neuro - w/o local deficits Objective Imaging CT scan - abdomen: Radiologist's impression: 1. Small right pleural effusion, [id number] increasing left pleural effusion, bibasilar atelectasis. 2. Hepatic metastatic disease. 3. Peritoneal carcinomatosis, moderately large ascites. 4. There appears to be a fixed narrowed segment of the rectum on the current study in all prior studies. Consider serosal implant disease versus primary rectal lesion. Labs 10/30/24 09:30 10/30/24 09:30 Labs: Laboratory Results - last 24 hr 10/30/24 09:30 WBC 9.4 RBC 3.59 L Hgb 11.1 L Hct 33.4 L MCV 92.8 MCH 30.9 MCHC 33.3 RDW 17.4 H Plt Count 424 H Neut % (Auto) 73.7 Lymph % (Auto) 18.6 L [place] % (Auto) 6.1 Eos % (Auto) 1.3 L Baso % (Auto) 0.3 Neut # (Auto) 6900 Lymph # (Auto) 1700 [place] # (Auto) 600 Eos # (Auto) 100 Baso # (Auto) 0 Sodium 139 Potassium 3.8 Chloride 103 Carbon Dioxide 31 BUN 18 Creatinine 0.82 Estimated GFR > 60 BUN/Creatinine Ratio 22.0 Glucose 124 H Calcium 9.3 Total Bilirubin 0.4 AST 49 ALT 34 Alkaline Phosphatase 154 H Total Protein 6.0 L Albumin 3.2 L Globulin 2.8 Albumin/Globulin Ratio 1.1 Lipase 101 Assessment & Plan Assessment and plan (1) Orthostatic hypotension: Status: Acute (2) Pancreatic carcinoma metastatic to liver: Status: Acute (3) Pancreatic carcinoma metastatic to intra-abdominal lymph node: Status: Acute (4) Peritoneal carcinomatosis: Status: Acute (5) Ascites, malignant: Status: Acute (6) Moderate aortic stenosis: Status: Acute (7) Venous thromboembolism: Status: Acute (8) Atrial fibrillation: Status: Acute (9) Polymyalgia rheumatica: Status: Acute Assessment & Plan narrative: Orthostatic Hypotension - knee high TEDs when out of bed - Midodrine 10 mg tid - started fludrocortisone 100 mcg daily Malignant Ascites - needs abdominal tap q 2 weeks, about now - not clear why didn't get catheter yet - just finished course of abx for 2nd episode of primary bacterial peritonitis. First was in September at when he was septic. - prophylactic abx - needs diuretic Pancreatic carcinoma - liver and peritoneal metastases with extensive carcinomatosis - follow up with oncology - symptomatic Tx of nausea and pain - diarrhea, chronic, exocrine insufficiency - Creon SSS / PPM / PAF / moderate - had unremarkable echo a week ago - off Toprol XL, on digoxin instead for PAF - digoxin level pending - Eliquis - cardiology f/u as needed Polymialgia rheumatica - prednisone 9 mg daily for the next 3 weeks - off PPI fro recurrent PBP Time-Based Coding :: [TOTAL MINUTES] spent with patient and on the chart (including review of chart, obtaining history, exam, reviewing outside data, placing orders, documenting exam and treatment plan, and counseling patient) on [DATE].
--- NOTE | 2024-10-30 22:00 | DI.RAD.S_ITS ---
PROCEDURE: XR CHEST 1V INDICATIONS: recent pleural effusion TECHNIQUE: One view of the chest was acquired. COMPARISON: [facility], CR, XR CHEST 1V, 10/17/2024, 8:05. [facility], CR, XR CHEST 1V, 10/11/2024, 12:08. FINDINGS AND IMPRESSION: Moderate left pleural effusion, slightly increased. Underlying lung opacities and atelectasis are present bilaterally. Consider future imaging surveillance to assess for resolution. Right port catheter, with tip projecting over the mid SVC. Cardiomegaly. Dictated by: Bucky Dotson M.D. on 10/30/2024 at 22:52 Approved by: Bucky Dotson M.D. on 10/30/2024 at 22:53
[2024-10-31] VITALS (42 sets, daily range): BP systolic 82–132; BP diastolic 50–77; PULSE 63–87; RESP 15–30; TEMP 36.1–36.4; O2SAT 88–100
[2024-10-31] MEDS: METOCLOPRAMIDE 10 MG/2 ML INJ 5 MG IV (00:05)
[2024-10-31 05:55] LABS: Add Manual Diff / Slide Review NO; Basophils Absolute Auto 0 /uL (0-100); Basophils Percent Auto 0.5 % (0-2); Eosinophils Absolute Auto 300 /uL (0-450); Eosinophils Percent Auto 4.5 % (2-4); Hematocrit 26.4 % (41-53); Hemoglobin 8.9 g/dL (13.5-17.5); Lymphocytes Absolute Auto 1300 /uL (1100-4500); Lymphocytes Percent Auto 19.2 % (25-40); Mean Corpuscular HGB Conc 33.6 % (30-36); Mean Corpuscular Hemoglobin 31.2 PG (26-34); Mean Corpuscular Volume 92.9 fL (80-100); Monocytes Absolute Auto 800 /uL (0-900); Monocytes Percent Auto 11.2 % (3-14); Neutrophils Absolute Auto 4500 /uL (1500-7000); Neutrophils Percent Auto 64.6 % (50-75); Platelet Count 334 X10^3/uL (150-400); Red Blood Cell Count 2.84 X10^6/uL (4.5-5.9); Red Cell Distribution Width 17.5 % (11.6-14.8); White Blood Cell Count 6.9 X10^3/uL (4.5-11.0)
[2024-10-31 06:04] LABS: Magnesium 1.6 mg/dL (1.6-2.3)
[2024-10-31 06:06] LABS: BUN Creatinine Ratio 15.5 (6-22); Blood Urea Nitrogen 13 mg/dL (9-20); Calcium 8.2 mg/dL (8.4-10.2); Carbon Dioxide 28 mmol/L (22-32); Chloride 106 mmol/L (98-107); Estimated Glomerular Filt Rate > 60 mL/min (>60); Glucose 90 mg/dL (80-110); HEMOLYSIS < 15 (0-50); Potassium 3.5 mmol/L (3.4-5.1); Sodium 137 mmol/L (137-145)
[2024-10-31 06:07] LABS: Digoxin 0.4 ng/mL (0.8-2.0)
[2024-10-31 06:14] LABS: NT-proBNP (BNP-Adult 18+) 3900 pg/mL (<450)
[2024-10-31] MEDS: MIDODRINE HCL 5 MG TABLET 10 MG PO ×3 (06:48→18:00)
[2024-10-31] MEDS: CREON 2 EACH PO ×3 (08:00→16:59)
[2024-10-31] MEDS: predniSONE 5 MG TABLET 7.5 MG PO (08:59)
[2024-10-31] MEDS: APIXABAN 5 MG TABLET PO ×2 (08:59→20:21)
[2024-10-31] MEDS: FLUDROCORTISONE 0.1 MG TABLET PO (08:59)
[2024-10-31] MEDS: ESCITALOPRAM 10 MG TABLET PO (08:59)
[2024-10-31] MEDS: ALBUMIN HUMAN 25 GM/100 ML VIAL IV (10:00)
[2024-10-31] MEDS: POTASSIUM CHLORIDE 20 MEQ TAB 40 MEQ PO (11:36)
[2024-10-31] MEDS: MAGNESIUM CHLORIDE 64 MG TABLET 128 MG PO (11:37)
[2024-10-31 12:27] LABS: Adenovirus Not Detected (Not Detect); B. parapertussis Not Detected (Not Detecte); Bordetella pertussis Not Detected (Not Detect); Chlamydophila pneumoniae Not Detected (Not Detect); Coronavirus 229E Not Detected (Not Detect); Coronavirus HKU1 Not Detected (Not Detect); Coronavirus NL 63 Not Detected (Not Detect); Coronavirus OC43 Not Detected (Not Detect); Human Metapneumovirus Not Detected (Not Detect); Human Rhinovirus/Enterovirus Not Detected (Not Detect); Influenza A Not Detected (Not Detect); Influenza B Not Detected (Not Detect); Mycoplasma pneumoniae Not Detected (Not Detect); Parainfluenza Virus 1 Not Detected (Not Detect); Parainfluenza Virus 2 Not Detected (Not Detect); Parainfluenza Virus 3 Not Detected (Not Detect); Parainfluenza Virus 4 Not Detected (Not Detect); Respiratory Syncytial Virus Not Detected (Not Detect); SARS- CoV-2 Not Detected (Not Detecte)
--- NOTE | 2024-10-31 13:25 | PT.IIE ---
Current Diagnoses Malignant neoplasm of pancreas, unspecified (10/30/24) Secondary and unspecified malignant neoplasm of intra-abdominal lymph nodes (10/30/24) Secondary malignant neoplasm of retroperitoneum and peritoneum (10/30/24) Secondary malignant neoplasm of liver and intrahepatic bile duct (10/30/24) Nonrheumatic aortic (valve) stenosis (10/30/24) Unspecified atrial fibrillation (10/30/24) Acute embolism and thrombosis of unspecified vein (10/30/24) Orthostatic hypotension (10/30/24) Polymyalgia rheumatica (10/30/24) Malignant ascites (10/30/24) Medical History (Last Reviewed 10/30/24 @ 23:02 by Lj Rodriguez MD) History of ascites History of pancreatic cancer 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 Social History Household Members spouse Living Arrangements House Number of Floors (Floors) One Floor Number of Stairs To Enter/Railing? 1 step to enter Home Environment Standard Height Toilet,Walk in Shower Home Equipment Front Wheel Walker,Bedside Commode,Shower Seat with Backrest,Grab Bars In Shower Additional Social History Comment spouse is unable to assist pt pt stated that daughter and NAYELI stays with them at night and is in/out during the day if pt needs help. pt has an adjustable bed M2 PT-IP Current Condition Start: 10/31/24 14:39 Freq: NEEDED Status: Active Protocol: Document 10/31/24 13:25 AB (Rec: 10/31/24 14:58 AB [id number]) Physical Therapy Current Condition Current Condition Evaluation Date 10/31/24 Treatment Diagnosis orthostatic hypotension; difficulty in walking Onset Date 10/30/24 M3 PT-IP Subjective Start: 10/31/24 14:39 Freq: NEEDED Status: Active Protocol: Document 10/31/24 13:25 AB (Rec: 10/31/24 14:58 AB [id number]) Subjective Physical Therapy Visit Type Type Initial Evaluation Visit Start Time 13:25 Visit Stop Time 14:00 Number of MULTINEEDLE SHIRRER Visits 0 Physical Therapy Visit Comments Patient Comments stated that he feels very weak M4 PT-IP Mobility and Gait Start: 10/31/24 14:39 Freq: NEEDED Status: Active Protocol: Document 10/31/24 13:25 AB (Rec: 10/31/24 14:58 AB [id number]) PT-Bed Mobility Assessment Supine to Sit Supine to Sit Maximum Assistance,2 Person Assistance,Head of Bed Elevated,Bedrails Sit to Supine Sit to Supine Maximum Assistance,2 Person Assistance,Bedrails Scooting Scooting to Edge of Bed Maximum Assistance Scooting Up and Down in Bed Maximum Assistance PT-Transfer Assessment Sit to and From Stand Sit to and from Stand Moderate Assistance,2 Person Assistance,Use of Upper Extremities Equipment Transfer Assistive Device Gait Belt,Front Wheeled Walker Orthotic/Prosthetic Devices or Brace: No Comments Mobility Comments pt in bed and asleep. able to wake pt up and stated that he feels very weak but agreed to do PT. obtained PLOF and home set up. BP monitored. BP in suine: 104/59. pt completed supine to sit max A x 2 and max cues with HOB elevated and use of bed rail. pt able to sit on EOB min A and cues. max A for scooting to EOB. BP in sittin/53. pt completed sit to stand mod A x 2 and max cues. no c/o dizziness/ligthheadness. BP in standin/54. pt stated that he had uncotrolled BM while standing. pt needed to be cleaned up. instructed pt to take sdie steps towards HOB and completed ~ 3 ft using FWW max A and max cues. pt sat on EOB. BP checked: 87/50. sit to supine max A x 2 and max cues. positioned pt in bed. BP: 123/57. Left pt with nurse. Gait Assessment Gait Gait Assistance Required: Maximum Assistance,1 Person Assist Distance (Feet) 3 Able to Maintain Weight Bearing Status Yes During Gait Assistive Devices Assistive Device Gait Belt,Front Wheeled Walker Orthotic/Prosthetic Devices or Brace: No Gait Deviations General Gait Pattern Decreased Stride Length, Decreased Feet Clearance Factors Limiting Gait Function Factors Limiting Gait Function Decreased Activity Tolerance, Decreased Strength,Limited Range of Motion,Poor Balance, Poor Safety Awareness PT-Balance Assessment Sitting Balance and Reactions Static Sitting Balance Ability Good Dynamic Sitting Balance Ability Fair Standing Balance and Reactions Static Standing Balance Ability Poor Dynamic Standing Balance Ability Poor Device Used FWW M5 PT-IP Objective Assessments Start: 10/31/24 14:39 Freq: NEEDED Status: Active Protocol: Document 10/31/24 13:25 AB (Rec: 10/31/24 14:58 AB [id number]) Orientation Orientation/Cognition Level of Alertness Alert Orientation Name,Place,Situation Language Function Ability Hard of Hearing Safety Awareness Decreased Safety Awareness Memory Description No Deficits Noted Gross Range of Motion Lower Extremity ROM Assessment Within Functional Limits Strength Lower Extremity Strength Assessment Bilaterally Impaired Hip 3-/5 Knee 3+/5 Muscle Tone Muscle Tone WNL Yes Other Assessments Other Other Assessments (+) ascites and BLE edema: LILY kim on pt M6 PT-IP Treatment Start: 10/31/24 14:39 Freq: NEEDED Status: Active Protocol: Document 10/31/24 13:25 AB (Rec: 10/31/24 14:58 AB [id number]) Physical Therapy Treatment Education Education Provided Safety M7 PT-IP Assessment and Plan Start: 10/31/24 14:39 Freq: NEEDED Status: Active Protocol: Document 10/31/24 13:25 AB (Rec: 10/31/24 14:58 AB [id number]) PT Summary Assessment and Plan Potential Rehabilitation Potential Fair Status of Condition at Evaluation Unstable Summary Impairments Pain,ROM,Strength,Balance, Coordination,Sensation,Tone, Cognition,Bed Mobility, Transfers,Gait,Activity Tolerance Assessment Summary pt is an 88 y/o M who is admitted for orthostatic hypotension. pt with dx metastatic pancreatic carcinoma with liver mets, peritoneal carcinomatosis. BP in supine: 104/59 and decreased to 90/54 in standing and down 87/50 after taking a few steps. pt unable to tolerate much activity and requiring max A x 2 for bed mobility, mod A x 2 for sit to stand and was only able to take side steps to position in bed using fWW max A and max cues. pt will require 24/7 assist and will require SNF rehab at this time. will continue to assess progress. Goals Bed Mobility Goal Minimal Assistance Transfer Goal Minimal Assistance,Front Wheeled Walker Gait Goal Minimal Assistance,Front Wheel Walker Gait Distance 25 Other Goals improve bed mobility, transfers, ambulation using FWW SBA ~ 100 ft up/down 1 step using fWW CGA Days to Meet Goals 10 Frequency of Treatment Frequency Of Treatment Once a Day Treatment Plan Physical Therapy Treatment Plan Bed Mobility Training,Transfer Training,Gait Training, Therapeutic Exercise,Balance Retraining,Discharge Planning, Hot or Cold Pack,Neuromuscular Re-ed,Coordination Retraining ,Manual Therapy Precautions Other Precautions falls, BP, C-diff contact precautions Recommendations To Nursing Amount of Assist Needed 2 Person Assist Discharge Recommendations PT Discharge Recommendations SNF Rehab Transportation Needs at Discharge Wheelchair/Cabulance,Stretcher /Ambulance - PT assist 2
[2024-10-31 13:43] LABS: Adenovirus F 40/41 Not Detected (Not Detect); Astrovirus Not Detected (Not Detect); Campylobacter Not Detected (Not Detect); Clostridium difficile toxin AB Detected (Not Detect); Cryptosporidium Not Detected (Not Detect); Cyclospora cayetanensis Not Detected (Not Detect); Entamoeba histolytica Not Detected (Not Detect); Enteroaggregative E.coli Not Detected (Not Detect); Enteropathogenic E.coli Not Detected (Not Detect); Enterotoxigenic E.coli It/st Not Detected (Not Detect); Giardia lamblia Not Detected (Not Detect); Norovirus GI/GII Not Detected (Not Detect); Plesiomonsa shigelloides Not Detected (Not Detect); Rotavirus A Not Detected (Not Detect); Salmonella Not Detected (Not Detect); Sapovirus Not Detected (Not Detect); Shiga-like toxin-prod E.coli Not Detected (Not Detect); Shigella/Enteroinvasive E.coli Not Detected (Not Detect); Vibrio Not Detected (Not Detect); Vibrio cholerae Not Detected (Not Detect); Yersinia enterocolitica Not Detected (Not Detect)
--- NOTE | 2024-10-31 14:30 | CM.DANOTE ---
Initial DCP Assessment Visit Note Reviewed EMR and team rounds for patient's medical status and updates. Met with patient at bedside to introduce self and role. Patient was found to be alert and oriented. Patient appeared tired and was friendly and cooperative during our conversation. Patient lives in his own home with his spouse. He is fully independent with self care and ADLs. He does use a a walker and walking cane when ambulating. Prior to this hospitalization he typically transports himself by private vehicle and his family members are available to transport him when he can't drive. Patient's preference is to return back home after leaving the hospital if possible. Payor: Medicare PCP: Ashleigh Anant Patient is a 88 year old male who presented to the ER on 10/31/23 for nausea, vomiting and burning in his chest. Patient has PMH of metastatic pancreatic carcinoma, on palliative chemotherapy. Patient is currently on supplemental oxygen here at 2 liters with SPo2 of 96%. Patient had labs today indicating he has an active Clostridium difficile infection. Discharge Planning/Care Management CM Discharge Assessment Start: 10/31/24 14:22 Freq: Status: Active Protocol: Document 10/31/24 14:22 [facility] (Rec: 10/31/24 14:29 [facility] [id number]) Discharge Planning Assessment Assigned Electrophysiology Nurse Practitioner Aryan Tang RN DPOA/Assigned Designee Name Patient reports his is DPOA and daughter is next option. Contact Information Spouse: Chyna Olmos Advance Directives? Yes Advance Directives on File No History Provided By Patient,Medical Record Expected Length of Stay 3 Has Patient been admitted in last 30 Yes days? Comment Was last in ICU on 10/17/24 Prior Living Arrangements House Household Members spouse Type of transporation used prior to Drives own vehicle admit Comment Patient reported driving himself prior to this hospitalization. Independent with ADL's Yes Is patient alert and oriented? Yes Caregiver for Another No Comment None DME Already Rented / Owned FWW / Walker,Cane Comment Grab bars at home. Patient/Family Preference Home with Home Health Comment Patient prefers to DC home if possible. Comment Return home w/HH anticipated. Discharge Plan Home Transportation Arrangement Family is able to help with transportation. Referrals Initiated None needed Additional Comment Patient may need HH or SNF, this is not clear yet. Whiteboard Updated in Patient Room with Yes name and ext. # of Electrophysiology Nurse Practitioner Review Status In Process Please Provide Date Initial DC 10/31/24 Assessment Was Performed
[2024-10-31] MEDS: VANCOMYCIN 125 MG CAPSULE PO ×2 (14:54→20:21)
[2024-10-31] MEDS: DIGOXIN 0.125 MG TABLET PO (16:58)
--- NOTE | 2024-10-31 17:37 | PM.PN.1 ---
Exam Vital Signs (past 8 hours): - 10/31/24 10:00 10/31/24 11:00 10/31/24 11:30 Temperature Pulse Rate 63 70 72 Pulse Rate [Orthostatic Lying] Pulse Rate [Orthostatic Sitting] Pulse Rate [Orthostatic Standing] Respiratory Rate 20 24 19 Blood Pressure 109/58 L 102/60 Blood Pressure [Orthostatic Lying] Blood Pressure [Orthostatic Sitting] Blood Pressure [Orthostatic Standing] Pulse Oximetry 94 90 L 96 Oxygen Flow Rate 10/31/24 12:00 10/31/24 12:00 10/31/24 14:30 Temperature 97.5 F L Pulse Rate 76 Pulse Rate [Orthostatic Lying] 66 Pulse Rate [Orthostatic Sitting] 71 Pulse Rate [Orthostatic Standing] 77 Respiratory Rate 20 Blood Pressure 128/69 Blood Pressure [Orthostatic Lying] 104/59 L Blood Pressure [Orthostatic Sitting] 93/53 L Blood Pressure [Orthostatic Standing] 90/54 L Pulse Oximetry 96 Oxygen Flow Rate 2 10/31/24 16:58 Temperature Pulse Rate 72 Pulse Rate [Orthostatic Lying] Pulse Rate [Orthostatic Sitting] Pulse Rate [Orthostatic Standing] Respiratory Rate Blood Pressure 132/77 Blood Pressure [Orthostatic Lying] Blood Pressure [Orthostatic Sitting] Blood Pressure [Orthostatic Standing] Pulse Oximetry Oxygen Flow Rate Oxygen Delivery Method Nasal Cannula Oxygen Flow Rate 2 Narrative Exam Narrative: Gen: NAD, WDWN CV: RRR 2-3/6 systolic murmur Pulm: CTA B/l Abd: soft, distended with ascites, non-tender Ext: 2+ pitting edema b/l LE Objective Labs 10/31/24 04:50 10/31/24 04:50 Labs: Laboratory Results - last 24 hr 10/31/24 10/31/24 10/31/24 04:50 11:15 11:51 WBC 6.9 RBC 2.84 L Hgb 8.9 L Hct 26.4 L MCV 92.9 MCH 31.2 MCHC 33.6 RDW 17.5 H Plt Count 334 Neut % (Auto) 64.6 Lymph % (Auto) 19.2 L [place] % (Auto) 11.2 Eos % (Auto) 4.5 H Baso % (Auto) 0.5 Neut # (Auto) 4500 Lymph # (Auto) 1300 [place] # (Auto) 800 Eos # (Auto) 300 Baso # (Auto) 0 Sodium 137 Potassium 3.5 Chloride 106 Carbon Dioxide 28 BUN 13 Creatinine 0.84 Estimated GFR > 60 BUN/Creatinine Ratio 15.5 Glucose 90 Calcium 8.2 L Magnesium 1.6 NT-Pro-B Natriuret Pep 3900 H Stl C. cayetanensis PCR Not detected Stool Rotavirus (PCR) Not detected Stool Adenovirus (PCR) Not detected Stool Astrovirus (PCR) Not detected Stool Cryptosporidium PCR Not detected Stl E.coli Shiga Tox PCR Not detected St Sh/Enteroin Ecoli PCR Not detected Stl Enterotoxigenic E PCR Not detected Stool EPEC (PCR) Not detected Stl E. histolytica PCR Not detected Stool Giardia Lamblia PCR Not detected Stool Sapovirus (PCR) Not detected Stl P. shigelloides PCR Not detected St Y.enterocolitica PCR Not detected Stool Vibrio (PCR) Not detected Stl Vibrio cholerae PCR Not detected Stl Enteroaggr Ecoli PCR Not detected Stl Norovirus GI/GII PCR Not detected Digoxin 0.4 L Chlamy pneumoniae PCR Not detected Adenovirus (PCR) Not detected B. pertussis DNA (PCR) Not detected B.parapertussis DNA PCR Not detected Campylobacter (PCR) Not detected C. difficile Tox (PCR) Detected H Coronavirus OC43 (PCR) Not detected Coronavirus HKU1 (PCR) Not detected Coronavirus 229E (PCR) Not detected SARS-CoV-2 (PCR) Not detected Coronavirus NL63 (PCR) Not detected Human Metapneumovir PCR Not detected Influenza Type A (PCR) Not detected Influenza Type B (PCR) Not detected M. 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 difficile with acute respiratory failure and hypotension, POA - initially admitted with orthostatic hypotension, developed diarrhea 10/31 which is C. diff positive by PCR, pending toxin assay currently. Started PO vancomycin 10/31. He has had multiple recent antibiotic courses for SBP and is at risk for C.diff infection. - continue SBP prophylaxis - no abdominal pain and he just completed course for SBP recently. Previous cultures from diagnostic tap negative - continue midodrine 10 TID and fludricort as BP is much improved today. He was still dizzy when sitting and had borderlin positive orthostatics today - respiratory failure possibly from fluid distension, unable to diurese. Consider LVP if not improving. Goal O2 89-96% on supplemental therapy. Chronic atrial fibrillation - chronically on digoxin now, will check dig level tomorrow AM, had one on admission but unclear his dose prior to coming in. Pancreatic Carcinoma with malignant ascites - extensive peritoneal metastases, including liver - continue enzymes for exocrine insufficiency - pain management, antiemetic - chronic LE edema, ideally start diuretic therapy to reduce ascites but unable currently given above. Code: Full SCDs: on eliquis Dispo: Changed to inpatient with sepsis ruled in likely discharge in 2-3 days depending on orthostatic hypotension Additional history obtained via discussions with the ELECTRONICS ENGINEERING MANAGER, child support case officer today. These discussions contributed to the creation of the above assessment and plan. I have reviewed patient's presenting documentation, labs, and imaging personally. Time-Based Coding :: [TOTAL MINUTES] spent with patient and on the chart (including review of chart, obtaining history, exam, reviewing outside data, placing orders, documenting exam and treatment plan, and counseling patient) on [DATE].
[2024-10-31] MEDS: PRAMIPEXOLE 0.25 MG TABLET PO (20:21)
[2024-11-01] VITALS (8 sets, daily range): BP systolic 83–134; BP diastolic 54–75; PULSE 58–73; RESP 17–21; TEMP 36.5–36.7; O2SAT 92–96
[2024-11-01] MEDS: VANCOMYCIN 125 MG CAPSULE PO ×3 (02:36→14:03)
[2024-11-01 04:38] LABS: Add Manual Diff / Slide Review NO; Basophils Absolute Auto 0 /uL (0-100); Basophils Percent Auto 0.8 % (0-2); Eosinophils Absolute Auto 300 /uL (0-450); Hematocrit 25.4 % (41-53); Hemoglobin 8.5 g/dL (13.5-17.5); Lymphocytes Absolute Auto 1200 /uL (1100-4500); Lymphocytes Percent Auto 21.9 % (25-40); Mean Corpuscular HGB Conc 33.3 % (30-36); Mean Corpuscular Hemoglobin 30.8 PG (26-34); Mean Corpuscular Volume 92.4 fL (80-100); Monocytes Absolute Auto 700 /uL (0-900); Monocytes Percent Auto 11.8 % (3-14); Neutrophils Absolute Auto 3400 /uL (1500-7000); Neutrophils Percent Auto 60.5 % (50-75); Platelet Count 347 X10^3/uL (150-400); Red Blood Cell Count 2.75 X10^6/uL (4.5-5.9); Red Cell Distribution Width 17.3 % (11.6-14.8); White Blood Cell Count 5.7 X10^3/uL (4.5-11.0)
[2024-11-01 04:50] LABS: Alanine Aminotransferase 20 IU/L (<50); Albumin 2.5 g/dL (3.5-5.0); Albumin Globulin Ratio 1.1 (1.0-2.8); Alkaline Phosphatase 101 U/L (38-126); Aspartate Aminotransferase 29 IU/L (17-59); BUN Creatinine Ratio 15.8 (6-22); Bilirubin Total 0.4 mg/dL (0.2-1.3); Blood Urea Nitrogen 12 mg/dL (9-20); Carbon Dioxide 27 mmol/L (22-32); Chloride 107 mmol/L (98-107); Estimated Glomerular Filt Rate > 60 mL/min (>60); Globulin 2.3 g/dL (1.7-4.1); Glucose 105 mg/dL (80-110); HEMOLYSIS < 15 (0-50); Magnesium 1.7 mg/dL (1.6-2.3); Potassium 3.5 mmol/L (3.4-5.1); Sodium 138 mmol/L (137-145); Total Protein 4.8 g/dL (6.3-8.2)
[2024-11-01 04:58] LABS: Digoxin 0.7 ng/mL (0.8-2.0)
[2024-11-01] MEDS: MIDODRINE HCL 5 MG TABLET 10 MG PO ×3 (05:51→17:23)
[2024-11-01] MEDS: predniSONE 5 MG TABLET 7.5 MG PO (08:41)
[2024-11-01] MEDS: POTASSIUM CHLORIDE 20 MEQ TAB 40 MEQ PO (08:41)
[2024-11-01] MEDS: APIXABAN 5 MG TABLET PO (08:41)
[2024-11-01] MEDS: ESCITALOPRAM 10 MG TABLET PO (08:41)
[2024-11-01] MEDS: FLUDROCORTISONE 0.1 MG TABLET PO (08:42)
[2024-11-01] MEDS: MAGNESIUM CHLORIDE 64 MG TABLET 128 MG PO (08:42)
[2024-11-01] MEDS: CREON 2 EACH PO ×3 (08:42→17:25)
--- NOTE | 2024-11-01 10:28 | PT-IP ANOTE ---
PT reviews chart, pt discussed in rounds and PT checks on pt. Pt with c-diff, orthostasis and abdominal ascites. Per attending, pt and nsg, pt likely to have abdominal fluid drained today and pt is mildly talking to PT while resting in bed. His abdomen is distended. Pt reports he would like to mobilize after abdominal fluid is drained and PT speaks with nsg and nsg can assist pt OOB to chair as appropriate after drainage. Of note, pt reports new visual field loss lower left eye over the past week. Pt with history of stage IV pancreatic CA. Con't PT efforts as pt appropriate.
[2024-11-01] MEDS: METOCLOPRAMIDE 10 MG/2 ML INJ 5 MG IV (11:57)
--- NOTE | 2024-11-01 12:05 | P.PN_ITS ---
Subjective Subjective Interval history: Summary: 88 M admitted with ortho static hypotension, sepsis eventually ruled in with C. diff positive. He is improved with regards to BP and symptoms with midodrine and fludicort. Still continues to have frequent stools today without change. Exam Vital Signs (past 8 hours): - 11/01/24 05:00 11/01/24 05:19 11/01/24 07:00 Temperature 98.0 F Pulse Rate 73 Pulse Rate [Orthostatic Lying] 58 L Pulse Rate [Orthostatic Sitting] 70 Pulse Rate [Orthostatic Standing] 73 Respiratory Rate 18 Blood Pressure 91/55 L Blood Pressure [Orthostatic Lying] 98/64 Blood Pressure [Orthostatic Sitting] 84/54 L Blood Pressure [Orthostatic Standing] 91/55 L Pulse Oximetry 95 Oxygen Delivery Method Nasal Cannula Oxygen Flow Rate 0 11/01/24 08:45 Temperature Pulse Rate 62 Pulse Rate [Orthostatic Lying] Pulse Rate [Orthostatic Sitting] Pulse Rate [Orthostatic Standing] Respiratory Rate 21 Blood Pressure 112/65 Blood Pressure [Orthostatic Lying] Blood Pressure [Orthostatic Sitting] Blood Pressure [Orthostatic Standing] Pulse Oximetry 96 Oxygen Delivery Method Oxygen Flow Rate 0 Oxygen Delivery Method Nasal Cannula Oxygen Flow Rate 0 Narrative Exam Narrative: Gen: NAD, WDWN CV: Irregularly irregular rhythm with normal rate, 2-3/6 systolic murmur Pulm: CTA B/l Abd: soft, distended with ascites, non-tender Ext: 1-2+ pitting edema b/l LE Objective Labs 11/01/24 03:50 11/01/24 03:50 Labs: Laboratory Results - last 24 hr 10/31/24 10/31/24 11/01/24 11:15 11:51 03:50 WBC 5.7 RBC 2.75 L Hgb 8.5 L Hct 25.4 L MCV 92.4 MCH 30.8 MCHC 33.3 RDW 17.3 H Plt Count 347 Neut % (Auto) 60.5 Lymph % (Auto) 21.9 L [place] % (Auto) 11.8 Eos % (Auto) 5.0 H Baso % (Auto) 0.8 Neut # (Auto) 3400 Lymph # (Auto) 1200 [place] # (Auto) 700 Eos # (Auto) 300 Baso # (Auto) 0 Sodium 138 Potassium 3.5 Chloride 107 Carbon Dioxide 27 BUN 12 Creatinine 0.76 Estimated GFR > 60 BUN/Creatinine Ratio 15.8 Glucose 105 Calcium 8.0 L Magnesium 1.7 Total Bilirubin 0.4 AST 29 ALT 20 Alkaline Phosphatase 101 D Total Protein 4.8 L Albumin 2.5 L Globulin 2.3 Albumin/Globulin Ratio 1.1 Stl C. cayetanensis PCR Not detected Stool Rotavirus (PCR) Not detected Stool Adenovirus (PCR) Not detected Stool Astrovirus (PCR) Not detected Stool Cryptosporidium PCR Not detected Stl E.coli Shiga Tox PCR Not detected St Sh/Enteroin Ecoli PCR Not detected Stl Enterotoxigenic E PCR Not detected Stool EPEC (PCR) Not detected Stl E. histolytica PCR Not detected Stool Giardia Lamblia PCR Not detected Stool Sapovirus (PCR) Not detected Stl P. shigelloides PCR Not detected St Y.enterocolitica PCR Not detected Stool Vibrio (PCR) Not detected Stl Vibrio cholerae PCR Not detected Stl Enteroaggr Ecoli PCR Not detected Stl Norovirus GI/GII PCR Not detected Digoxin 0.7 L Chlamy pneumoniae PCR Not detected Adenovirus (PCR) Not detected B. pertussis DNA (PCR) Not detected B.parapertussis DNA PCR Not detected Campylobacter (PCR) Not detected C. difficile Tox (PCR) Detected H Coronavirus OC43 (PCR) Not detected Coronavirus HKU1 (PCR) Not detected Coronavirus 229E (PCR) Not detected SARS-CoV-2 (PCR) Not detected Coronavirus NL63 (PCR) Not detected Human Metapneumovir PCR Not detected Influenza Type A (PCR) Not detected Influenza Type B (PCR) Not detected M. pneumoniae (PCR) Not detected Parainfluenza 1 (PCR) Not detected Parainfluenza 2 (PCR) Not detected Parainfluenza 3 (PCR) Not detected Parainfluenza 4 (PCR) Not detected RSV (PCR) Not detected Entero/Rhino (PCR) Not detected Salmonella (PCR) Not detected 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 difficile colitis with acute respiratory failure and hypotension, POA - initially admitted with orthostatic hypotension, developed diarrhea 10/31 which is C. diff positive by PCR, pending toxin assay currently. Started PO vancomycin 10/31. He has had multiple recent antibiotic courses for SBP and is at risk for C.diff infection. - continue SBP prophylaxis, ciprofloxacin 500 mg daily. - no abdominal pain and he just completed course for SBP recently. Previous cultures from diagnostic tap negative. - continue midodrine 10 TID and fludricort as BP is much improved today and orthostasis is improved - respiratory failure possibly from fluid distension, unable to diurese. Consider LVP if not improving. Goal O2 89-96% on supplemental therapy. Chronic atrial fibrillation - chronically on digoxin now, Dig level 0.7 this AM. - continue digoxin at 125 mcg daily, no beta judie. Pancreatic Carcinoma with malignant ascites - extensive peritoneal metastases, including liver - continue enzymes for exocrine insufficiency - pain management, antiemetic - chronic LE edema, ideally start diuretic therapy to reduce ascites but unable currently given above. - consider paracentesis. Chronic anemia - Hg 8.5, stable from prior admission. Continue to monitor. Code: Full SCDs: on eliquis Dispo: Changed to inpatient with sepsis ruled in. likely discharge in 1-2 days depending on orthostatic hypotension, diarrhea symptoms with C. diff. Additional history obtained via discussions with the ENFORCEMENT MANAGER, gearcase assembler today. These discussions contributed to the creation of the above assessment and plan. I have reviewed patient's presenting documentation, labs, and imaging personally. Time-Based Coding :: [TOTAL MINUTES] spent with patient and on the chart (including review of chart, obtaining history, exam, reviewing outside data, placing orders, documenting exam and treatment plan, and counseling patient) on [DATE].
[2024-11-01] MEDS: CIPROFLOXACIN 250 MG TABLET 500 MG PO (12:38)
[2024-11-01 15:14] LABS: C difficie Toxins A and B, EIA Negative (Negative)
[2024-11-01] MEDS: LIDOCAINE 1% 20 ML 3 ML SUBCUT (16:45)
--- NOTE | 2024-11-01 17:07 | PM.CALLCOV.1 ---
Call Coverage Note Note Date of Patient Contact: 11/01/24 Narrative of Care Provided: C. diff toxin negative. Will stop PO vancomycin. Add loperamide given continued loose stools. Patient feels quite full, mildly hypoxic requiring 1L O2, no significant dyspnea. Given possible sepsis on presentation, will rule out SBP again with diagnostic para. May be able to do LVP tomorrow when radiology is in house. Will add on coags for possible LVP tomorrow if negative cell count with diagnostic tonight.
--- NOTE | 2024-11-01 17:11 | PM.PROC.1 ---
Procedures Date/Time Date of procedure: 11/01/24 Time of procedure: 16:50 Paracentesis Time out performed: Yes Indication: possible spontaneous bacterial peritonitis Procedure: diagnostic paracentesis Location: RLQ Local anesthetic used: lidocaine 1% Amount of anesthesia used (ml): 2 Bedside ultrasound used: yes, Ascites confirmed and location marked Preparation: sterile prep and drape Amount of fluid obtained (ml): 25 Fluid: cloudy (yellow) and sent to lab for analysis Size of needle used: 22 Post procedure exam: awake, alert, normal BP, normal HR and normal SpO2 Patient tolerated procedure: well and no complications Complications: none Additional comments: Prior to the procedure formal consent was obtained from the patient after discussion of risks and benefits of the procedure, and allowing the patient to ask any questions. Ultrasound was used to find a suitable pocket, and the site was marked. A time-out was performed. The site was then prepped and draped in usual sterile fashion, and a 22 gauge needle was inserted with return of cloudy yellow fluid. A total of approximately 25 mL was obtained for diagnostic purposes to rule out SBP. There was no bleeding and the patient tolerated the procedure well. There were no further complications.
[2024-11-01 17:20] LABS: Body Fluid Tot Nucleated Cells 247 /uL
[2024-11-01 17:21] LABS: Body Fluid Red Blood Cells 319 /uL
[2024-11-01] MEDS: LOPERAMIDE 2 MG CAPSULE PO (17:22)
[2024-11-01] MEDS: PRAMIPEXOLE 0.25 MG TABLET PO (17:23)
[2024-11-01] MEDS: DIGOXIN 0.125 MG TABLET PO (17:23)
[2024-11-01 17:26] LABS: Body Fluid Appearance TURBID; Body Fluid Clotted? NO CLOTS PRESENT; Body Fluid Color YELLOW
[2024-11-01 17:35] LABS: Basophils Body Fluid 1 %; Eosinophils Body Fluid 1 %; Lymphocytes Body Fluid 38 %; MESO/MACRO/MONO Body Fluid 40 %; Neutrophils Body Fluid 20 %
[2024-11-01] MEDS: SODIUM CHLORIDE 0.9% FLUSH 10 ML IV (20:02)
[2024-11-02] VITALS: BP 133/65; PULSE 58; RESP 17; TEMP 36.4; O2SAT 96
--- NOTE | 2024-11-02 | PATH_ITS ---
Note [facility] Accession Number: [id number] TESTS RESULT FLAG UNITS REF RANGE LAB Clinician Provided Cytology Information No. of containers..01 Other (Miscellaneous) Source: ASCITES DIAGNOSIS: 01 ASCITES NEGATIVE FOR MALIGNANT CELLS. THIS INTERPRETATION INCLUDES EVALUATION OF A CELL BLOCK. Pathologist ICD10: R18.8 Signed out by: Leena Vazquez MD, Pathologist NPI- [id number] Performed by: Jacob Reza, Special Procedures Nurse ([facility]) Gross description: 60 CC, YELLOW, CLOUDY RECEIVED: FRESH IN BLUE CAP CONTAINER.VO /VDU 11/03/2024 0624 Local FLAG LEGEND: L-Low Normal,H-High Normal,LL-Alert Low,HH-Alert High <-Panic Low,>-Panic High,A-Abnormal,AA-Critical Abnormal Performed at: 01 =Z [facility] [address] [facility], [place] [address] Edgard Chanel MD, Performed at: [address] [facility] [facility], [place], [place] [id number] MD Edgard Chanel MD Phone: [phone]
[2024-11-02] MEDS: METOCLOPRAMIDE 10 MG/2 ML INJ 5 MG IV (00:17)
[2024-11-02] MEDS: ACETAMINOPHEN 325 MG TABLET 650 MG PO (01:07)
[2024-11-02 04:00] VITALS: BP 118/68; PULSE 67; RESP 19; TEMP 36.6; O2SAT 95
[2024-11-02 04:50] LABS: Add Manual Diff / Slide Review NO; Basophils Absolute Auto 0 /uL (0-100); Basophils Percent Auto 0.4 % (0-2); Eosinophils Absolute Auto 300 /uL (0-450); Eosinophils Percent Auto 3.8 % (2-4); Hematocrit 28.3 % (41-53); Hemoglobin 9.4 g/dL (13.5-17.5); Lymphocytes Absolute Auto 1700 /uL (1100-4500); Lymphocytes Percent Auto 24.4 % (25-40); Mean Corpuscular HGB Conc 33.1 % (30-36); Mean Corpuscular Hemoglobin 30.5 PG (26-34); Mean Corpuscular Volume 92.3 fL (80-100); Monocytes Absolute Auto 800 /uL (0-900); Monocytes Percent Auto 11.4 % (3-14); Neutrophils Absolute Auto 4100 /uL (1500-7000); Platelet Count 392 X10^3/uL (150-400); Red Blood Cell Count 3.07 X10^6/uL (4.5-5.9); Red Cell Distribution Width 17.9 % (11.6-14.8); White Blood Cell Count 6.8 X10^3/uL (4.5-11.0)
[2024-11-02 04:58] LABS: INR 1.5 (0.9-1.3); Prothrombin Time 16.4 SECONDS (9.4-12.5)
[2024-11-02 05:01] LABS: PTT Partial Thromboplastin Tim 34 SECONDS (25.1-36.5)
[2024-11-02 05:05] LABS: Alanine Aminotransferase 20 IU/L (<50); Albumin 2.5 g/dL (3.5-5.0); Albumin Globulin Ratio 1.1 (1.0-2.8); Alkaline Phosphatase 105 U/L (38-126); Aspartate Aminotransferase 29 IU/L (17-59); BUN Creatinine Ratio 15.8 (6-22); Bilirubin Total 0.3 mg/dL (0.2-1.3); Blood Urea Nitrogen 12 mg/dL (9-20); Calcium 7.9 mg/dL (8.4-10.2); Carbon Dioxide 27 mmol/L (22-32); Chloride 107 mmol/L (98-107); Estimated Glomerular Filt Rate > 60 mL/min (>60); Globulin 2.3 g/dL (1.7-4.1); Glucose 103 mg/dL (80-110); HEMOLYSIS < 15 (0-50); Magnesium 1.6 mg/dL (1.6-2.3); Potassium 3.8 mmol/L (3.4-5.1); Sodium 137 mmol/L (137-145); Total Protein 4.8 g/dL (6.3-8.2)
[2024-11-02] MEDS: MIDODRINE HCL 5 MG TABLET 10 MG PO ×2 (05:51→12:56)
[2024-11-02 06:54] VITALS: O2SAT 95
[2024-11-02] MEDS: CREON 2 EACH PO (08:04)
[2024-11-02] MEDS: SODIUM CHLORIDE 0.9% FLUSH 10 ML IV (08:05)
[2024-11-02] MEDS: CIPROFLOXACIN 250 MG TABLET 500 MG PO (08:33)
--- NOTE | 2024-11-02 08:44 | PC.NURSE ---
Addendum entered by Monica Parada R.N. 11/02/24 14:18: Pt agreeable to discharge, requesting to hold PO meds d/t going home. Albumin infused. IV discontinued, assisted dressing. SBA to w/c. Education provided to pt on admission reason, follow up. Home medication acquired from the pharmacy. Wheeled via w/c to private vehicle with this RN and family member at approximately 1415. Original Note: 08 Day shift: Pt c/o pressure from distended abdomen, stating difficulty in eating full meals. Pt declining most PO meds at this time, requesting to take them after paracentesis. Pt tolerated small portion of breakfast.
--- NOTE | 2024-11-02 09:00 | DI.US.S_ITS ---
PROCEDURE: US PARACENTESIS INDICATIONS: ASCITIES TECHNIQUE: The indications, alternatives, benefits, risks, and complications of the procedure were explained to the patient. Written informed consent was obtained and placed in the chart. The abdomen and pelvis were examined sonographically, and an appropriate site was chosen for paracentesis. The skin was prepared and draped in the usual sterile fashion, and 1% lidocaine was infiltrated from the skin down through the peritoneal surface. A 19-gauge catheter-covered needle was then introduced into the peritoneal space, the catheter was advanced and the needle was withdrawn, and thereafter peritoneal fluid was withdrawn. The catheter was then removed and a dressing was applied. The fluid was discarded if the clinician did not order diagnostic testing of the fluid. COMPARISON: None. FINDINGS: Access site: Left lower quadrant Needle: One-Step centesis catheter with introducer needle. Fluid volume and description: 5800 cc chylous Fluid sent for diagnostic testin cc Medications: 1% lidocaine for local anaesthesia. Complications: None. IMPRESSION: Successful ultrasound-guided paracentesis. Dictated by: Maritza Gomez M.D. on 11/02/2024 at 15:52 Approved by: Maritza Gomez M.D. on 11/02/2024 at 15:53
[2024-11-02] MEDS: LOPERAMIDE 2 MG CAPSULE PO (09:23)
[2024-11-02] MEDS: ALBUMIN HUMAN 50 GM/200 ML VIAL IV (10:57)
--- NOTE | 2024-11-02 11:17 | P.PN_ITS ---
Subjective Subjective Interval history: Summary: 88 M admitted with ortho static hypotension, sepsis eventually ruled in with C. diff positive. He is improved with regards to BP and symptoms with midodrine and fludicort. Still continues to have frequent stools today without change. Exam Vital Signs (past 8 hours): - 11/02/24 04:00 11/02/24 06:54 11/02/24 09:00 Temperature 97.8 F Pulse Rate 67 Respiratory Rate 19 Blood Pressure 118/68 Pulse Oximetry 95 95 Oxygen Delivery Method Nasal Cannula Nasal Cannula Oxygen Flow Rate 1.5 1.5 Fraction of Inspired Oxygen 26 Fraction of Inspired Oxygen 26 SaO2/FiO2 Ratio 365 Oxygen Delivery Method Nasal Cannula Oxygen Flow Rate 1.5 Narrative Exam Narrative: NAD, alert and oriented. Fluent speech. Lungs are clear, normal rate and effort. Heart is regular, no murmur gallop or rub. Abdomen is distended with ascites, less so after he was therapeutic paracentesis this morning. He was not tender. Extremities are free of edema below the knees, there is anasarca above the knees. Objective Labs 11/02/24 04:10 11/02/24 04:10 Labs: Laboratory Results - last 24 hr 10/31/24 11/01/24 11/02/24 11:51 16:55 04:10 WBC 6.8 RBC 3.07 L Hgb 9.4 L Hct 28.3 L MCV 92.3 MCH 30.5 MCHC 33.1 RDW 17.9 H Plt Count 392 Neut % (Auto) 60.0 Lymph % (Auto) 24.4 L [place] % (Auto) 11.4 Eos % (Auto) 3.8 Baso % (Auto) 0.4 Neut # (Auto) 4100 Lymph # (Auto) 1700 [place] # (Auto) 800 Eos # (Auto) 300 Baso # (Auto) 0 PT 16.4 H INR 1.5 H APTT 34 Sodium 137 Potassium 3.8 Chloride 107 Carbon Dioxide 27 BUN 12 Creatinine 0.76 Estimated GFR > 60 BUN/Creatinine Ratio 15.8 Glucose 103 Calcium 7.9 L Magnesium 1.6 Total Bilirubin 0.3 AST 29 ALT 20 Alkaline Phosphatase 105 Total Protein 4.8 L Albumin 2.5 L Globulin 2.3 Albumin/Globulin Ratio 1.1 Fluid Color Yellow Fluid Appearance Turbid Fluid RBC 319 Fld Tot Nucleated Cell 247 Fluid Neutrophils % 20 Fluid Lymphocytes % 38 Fluid Eosinophils % 1 Fluid Basophils % 1 Fluid Meso/Macro/[place] % 40 Body Fluid Clot No clots present C. 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 difficile colitis with acute respiratory failure and hypotension, present on admission and resolved. - initially admitted with orthostatic hypotension, developed diarrhea 10/31 which is C. diff positive by PCR, pending toxin assay currently. Started PO vancomycin 10/31. He has had multiple recent antibiotic courses for SBP and is at risk for C.diff infection. - continue SBP prophylaxis, ciprofloxacin 500 mg daily. - no abdominal pain and he just completed course for SBP recently. Previous cultures from diagnostic tap negative. - continue midodrine 10 TID and fludricort as BP is much improved today and orthostasis is improved - respiratory failure possibly from fluid distension, unable to diurese. Consider LVP if not improving. Goal O2 89-96% on supplemental therapy. Chronic atrial fibrillation, present on admission and stable. - chronically on digoxin now, Dig level 0.7 this AM. - continue digoxin at 125 mcg daily, no beta judie. Pancreatic Carcinoma with malignant ascites, present on admission and stable. - extensive peritoneal metastases, including liver - continue enzymes for exocrine insufficiency - pain management, antiemetic - chronic LE edema, ideally start diuretic therapy to reduce ascites but unable currently given above. Chronic anemia - Hg 8.5, stable from prior admission. Continue to monitor. PLAN: -he underwent a therapeutic paracentesis for 6 L today. He was given albumin afterwards. -we will monitor blood pressure and he will go home later today or tomorrow morning. Time-Based Coding :: [TOTAL MINUTES] spent with patient and on the chart (including review of chart, obtaining history, exam, reviewing outside data, placing orders, documenting exam and treatment plan, and counseling patient) on [DATE].
--- NOTE | 2024-11-02 11:50 | PT-IP ANOTE ---
PT checked in on pt and spoke with nsg. Pt just had another paracentesis and then plan is to d/c home with family today. In order to give pt the pt chance at success with energy for d/c, PT and nsg agree to hold PT this a.m.
[2024-11-02 12:00] VITALS: BP 136/79; PULSE 73; RESP 20; O2SAT 98
--- NOTE | 2024-11-02 12:41 | P.DS_ITS ---
History of Present Illness History of Present Illness Chief complaint: Orthostatic Hypotension Narrative: From H&P: 88 y/o with PMH of metastatic pancreatic carcinoma, on palliative chemotherapy, recent hospitalizations at [facility] with PBP and sepsis followed by hospitalization at [facility] with another PBP and rapid A-fib. He was discharged a week ago off diuretic, on midodrine, for orthostatic hypotension and off BB, on digoxin, for rapid A-fib. He was supposed to follow up with cardiology and oncology. He missed this week's oncology follow up - it was postponed. Today he comes with ongoing nausea, orthostatic hypotension, unable to safely discharge home from the ED. Placed in observation to try to improve orthostatic hypotension. Discharge Providers Provider Date of admission: 10/31/24 14:46 Discharge Date: 11/02/24 Primary care physician: Ashleigh Ny DO Consults: 10/31/24 09:17 Consult to Physical Therapy Evaluate & Treat Comment: Physician Instructions: Evaluate and Treat Discharge provider: Chip Bass MD Summary Hospital Course Discharge Diagnosis: 1. Hypovolemic hypotension, present on admission and resolved. - initially admitted with orthostatic hypotension, developed diarrhea 3 which is C. diff positive by PCR, pending toxin assay currently. Started PO vancomycin 10/31. He has had multiple recent antibiotic courses for SBP and is at risk for C.diff infection. - continue SBP prophylaxis, ciprofloxacin 500 mg daily. - no abdominal pain and he just completed course for SBP recently. Previous cultures from diagnostic tap negative. - continue midodrine 10 TID and fludricort as BP is much improved today and orthostasis is improved - respiratory failure possibly from fluid distension, unable to diurese. Consider LVP if not improving. Goal O2 89-96% on supplemental therapy. 2. Chronic atrial fibrillation, present on admission and stable. - chronically on digoxin now, Dig level 0.7 this AM. - continue digoxin at 125 mcg daily, no beta judie. 3. Pancreatic Carcinoma with malignant ascites, present on admission and stable. - extensive peritoneal metastases, including liver - continue enzymes for exocrine insufficiency - pain management, antiemetic 4. Chronic anemia - Hg 8.5, stable from prior admission. Continue to monitor. 5. Diarrhea with negative CDT toxin assay. New and improved. Hospital Course: He was admitted with hypotension and diarrhea. He was fluid resuscitated and his midodrine was continued. Fluorescein was also started. The patient had a positive C difficile PCR but a negative toxin assay. He was treated with vancomycin orally for 1 day. This was then stopped. Digoxin was started for rate control given his hypotension. He did undergo a therapeutic paracentesis on November 02 prior to discharge home. Status at Discharge Cognitive/behavioral status at discharge: oriented Functional status at discharge: uses cane/walker Overall status at discharge: patient is back to baseline Time Spent with Patient Time spent: Greater than 30 minutes Exam Vital Signs (past 8 hours): - 11/02/24 06:54 11/02/24 09:00 Pulse Oximetry 95 Oxygen Delivery Method Nasal Cannula Nasal Cannula Oxygen Flow Rate 1.5 Fraction of Inspired Oxygen 26 Fraction of Inspired Oxygen 26 SaO2/FiO2 Ratio 365 Oxygen Delivery Method Nasal Cannula Oxygen Flow Rate 1.5 Narrative Exam Narrative: NAD, alert and oriented. Fluent speech. Lungs are clear, normal rate and effort. Heart is regular, no murmur gallop or rub. Abdomen is distended with ascites, less so after he was therapeutic paracentesis this morning. He was not tender. Extremities are free of edema below the knees, there is anasarca above the knees. Objective Imaging CT scan - abdomen: Radiologist's impression: 1. Small right pleural effusion, [id number] increasing left pleural effusion, bibasilar atelectasis. 2. Hepatic metastatic disease. 3. Peritoneal carcinomatosis, moderately large ascites. 4. There appears to be a fixed narrowed segment of the rectum on the current study in all prior studies. Consider serosal implant disease versus primary rectal lesion. Labs 11/02/24 04:10 11/02/24 04:10 Labs: Laboratory Results - last 24 hr 10/31/24 11/01/24 11/02/24 11:51 16:55 04:10 WBC 6.8 RBC 3.07 L Hgb 9.4 L Hct 28.3 L MCV 92.3 MCH 30.5 MCHC 33.1 RDW 17.9 H Plt Count 392 Neut % (Auto) 60.0 Lymph % (Auto) 24.4 L [place] % (Auto) 11.4 Eos % (Auto) 3.8 Baso % (Auto) 0.4 Neut # (Auto) 4100 Lymph # (Auto) 1700 [place] # (Auto) 800 Eos # (Auto) 300 Baso # (Auto) 0 PT 16.4 H INR 1.5 H APTT 34 Sodium 137 Potassium 3.8 Chloride 107 Carbon Dioxide 27 BUN 12 Creatinine 0.76 Estimated GFR > 60 BUN/Creatinine Ratio 15.8 Glucose 103 Calcium 7.9 L Magnesium 1.6 Total Bilirubin 0.3 AST 29 ALT 20 Alkaline Phosphatase 105 Total Protein 4.8 L Albumin 2.5 L Globulin 2.3 Albumin/Globulin Ratio 1.1 Fluid Color Yellow Fluid Appearance Turbid Fluid RBC 319 Fld Tot Nucleated Cell 247 Fluid Neutrophils % 20 Fluid Lymphocytes % 38 Fluid Eosinophils % 1 Fluid Basophils % 1 Fluid Meso/Macro/[place] % 40 Body Fluid Clot No clots present C. diff Toxin A&B (EIA) Negative [facility] Medical History History of ascites History of pancreatic cancer Vomiting Venous thromboembolism Pancreatic carcinoma metastatic to intra-abdominal lymph node Social History household members: spouse Smoking Status: Former smoker Discharge Assessment & Plan Assessment and Plan Assessment: 1. Hypovolemic hypotension, present on admission and resolved. - initially admitted with orthostatic hypotension, developed diarrhea 3 which is C. diff positive by PCR, pending toxin assay currently. Started PO vancomycin 10/31. He has had multiple recent antibiotic courses for SBP and is at risk for C.diff infection. - continue SBP prophylaxis, ciprofloxacin 500 mg daily. - no abdominal pain and he just completed course for SBP recently. Previous cultures from diagnostic tap negative. - continue midodrine 10 TID and fludricort as BP is much improved today and orthostasis is improved - respiratory failure possibly from fluid distension, unable to diurese. Consider LVP if not improving. Goal O2 89-96% on supplemental therapy. 2. Chronic atrial fibrillation, present on admission and stable. - chronically on digoxin now, Dig level 0.7 this AM. - continue digoxin at 125 mcg daily, no beta judie. 3. Pancreatic Carcinoma with malignant ascites, present on admission and stable. - extensive peritoneal metastases, including liver - continue enzymes for exocrine insufficiency - pain management, antiemetic 4. Chronic anemia - Hg 8.5, stable from prior admission. Continue to monitor. 5. Diarrhea with negative CDT toxin assay. New and improved. Plan of Treatment: Stable for discharge home. Medications as noted above. Follow up with Oncology Lillian Sherwood as scheduled. Discharge Plan Discharge Plan Patient Disposition: Home Provider Discharge Comment: Stable for discharge home. Discharge orders & Medications Prescriptions: New ciprofloxacin HCl [Cipro] 500 mg tablet 500 mg PO DAILY Qty: 30 3RF digoxin 125 mcg (0.125 mg) tablet 125 mcg PO DAILY Qty: 30 3RF fludrocortisone 0.1 mg tablet 0.1 mg PO DAILY Qty: 30 3RF Continued midodrine 5 mg tablet 10 mg PO TID escitalopram oxalate 10 mg tablet 10 mg PO DAILY Eliquis 5 mg tablet 5 mg PO BID ondansetron HCl 8 mg tablet 8 mg PO Q8H PRN (Reason: nausea/vomiting) prednisone 5 mg tablet 7.5 mg PO DAILY Patient Comments: TAKE ONE TABLET (5MG) IN ADDITION TO FOUR 1MG TABLETS FOR A TOTAL OF 9MG DAILY TO START YOU WILL TAPER DOWN BY 1MG PER MONTH lidocaine-prilocaine 2.5-2.5 % cream 1 applic topical SEEINSTR Rx Instructions: Apply large dollop on port site 1 hour before port access and cover with cling wrap. pramipexole 0.25 mg tablet 0.25 mg PO QPM Creon 36,000-114,000- 180,000 unit capsule,delayed release(DR/EC) 2 cap PO TIDWMEAL Patient Comments: [NO ORIGINAL SIG] oxycodone 5 mg tablet 5 mg PO Q6H PRN (Reason: Pain (Scale Score 7-10)) Follow up/Referrals: Ashleigh Ny DO [Primary Care Provider] - Discharge Health Status Multidrug resistant organism: No MDRO Diet/Activity/Treatments Diet: Diet as Tolerated Skin/Wound/Dressing Care Report to your healthcare provider any signs of infection, such as:: chills, fever, increased pain and unusual drainage Visit Report/Discharge Packet Instructions: DI for Abdominal Paracentesis Stand Alone Forms: Patient Portal/API/Survey Discharge Data Primary Care Provider: Ashleigh Ny
--- NOTE | 2024-11-02 13:31 | CM.DPNOTE ---
DCP Note [employer] reviewed EMR per hospitalist/chart review, pt cleared to dc today. [employer] met with pt in room. pt eager to dc home with spouse support. refuses HH or SNF. report NAYELI plans to transport home. denies any CM/DCP needs. only asked for someone to help get him to car at dc. [employer] updated RN. P: dc home today with OP f/u, no CM needs at this time. Will continue to follow as needed VINITA Wooten
== END 2024-11-02 14:15 | disposition home or self-care (01) | DRG 871 ==
LOC: ED 20:19 → AC 21:09 → ICU 21:36
PROVIDERS: Emergency Medicine; Internal Medicine; Admitting Provider Internal Medicine; Emergency Provider Student in an Organized Health Care Education/Training Program; Family Provider Internal Medicine; PCP Family Medicine; Referring Provider Student in an Organized Health Care Education/Training Program; Visit Provider Internal Medicine
DX: A41.9 Sepsis, unspecified organism (principal); J96.01 Acute respiratory failure with hypoxia; A04.72 Enterocolitis due to Clostridium difficile, not specified as recurrent; I48.20 Chronic atrial fibrillation, unspecified; C25.9 Malignant neoplasm of pancreas, unspecified; C78.7 Secondary malignant neoplasm of liver and intrahepatic bile duct; C77.2 Secondary and unspecified malignant neoplasm of intra-abdominal lymph nodes; R18.0 Malignant ascites; C78.6 Secondary malignant neoplasm of retroperitoneum and peritoneum; I35.0 Nonrheumatic aortic (valve) stenosis; M35.3 Polymyalgia rheumatica; I49.5 Sick sinus syndrome; R65.20 Severe sepsis without septic shock; D63.0 Anemia in neoplastic disease; E86.1 Hypovolemia; Z79.52 Long term (current) use of systemic steroids; Z95.828 Presence of other vascular implants and grafts; Z95.0 Presence of cardiac pacemaker; Z87.891 Personal history of nicotine dependence; Z86.718 Personal history of other venous thrombosis and embolism
CPT/HCPCS: 36415; 49083; 71045; 74177; 80048; 80053; 80162; 81003; 83690; 83735; 83880; 85025; 85610; 85730; 87070; 87075; 87205; 87324; 87507; 87633; 89051; 94762; 96361; 96374; 96375; 97163; 97530; 99284; G0378; J1171; J2405; J2470; J2765; P9041; Q9967

== ENCOUNTER → 2024-11-06 12:43 | Outpatient (CLI) | payer MEDICARE, SELFPAY ==
[2024-10-30 21:24] VITALS: BMI 30.2
--- NOTE | 2024-11-06 12:45 | DI.RAD.S_ITS ---
PROCEDURE: XR CHEST 2V INDICATIONS: Rule out aspiration pneumonia TECHNIQUE: 2 views of the chest were acquired. COMPARISON: [facility], CR, XR CHEST 1V, 10/30/2024, 22:30. [facility], CR, XR CHEST 1V, 10/17/2024, 8:05. FINDINGS: Surgical changes and devices: Right chest wall port tip projects over the low SVC. MICRA device. Lungs and pleura: Small pleural effusions. Peribronchial cuffing. Mediastinum: Mediastinal contours are normal. Heart size is normal. Bones and chest wall: No suspicious bony abnormalities. Soft tissues appear unremarkable. IMPRESSION: Peribronchial cuffing, which may indicate aspiration. No aspiration pneumonia identified. Small pleural effusions, decreased from prior. Dictated by: Moises Hair M.D. on 11/06/2024 at 14:21 Approved by: Moises Hair M.D. on 11/06/2024 at 14:22
== END ==
LOC: RAD 12:45
PROVIDERS: Family Provider Internal Medicine; PCP Family Medicine; Referring Provider Family Medicine; Visit Provider Family Medicine
DX: R91.8 Other nonspecific abnormal finding of lung field (principal); J90 Pleural effusion, not elsewhere classified; R05.9 Cough, unspecified; R06.2 Wheezing
CPT/HCPCS: 71046

== ENCOUNTER 2024-11-09 09:42 | Outpatient (CLI) | payer MEDICARE, SELFPAY ==
[2024-10-30 21:24] VITALS: BMI 30.2
--- NOTE | 2024-11-09 09:43 | DI.US.S_ITS ---
PROCEDURE: US PARACENTESIS INDICATIONS: Ascites management TECHNIQUE: The indications, alternatives, benefits, risks, and complications of the procedure were explained to the patient. Written informed consent was obtained and placed in the chart. The abdomen and pelvis were examined sonographically, and an appropriate site was chosen for paracentesis. The skin was prepared and draped in the usual sterile fashion, and 1% lidocaine was infiltrated from the skin down through the peritoneal surface. A 19-gauge catheter-covered needle was then introduced into the peritoneal space, the catheter was advanced and the needle was withdrawn, and thereafter peritoneal fluid was withdrawn. The catheter was then removed and a dressing was applied. The fluid was discarded if the clinician did not order diagnostic testing of the fluid. COMPARISON: [facility], PARACENTESIS, 11/02/2024, 10:09. FINDINGS: Access site: Left lower quadrant Needle: One-Step centesis catheter with introducer needle. Fluid volume and description: 4700 cc yellow Fluid sent for diagnostic testing: No Medications: 1% lidocaine for local anaesthesia. Complications: None. IMPRESSION: Successful ultrasound-guided paracentesis. Dictated by: Maritza Gomez M.D. on 11/09/2024 at 13:22 Approved by: Maritza Gomez M.D. on 11/09/2024 at 13:22
[2024-11-09 10:07] VITALS: BP 136/77; PULSE 86; RESP 17; TEMP 36.1; O2SAT 100
[2024-11-09 11:00] VITALS: BP 114/67; PULSE 69; RESP 17; TEMP 36.1; O2SAT 100
== END 2024-11-09 11:11 | disposition home or self-care (01) ==
PROVIDERS: Family Provider Internal Medicine; PCP Family Medicine; Referring Provider Family Medicine; Visit Provider Family Medicine
DX: C80.1 Malignant (primary) neoplasm, unspecified (principal); R18.0 Malignant ascites
CPT/HCPCS: 49083

== ENCOUNTER 2024-11-13 16:17 | Emergency (ER) | payer MEDICARE, SELFPAY ==
[2024-10-30 21:24] VITALS: BMI 30.2
[2024-11-13] VITALS (15 sets, daily range): BP systolic 96–128; BP diastolic 57–73; PULSE 78–96; RESP 15–25; TEMP 36.4; O2SAT 90–95; BMI 29.3
--- NOTE | 2024-11-13 17:02 | ED_ITS ---
HPI - Nausea/Vomiting/Diarrhea <Cody De Leon, DO - Last Filed: 11/13/24 18:59> General Chief complaint: Nausea/Vomiting/Diarrhea Stated complaint: N/V/D Pancreatic CA Time Seen by Provider: 11/13/24 16:54 Source: patient and EMS Mode of arrival: EMS History of Present Illness HPI Narrative: 88-year-old gentleman history of pancreatic cancer stage IV presents with a 36 hours of nonbilious nonbloody nausea vomiting along with diarrhea given Imodium by family member which has slowed down the diarrhea episodes but feeling dehydrated prior. Prior to 36 hours ago was tolerating solid meal but now only able to handle liquids at this point. He routinely gets paracentesis 1 time a week he was given 8 of Zofran and 1000 mL normal saline by EMS prior to arrival. Other than what I see a 14 point review of system is negative Related Data Home Medications Medication Instructions Recorded Confirmed apixaban 5 mg tablet (Eliquis) 5 mg PO BID 10/17/24 10/30/24 lidocaine-prilocaine 2.5 %-2.5 % 1 applic topical SEEINSTR 10/17/24 10/30/24 topical cream [id number] 2 cap PO TIDWMEAL Cancer/lipase 10/17/24 10/30/24 36,000-114,000-180,000 unit capsule,delay rel (Creon) ondansetron HCl 8 mg tablet 8 mg PO Q8H PRN nausea/vomiting 10/17/24 10/30/24 pramipexole 0.25 mg tablet 0.25 mg PO QPM 10/17/24 10/30/24 prednisone 5 mg tablet 7.5 mg PO DAILY 10/17/24 10/30/24 oxycodone 5 mg tablet 5 mg PO Q6H PRN Pain (Scale Score 10/23/24 10/30/24 7-10) escitalopram oxalate 10 mg tablet 10 mg PO DAILY 10/30/24 10/30/24 midodrine 5 mg tablet 10 mg PO TID 10/30/24 10/30/24 Previous Rx's Medication Instructions Recorded ciprofloxacin HCl 500 mg tablet 500 mg PO DAILY #30 tabs 11/02/24 (Cipro) digoxin 125 mcg (0.125 mg) tablet 125 mcg PO DAILY #30 tabs 11/02/24 fludrocortisone 0.1 mg tablet 0.1 mg PO DAILY #30 tabs 11/02/24 Allergies Allergy/AdvReac Type Severity Reaction Status Date / Time No Known Drug Allergies Allergy Verified 10/23/24 06:51 Review of Systems <Cody De Leon DO - Last Filed: 11/13/24 18:59> Review of Systems ROS Unobtainable: All systems reviewed & are unremarkable except as noted in HPI and below Patient History <Cody De Leon DO - Last Filed: 11/13/24 18:59> Medical History History of ascites History of pancreatic cancer Vomiting 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 in mild distress. HEAD: Atraumatic. Normocephalic. EYES: Pupils equal round and reactive. Extraocular motions intact. No scleral icterus. No injection or drainage. ENT: Nose without bleeding, purulent drainage. Throat without erythema, tonsillar hypertrophy or exudate. Airway patent. NECK: Trachea midline. Non tender CARDIOVASCULAR: Regular rate and rhythm without murmurs, gallops, or rubs. RESPIRATORY: Faint crackles L base GASTROINTESTINAL: Abdomen mild-mod distended, no fluid wave, non-tender EXTREMITIES: No edema or joint tenderness. BACK: Nontender without deformity or crepitance. No flank tenderness. NEURO: AOx3. SKIN: No rash or erythema of visible areas Initial Vital Signs Initial Vital Signs: Vital Signs Temperature 97.6 F 11/13/24 16:26 Pulse Rate 79 11/13/24 16:26 Respiratory Rate 17 11/13/24 16:26 Blood Pressure 101/57 L 11/13/24 16:26 Pulse Oximetry 93 11/13/24 16:26 Oxygen Delivery Method Room Air 11/13/24 16:26 <Silvia De La Rosa MD - Last Filed: 11/13/24 23:14> Initial Vital Signs Initial Vital Signs: Vital Signs Temperature 97.6 F 11/13/24 16:26 Pulse Rate 79 11/13/24 16:26 Respiratory Rate 17 11/13/24 16:26 Blood Pressure 101/57 L 11/13/24 16:26 Pulse Oximetry 93 11/13/24 16:26 Oxygen Delivery Method Room Air 11/13/24 16:26 Procedures <Silvia De La Rosa MD - Last Filed: 11/13/24 23:14> Paracentesis Time of procedure: 23:08 Indication: Ascites Procedure: therapeutic paracentesis Location: LLQ Local Anesthetic: lidocaine 1% Amount of anesthesia used (mL): 1 Bedside Ultrasound Used: yes, Ascites confirmed and location marked Preparation: sterile prep and drape and Blade used to make faustino in skin Amount of fluid obtained (mL): 4,900 Fluid: cloudy Post Procedure Exam: awake, alert, normal BP, normal HR and normal SpO2 Patient Tolerated Procedure: Well Complications: none Course <Cody De Leon DO - Last Filed: 11/13/24 18:59> Orders Ordered: ED Orders 11/13/24 16:23 CBC Auto Diff [Complete Blood Count AUTO DIFF] Stat CMP [Comprehensive Metabolic Panel] Stat 11/13/24 17:03 CXR [XR chest 1V] Stat 11/13/24 17:57 Urine Microscopic Stat Pramipexole Dihydrochloride (Pramipexole 0.25 Mg Tablet) 0.25 mg PO BEDTIME CAM Last Admin: 11/13/24 21:09 Dose: Not Given Documented By: Admin: 11/13/24 19:58 Dose: 0.25 mg Documented By: Blair Discontinued Medications Albumin Human (Albuminar) 25 gm in 100 mls @ 60 mls/hr IV NOW ONE Stop: 11/13/24 22:59 Last Admin: 11/13/24 21:29 Dose: 60 mls/hr Documented By: VESTA Sodium Chloride (Normal Saline 0.9%) 500 mls @ 1,000 mls/hr IV BOLUS ONE Stop: 11/13/24 21:49 Last Infusion: 11/13/24 22:57 Dose: Infused Documented By: Admin: 11/13/24 21:29 Dose: 1,000 mls/hr Documented By: VESTA Metoclopramide HCl (Metoclopramide 10 Mg/2 Ml Inj) 10 mg IV NOW ONE Stop: 11/13/24 17:03 Last Admin: 11/13/24 17:33 Dose: 10 mg Documented By: RB Ondansetron HCl (Ondansetron 4 Mg/2 Ml Inj) 4 mg IV NOW ONE Stop: 11/13/24 21:56 Last Admin: 11/13/24 22:02 Dose: 4 mg Documented By: VESTA Pramipexole Dihydrochloride (Pramipexole 0.25 Mg Tablet) 0.25 mg PO BEDTIME CAM Vital Signs Vital signs: Vital Signs - 8 hr 11/13/24 16:26 11/13/24 16:30 11/13/24 16:30 Temperature 97.6 F Pulse Rate 79 78 Respiratory Rate 17 22 Blood Pressure 101/57 L 103/63 Pulse Oximetry 93 93 Oxygen Delivery Method Room Air 11/13/24 17:00 11/13/24 17:00 11/13/24 17:30 Temperature Pulse Rate 78 Respiratory Rate 24 Blood Pressure 116/62 117/73 Pulse Oximetry 94 Oxygen Delivery Method 11/13/24 17:30 11/13/24 18:00 11/13/24 18:00 Temperature Pulse Rate 79 86 Respiratory Rate 15 20 Blood Pressure 116/71 Pulse Oximetry 95 Oxygen Delivery Method 11/13/24 18:30 11/13/24 18:30 11/13/24 19:00 Temperature Pulse Rate 89 Respiratory Rate 17 18 Blood Pressure 119/67 116/70 Pulse Oximetry Oxygen Delivery Method 11/13/24 19:30 Temperature Pulse Rate 91 H Respiratory Rate 21 Blood Pressure 118/73 Pulse Oximetry 91 [place] [address] XRay Report Signed Patient: Salty Olmos MR#: [id number] : 1935 Acct:[id number] Age/Sex: 88 / M Date of Service: 11/13/24 Loc: ED Accession Number: [id number] Procedure: XR chest 1V Ordering Provider: Cody De Leon D.O. PROCEDURE: XR CHEST 1V INDICATIONS: cough TECHNIQUE: One view of the chest was acquired. COMPARISON: [facility], CR, XR CHEST 2V, 11/06/2024, 12:48. [facility], CR, XR CHEST 1V, 10/30/2024, 22:30. FINDINGS: Surgical changes and devices: Right chest wall port tip projects over the low SVC. Intracardiac lead. Lungs and pleura: Small pleural effusions, stable from prior. Peribronchial cuffing and increased pulmonary markings. Cephalization of the pulmonary vessels. Mediastinum: Mediastinal contours appear normal. Heart size is enlarged. Bones and chest wall: No suspicious bony lesions. Overlying soft tissues appear unremarkable. IMPRESSION: Moderate acute on chronic pulmonary edema. Stable small pleural effusions. Dictated by: Moises Hair M.D. on 11/13/2024 at 17:24 Approved by: Moises Hair M.D. on 11/13/2024 at 17:25 <Silvia De La Rosa MD - Last Filed: 11/13/24 23:14> Orders Ordered: ED Orders 11/13/24 16:23 CBC Auto Diff [Complete Blood Count AUTO DIFF] Stat CMP [Comprehensive Metabolic Panel] Stat 11/13/24 17:03 CXR [XR chest 1V] Stat 11/13/24 17:57 Urine Microscopic Stat Pramipexole Dihydrochloride (Pramipexole 0.25 Mg Tablet) 0.25 mg PO BEDTIME CAM Last Admin: 11/13/24 21:09 Dose: Not Given Documented By: Admin: 11/13/24 19:58 Dose: 0.25 mg Documented By: RLC Discontinued Medications Albumin Human (Albuminar) 25 gm in 100 mls @ 60 mls/hr IV NOW ONE Stop: 11/13/24 22:59 Last Admin: 11/13/24 21:29 Dose: 60 mls/hr Documented By: VESTA Sodium Chloride (Normal Saline 0.9%) 500 mls @ 1,000 mls/hr IV BOLUS ONE Stop: 11/13/24 21:49 Last Infusion: 11/13/24 22:57 Dose: Infused Documented By: Admin: 11/13/24 21:29 Dose: 1,000 mls/hr Documented By: VESTA Metoclopramide HCl (Metoclopramide 10 Mg/2 Ml Inj) 10 mg IV NOW ONE Stop: 11/13/24 17:03 Last Admin: 11/13/24 17:33 Dose: 10 mg Documented By: RB Ondansetron HCl (Ondansetron 4 Mg/2 Ml Inj) 4 mg IV NOW ONE Stop: 11/13/24 21:56 Last Admin: 11/13/24 22:02 Dose: 4 mg Documented By: VESTA Pramipexole Dihydrochloride (Pramipexole 0.25 Mg Tablet) 0.25 mg PO BEDTIME CAM Vital Signs Vital signs: Vital Signs - 8 hr 11/13/24 16:26 11/13/24 16:30 11/13/24 16:30 Temperature 97.6 F Pulse Rate 79 78 Respiratory Rate 17 22 Blood Pressure 101/57 L 103/63 Pulse Oximetry 93 93 Oxygen Delivery Method Room Air 11/13/24 17:00 11/13/24 17:00 11/13/24 17:30 Temperature Pulse Rate 78 Respiratory Rate 24 Blood Pressure 116/62 117/73 Pulse Oximetry 94 Oxygen Delivery Method 11/13/24 17:30 11/13/24 18:00 11/13/24 18:00 Temperature Pulse Rate 79 86 Respiratory Rate 15 20 Blood Pressure 116/71 Pulse Oximetry 95 Oxygen Delivery Method 11/13/24 18:30 11/13/24 18:30 11/13/24 19:00 Temperature Pulse Rate 89 Respiratory Rate 17 18 Blood Pressure 119/67 116/70 Pulse Oximetry Oxygen Delivery Method 11/13/24 19:30 Temperature Pulse Rate 91 H Respiratory Rate 21 Blood Pressure 118/73 Pulse Oximetry 91 Oxygen Delivery Method MDM - Nausea/Vomiting/Diarrhea <Cody De Leon, - Last Filed: 11/13/24 18:59> Lab Data 11/13/24 16:23 11/13/24 16:23 Labs: Lab Results 11/13/24 11/13/24 Range/Units 16:23 17:57 WBC 9.3 (4.5-11.0) X10^3/uL RBC 3.85 L (4.5-5.9) X10^6/uL Hgb 11.6 L (13.5-17.5) g/dL Hct 36.3 L (41-53) % MCV 94.4 (80-100) fL MCH 30.1 (26-34) PG MCHC 31.9 (30-36) % RDW 19.5 H (11.6-14.8) % Plt Count 313 (150-400) X10^3/uL Neut % (Auto) 63.0 (50-75) % Lymph % (Auto) 27.7 (25-40) % Warren % (Auto) 6.9 (3-14) % Eos % (Auto) 1.3 L (2-4) % Baso % (Auto) 1.1 (0-2) % Neut # (Auto) 5900 (4703-8162) /uL Lymph # (Auto) 2600 (8033-7273) /uL Warren # (Auto) 600 (0-900) /uL Eos # (Auto) 100 (0-450) /uL Baso # (Auto) 100 (0-100) /uL Sodium 138 (137-145) mmol/L Potassium 5.2 H (3.4-5.1) mmol/L Chloride 104 (98-107) mmol/L Carbon Dioxide 25 (22-32) mmol/L BUN 22 H (9-20) mg/dL Creatinine 1.38 H (0.66-1.25) mg/dL Estimated GFR 49 L (>60) mL/min BUN/Creatinine Ratio 15.9 (6-22) Glucose 120 H (80-110) mg/dL Calcium 9.0 (8.4-10.2) mg/dL Total Bilirubin 0.8 (0.2-1.3) mg/dL AST 116 H (17-59) IU/L ALT 79 H (<50) IU/L Alkaline Phosphatase 740 H (38-126) U/L Total Protein 6.7 (6.3-8.2) g/dL Albumin 3.6 (3.5-5.0) g/dL Globulin 3.1 (1.7-4.1) g/dL Albumin/Globulin Ratio 1.2 (1.0-2.8) Urine RBC None seen (0-5/HPF) Urine WBC 0-1/hpf (0-5/HPF) Ur Squamous Epith Cells 0-1 /hpf (0-5/HPF) Ur Renal Epithelial Cell 0-1/hpf (0-1/HPF) Urine Bacteria None seen (None) Ur Culture Indicated? Cult not indicated Vol Urine Centrifuged 10ml (spun) Urine Dip Bedside Urine Glucose Negative Bedside Urine Bilirubin - Negative Bedside Urine Ketone - Negative Urine Specific [place] 1.025 Bedside Urine Occult Blood - Negative Bedside Urine pH 5.5 Bedside Urine Protein +/- 15 Bedside Urine Urobilinogen - Negative Bedside Urine Nitrite - Negative Bedside Urine Leukocytes - Negative Esterase MDM Narrative Medical decision making narrative: Patient signed out to Dr. Patel at shift change pending final disposition <Silvia De La Rosa MD - Last Filed: 11/13/24 23:14> Lab Data Labs: Lab Results 11/13/24 11/13/24 Range/Units 16:23 17:57 WBC 9.3 (4.5-11.0) X10^3/uL RBC 3.85 L (4.5-5.9) X10^6/uL Hgb 11.6 L (13.5-17.5) g/dL Hct 36.3 L (41-53) % MCV 94.4 (80-100) fL MCH 30.1 (26-34) PG MCHC 31.9 (30-36) % RDW 19.5 H (11.6-14.8) % Plt Count 313 (150-400) X10^3/uL Neut % (Auto) 63.0 (50-75) % Lymph % (Auto) 27.7 (25-40) % Warren % (Auto) 6.9 (3-14) % Eos % (Auto) 1.3 L (2-4) % Baso % (Auto) 1.1 (0-2) % Neut # (Auto) 5900 (1496-1456) /uL Lymph # (Auto) 2600 (3414-0797) /uL Warren # (Auto) 600 (0-900) /uL Eos # (Auto) 100 (0-450) /uL Baso # (Auto) 100 (0-100) /uL Sodium 138 (137-145) mmol/L Potassium 5.2 H (3.4-5.1) mmol/L Chloride 104 (98-107) mmol/L Carbon Dioxide 25 (22-32) mmol/L BUN 22 H (9-20) mg/dL Creatinine 1.38 H (0.66-1.25) mg/dL Estimated GFR 49 L (>60) mL/min BUN/Creatinine Ratio 15.9 (6-22) Glucose 120 H (80-110) mg/dL Calcium 9.0 (8.4-10.2) mg/dL Total Bilirubin 0.8 (0.2-1.3) mg/dL AST 116 H (17-59) IU/L ALT 79 H (<50) IU/L Alkaline Phosphatase 740 H (38-126) U/L Total Protein 6.7 (6.3-8.2) g/dL Albumin 3.6 (3.5-5.0) g/dL Globulin 3.1 (1.7-4.1) g/dL Albumin/Globulin Ratio 1.2 (1.0-2.8) Urine RBC None seen (0-5/HPF) Urine WBC 0-1/hpf (0-5/HPF) Ur Squamous Epith Cells 0-1 /hpf (0-5/HPF) Ur Renal Epithelial Cell 0-1/hpf (0-1/HPF) Urine Bacteria None seen (None) Ur Culture Indicated? Cult not indicated Vol Urine Centrifuged 10ml (spun) Urine Dip Bedside Urine Glucose Negative Bedside Urine Bilirubin - Negative Bedside Urine Ketone - Negative Urine Specific [place] 1.025 Bedside Urine Occult Blood - Negative Bedside Urine pH 5.5 Bedside Urine Protein +/- 15 Bedside Urine Urobilinogen - Negative Bedside Urine Nitrite - Negative Bedside Urine Leukocytes - Negative Esterase MDM Narrative Medical decision making narrative: Patient signed out to Dr. Patel at shift change pending final disposition Dr De La Rosa CC: Nausea and vomiting for the past 3 days, intermittent diarrhea for a number of weeks. Complicating co-morbidities: Metastatic prostate cancer diagnosed August of this year with peritoneal carcinomatosis and malignant ascites, orthostatic hypotension, digoxin for atrial fibrillation, scheduled paracentesis Data collected from: patient Medical records reviewed: Multiple recent hospitalizations discharged November 02, discharged October 22, discharge October 0610/31 PCR + C diff, 11/02 - c diff toxin assay Next paracentesis is scheduled for November 15 Differential considered: Electrolyte abnormalities, worsening metastatic carcinoma, significant dehydration, acute renal failure, bacterial peritonitis, recurrent C diff or new colitis Exam documented above, pertinent findings include: Lab Test results independently reviewed as above. Pertinent findings: CBC shows normal white blood cell count, hemoglobin has increased from 9.4-11.6 Chemistries show worsening renal function with creatinine jumping from 0.76- 1.38. Potassium minimally elevated at 5.2. Newly elevated AST, ALT and alk- phos compared to November 02 Urine does not suggest infection Imaging studies independently reviewed: Chest x-ray has chronic changes, small pleural effusion no consolidated findings Treatments: Paracentesis: 5000ml of yellow cloudy fluid removed in the abdomen without any difficulty. He is given 25 mg of IV albumin and a 500 cc fluid saline bolus Re-evaluations: Long discussion with this delightful 88-year-old gentleman. His main complaint is that his ascites is filling up faster that it has been an he is fairly sure that the cancer is growing. When he is asked about his understanding of his disease, sounds like nobody has actually talked to him about hospice or palliative care. He has most of his family in town currently to make sure that ?they say goodbye to dad?. He seems at peace with the idea that he we will be dying sooner rather than later. Main request today was to help with his abdominal pain and get more of the fluid out. Discussion: 88-year-old gentleman with recently diagnosed metastatic pancreatic carcinoma with carcinomatosis, increasing weakness decreased appetite increased abdominal pain and distention comes in requesting help with paracentesis for pain relief. Lab work shows moderate increase in LFTs in 2 weeks with a significant increase in creatinine as well. with shared decision-making we opted to not repeat any imaging studies as it is not going to change current plans or workup. Therapeutic paracentesis was performed with 25 g of albumin as well as 500 cc of fluid. Long discussion with patient his son-in-law and daughter regarding prognosis given the worsening kidney function, increasing liver studies and ascites returning even faster than before. Hospice consult was placed and they will contact the patient 1st thing in the morning. Talked about focusing on making sure that he eats and drinks anything that actually sounds good rather than trying to specifically focus on appropriate amounts of protein/carbohydrates. We talked about reasons for his increased nausea and weight loss including the increased carcinomatosis and back pressure from the ascites foods as well. All questions were answered, patient was appreciative with information shared. We will talk with his other doctors at some point they had discussed putting in a paracentesis strain, given the amount of ascites and discomfort that it is causing having this procedure done sooner rather than later may be helpful overall making the end of his life as comfortable as possible. Patient is safe for discharge home at this time Discharge Plan Departure Patient Disposition: Home Clinical Impression: Malignant ascites, Pancreatic cancer metastasized to liver Activity Restrictions/Additional Instructions: Thank you for coming in today Glad I was able to help a bit by a getting almost 5 L of fluid out of your belly Unfortunately, your liver enzymes are increasing which makes me worried that cancer is spreading faster in your liver Your fluid is accumulating faster which makes me worried that the volume of tumor in your belly is growing The fact that your appetite is down, you are more nauseated and having more difficulty getting out of bed all suggest that the cancer is growing fairly quickly We discussed shifting focus from treatment to making sure that your feeling the best that you can. In terms of eating and drinking, anything that sounds good and can get you to eat or drink anything in any volume is what you need to have. My recommendation is Dad's root beer with Haagen [employer]az ice cream ;) I have initiated hospice referral for you. The hospice team will contact you to answer further questions and see if this is a service that you would like to consider. The goal of hospice is to make sure that the end of your life is lived as fully as possible, as pain-free as possible and at home with the people that you care about. Please do talk to your physicians about scheduling the paracentesis drain sooner rather than later. I think that being able to drain the fluid from your belly will help with your overall comfort and coming to the hospital and emergency department is time consuming and frustrating. If you find that you are getting worse, you have pain that isn't controlled, nausea that can not be controlled, further concerns or new issues please return to the ER Prescriptions: No Action midodrine 5 mg tablet 10 mg PO TID escitalopram oxalate 10 mg tablet 10 mg PO DAILY ciprofloxacin HCl [Cipro] 500 mg tablet 500 mg PO DAILY Qty: 30 3RF digoxin 125 mcg (0.125 mg) tablet 125 mcg PO DAILY Qty: 30 3RF fludrocortisone 0.1 mg tablet 0.1 mg PO DAILY Qty: 30 3RF Eliquis 5 mg tablet 5 mg PO BID ondansetron HCl 8 mg tablet 8 mg PO Q8H PRN (Reason: nausea/vomiting) prednisone 5 mg tablet 7.5 mg PO DAILY Patient Comments: TAKE ONE TABLET (5MG) IN ADDITION TO FOUR 1MG TABLETS FOR A TOTAL OF 9MG DAILY TO START YOU WILL TAPER DOWN BY 1MG PER MONTH lidocaine-prilocaine 2.5-2.5 % cream 1 applic topical SEEINSTR Rx Instructions: Apply large dollop on port site 1 hour before port access and cover with cling wrap. pramipexole 0.25 mg tablet 0.25 mg PO QPM Creon 36,000-114,000- 180,000 unit capsule,delayed release(DR/EC) 2 cap PO TIDWMEAL Patient Comments: [NO ORIGINAL SIG] oxycodone 5 mg tablet 5 mg PO Q6H PRN (Reason: Pain (Scale Score 7-10)) Referrals: Ashleigh Ny DO [Primary Care Provider] - Stand Alone Forms: Patient Portal/API/Survey
[2024-11-13] MEDS: METOCLOPRAMIDE 10 MG/2 ML INJ IV (17:33)
[2024-11-13 18:12] LABS: Bacteria Urine None Seen; RBC Urine None Seen (0-5/HPF); Renal Epithelial Cells Urine 0-1/HPF (0-1/HPF); Squamous Epithelial Cell Urine 0-1 /HPF (0-5/HPF); Urine Volume 10mL (spun); WBC Urine 0-1/HPF (0-5/HPF)
[2024-11-13 18:14] LABS: Culture Indicated Urine Cult Not Indicated
[2024-11-13] MEDS: PRAMIPEXOLE 0.25 MG TABLET PO (19:58)
[2024-11-13 20:28] LABS: Add Manual Diff / Slide Review NO; Basophils Absolute Auto 100 /uL (0-100); Basophils Percent Auto 1.1 % (0-2); Eosinophils Absolute Auto 100 /uL (0-450); Eosinophils Percent Auto 1.3 % (2-4); Hematocrit 36.3 % (41-53); Hemoglobin 11.6 g/dL (13.5-17.5); Lymphocytes Absolute Auto 2600 /uL (1100-4500); Lymphocytes Percent Auto 27.7 % (25-40); Mean Corpuscular HGB Conc 31.9 % (30-36); Mean Corpuscular Hemoglobin 30.1 PG (26-34); Mean Corpuscular Volume 94.4 fL (80-100); Monocytes Absolute Auto 600 /uL (0-900); Monocytes Percent Auto 6.9 % (3-14); Neutrophils Absolute Auto 5900 /uL (1500-7000); Platelet Count 313 X10^3/uL (150-400); Red Blood Cell Count 3.85 X10^6/uL (4.5-5.9); Red Cell Distribution Width 19.5 % (11.6-14.8); White Blood Cell Count 9.3 X10^3/uL (4.5-11.0)
[2024-11-13 20:31] LABS: Alanine Aminotransferase 79 IU/L (<50); Albumin 3.6 g/dL (3.5-5.0); Albumin Globulin Ratio 1.2 (1.0-2.8); Alkaline Phosphatase 740 U/L (38-126); Aspartate Aminotransferase 116 IU/L (17-59); BUN Creatinine Ratio 15.9 (6-22); Bilirubin Total 0.8 mg/dL (0.2-1.3); Blood Urea Nitrogen 22 mg/dL (9-20); Carbon Dioxide 25 mmol/L (22-32); Chloride 104 mmol/L (98-107); Estimated Glomerular Filt Rate 49 mL/min (>60); Globulin 3.1 g/dL (1.7-4.1); Glucose 120 mg/dL (80-110); HEMOLYSIS 18 (0-50); Potassium 5.2 mmol/L (3.4-5.1); Sodium 138 mmol/L (137-145); Total Protein 6.7 g/dL (6.3-8.2)
[2024-11-13] MEDS: SODIUM CHLORIDE 0.9% 500 ML 1000 ML IV (21:29)
[2024-11-13] MEDS: ALBUMIN HUMAN 25 GM/100 ML VIAL IV (21:29)
[2024-11-13] MEDS: ONDANSETRON 4 MG/2 ML INJ IV (22:02)
== END 2024-11-13 23:36 | disposition home or self-care (01) ==
PROVIDERS: Family Medicine; Emergency Provider Emergency Medicine; Family Provider Internal Medicine; PCP Family Medicine
DX: R18.0 Malignant ascites (principal); C25.9 Malignant neoplasm of pancreas, unspecified; C78.7 Secondary malignant neoplasm of liver and intrahepatic bile duct; R19.7 Diarrhea, unspecified; R05.9 Cough, unspecified
CPT/HCPCS: 49083; 71045; 80053; 81003; 81015; 85025; 96365; 96366; 96375; 99284; 99285; J2405; J2765; P9041